=== PATIENT | male | born 1990 | race Caucasian/White ===

== ENCOUNTER 2020-03-14 07:26 | Outpatient (REF) | payer OTHER, SELFPAY ==
[2020-03-14 08:08] LABS: MANUAL DIFF FLAG NO
[2020-03-14 08:15] LABS: Basophils Absolute Auto 0.1 X10*3/uL (0.0-0.2); Basophils Percent Auto 0.7 % (0-2); Eosinophils Absolute Auto 0.1 X10*3/uL (0.0-0.4); Hematocrit 46.2 % (42-52); Hemoglobin 15.2 g/dl (14.0-18.0); Imm Gran Abs Auto 0.01 X10*3/uL (0.00-0.03); Imm Gran Pct Auto 0.1 % (0.0-0.4); Lymphocytes Absolute Auto 2.4 X10*3/uL (1.2-4.9); Lymphocytes Percent Auto 35.5 % (20-40); Mean Corpuscular HGB Conc 32.9 g/dl (31.0-36.0); Mean Corpuscular Hemoglobin 28.5 pg (27.0-33.0); Mean Corpuscular Volume 86.5 fL (80-98); Mean Platelet Volume 9.1 fL (9.4-12.4); Monocytes Absolute Auto 0.4 X10*3/uL (0.1-1.2); Monocytes Percent Auto 5.9 % (2-11); Neutrophils Absolute Auto 3.8 X10*3/uL (2.0-8.3); Neutrophils Percent Auto 56.8 % (45-73); Platelet Count 326 X10*3/uL (160-400); Red Blood Count 5.34 X10*6/uL (4.60-5.80); Red Cell Distribution Width 13.2 % (11.0-16.0); White Blood Count 6.8 X10*3/uL (4.8-10.8)
[2020-03-14 08:37] LABS: Alanine Aminotransferase 32 U/L (0-40); Albumin Level 3.8 g/dL (3.5-5.0); Alkaline Phosphatase 75 U/L (39-117); Anion Gap 10 (12-20); Aspartate Amino Transferase 21 U/L (5-37); Bilirubin Total 0.4 mg/dL (0.0-1.0); Blood Urea Nitrogen 16 mg/dL (9-16); Carbon Dioxide 26 mmol/L (22-29); Chloride 107 mmol/L (96-108); Cholesterol 133 mg/dL; Estimated Glomerular Filt Rate > 60; Glucose Random 105 mg/dL (60-115); HDL Cholesterol 39 mg/dL; LDL Cholesterol Calculated 84 mg/dl; Potassium 4.7 mmol/l (3.3-5.1); Sodium 138 mmol/L (135-145); Total Protein 6.7 g/dL (6.5-8.0); Triglycerides 51 mg/dL
[2020-03-14 08:43] LABS: Creatinine Urine 172.68 mg/dL; Microalbumin Urine < 5.0 mg/L
[2020-03-14 09:00] LABS: Free T4 (Free Thyroxine) 1.01 ng/dL (0.71-1.85)
[2020-03-14 09:57] LABS: Vitamin B12 566 pg/mL (200-900)
[2020-03-16 10:26] LABS: LDL Cholesterol Direct 84 mg/dL (<100)
== END 2020-03-14 07:27 | disposition home or self-care (01) ==
LOC: HO.LAB 07:26
PROVIDERS: PCP Internal Medicine; Visit Provider Internal Medicine Endocrinology, Diabetes & Metabolism
DX: E10.29 Type 1 diabetes mellitus with other diabetic kidney complication (principal)
CPT/HCPCS: 36415; 80053; 80061; 82043; 82607; 83721; 84439; 84443; 85025

== ENCOUNTER → 2020-04-25 13:13 | Outpatient (BNVA) | payer OTHER, SELFPAY | PROVIDERS: PCP Internal Medicine; Referring Provider Internal Medicine; Visit Provider Internal Medicine Endocrinology, Diabetes & Metabolism | DX: E10.649 Type 1 diabetes mellitus with hypoglycemia without coma (principal); Z79.84 Long term (current) use of oral hypoglycemic drugs; Z96.41 Presence of insulin pump (external) (internal); R80.9 Proteinuria, unspecified; K59.00 Constipation, unspecified; E78.5 Hyperlipidemia, unspecified; I10 Essential (primary) hypertension; E66.01 Morbid (severe) obesity due to excess calories; Z68.43 Body mass index [BMI] 50.0-59.9, adult | CPT/HCPCS: 82947; 99212 ==

== ENCOUNTER 2020-05-03 00:02 | Emergency (ER) | payer OTHER, SELFPAY ==
--- NOTE | 2020-05-03 00:19 | XR_ITS ---
EXAMINATION: XR RIBS, RIGHT CLINICAL INFORMATION: Right-sided pain COMPARISON: 08/28/2017 TECHNIQUE: 3 views of the right ribs were obtained. PA view of the chest. FINDINGS: Lungs are clear. No consolidation, pneumothorax, or pleural effusion. The cardiomediastinal silhouette and pulmonary vasculature are normal. Radiopaque device overlies the left lower hemithorax. Osseous structures are unremarkable. Ribs are intact. No fractures are identified. XR/XR ribs RT min 3V w CXR1V IMPRESSION: Clear lungs. No focal rib abnormality identified.
--- NOTE | 2020-05-03 00:20 | ED_ITS ---
HPI - Back Pain/Injury General Stated Complaint: Back pain Time Seen by Provider: 05/03/20 00:19 Source: patient Mode of arrival: ambulatory Limitations: no limitations History of Present Illness MD elicited complaint: back pain Onset (ago): day(s) (3) Timing: constant Severity: moderate Quality: aching Location: thoracic spine Radiation: none Exacerbating factors: movement and walking Relieving factors: none Context: unknown Associated symptoms: denies other symptoms Work related injury: No Related Data Home Medications Medication Instructions Recorded Confirmed blood sugar diagnostic #10 ea 04/25/20 04/25/20 insulin lispro 100 unit/mL 0 - 100 unit SUBCUT DAILY 04/25/20 04/25/20 subcutaneous solution levothyroxine 137 mcg tablet 137 mcg PO QAM 04/25/20 04/25/20 lisinopril 20 mg tablet 20 mg PO DAILY 04/25/20 04/25/20 metoprolol succinate 50 mg 50 mg PO DAILY 04/25/20 04/25/20 tablet,extended release 24 hr phentermine 15 mg capsule 15 mg PO DAILY 04/25/20 04/25/20 rosuvastatin 40 mg tablet 40 mg PO DAILY 04/25/20 04/25/20 semaglutide 1 mg/dose (2 mg/1.5 1 mg SUBCUT QWEEK 04/25/20 04/25/20 mL) subcutaneous pen injector topiramate 25 mg tablet 25 mg PO BID 04/25/20 04/25/20 Previous Rx's Medication Instructions Recorded sennosides 8.6 mg tablet 17.2 mg PO BEDTIME 30 Days #60 tab 05/01/20 diazepam [Valium] 5 mg PO TID PRN #10 tab 05/03/20 ibuprofen 400 mg PO TID PRN #30 tab 05/03/20 lidocaine 1 patch TOPICAL DAILY PRN #10 ea 05/03/20 Allergies Allergy/AdvReac Type Severity Reaction Status Date / Time No Known Allergies Allergy Unverified 02/23/20 17:08 [No Known Allergies*] pt states no food/medication Allergy Unknown Uncoded 01/18/20 00:00 a Review of Systems Review of Systems: Constitutional : No Weight loss, No Fever, No Chills, ENT/Mouth : No Hearing loss, No Ear Pain, No Nasal Congestion, No Sinus Pain, No Hoarseness, No sore throat, No Rhinorrhea, No Swallowing Difficulty Cardiovascular : No Chest Pain, No SOB Respiratory : No Cough, No Dyspnea Gastrointestinal : No Nausea, No Vomiting, No Diarrhea, No abdominal Pain, No Hematochezia, No Melena Genitourinary : No Dysuria, No Urinary Frequency, No Hematuria, No Urinary Incontinence, Musculoskeletal : positive back pain Skin : No Skin Lesions, No rash Neuro : No Weakness, No Numbness, No Paresthesias, no loss of bowel or bladder incontinence, no saddle anesthesia FOR[facility]LY [facility], [facility] Past Medical History Attestation statement: The following information was validated with the patient. Medical History Diabetes type 1, controlled Dyslipidemia Hypertension Microalbuminuria Morbid obesity Surgical History No pertinent past surgical history Family History Family History (Updated 04/25/20 @ 12:09 by MARY Bose) Father No problems noted. Mother Obesity Social History Social History Smoking Status: Never smoker Physical Exam Vital Signs: Appearance: Alert. Oriented X3. No acute distress. Eyes: Pupils equal, round and reactive to light. ENT: Pharynx normal. Neck: Normal inspection. Neck supple. CVS: Normal heart rate and rhythm. Pulses normal. Respiratory: No respiratory distress. Breath sounds normal. Abdomen: Soft and nontender. Back: ttp along R paraspinal muscles in thoracic area Skin: Skin warm and dry. Normal skin color. Normal skin turgor. Extremities: No lower extremity edema. No calf ttp Neuro: Oriented X 3. No motor deficit. No sensory deficit. SILT inner thigh MDM - Back Pain/Injury MDM Narrative Medical decision making narrative: 29 yo male with DM no AC therapy here with R sided paraspinal back pain no known trauma at this time will need xrays, MRs and pain control, patient has no cp/sob, no b/b incontinence, no saddle anesthesia no URI symptoms. Discharge Plan Discharge Clinical Impression: Back pain, thoracic Qualifiers: Chronicity: acute Back pain laterality: right Qualified Code(s): M54.6 - Pain in thoracic spine Patient Disposition: Home, Self-Care Instructions: Back Pain (ED) Additional Instructions: return to ED for any worsening symptoms or concerns Prescriptions: New lidocaine 4 % adhesive patch,medicated 1 patch topical DAILY PRN (Reason: pain) Qty: 10 RF: 0 diazepam [Valium] 5 mg tablet 5 mg PO TID PRN (Reason: muscle spasm) Qty: 10 RF: 0 ibuprofen 400 mg tablet 400 mg PO TID PRN (Reason: pain) Qty: 30 RF: 0 No Action sennosides [senna] 8.6 mg tablet 17.2 mg PO BEDTIME 30 Days Qty: 60 RF: 5 levothyroxine 137 mcg tablet 137 mcg PO QAM RF: 0 phentermine 15 mg capsule 15 mg PO DAILY RF: 0 topiramate 25 mg tablet 25 mg PO BID RF: 0 lisinopril 20 mg tablet 20 mg PO DAILY RF: 0 rosuvastatin 40 mg tablet 40 mg PO DAILY RF: 0 Ozempic 1 mg/dose (2 mg/1.5 mL) pen injector 1 mg subcut QWEEK RF: 0 insulin lispro 100 unit/mL solution 0 - 100 unit subcut DAILY RF: 0 (DME) FreeStyle Lite Strips Strip See Rx Instructions strip Not Applicable .MEDSUPPLY Qty: 10 RF: 0 metoprolol succinate 50 mg tablet extended release 24 hr 50 mg PO DAILY RF: 0 Referrals: Terra Sorenson MD [Primary Care Provider] - 5 days (if not better) Stand Alone Forms: Work/School Release
[2020-05-03 00:51] VITALS: BP 105/80; PULSE 103; RESP 16; TEMP 36.6; O2SAT 99; BMI 50.1
[2020-05-03] MEDS: Lidocaine 4 % Patch ADH..PATCH 1 PATCH TRANSDERMA (01:05)
[2020-05-03] MEDS: diazePAM 5 MG TABLET PO (01:07)
== END 2020-05-03 01:13 | disposition home or self-care (01) ==
LOC: HO.ED 00:45
PROVIDERS: Emergency Provider Emergency Medicine; PCP Internal Medicine
DX: M54.5 Low back pain (principal); M54.6 Pain in thoracic spine; I10 Essential (primary) hypertension; Z79.899 Other long term (current) drug therapy
CPT/HCPCS: 71101; 99283

== ENCOUNTER → 2020-08-02 14:23 | Outpatient (BNVA) | payer OTHER, SELFPAY | PROVIDERS: PCP Internal Medicine; Visit Provider Internal Medicine Endocrinology, Diabetes & Metabolism | DX: E10.649 Type 1 diabetes mellitus with hypoglycemia without coma (principal); R80.9 Proteinuria, unspecified; E78.5 Hyperlipidemia, unspecified; E66.01 Morbid (severe) obesity due to excess calories; I10 Essential (primary) hypertension | CPT/HCPCS: 82947; 99212 ==

== ENCOUNTER → 2020-11-08 13:45 | Outpatient (BNVA) | payer OTHER, SELFPAY | PROVIDERS: PCP Internal Medicine; Visit Provider Internal Medicine Endocrinology, Diabetes & Metabolism | DX: E10.649 Type 1 diabetes mellitus with hypoglycemia without coma (principal); E78.5 Hyperlipidemia, unspecified; E66.01 Morbid (severe) obesity due to excess calories; R80.9 Proteinuria, unspecified; I10 Essential (primary) hypertension | CPT/HCPCS: 82947; 99212 ==

== ENCOUNTER 2021-02-04 16:39 | Emergency (ER) | payer OTHER, SELFPAY ==
[2021-02-04 16:43] VITALS: BP 130/67; PULSE 98; RESP 18; TEMP 36.6; O2SAT 99; BMI 50.8
--- NOTE | 2021-02-04 18:21 | ED.BACK ---
HPI - Back Pain/Injury General Chief Complaint: Abdominal Pain Stated Complaint: Flank pain Time Seen by Provider: 02/04/21 18:17 Source: patient Mode of arrival: ambulatory Limitations: no limitations History of Present Illness HPI Narrative: 30-year-old male presents emergency room complaining of left upper back pain. Patient had been here previously for the same thing. Patient was concerned that his kidney stones he has no urinary symptoms urinary frequency or history of kidney stones. Patient states that got worse when he is lifting something. Patient is morbidly obese patient denies fevers denies cough denies nausea vomiting or diarrhea. Patient has not taken anything for the pain. He denies any allergies to medications. Related Data Home Medications Medication Instructions Recorded Confirmed blood sugar diagnostic #10 ea 04/25/20 01/22/21 Previous Rx's Medication Instructions Recorded sennosides 8.6 mg tablet (senna) 17.2 mg PO BEDTIME 30 Days #60 tab 05/01/20 ibuprofen 400 mg tablet 400 mg PO TID PRN #30 tab 05/03/20 docusate sodium 100 mg capsule 100 mg PO TID 90 Days #270 cap 05/28/20 (Colace) levothyroxine 137 mcg tablet 137 mcg PO QAM #90 tab 06/25/20 lisinopril 20 mg tablet 20 mg PO DAILY #90 tab 06/25/20 Humalog U-100 Insulin 100 unit/mL See Rx Instructions SUBCUT DAILY 11/08/20 subcutaneous solution (insulin 30 Days #40 ml NS lispro) rosuvastatin 40 mg tablet 40 mg PO DAILY #90 tab 11/08/20 topiramate 25 mg tablet 25 mg PO BID #180 tab 11/08/20 phentermine 30 mg capsule 30 mg PO DAILY 30 Days #30 cap 11/12/20 metoprolol succinate 50 mg 50 mg PO DAILY #90 tab 11/21/20 tablet,extended release 24 hr acetaminophen 650 mg 650 mg PO Q8H PRN 7 Days #21 tab 01/22/21 tablet,extended release cyclobenzaprine 5 mg tablet 5 mg PO TID PRN #30 tab 02/04/21 Allergies Allergy/AdvReac Type Severity Reaction Status Date / Time No Known Allergies Allergy Verified 01/22/21 08:09 [No Known Allergies*] Review of Systems Review of Systems: Review of systems: General: Patient denies any fever chills recent illness or falls Musculoskeletal: back pain he denies body aches or other injuries HEENT: denies headache, runny nose, ear pain Respiratory: denies shortness of breath, cough Cardiovascular: no chest pain or palpitations : denies dysuria, frequency Abdomen: no nausea vomiting denies abdominal pain Extremities: no swelling, no pain Skin: no diaphoresis Yes all other systems are reviewed and are negative PMFSH Past Medical History Medical History (Updated 02/04/21 @ 20:44 by Samuel Dash DO) Constipation by delayed colonic transit Diabetes type 1, controlled Dyslipidemia Hypertension Hypothyroidism Microalbuminuria Morbid obesity Surgical History No pertinent past surgical history Family History Family History Father No problems noted. Mother Obesity Social History Social History Housing: Apartment Alcohol intake: never Patient Tobacco Use Status: Never used Tobacco e-Cigarette/Vaping Use: Never Used Second Hand Smoke Exposure: No Advance Directives: No Advance Directives Information Provided: No service: No Current occupational status: unemployed Physical Exam Vital Signs: Vital Signs: Last Vital Signs Temp 98.2 F 02/04/21 19:06 Pulse 94 02/04/21 19:06 Resp 18 02/04/21 19:06 BP 134/69 02/04/21 19:06 Pulse Ox 99 02/04/21 19:06 Body Mass Index 50.8 General: Well-appearing well-nourished in no signs of distress HEENT: Normocephalic atraumatic Neck: No signs of JVD, no masses no tenderness or lymphadenopathy Cardiovascular: Regular rate and rhythm Respiratory: Clear to auscultation bilaterally Abdomen: Soft nontender no masses Extremities: Normal pedal pulses no signs of edema Skin: Dry warm no rashes Back: No tenderness full ROM negative straight leg test no rashes to explain his pain is 4 and motion normal strength his lower extremities upper extremities MDM - Back Pain/Injury MDM Narrative Medical decision making narrative: Patient presents with back strain worse after he lifted something I will give patient Toradol prednisone and Flexeril I will check labs including CBC BMP and urine. Labs other than urine were all normal. Patient looks well. Feeling better. UA sent and was negative for RBC's I will send home Lab Data Result diagrams: 02/04/21 19:11 02/04/21 19:11 Labs: Lab Results 02/04/21 02/04/21 02/04/21 Range/Units 19:11 19:11 20:26 WBC 7.7 (4.8-10.8) X10*3/uL RBC 4.71 (4.60-5.80) X10*6/uL Hgb 13.9 L (14.0-18.0) g/dl Hct 40.9 L (42-52) % MCV 86.8 (80-98) fL MCH 29.5 (27.0-33.0) pg MCHC 34.0 (31.0-36.0) g/dl RDW 12.7 (11.0-16.0) % Plt Count 267 (160-400) X10*3/uL MPV 8.9 L (9.4-12.4) fL Immature Gran % (Auto) 0.3 (0.0-0.4) % Neut % (Auto) 66.8 (45-73) % Lymph % (Auto) 24.3 (20-40) % [place] % (Auto) 6.6 (2-11) % Eos % (Auto) 1.4 (0-4) % Baso % (Auto) 0.6 (0-2) % Lymph # (Auto) 1.9 (1.2-4.9) X10*3/uL [place] # (Auto) 0.5 (0.1-1.2) X10*3/uL Eos # (Auto) 0.1 (0.0-0.4) X10*3/uL Baso # (Auto) 0.1 (0.0-0.2) X10*3/uL Abs Immat Gran (auto) 0.02 (0.00-0.03) X10*3/uL Absolute Neuts (auto) 5.2 (2.0-8.3) X10*3/uL Absolute Nucleated RBC 0.000 (0.0-0.012) X10*3/uL Nucleated RBC % (auto) 0.0 (0.0-0.2) /100WBC Sodium 141 (135-145) mmol/L Potassium 4.2 (3.3-5.1) mmol/L Chloride 110 H (96-108) mmol/L Carbon Dioxide 26 (22-29) mmol/L Anion Gap 9 L (12-20) BUN 17 H (9-16) mg/dL Creatinine 0.97 (0.5-1.4) mg/dL Estim Creat Clear Calc 170.1 Estimated GFR > 60 Random Glucose 106 (60-115) mg/dL Calcium 9.0 (8.4-10.2) mg/dL Urine Color YELLOW Urine Appearance CLEAR Urine pH 6.0 (5.0-8.0) Ur Specific [place] >= 1.030 H (1.005-1.025) Urine Protein NEG (NEG-TRACE) MG/DL Urine Glucose (UA) NEG (NEG) MG/DL Urine Ketones 5 (NEG) MG/DL Urine Blood NEG (NEG) Urine Nitrite NEG (NEG) Ur Leukocyte Esterase NEG (NEG) Discharge Plan Discharge Clinical Impression: Strain of thoracic back region Patient Disposition: Home, Self-Care Instructions: Muscle Strain (ED), Thoracic Back Strain (ED), Core Strengthening Exercises (ED) Additional Instructions: Your labs are all normal. Please take tylenol ibuprofen as needed for pain. You can also take flexeril at night. Please do not mix with alcohol or drive on flexril Prescriptions: New cyclobenzaprine 5 mg tablet 5 mg PO TID PRN (Reason: back pain) Qty: 30 RF: 0 No Action sennosides [senna] 8.6 mg tablet 17.2 mg PO BEDTIME 30 Days Qty: 60 RF: 5 docusate sodium [Colace] 100 mg capsule 100 mg PO TID 90 Days Qty: 270 RF: 0 levothyroxine 137 mcg tablet 137 mcg PO QAM Qty: 90 RF: 2 lisinopril 20 mg tablet 20 mg PO DAILY Qty: 90 RF: 2 phentermine 30 mg capsule 30 mg PO DAILY 30 Days Qty: 30 RF: 3 metoprolol succinate 50 mg tablet extended release 24 hr 50 mg PO DAILY Qty: 90 RF: 0 ibuprofen 400 mg tablet 400 mg PO TID PRN (Reason: pain) Qty: 30 RF: 0 acetaminophen 650 mg tablet extended release 650 mg PO Q8H PRN (Reason: pain) 7 Days Qty: 21 RF: 0 (DME) FreeStyle Lite Strips Strip See Rx Instructions strip Not Applicable .MEDSUPPLY Qty: 10 RF: 0 insulin lispro [Humalog U-100 Insulin] 100 unit/mL solution See Rx Instructions subcut DAILY 30 Days Qty: 40 RF: 6 rosuvastatin 40 mg tablet 40 mg PO DAILY Qty: 90 RF: 2 topiramate 25 mg tablet 25 mg PO BID Qty: 180 RF: 1
[2021-02-04 19:06] VITALS: BP 134/69; PULSE 94; RESP 18; TEMP 36.8; O2SAT 99
[2021-02-04] MEDS: Cyclobenzaprine HCl 10 MG TABLET PO (19:12)
[2021-02-04] MEDS: predniSONE 20 MG TABLET 60 MG PO (19:13)
[2021-02-04] MEDS: Ketorolac Tromethamine 15 MG/ML VIAL IM (19:13)
[2021-02-04 19:21] LABS: MANUAL DIFF FLAG NO
[2021-02-04 19:25] LABS: Basophils Absolute Auto 0.1 X10*3/uL (0.0-0.2); Basophils Percent Auto 0.6 % (0-2); Eosinophils Absolute Auto 0.1 X10*3/uL (0.0-0.4); Eosinophils Percent Auto 1.4 % (0-4); Hematocrit 40.9 % (42-52); Hemoglobin 13.9 g/dl (14.0-18.0); Imm Gran Abs Auto 0.02 X10*3/uL (0.00-0.03); Imm Gran Pct Auto 0.3 % (0.0-0.4); Lymphocytes Absolute Auto 1.9 X10*3/uL (1.2-4.9); Lymphocytes Percent Auto 24.3 % (20-40); Mean Corpuscular Hemoglobin 29.5 pg (27.0-33.0); Mean Corpuscular Volume 86.8 fL (80-98); Mean Platelet Volume 8.9 fL (9.4-12.4); Monocytes Absolute Auto 0.5 X10*3/uL (0.1-1.2); Monocytes Percent Auto 6.6 % (2-11); Neutrophils Absolute Auto 5.2 X10*3/uL (2.0-8.3); Neutrophils Percent Auto 66.8 % (45-73); Platelet Count 267 X10*3/uL (160-400); Red Blood Count 4.71 X10*6/uL (4.60-5.80); Red Cell Distribution Width 12.7 % (11.0-16.0); White Blood Count 7.7 X10*3/uL (4.8-10.8)
[2021-02-04 19:41] LABS: Anion Gap 9 (12-20); Blood Urea Nitrogen 17 mg/dL (9-16); Carbon Dioxide 26 mmol/L (22-29); Chloride 110 mmol/L (96-108); Creatinine Clr Calc Pharmacy 170.1; Estimated Glomerular Filt Rate > 60; Glucose Random 106 mg/dL (60-115); Potassium 4.2 mmol/L (3.3-5.1); Sodium 141 mmol/L (135-145)
[2021-02-04 20:37] LABS: Appearance Urine CLEAR; Color Urine YELLOW; Glucose Urine UA NEG (NEG); Leukocyte Esterase Urine NEG (NEG); Nitrite Urine NEG (NEG); Specific Gravity - Urine >= 1.030 (1.005-1.025); Urine Blood NEG (NEG); Urine Ketones 5 MG/DL (NEG); Urine Protein NEG (NEG-TRACE)
== END 2021-02-04 20:52 | disposition home or self-care (01) ==
PROVIDERS: Emergency Provider Student in an Organized Health Care Education/Training Program; PCP Internal Medicine
DX: S29.012A Strain of muscle and tendon of back wall of thorax, initial encounter (principal); M54.6 Pain in thoracic spine; X58.XXXA Exposure to other specified factors, initial encounter; Y93.9 Activity, unspecified; Y92.9 Unspecified place or not applicable; Y99.9 Unspecified external cause status; Z79.899 Other long term (current) drug therapy
CPT/HCPCS: 36415; 80048; 81003; 85025; 96372; 99284; J1885

== ENCOUNTER → 2021-02-13 10:13 | Outpatient (BNVA) | payer OTHER, SELFPAY | PROVIDERS: PCP Internal Medicine; Visit Provider Internal Medicine | DX: E10.649 Type 1 diabetes mellitus with hypoglycemia without coma (principal); E78.5 Hyperlipidemia, unspecified; I10 Essential (primary) hypertension; E03.9 Hypothyroidism, unspecified; E04.9 Nontoxic goiter, unspecified; E66.01 Morbid (severe) obesity due to excess calories | CPT/HCPCS: 82947; 83036; 99212 ==

== ENCOUNTER 2021-02-15 09:26 | Outpatient (REF) | payer OTHER, SELFPAY ==
[2021-02-15 10:55] LABS: Estimated Average Glucose 148 mg/dL; Hemoglobin A1c % 6.8 %
[2021-02-15 10:59] LABS: Creatinine Urine 206.91 mg/dL; Microalbum/Creatinine Ratio Ur 2.8 ug/mg cr
[2021-02-15 10:59] LABS: Alanine Aminotransferase 33 U/L (0-40); Albumin Level 3.8 g/dL (3.5-5.0); Alkaline Phosphatase 82 U/L (39-117); Anion Gap 11 (12-20); Aspartate Amino Transferase 22 U/L (5-37); Bilirubin Total 0.8 mg/dL (0.0-1.0); Blood Urea Nitrogen 16 mg/dL (9-16); Calcium 9.2 mg/dL (8.4-10.2); Carbon Dioxide 24 mmol/L (22-29); Chloride 108 mmol/L (96-108); Cholesterol 137 mg/dL; Estimated Glomerular Filt Rate > 60; Glucose Fasting 68 mg/dL (60-99); HDL Cholesterol 40 mg/dL; LDL Cholesterol Calculated 86 mg/dl; Sodium 139 mmol/L (135-145); Total Protein 6.8 g/dL (6.5-8.0); Triglycerides 59 mg/dL
[2021-02-19 04:37] LABS: LDL Cholesterol Direct 92 mg/dL (<100)
[2021-02-20 14:46] LABS: Vitamin D 25-OH, D2 <4 ng/mL; Vitamin D 25-OH, D3 14 ng/mL; Vitamin D 25-OH, Total 14 ng/mL (30-100)
[2021-02-21 21:31] LABS: Glutamic acid decarboxylase Ab <5 IU/mL (<5)
[2021-02-22 18:47] LABS: Insulinoma associated 2 aatb 97.5 U/mL (<5.4)
[2021-02-24 23:27] LABS: Islet Cell Antibody Screen NEGATIVE (NEGATIVE)
== END 2021-02-15 09:27 | disposition home or self-care (01) ==
LOC: HO.10HDL 09:26
PROVIDERS: Absent Provider Internal Medicine; Visit Provider Internal Medicine
DX: E78.5 Hyperlipidemia, unspecified (principal); E10.649 Type 1 diabetes mellitus with hypoglycemia without coma; E55.9 Vitamin D deficiency, unspecified; E04.9 Nontoxic goiter, unspecified; E03.9 Hypothyroidism, unspecified
CPT/HCPCS: 36415; 80053; 80061; 82043; 82306; 83036; 83525; 83721; 84443; 84681; 86255; 86341

== ENCOUNTER 2021-03-28 09:47 | Outpatient (REF) | payer OTHER, SELFPAY ==
--- NOTE | ~2021-03-28 | US_ITS ---
EXAMINATION: US THYROID CLINICAL INFORMATION: Nontoxic goiter COMPARISON: None TECHNIQUE: Linear transducer guillaume-scale and color Doppler examination with attention to the region of the thyroid. FINDINGS: SIZE: Measurements of the thyroid lobes and nodules are given in sagittal, anteroposterior and transverse dimensions respectively. Right Thyroid Lobe: 4.5 x 1.8 x 1.5 cm, volume 6.4 mL. Parenchyma: The gland echotexture is homogeneous. Thyroid vascularity is normal. Left Thyroid Lobe: 4.0 x 1.2 x 1.1 cm, volume 2.7 mL. Parenchyma: The gland echotexture is homogeneous. Thyroid vascularity is normal. Isthmus: 0.2 cm in maximum AP dimension. Estimated total number of nodules greater than or equal to 1 cm: 0. [employer] nodules are described as follows: 1. Location: Left mid lower. Size: 0.3 x 0.3 x 0.3 cm, volume 0.02 mL. Nodule characteristics: Composition: Solid (2). Echogenicity: Hypoechoic (2). Shape: Not taller than wide (0). Margins: Smooth (0). Echogenic Foci: None (0). ACR TI-RADS total points: 4 ACR TI-RADS category: 4 NODES: No lymphadenopathy is seen in the tissue surrounding the thyroid gland. US/US thyroid IMPRESSION: Solitary small left nodule. ACR TI-RADS RECOMMENDATION REFERENCE: Ultrasound-guided fine-needle aspiration, followup ultrasound, no further follow up. * TR1 (0 point) and TR 2 (2 points): No FNA or follow up * TR3 (3 points): FNA if more than or equal to 2.5 cm in maximum dimension, followup ultrasound in 1, 3 and 5 years if 1.5 to 2.4 cm in maximum dimension. * TR4 (4-6 points): FNA if more than or equal to 1.5 cm in maximum dimension, followup ultrasound in 1, 2, 3 and 5 years if 1 to 1.4 cm in maximum dimension. * TR5 (more than or equal to 7 points): FNA if more than or equal to 1 cm in maximum dimension, followup ultrasound every year for 5 years if 0.5 to 0.9 cm in maximum dimension. * TR3, TR4 or TR5 nodules that are below the size threshold for follow up receive no follow up.
== END 2021-03-28 09:48 | disposition home or self-care (01) ==
LOC: HO.US 09:47
PROVIDERS: Visit Provider Internal Medicine
DX: E04.9 Nontoxic goiter, unspecified (principal)
CPT/HCPCS: 76536

== ENCOUNTER → 2021-04-12 13:51 | Outpatient (BNVA) | payer OTHER, SELFPAY | PROVIDERS: PCP Internal Medicine; Visit Provider Registered Nurse Diabetes Educator | DX: E10.649 Type 1 diabetes mellitus with hypoglycemia without coma (principal) | CPT/HCPCS: 99211 ==

== ENCOUNTER → 2021-04-24 12:21 | Outpatient (BNVA) | payer OTHER, SELFPAY | PROVIDERS: PCP Internal Medicine; Visit Provider Dietitian, Registered | DX: E10.649 Type 1 diabetes mellitus with hypoglycemia without coma (principal) | CPT/HCPCS: 97802 ==

== ENCOUNTER → 2021-05-14 12:18 | Outpatient (BNVA) | payer OTHER, SELFPAY | PROVIDERS: PCP Internal Medicine; Visit Provider Registered Nurse Diabetes Educator | DX: E10.649 Type 1 diabetes mellitus with hypoglycemia without coma (principal); Z79.4 Long term (current) use of insulin | CPT/HCPCS: 99211 ==

== ENCOUNTER → 2021-06-21 10:33 | Outpatient (BNVA) | payer OTHER, SELFPAY | PROVIDERS: PCP Internal Medicine; Visit Provider Nurse Practitioner Gerontology | DX: E10.649 Type 1 diabetes mellitus with hypoglycemia without coma (principal); E78.5 Hyperlipidemia, unspecified; E03.9 Hypothyroidism, unspecified; E04.9 Nontoxic goiter, unspecified; E66.01 Morbid (severe) obesity due to excess calories; I10 Essential (primary) hypertension; Z68.43 Body mass index [BMI] 50.0-59.9, adult; Z79.4 Long term (current) use of insulin | CPT/HCPCS: 82947; 99212 ==

== ENCOUNTER → 2021-07-23 10:54 | Outpatient (BNVA) | payer OTHER, SELFPAY | PROVIDERS: PCP Internal Medicine; Visit Provider Dietitian, Registered | DX: E10.649 Type 1 diabetes mellitus with hypoglycemia without coma (principal) | CPT/HCPCS: 97803 ==

== ENCOUNTER 2021-08-06 09:19 | Outpatient (REF) | payer OTHER, SELFPAY ==
[2021-08-06 10:46] LABS: Alanine Aminotransferase 22 U/L (0-40); Albumin Level 3.4 g/dL (3.5-5.0); Alkaline Phosphatase 71 U/L (39-117); Anion Gap 9 (12-20); Aspartate Amino Transferase 17 U/L (5-37); Bilirubin Total 0.3 mg/dL (0.0-1.0); Blood Urea Nitrogen 16 mg/dL (9-16); Calcium 8.7 mg/dL (8.4-10.2); Carbon Dioxide 27 mmol/L (22-29); Chloride 106 mmol/L (96-108); Cholesterol 139 mg/dL; Estimated Glomerular Filt Rate > 60; Glucose Random 132 mg/dL (60-115); HDL Cholesterol 41 mg/dL; LDL Cholesterol Calculated 88 mg/dl; Potassium 3.9 mmol/L (3.3-5.1); Sodium 138 mmol/L (135-145); Total Protein 6.1 g/dL (6.5-8.0); Triglycerides 52 mg/dL
[2021-08-06 11:03] LABS: Free T4 (Free Thyroxine) 0.83 ng/dL (0.71-1.85)
== END 2021-08-06 09:20 | disposition home or self-care (01) ==
LOC: HO.10HDL 09:19
PROVIDERS: Absent Provider Internal Medicine; Visit Provider Internal Medicine
DX: E10.649 Type 1 diabetes mellitus with hypoglycemia without coma (principal); E03.9 Hypothyroidism, unspecified
CPT/HCPCS: 36415; 80053; 80061; 84439; 84443

== ENCOUNTER → 2021-09-19 10:22 | Outpatient (BNVA) | payer OTHER, SELFPAY | PROVIDERS: PCP Internal Medicine; Visit Provider Nurse Practitioner Gerontology | DX: E10.649 Type 1 diabetes mellitus with hypoglycemia without coma (principal); E78.5 Hyperlipidemia, unspecified; E03.9 Hypothyroidism, unspecified; E66.01 Morbid (severe) obesity due to excess calories; I10 Essential (primary) hypertension; E04.9 Nontoxic goiter, unspecified; Z68.43 Body mass index [BMI] 50.0-59.9, adult; Z96.41 Presence of insulin pump (external) (internal); Z79.4 Long term (current) use of insulin | CPT/HCPCS: 82947; 83036; 99212 ==

== ENCOUNTER 2021-11-15 12:16 | Emergency (ER) | payer OTHER, SELFPAY ==
--- NOTE | 2021-11-15 | ECG_ITS ---
Test Reason : cp Blood Pressure : / mmHG Vent. Rate : 086 BPM Atrial Rate : 086 BPM P-R Int : 144 ms QRS Dur : 076 ms QT Int : 334 ms P-R-T Axes : 045 072 036 degrees QTc Int : 399 ms Normal sinus rhythm Normal ECG When compared with ECG of 09-DEC-2018 20:53, Nonspecific T wave abnormality no longer evident in Lateral leads Referred By: Generic ED Physician Electronically Signed By:MYRON CHAND
--- NOTE | ~2021-11-15 | XR_ITS ---
EXAMINATION: XR CHEST CLINICAL INFORMATION: Chest pain COMPARISON: #2019 TECHNIQUE: AP portable view of the chest was obtained. FINDINGS: There are small lung volumes bilaterally. There is no evidence of acute parenchymal disease, pneumothorax, or pleural effusion. Heart normal size. No evidence of pulmonary edema. XR/XR chest 1V IMPRESSION: No acute disease.
[2021-11-15 12:21] VITALS: BP 123/66; PULSE 95; RESP 18; TEMP 36.8; O2SAT 95; BMI 55.6
--- NOTE | 2021-11-15 16:58 | ED_ITS ---
HPI - Chest Pain General Chief Complaint: Chest Pain Stated Complaint: chest pain Time Seen by Provider: 11/15/21 16:43 Source: patient and family (Mother) Mode of arrival: ambulatory Limitations: no limitations History of Present Illness HPI narrative: 31-year-old male came in for evaluation of chest pain. Mid chest pain started since yesterday, described as intermittent mid chest pain, dull aching, intermittent, moderate in severity 12/15, increased with movement or touching the mid of the chest, decreased sits still, not affected by exertion. No recent trauma to the chest, no recent travel, no recent prolonged immobilization, no shortness of breath, no fever, no chills, no coughing, no lower extremity swelling or tenderness. Related Data Home Medications Medication Instructions Recorded Confirmed blood sugar diagnostic #10 ea 04/25/20 11/08/21 insulin pump cart,cont inf,BT #5 ea 09/19/21 11/08/21 (Omnipod Dash Pods (Gen 4)) Previous Rx's Medication Instructions Recorded rosuvastatin 40 mg tablet 40 mg PO DAILY #90 tabs 11/08/20 acetaminophen 650 mg 650 mg PO Q8H PRN pain 7 days #21 03/11/21 tablet,extended release tabs cholecalciferol (vitamin D3) 50 50 mcg PO DAILY #30 caps 06/21/21 mcg (2,000 unit) capsule lisinopril 20 mg tablet 20 mg PO DAILY #90 tabs 09/09/21 levothyroxine 137 mcg tablet 137 mcg PO QAM #90 tabs 09/10/21 insulin lispro 100 unit/mL 100 unit subcut DAILY 30 days #40 09/17/21 subcutaneous solution mL insulin syringe-needle U-100 1/2 #100 ea 09/17/21 mL 31 gauge x 15/64 (BD Veo Insulin Syringe Ultra-Fine) pen needle, diabetic 32 gauge x #100 ea 09/19/21/32 (BD Ultra-Fine Citlaly Pen Needle) pramlintide 1,500 mcg/1.5 mL 30 mcg (0.03 mL) subcut BID #3 mL 09/20/21 subcutaneous pen injector (SymlinPen 60) melatonin 10 mg tablet 10 mg PO BEDTIME PRN sleep 30 days 10/04/21 #30 tabs metoprolol succinate 50 mg 50 mg PO DAILY #90 tabs 11/12/21 tablet,extended release 24 hr Allergies Allergy/AdvReac Type Severity Reaction Status Date / Time No Known Allergies Allergy Verified 11/15/21 12:21 [No Known Allergies*] Review of Systems Review of Systems: All other systems are reviewed and are negative Constitutional: Reports as per HPI and Reports no additional constitutional com plaints Eyes: Reports as per HPI and Reports no additional eye complaints Reports system reviewed and no additional complaints, except as documented Cardiovascular: Reports as per HPI and Reports no additional cardiovascular complaints Respiratory: Reports as per HPI and Reports no additional respiratory complaints Gastrointestinal: Reports as per HPI and Reports no additional gastrointestinal complaints Genitourinary: Reports no additional female genitourinary complaints Musculoskeletal: Reports no additional musculoskeletal complaints Skin/Breast: Reports system reviewed and no additional complaints, except as docu Psychiatric: Reports no additional psychiatric complaints Endocrine: Reports no additional endocrine complaints Hematologic/Lymphatic: Reports no additional hematologic/lymphatic complaints Allergic/Immunologic: Reports no additional allergic/immunologic complaints Reports system reviewed and no additional complaints, except as documented and Reports Abnormal speech present [facility] Past Medical History Medical History Constipation by delayed colonic transit Diabetes type 1, controlled Dyslipidemia NATALIO (generalized anxiety disorder) Goiter HLD (hyperlipidemia) Hypertension Hypothyroidism Microalbuminuria Morbid obesity Obesity due to excess calories Surgical History No pertinent past surgical history Family History Family History Father No problems noted. Mother Obesity Social History Social History Housing: Apartment Alcohol intake: never Patient Tobacco Use Status: Never used Tobacco e-Cigarette/Vaping Use: Never Used Second Hand Smoke Exposure: No Advance Directives: No Advance Directives Information Provided: No service: No Current occupational status: unemployed Cognitive needs: No Hearing needs: No Vision needs: No Physical Exam Vital Signs: Vital Signs: Last Vital Signs Temp 98.3 F 11/15/21 12:21 Pulse 95 11/15/21 12:21 Resp 18 11/15/21 12:21 BP 123/66 11/15/21 12:21 Pulse Ox 95 11/15/21 12:21 O2 Del Method 11/15/21 12:21 BMI result Body Mass Index 55.6 Vital signs have been reviewed as appeared to be correct. Blood pressure normal. Heart rate normal. Respiration rate normal. Temperature normal. Oxygen saturation normal. Appearance: Alert. Oriented X3. No acute distress. Head: Normal external exam. Normocephalic. Atraumatic. No Valera signs noted. No raccoon eyes noted Eyes: PERRLA. EOMI. Conjunctiva and sclera normal. Eyelids normal. ENT: TM's Normal. Pharynx normal. Uvula midline. Moist mucous membranes. No trismus noted. No drooling noted. No muffled voice noted. Neck: Normal inspection. Neck supple. FROM. No adenopathy. Thyroid Normal. No meningeal signs. No neck mass noted. CVS: Normal heart rate and rhythm. Heart sound normal. No murmurs noted. Pulses normal throughout. Respiratory: No respiratory distress. Painless inspiration. Breath sounds normal. No wheezes/rales/rhonchi noted. Reproducible tenderness over lower 3rd of sternum, no redness, no hotness, no step-off, deformity.. No accessory muscle usage noted or decreased air movement noted. Abdomen: Soft and nontender. Bowel sounds normal in all 4 quadrants. No distention noted. No organomegaly noted. No visible injury noted. Back: No CVA tenderness. Full range of motion noted. Skin: Skin warm and dry. Normal skin color. Normal skin turgor. No rashes/lesions/lacerations noted. Extremities: No lower extremity edema. Extremities exhibit normal range of motion. Extremities nontender. Neuro: Oriented X 3. Cranial nerve exam: II-XII are grossly intact No motor deficit. No sensory deficit. Reflexes normal. Course Course Course Narrative: Assessment and plan. 31-year-old male came in with mid chest pain with no radiation since yesterday greater than 24 hours ago, on the physical exam pain is reproducible over the lower sternum, patient with HEART score of 2, low risk for PE with negative D- dimer. Will reassure the patient and mother use NSAIDs p.r.n. pain. MDM - Chest Pain Lab Data Attestation: I reviewed the patient's lab results. Result diagrams: 11/15/21 17:08 11/15/21 17:08 Labs: Lab Results 11/15/21 11/15/21 11/15/21 Range/Units 17:08 17:08 17:08 WBC 5.8 (4.8-10.8) X10*3/uL RBC 5.20 (4.60-5.80) X10*6/uL Hgb 15.2 (14.0-18.0) g/dl Hct 45.7 (42.0-52.0) % MCV 87.9 (80.0-98.0) fL MCH 29.2 (27.0-33.0) pg MCHC 33.3 (31.0-36.0) g/dl RDW 12.4 (11.0-16.0) % Plt Count 246 (160-400) X10*3/uL MPV 9.4 (9.4-12.4) fL Immature Gran % (Auto) 0.5 H (0.0-0.4) % Neut % (Auto) 57.5 (45-73) % Lymph % (Auto) 33.4 (20-40) % [place] % (Auto) 5.8 (2-11) % Eos % (Auto) 2.1 (0-4) % Baso % (Auto) 0.7 (0-2) % Lymph # (Auto) 2.0 (1.2-4.9) X10*3/uL [place] # (Auto) 0.3 (0.1-1.2) X10*3/uL Eos # (Auto) 0.1 (0.0-0.4) X10*3/uL Baso # (Auto) 0.0 (0.0-0.2) X10*3/uL Abs Immat Gran (auto) 0.03 (0.00-0.03) X10*3/uL Absolute Neuts (auto) 3.4 (2.0-8.3) x10*3/uL Absolute Nucleated RBC 0.000 (0.0-0.012) X10*3/uL Nucleated RBC % (auto) 0.0 (0.0-0.2) /100WBC D-Dimer High Sensitivty < 150 NG/ML Sodium 139 (135-145) mmol/L Potassium 4.2 (3.3-5.1) mmol/L Chloride 105 (96-108) mmol/L Carbon Dioxide 27 (22-29) mmol/L Anion Gap 11 L (12-20) BUN 13 (9-16) mg/dL Creatinine 0.93 (0.5-1.4) mg/dL Estim Creat Clear Calc 191.3 Estimated GFR > 60 Random Glucose 168 H (60-115) mg/dL Calcium 8.7 (8.4-10.2) mg/dL Total Bilirubin 0.7 (0.0-1.0) mg/dL Direct Bilirubin 0.3 (0.0-0.5) mg/dL AST 23 (5-37) U/L ALT 37 (0-40) U/L Alkaline Phosphatase 75 (39-117) U/L Troponin I High Sens (<3.5-35.0) ng/L B-Natriuretic Peptide (<100) pg/mL Total Protein 7.0 (6.5-8.0) g/dL Albumin 4.0 (3.5-5.0) g/dL Lipase 10 (8-78) U/L 11/15/21 Range/Units 17:08 WBC (4.8-10.8) X10*3/uL RBC (4.60-5.80) X10*6/uL Hgb (14.0-18.0) g/dl Hct (42.0-52.0) % MCV (80.0-98.0) fL MCH (27.0-33.0) pg MCHC (31.0-36.0) g/dl RDW (11.0-16.0) % Plt Count (160-400) X10*3/uL MPV (9.4-12.4) fL Immature Gran % (Auto) (0.0-0.4) % Neut % (Auto) (45-73) % Lymph % (Auto) (20-40) % [place] % (Auto) (2-11) % Eos % (Auto) (0-4) % Baso % (Auto) (0-2) % Lymph # (Auto) (1.2-4.9) X10*3/uL [place] # (Auto) (0.1-1.2) X10*3/uL Eos # (Auto) (0.0-0.4) X10*3/uL Baso # (Auto) (0.0-0.2) X10*3/uL Abs Immat Gran (auto) (0.00-0.03) X10*3/uL Absolute Neuts (auto) (2.0-8.3) x10*3/uL Absolute Nucleated RBC (0.0-0.012) X10*3/uL Nucleated RBC % (auto) (0.0-0.2) /100WBC D-Dimer High Sensitivty NG/ML Sodium (135-145) mmol/L Potassium (3.3-5.1) mmol/L Chloride (96-108) mmol/L Carbon Dioxide (22-29) mmol/L Anion Gap (12-20) BUN (9-16) mg/dL Creatinine (0.5-1.4) mg/dL Estim Creat Clear Calc Estimated GFR Random Glucose (60-115) mg/dL Calcium (8.4-10.2) mg/dL Total Bilirubin (0.0-1.0) mg/dL Direct Bilirubin (0.0-0.5) mg/dL AST (5-37) U/L ALT (0-40) U/L Alkaline Phosphatase (39-117) U/L Troponin I High Sens 3.5 (<3.5-35.0) ng/L B-Natriuretic Peptide 22 (<100) pg/mL Total Protein (6.5-8.0) g/dL Albumin (3.5-5.0) g/dL Lipase (8-78) U/L Imaging Data Chest x-ray: Attestation: I personally reviewed and interpreted this imaging study as follows: Radiologist's impression: No acute pathology. ECG Data ECG #1: Attestation: I personally reviewed and interpreted this ECG as follows: Interpretation: Normal sinus rhythm at 86 beats per minute, normal axis deviation, normal intervals, no ST-T changes. Discharge Plan Discharge Clinical Impression: Costalchondritis Patient Disposition: Home, Self-Care Instructions: Costochondritis (ED) Prescriptions: No Action acetaminophen 650 mg tablet extended release 650 mg PO Q8H PRN (Reason: pain) 7 Days Qty: 21 0RF lisinopril 20 mg tablet 20 mg PO DAILY Qty: 90 1RF levothyroxine 137 mcg tablet 137 mcg PO QAM Qty: 90 0RF insulin lispro 100 unit/mL solution 100 unit subcut DAILY 30 Days Qty: 40 8RF Rx Instructions: via pump (DME) insulin syringe-needle U-100 [BD Veo Insulin Syringe UF] 1/2 mL 31 gauge x 15/64 syringe See Rx Instructions .Route Qty: 100 11RF Rx Instructions: As directed once daily SymlinPen 60 1,500 mcg/1.5 mL pen injector 30 mcg subcut BID Qty: 3 6RF melatonin 10 mg tablet 10 mg PO BEDTIME PRN (Reason: sleep) 30 Days Qty: 30 0RF metoprolol succinate 50 mg tablet extended release 24 hr 50 mg PO DAILY Qty: 90 1RF (DME) FreeStyle Lite Strips Strip See Rx Instructions Not Applicable .MEDSUPPLY Qty: 10 Rx Instructions: As directed cholecalciferol (vitamin D3) 50 mcg (2,000 unit) capsule 50 mcg PO DAILY Qty: 30 11RF Rx Instructions: Start after Vitamin D3 50,000 weekly for 6 weeks. rosuvastatin 40 mg tablet 40 mg PO DAILY Qty: 90 2RF (DME) Omnipod Dash Pods (Gen 4) Cartridge See Rx Instructions subcut .MEDSUPPLY Qty: 5 Rx Instructions: As directed (DME) pen needle, diabetic [BD Ultra-Fine Citlaly Pen Needle] 32 gauge x 5/32 needle See Rx Instructions .ROUTE .MEDSUPPLY Qty: 100 3RF Rx Instructions: As directed twice daily Referrals: Terra Sorenson MD [Primary Care Provider] -
[2021-11-15 17:14] LABS: MANUAL DIFF FLAG NO
[2021-11-15 17:36] LABS: Basophils Percent Auto 0.7 % (0-2); Eosinophils Absolute Auto 0.1 X10*3/uL (0.0-0.4); Eosinophils Percent Auto 2.1 % (0-4); Hematocrit 45.7 % (42.0-52.0); Hemoglobin 15.2 g/dl (14.0-18.0); Imm Gran Abs Auto 0.03 X10*3/uL (0.00-0.03); Imm Gran Pct Auto 0.5 % (0.0-0.4); Lymphocytes Percent Auto 33.4 % (20-40); Mean Corpuscular HGB Conc 33.3 g/dl (31.0-36.0); Mean Corpuscular Hemoglobin 29.2 pg (27.0-33.0); Mean Corpuscular Volume 87.9 fL (80.0-98.0); Mean Platelet Volume 9.4 fL (9.4-12.4); Monocytes Absolute Auto 0.3 X10*3/uL (0.1-1.2); Monocytes Percent Auto 5.8 % (2-11); Neutrophils Absolute Auto 3.4 x10*3/uL (2.0-8.3); Neutrophils Percent Auto 57.5 % (45-73); Platelet Count 246 X10*3/uL (160-400); Red Cell Distribution Width 12.4 % (11.0-16.0); White Blood Count 5.8 X10*3/uL (4.8-10.8)
[2021-11-15 17:40] LABS: D Dimer High Sensitivity < 150 NG/ML
[2021-11-15 17:46] LABS: Alanine Aminotransferase 37 U/L (0-40); Alkaline Phosphatase 75 U/L (39-117); Anion Gap 11 (12-20); Aspartate Amino Transferase 23 U/L (5-37); Bilirubin Direct 0.3 mg/dL (0.0-0.5); Bilirubin Total 0.7 mg/dL (0.0-1.0); Blood Urea Nitrogen 13 mg/dL (9-16); Calcium 8.7 mg/dL (8.4-10.2); Carbon Dioxide 27 mmol/L (22-29); Chloride 105 mmol/L (96-108); Creatinine Clr Calc Pharmacy 191.3; Estimated Glomerular Filt Rate > 60; Glucose Random 168 mg/dL (60-115); Lipase 10 U/L (8-78); Potassium 4.2 mmol/L (3.3-5.1); Sodium 139 mmol/L (135-145)
[2021-11-15 17:52] LABS: B Type Natriuretic Peptide 22 pg/mL (<100); Troponin-I High Sensitivity 3.5 ng/L (<3.5-35.0)
== END 2021-11-15 21:39 | disposition home or self-care (01) ==
PROVIDERS: Emergency Provider Emergency Medicine; PCP Internal Medicine
DX: M94.0 Chondrocostal junction syndrome [Tietze] (principal); E10.9 Type 1 diabetes mellitus without complications; I10 Essential (primary) hypertension
CPT/HCPCS: 36415; 71045; 80048; 80076; 83690; 83880; 84484; 85025; 85379; 93005; 99283

== ENCOUNTER 2021-11-25 09:56 | Outpatient (REF) | payer OTHER, SELFPAY ==
[2021-11-25 10:18] LABS: MANUAL DIFF FLAG NO
[2021-11-25 10:42] LABS: Basophils Absolute Auto 0.1 X10*3/uL (0.0-0.2); Basophils Percent Auto 0.9 % (0-2); Eosinophils Absolute Auto 0.1 X10*3/uL (0.0-0.4); Eosinophils Percent Auto 1.9 % (0-4); Hematocrit 45.5 % (42.0-52.0); Imm Gran Abs Auto 0.01 X10*3/uL (0.00-0.03); Imm Gran Pct Auto 0.2 % (0.0-0.4); Lymphocytes Percent Auto 35.2 % (20-40); Mean Corpuscular Hemoglobin 28.7 pg (27.0-33.0); Mean Corpuscular Volume 87.2 fL (80.0-98.0); Mean Platelet Volume 9.5 fL (9.4-12.4); Monocytes Absolute Auto 0.4 X10*3/uL (0.1-1.2); Monocytes Percent Auto 6.7 % (2-11); Neutrophils Absolute Auto 3.2 x10*3/uL (2.0-8.3); Neutrophils Percent Auto 55.1 % (45-73); Platelet Count 259 X10*3/uL (160-400); Red Blood Count 5.22 X10*6/uL (4.60-5.80); Red Cell Distribution Width 12.4 % (11.0-16.0); White Blood Count 5.8 X10*3/uL (4.8-10.8)
[2021-11-25 11:22] LABS: TSH reflex Free T4 1.74 uIU/mL (0.32-4.0)
[2021-11-25 11:23] LABS: Creatinine Urine 85.84 mg/dL; Microalbumin Urine < 5.0 mg/L
[2021-11-25 11:25] LABS: Alanine Aminotransferase 61 U/L (0-40); Albumin Level 3.8 g/dL (3.5-5.0); Alkaline Phosphatase 71 U/L (39-117); Anion Gap 10 (12-20); Aspartate Amino Transferase 27 U/L (5-37); Bilirubin Total 0.6 mg/dL (0.0-1.0); Blood Urea Nitrogen 12 mg/dL (9-16); Calcium 8.7 mg/dL (8.4-10.2); Carbon Dioxide 27 mmol/L (22-29); Chloride 107 mmol/L (96-108); Cholesterol 120 mg/dL; Estimated Glomerular Filt Rate > 60; Glucose Fasting 129 mg/dL (60-99); HDL Cholesterol 41 mg/dL; LDL Cholesterol Calculated 72 mg/dl; Potassium 4.4 mmol/L (3.3-5.1); Sodium 140 mmol/L (135-145); Total Protein 6.6 g/dL (6.5-8.0); Triglycerides 36 mg/dL
== END 2021-11-25 09:57 | disposition home or self-care (01) ==
LOC: HO.10HDL 09:56
PROVIDERS: Absent Provider Nurse Practitioner Gerontology; Visit Provider Nurse Practitioner Family
DX: E10.649 Type 1 diabetes mellitus with hypoglycemia without coma (principal); E78.00 Pure hypercholesterolemia, unspecified; I10 Essential (primary) hypertension
CPT/HCPCS: 36415; 80053; 80061; 82043; 84443; 85025

== ENCOUNTER → 2022-01-01 12:56 | Outpatient (BNVA) | payer OTHER, SELFPAY | PROVIDERS: PCP Internal Medicine; Visit Provider Physician Assistant | DX: E66.01 Morbid (severe) obesity due to excess calories (principal); Z11.0 Encounter for screening for intestinal infectious diseases; I10 Essential (primary) hypertension; E78.5 Hyperlipidemia, unspecified; E10.649 Type 1 diabetes mellitus with hypoglycemia without coma; G47.33 Obstructive sleep apnea (adult) (pediatric) | CPT/HCPCS: 99202; 99211; 99212 ==

== ENCOUNTER 2022-01-01 17:20 | Outpatient (REF) | payer OTHER, SELFPAY ==
[2022-01-02 14:10] LABS: H Pylori Breath Test Negative (Negative)
== END 2022-01-01 17:21 | disposition home or self-care (01) ==
LOC: HO.LNP 17:20
PROVIDERS: Visit Provider Physician Assistant
DX: Z01.818 Encounter for other preprocedural examination (principal); E78.5 Hyperlipidemia, unspecified; E11.649 Type 2 diabetes mellitus with hypoglycemia without coma; G47.33 Obstructive sleep apnea (adult) (pediatric)
CPT/HCPCS: 83013

== ENCOUNTER → 2022-01-15 12:26 | Outpatient (BNVA) | payer OTHER, SELFPAY | PROVIDERS: PCP Internal Medicine; Visit Provider Registered Nurse Diabetes Educator | DX: Z46.81 Encounter for fitting and adjustment of insulin pump (principal); E10.649 Type 1 diabetes mellitus with hypoglycemia without coma | CPT/HCPCS: 99211 ==

== ENCOUNTER → 2022-01-20 13:46 | Outpatient (REF) | payer OTHER, SELFPAY | LOC: HO.SL 13:46 | PROVIDERS: PCP Internal Medicine; Visit Provider Physician Assistant | DX: Z01.818 Encounter for other preprocedural examination (principal); R06.83 Snoring; I10 Essential (primary) hypertension; E66.01 Morbid (severe) obesity due to excess calories; E78.5 Hyperlipidemia, unspecified | CPT/HCPCS: 95806 ==

== ENCOUNTER 2022-01-22 08:54 | Outpatient (REF) | payer OTHER, SELFPAY ==
--- NOTE | 2022-01-22 09:01 | ECG_ITS ---
Test Reason : hyperlipidemia Blood Pressure : / mmHG Vent. Rate : 069 BPM Atrial Rate : 069 BPM P-R Int : 156 ms QRS Dur : 082 ms QT Int : 366 ms P-R-T Axes : 051 080 055 degrees QTc Int : 392 ms Normal sinus rhythm Normal ECG When compared with ECG of 15-NOV-2021 12:19, No significant change was found Referred By: Arlene Reynolds Electronically Signed By:JONAH NEWMAN
[2022-01-22 10:01] LABS: Estimated Average Glucose 134 mg/dL; Hemoglobin A1c % 6.3 %
[2022-01-22 10:04] LABS: Alanine Aminotransferase 30 U/L (0-40); Albumin Level 3.8 g/dL (3.5-5.0); Alkaline Phosphatase 62 U/L (39-117); Aspartate Amino Transferase 21 U/L (5-37); Bilirubin Direct 0.3 mg/dL (0.0-0.5); Bilirubin Total 0.4 mg/dL (0.0-1.0); C Reactive Protein 0.45 mg/dL (< or = 0.50); Total Protein 6.7 g/dL (6.5-8.0)
[2022-01-22 10:25] LABS: Insulin 13 uU/mL (2-29); Vitamin D 25-OH Total 32.6 ng/mL (>30)
[2022-01-22 10:57] LABS: Folate 9.1 ng/mL (> or = 4.0); Vitamin B12 625 pg/mL (200-900)
[2022-01-23 13:47] LABS: Calcium (PTHI) 8.7 mg/dL (8.6-10.3); PTHI 72 pg/mL (16-77)
[2022-01-25 15:21] LABS: Zinc 82 mcg/dL (60-130)
[2022-01-26 17:02] LABS: Vitamin A 22 mcg/dL (38-98)
[2022-01-29 13:56] LABS: Vitamin B1 8 nmol/L (8-30)
== END 2022-01-22 08:55 | disposition home or self-care (01) ==
LOC: HO.LAB 08:54
PROVIDERS: PCP Internal Medicine; Visit Provider Physician Assistant
DX: Z01.818 Encounter for other preprocedural examination (principal); E10.649 Type 1 diabetes mellitus with hypoglycemia without coma; E66.01 Morbid (severe) obesity due to excess calories; E78.5 Hyperlipidemia, unspecified; I10 Essential (primary) hypertension; R79.89 Other specified abnormal findings of blood chemistry
CPT/HCPCS: 36415; 80076; 82306; 82607; 82746; 83036; 83525; 83970; 84425; 84590; 84630; 86140; 93005

== ENCOUNTER 2022-01-24 09:34 | Outpatient (REF) | payer OTHER, SELFPAY ==
[2022-01-24 11:05] LABS: Creatinine Urine 192.87 mg/dL; Microalbum/Creatinine Ratio Ur 2.5 ug/mg cr
== END 2022-01-24 09:35 | disposition home or self-care (01) ==
LOC: HO.LNP 09:34
PROVIDERS: Visit Provider Internal Medicine
DX: E10.649 Type 1 diabetes mellitus with hypoglycemia without coma (principal)
CPT/HCPCS: 82043

== ENCOUNTER → 2022-01-27 13:53 | Outpatient (BNVA) | payer OTHER, SELFPAY | PROVIDERS: PCP Internal Medicine; Referring Provider Internal Medicine; Visit Provider Physician Assistant | DX: E66.01 Morbid (severe) obesity due to excess calories (principal); E10.649 Type 1 diabetes mellitus with hypoglycemia without coma; I10 Essential (primary) hypertension; G47.33 Obstructive sleep apnea (adult) (pediatric); Z71.3 Dietary counseling and surveillance; Z68.43 Body mass index [BMI] 50.0-59.9, adult; Z79.899 Other long term (current) drug therapy | CPT/HCPCS: 99212 ==

== ENCOUNTER → 2022-01-28 13:00 | Outpatient (BNVA) | payer OTHER, SELFPAY | PROVIDERS: PCP Internal Medicine; Visit Provider Counselor Mental Health | DX: F32.A Depression, unspecified (principal); E66.9 Obesity, unspecified; E11.9 Type 2 diabetes mellitus without complications; Z79.4 Long term (current) use of insulin | CPT/HCPCS: 90791 ==

== ENCOUNTER → 2022-01-29 11:03 | Outpatient (BNVA) | payer OTHER, SELFPAY | PROVIDERS: PCP Internal Medicine; Visit Provider Dietitian, Registered | DX: E66.01 Morbid (severe) obesity due to excess calories (principal); Z68.43 Body mass index [BMI] 50.0-59.9, adult | CPT/HCPCS: 97802 ==

== ENCOUNTER → 2022-02-17 12:19 | Outpatient (BNVA) | payer OTHER, SELFPAY | PROVIDERS: PCP Internal Medicine; Visit Provider Registered Nurse Diabetes Educator | DX: E10.649 Type 1 diabetes mellitus with hypoglycemia without coma (principal) | CPT/HCPCS: 99211 ==

== ENCOUNTER 2022-02-19 09:17 | Outpatient (REF) | payer OTHER, SELFPAY ==
--- NOTE | ~2022-02-19 | US_ITS ---
EXAMINATION: US COMPLETE ABDOMEN WITH LIVER ELASTOGRAPHY CLINICAL INFORMATION: Hyperlipidemia. COMPARISON: None. TECHNIQUE: Real-time imaging of the abdominal viscera. Noninvasive ultrasound liver fibrosis assessment is performed using Vikas ElastPQ point quantification shear wave elastography (2D-SWE) with a C5-2 MHz transducer. Multiple elastography samples are obtained. FINDINGS: PANCREAS: The pancreas is completely obscured by overlying gas. ABDOMINAL AORTA: The proximal and distal abdominal aorta is normal caliber. The midabdominal aorta is obscured by overlying gas.. INFERIOR VENA CAVA: Visualized portions are normal. LIVER: Normal. The liver demonstrates normal size, contour and echogenicity. No focal lesion or intrahepatic biliary duct dilatation. The right lobe measures 12.3 cm in length. The left lobe measures 9.0 cm in length. Portal flow is hepatopedal. Shear wave liver elastography median stiffness is 2.42 m/s (reference: normal median stiffness is 1.3 m/s or less). IQR/median stiffness to assess sampling precision is 0.21 (reference: good quality data set is IQR/median stiffness of 0.15 or less). GALLBLADDER: Normal. The gallbladder is physiologically distended without evidence of stones, sludge, polyps, wall thickening or pericholecystic fluid. COMMON BILE DUCT: Normal in caliber measuring 0.26 cm in diameter. RIGHT KIDNEY: Normal. No hydronephrosis. No renal calculi or focal parenchymal lesions. The kidney measures 12.6 cm in maximum dimension. LEFT KIDNEY: Normal. No hydronephrosis. No renal calculi or focal parenchymal lesions. The kidney measures 12.1 cm in maximum dimension. SPLEEN: Normal. The spleen measures 11.2 cm in maximum dimension. FREE FLUID: None. US/US abdomen comp w elastography IMPRESSION: 1. Limited exam due to body habitus. The liver is unremarkable. There is gallbladder wall thickening but no echogenic stones. The rest of the abdominal ultrasound is unremarkable. 2. 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 REFERENCE: Society of Radiologists in Ultrasound Liver Stiffness Thresholds (2020): LIVER STIFFNESS THRESHOLDS: *Liver Stiffness equal or less than 1.3 m/s: High probability of being normal. *Liver Stiffness less than 1.7 m/s: In the absence of other known clinical signs, rules out compensated advanced chronic liver disease. *Liver Stiffness 1.7-2.1 m/s: Suggestive of compensated advanced chronic liver disease but need further test for confirmation. *Liver Stiffness over 2.1 m/s: Rules in compensated advanced chronic liver disease. *Liver Stiffness over 2.4 m/s: Suggestive of clinically significant portal hypertension. QUALITY OF DATA SET: *IQR/Median value equal or less than 0.15 implies a quality data set. *IQR/Median value over 0.15 implies a poor quality data set. SIGNIFICANT CHANGE FROM PRIOR EXAM: Significant change if liver stiffness measurement is 10% or greater from prior exam. OTHER CONSIDERATIONS: The stage of liver fibrosis may be overestimated in the setting of acute hepatitis, liver inflammation, elevated liver function tests, hepatic vascular congestion, obstructive cholestasis, non-fasting state, and infiltrative diseases such as amyloidosis and lymphoma. In some patients with NAFLD, the liver stiffness thresholds for compensated advanced chronic liver disease may be lower. In causes other than viral hepatitis and NAFLD, liver stiffness thresholds are not well established.
--- NOTE | ~2022-02-19 | XR_ITS ---
EXAMINATION: XR CHEST CLINICAL INFORMATION: Hyperlipidemia COMPARISON: Previous chest x-ray November 2021 TECHNIQUE: 2 views of the chest were obtained. FINDINGS: No significant abnormality is noted involving the heart, lungs, mediastinum, bony thorax or soft tissues. XR/XR chest 2V IMPRESSION: Unremarkable examination.
--- NOTE | ~2022-02-19 | FL_ITS ---
EXAMINATION: XR FLUOROSCOPY UPPER GI WITH AIR CLINICAL INFORMATION: Hyperlipidemia. COMPARISON: None. TECHNIQUE: Routine upper GI air-contrast study was performed in upright and lying positions. FINDINGS: Following oral administration of thick barium and effervescent granules in upright view, there is normal propagation of bolus from the oral cavity through the pharynx and esophagus and into the stomach without any evidence of obstruction or narrowing. On placing patient supine and prone, the course, caliber and peristalsis of the stomach and the duodenum are normal. There is no gastroesophageal reflux or hiatal hernia. The mucosal pattern of the stomach and the duodenum is normal. FLUOROSCOPY TIME: 1.3 minutes. DOSE AREA PRODUCT: 58.042 uGy-m2 (microgray-meter squared) . FL/FL upper GI w air IMPRESSION: Unremarkable upper GI examination.
== END 2022-02-19 09:18 | disposition home or self-care (01) ==
LOC: HO.US 09:17
PROVIDERS: Visit Provider Physician Assistant
DX: Z01.818 Encounter for other preprocedural examination (principal); E66.01 Morbid (severe) obesity due to excess calories; E10.649 Type 1 diabetes mellitus with hypoglycemia without coma; E78.5 Hyperlipidemia, unspecified; I10 Essential (primary) hypertension
CPT/HCPCS: 71046; 74246; 76705; 76981

== ENCOUNTER → 2022-02-26 09:51 | Outpatient (BNVA) | payer OTHER, SELFPAY | PROVIDERS: PCP Internal Medicine; Visit Provider Physician Assistant | DX: E66.01 Morbid (severe) obesity due to excess calories (principal); K59.00 Constipation, unspecified; E10.649 Type 1 diabetes mellitus with hypoglycemia without coma; Z68.43 Body mass index [BMI] 50.0-59.9, adult | CPT/HCPCS: 99212 ==

== ENCOUNTER 2022-03-06 22:21 | Emergency (ER) | payer OTHER, SELFPAY ==
[2022-03-06 22:25] VITALS: PULSE 79; RESP 18; TEMP 37.1; O2SAT 98; BMI 56.8
--- NOTE | 2022-03-06 22:43 | ECG_ITS ---
Test Reason : abd pain Blood Pressure : / mmHG Vent. Rate : 071 BPM Atrial Rate : 071 BPM P-R Int : 162 ms QRS Dur : 086 ms QT Int : 358 ms P-R-T Axes : 041 066 006 degrees QTc Int : 389 ms Normal sinus rhythm Nonspecific T wave abnormality Abnormal ECG When compared with ECG of 22-JAN-2022 09:11, Nonspecific T wave abnormality now evident in Inferior leads and Lateral leads Referred By: Generic ED Physician Electronically Signed By:JONAH NEWMAN
[2022-03-06 23:08] LABS: MANUAL DIFF FLAG NO
[2022-03-06 23:09] LABS: Basophils Absolute Auto 0.1 X10*3/uL (0.0-0.2); Basophils Percent Auto 0.8 % (0-2); Eosinophils Absolute Auto 0.6 X10*3/uL (0.0-0.4); Eosinophils Percent Auto 7.2 % (0-4); Hematocrit 46.7 % (42.0-52.0); Hemoglobin 15.7 g/dl (14.0-18.0); Imm Gran Abs Auto 0.02 X10*3/uL (0.00-0.03); Imm Gran Pct Auto 0.2 % (0.0-0.4); Lymphocytes Absolute Auto 3.2 X10*3/uL (1.2-4.9); Lymphocytes Percent Auto 36.8 % (20-40); Mean Corpuscular HGB Conc 33.6 g/dl (31.0-36.0); Mean Corpuscular Hemoglobin 28.8 pg (27.0-33.0); Mean Corpuscular Volume 85.5 fL (80.0-98.0); Monocytes Absolute Auto 0.6 X10*3/uL (0.1-1.2); Monocytes Percent Auto 7.1 % (2-11); Neutrophils Absolute Auto 4.1 x10*3/uL (2.0-8.3); Neutrophils Percent Auto 47.9 % (45-73); Platelet Count 261 X10*3/uL (160-400); Red Blood Count 5.46 X10*6/uL (4.60-5.80); Red Cell Distribution Width 12.7 % (11.0-16.0); White Blood Count 8.6 X10*3/uL (4.8-10.8)
[2022-03-06 23:25] LABS: Alanine Aminotransferase 40 U/L (0-40); Albumin Level 4.3 g/dL (3.5-5.0); Alkaline Phosphatase 71 U/L (39-117); Anion Gap 17 (12-20); Aspartate Amino Transferase 29 U/L (5-37); Bilirubin Direct < 0.2 mg/dL (0.0-0.5); Bilirubin Total 0.4 mg/dL (0.0-1.0); Blood Urea Nitrogen 22 mg/dL (9-16); Calcium 9.3 mg/dL (8.4-10.2); Carbon Dioxide 22 mmol/L (22-29); Chloride 104 mmol/L (96-108); Creatinine Clr Calc Pharmacy 147.7; Estimated Glomerular Filt Rate > 60; Glucose Random 73 mg/dL (60-115); Lipase 18 U/L (8-78); Potassium 3.8 mmol/L (3.3-5.1); Sodium 139 mmol/L (135-145); Total Protein 7.5 g/dL (6.5-8.0)
[2022-03-06 23:30] LABS: Troponin-I High Sensitivity 3.5 ng/L (<3.5-35.0)
--- NOTE | 2022-03-07 00:34 | ED.ABDPAIN ---
HPI - Abdominal Pain General Chief Complaint: Abdominal Pain Stated Complaint: abd pain Time Seen by Provider: 03/06/22 23:27 Source: patient Mode of arrival: ambulatory Limitations: no limitations History of Present Illness HPI narrative: Patient is 31 years old morbidly obese on a special diet for bariatric surgery had ultrasound done 2 weeks ago showed hepatic steatosis comes in for diffuse abdominal pain for last 1 week no nausea no vomiting feel constipated no fever no chills Related Data Home Medications Medication Instructions Recorded Confirmed blood sugar diagnostic #10 ea 04/25/20 02/26/22 insulin pump cart,cont inf,BT #5 ea 09/19/21 02/26/22 (Omnipod Dash Pods (Gen 4) subcutaneous cartridge) Previous Rx's Medication Instructions Recorded cholecalciferol (vitamin D3) 50 50 mcg PO DAILY #30 caps 06/21/21 mcg (2,000 unit) capsule insulin lispro 100 unit/mL 100 unit subcut DAILY 30 days #40 09/17/21 subcutaneous solution mL insulin syringe-needle U-100 1/2 #100 ea 09/17/21 mL 31 gauge x 15/64 (BD Veo Insulin Syringe Ultra-Fine) pen needle, diabetic 32 gauge x #100 ea 09/19/21 5/32 (BD Ultra-Fine Citlaly Pen Needle) metoprolol succinate 50 mg 50 mg PO DAILY #90 tabs 11/12/21 tablet,extended release 24 hr levothyroxine 137 mcg tablet 137 mcg PO QAM #90 tabs 12/10/21 blood sugar diagnostic (FreeStyle #100 ea 12/19/21 Lite Strips) blood-glucose meter (FreeStyle #1 ea 12/19/21 Lite Meter kit) lancets 28 gauge (FreeStyle #100 ea 12/19/21 Lancets) melatonin 10 mg tablet 10 mg PO BEDTIME PRN sleep 30 days 12/24/21 #30 tabs docusate sodium 100 mg capsule 100 mg PO BID #60 caps 01/27/22 (Colace) inulin 2 gram chewable tablet 2 g PO BID #60 tabs 01/27/22 (Fiber Gummies) vitamin A palmitate 10,000 unit 20,000 unit PO DAILY 4 weeks #56 01/27/22 tablet tabs rosuvastatin 40 mg tablet 40 mg PO DAILY #90 tabs 01/30/22 methocarbamol 500 mg tablet 500 mg PO TID 7 days #21 tabs 02/17/22 clotrimazole 1 % topical cream 1 appl topical BID #30 grams 02/26/22 polyethylene glycol 3350 17 gram 17 g PO DAILY #30 ea 02/26/22 oral powder packet (Miralax) lorazepam 1 mg tablet (Ativan) 1 mg PO BEDTIME PRN anxiety #10 03/07/22 tabs tramadol 50 mg tablet 50 mg PO BID PRN Pain (Scale Score 03/07/22 4-6) #14 tabs Allergies Allergy/AdvReac Type Severity Reaction Status Date / Time No Known Allergies Allergy Verified 02/26/22 10:03 [No Known Allergies*] Review of Systems Review of Systems Yes all other systems are reviewed and are negative [facility] Past Medical History Medical History Constipation by delayed colonic transit Diabetes type 1, controlled Dyslipidemia NATALIO (generalized anxiety disorder) Goiter HLD (hyperlipidemia) Hypertension Hypothyroidism Microalbuminuria Morbid obesity Obesity due to excess calories Surgical History No pertinent past surgical history Family History Family History Father No problems noted. Mother Obesity Social History Social History Housing: Apartment Alcohol intake: never Patient Tobacco Use Status: Never used Tobacco e-Cigarette/Vaping Use: Never Used Second Hand Smoke Exposure: No Advance Directives: No Advance Directives Information Provided: No service: No Current occupational status: unemployed Cognitive needs: No Hearing needs: No Vision needs: No Physical Exam ED Vital Signs: Vital Signs - 24 hr 03/06/22 22:25 Temperature 98.8 F Pulse Rate 79 Respiratory Rate 18 Pulse Oximetry 98 Oxygen Delivery Method Room Air BMI result Body Mass Index 56.8 Appearance: Alert. Oriented X3. No acute distress. Obese Eyes: PERRLA, No Nystagmus ENT: Pharynx normal. Oral Mucosa moist Neck: Normal inspection. Neck supple. CVS: Normal heart rate and rhythm. Pulses normal. Respiratory: No respiratory distress. Equal air entry bilateral, no wheezing/rales/rhonchi Abdomen: Soft , mild diffuse tenderness no rebound tenderness or guarding Bowel sounds are present, no mass palpable, no CVA tenderness Skin: Skin warm and dry. Normal skin color. Normal skin turgor. Extremities: No lower extremity edema. No calf tenderness Neuro: Oriented X 3. No motor deficit. No sensory deficit. MDM - Abdominal Pain MDM Narrative Medical decision making narrative: Patient has stable labs recent ultrasound negative on a special diet for bariatric surgery with increased anxiety likely the cause for abdominal pain possible IBS. Will discharge patient home on tramadol and Ativan. Lab Data Attestation: I reviewed the patient's lab results. Result diagrams: 03/06/22 23:03 03/06/22 23:03 Labs: Lab Results 03/06/22 03/06/22 03/06/22 Range/Units 23:03 23:03 23:03 WBC 8.6 (4.8-10.8) X10*3/uL RBC 5.46 (4.60-5.80) X10*6/uL Hgb 15.7 (14.0-18.0) g/dl Hct 46.7 (42.0-52.0) % MCV 85.5 (80.0-98.0) fL MCH 28.8 (27.0-33.0) pg MCHC 33.6 (31.0-36.0) g/dl RDW 12.7 (11.0-16.0) % Plt Count 261 (160-400) X10*3/uL MPV 9.0 L (9.4-12.4) fL Immature Gran % (Auto) 0.2 (0.0-0.4) % Neut % (Auto) 47.9 (45-73) % Lymph % (Auto) 36.8 (20-40) % Harrison % (Auto) 7.1 (2-11) % Eos % (Auto) 7.2 H (0-4) % Baso % (Auto) 0.8 (0-2) % Lymph # (Auto) 3.2 (1.2-4.9) X10*3/uL Harrison # (Auto) 0.6 (0.1-1.2) X10*3/uL Eos # (Auto) 0.6 H (0.0-0.4) X10*3/uL Baso # (Auto) 0.1 (0.0-0.2) X10*3/uL Abs Immat Gran (auto) 0.02 (0.00-0.03) X10*3/uL Absolute Neuts (auto) 4.1 (2.0-8.3) x10*3/uL Absolute Nucleated RBC 0.000 (0.0-0.012) X10*3/uL Nucleated RBC % (auto) 0.0 (0.0-0.2) /100WBC Sodium 139 (135-145) mmol/L Potassium 3.8 (3.3-5.1) mmol/L Chloride 104 (96-108) mmol/L Carbon Dioxide 22 (22-29) mmol/L Anion Gap 17 (12-20) BUN 22 H D (9-16) mg/dL Creatinine 1.15 (0.5-1.4) mg/dL Estim Creat Clear Calc 147.7 Estimated GFR > 60 Random Glucose 73 D (60-115) mg/dL Calcium 9.3 D (8.4-10.2) mg/dL Total Bilirubin 0.4 (0.0-1.0) mg/dL Direct Bilirubin < 0.2 (0.0-0.5) mg/dL AST 29 (5-37) U/L ALT 40 (0-40) U/L Alkaline Phosphatase 71 (39-117) U/L Troponin I High Sens 3.5 (<3.5-35.0) ng/L Total Protein 7.5 (6.5-8.0) g/dL Albumin 4.3 (3.5-5.0) g/dL Lipase 18 (8-78) U/L Discharge Plan Discharge Clinical Impression: Abdominal pain Patient Disposition: Home, Self-Care Instructions: Abdominal Pain (ED) Additional Instructions: Your abdominal pain is likely from change in eating habits and anxiety Take medication for pain and anxiety as prescribed Follow-up with your Bariatric specialist Prescriptions: New tramadol 50 mg tablet 50 mg PO BID PRN (Reason: Pain (Scale Score 4-6)) Qty: 14 0RF lorazepam [Ativan] 1 mg tablet 1 mg PO BEDTIME PRN (Reason: anxiety) Qty: 10 0RF No Action insulin lispro 100 unit/mL solution 100 unit subcut DAILY 30 Days Qty: 40 8RF Rx Instructions: via pump (DME) insulin syringe-needle U-100 [BD Veo Insulin Syringe UF] 1/2 mL 31 gauge x 15/64 syringe See Rx Instructions .Route Qty: 100 11RF Rx Instructions: As directed once daily metoprolol succinate 50 mg tablet extended release 24 hr 50 mg PO DAILY Qty: 90 1RF levothyroxine 137 mcg tablet 137 mcg PO QAM Qty: 90 4RF (DME) FreeStyle Lite Strips Strip See Rx Instructions .ROUTE .MEDSUPPLY Qty: 100 11RF Rx Instructions: 4x daily (DME) lancets [FreeStyle Lancets] 28 gauge misc See Rx Instructions .ROUTE .MEDSUPPLY Qty: 100 11RF Rx Instructions: 4x daily (DME) blood-glucose meter [FreeStyle Lite Meter] Kit See Rx Instructions .Route Qty: 1 0RF Rx Instructions: As directed melatonin 10 mg tablet 10 mg PO BEDTIME PRN (Reason: sleep) 30 Days Qty: 30 0RF vitamin A palmitate 10,000 unit tablet 20,000 unit PO DAILY 28 Days Qty: 56 0RF rosuvastatin 40 mg tablet 40 mg PO DAILY Qty: 90 2RF methocarbamol 500 mg tablet 500 mg PO TID 7 Days Qty: 21 0RF (DME) FreeStyle Lite Strips Strip See Rx Instructions Not Applicable .MEDSUPPLY Qty: 10 Rx Instructions: As directed cholecalciferol (vitamin D3) 50 mcg (2,000 unit) capsule 50 mcg PO DAILY Qty: 30 11RF Rx Instructions: Start after Vitamin D3 50,000 weekly for 6 weeks. (DME) Omnipod Dash Pods (Gen 4) Cartridge See Rx Instructions subcut .MEDSUPPLY Qty: 5 Rx Instructions: As directed (DME) pen needle, diabetic [BD Ultra-Fine Citlaly Pen Needle] 32 gauge x 5/32 needle See Rx Instructions .ROUTE .MEDSUPPLY Qty: 100 3RF Rx Instructions: As directed twice daily Fiber Gummies 2 gram tablet,chewable 2 g PO BID Qty: 60 5RF docusate sodium [Colace] 100 mg capsule 100 mg PO BID Qty: 60 5RF polyethylene glycol 3350 [Miralax] 17 gram powder in packet 17 g PO DAILY Qty: 30 0RF clotrimazole 1 % cream 1 appl topical BID Qty: 30 0RF
[2022-03-07] MEDS: traMADoL HCL 50 MG TABLET PO (01:26)
[2022-03-07] MEDS: LORazepam 1 MG TABLET PO (01:26)
== END 2022-03-07 01:29 | disposition home or self-care (01) ==
PROVIDERS: Emergency Provider Internal Medicine; PCP Internal Medicine
DX: R10.9 Unspecified abdominal pain (principal); Z98.84 Bariatric surgery status; Z79.899 Other long term (current) drug therapy
CPT/HCPCS: 36415; 80053; 82248; 83690; 84484; 85025; 93005; 99283

== ENCOUNTER → 2022-03-25 09:25 | Outpatient (BNVA) | payer OTHER, SELFPAY | PROVIDERS: PCP Internal Medicine; Referring Provider Internal Medicine; Visit Provider Physician Assistant | DX: E66.01 Morbid (severe) obesity due to excess calories (principal); F33.1 Major depressive disorder, recurrent, moderate; I10 Essential (primary) hypertension; E78.5 Hyperlipidemia, unspecified; E10.649 Type 1 diabetes mellitus with hypoglycemia without coma; E03.9 Hypothyroidism, unspecified; Z68.43 Body mass index [BMI] 50.0-59.9, adult | CPT/HCPCS: 99212 ==

== ENCOUNTER → 2022-04-01 11:43 | Outpatient (BNVA) | payer OTHER, SELFPAY | PROVIDERS: PCP Internal Medicine; Visit Provider Dietitian, Registered | DX: E66.01 Morbid (severe) obesity due to excess calories (principal) | CPT/HCPCS: 97803 ==

== ENCOUNTER 2022-04-08 09:11 | Outpatient (REF) | payer OTHER, SELFPAY ==
[2022-04-08 10:48] LABS: Alanine Aminotransferase 27 U/L (0-40); Albumin Level 3.8 g/dL (3.5-5.0); Alkaline Phosphatase 71 U/L (39-117); Anion Gap 15 (12-20); Aspartate Amino Transferase 19 U/L (5-37); Bilirubin Total 0.3 mg/dL (0.0-1.0); Blood Urea Nitrogen 15 mg/dL (9-16); Calcium 8.6 mg/dL (8.4-10.2); Carbon Dioxide 24 mmol/L (22-29); Chloride 106 mmol/L (96-108); Cholesterol 135 mg/dL; Estimated Glomerular Filt Rate > 60; Glucose Fasting 109 mg/dL (60-99); HDL Cholesterol 36 mg/dL; LDL Cholesterol Calculated 90 mg/dl; Potassium 4.3 mmol/L (3.3-5.1); Sodium 141 mmol/L (135-145); Total Protein 6.7 g/dL (6.5-8.0); Triglycerides 46 mg/dL
[2022-04-08 11:09] LABS: Thyroid Stimulating Hormone 1.68 uIU/mL (0.32-4.0); Vitamin D 25-OH Total 35.9 ng/mL (>30)
== END 2022-04-08 09:12 | disposition home or self-care (01) ==
LOC: HO.LAB 09:11
PROVIDERS: PCP Internal Medicine; Visit Provider Internal Medicine
DX: E78.5 Hyperlipidemia, unspecified (principal); E55.9 Vitamin D deficiency, unspecified; E04.9 Nontoxic goiter, unspecified; E11.9 Type 2 diabetes mellitus without complications
CPT/HCPCS: 36415; 80053; 80061; 82306; 84443

== ENCOUNTER → 2022-04-09 10:20 | Outpatient (BNVA) | payer OTHER, SELFPAY | PROVIDERS: PCP Internal Medicine; Visit Provider Physician Assistant | DX: E66.01 Morbid (severe) obesity due to excess calories (principal); I10 Essential (primary) hypertension; E10.649 Type 1 diabetes mellitus with hypoglycemia without coma; E03.9 Hypothyroidism, unspecified; E78.5 Hyperlipidemia, unspecified; G47.33 Obstructive sleep apnea (adult) (pediatric); Z68.43 Body mass index [BMI] 50.0-59.9, adult | CPT/HCPCS: 99212 ==

== ENCOUNTER → 2022-04-15 14:53 | Outpatient (BNVA) | payer OTHER, SELFPAY | PROVIDERS: PCP Internal Medicine; Visit Provider Internal Medicine Endocrinology, Diabetes & Metabolism | DX: E10.649 Type 1 diabetes mellitus with hypoglycemia without coma (principal); Z96.41 Presence of insulin pump (external) (internal); Z79.4 Long term (current) use of insulin | CPT/HCPCS: 82947; 83036; 99212 ==

== ENCOUNTER → 2022-05-13 09:51 | Outpatient (BNVA) | payer OTHER, SELFPAY | PROVIDERS: PCP Internal Medicine; Visit Provider Registered Nurse Diabetes Educator | DX: Z46.81 Encounter for fitting and adjustment of insulin pump (principal); E10.649 Type 1 diabetes mellitus with hypoglycemia without coma | CPT/HCPCS: 99211 ==

== ENCOUNTER 2022-05-20 14:15 | Emergency (ER) | payer OTHER, SELFPAY ==
--- NOTE | ~2022-05-20 | CT_ITS ---
EXAMINATION: CT HEAD WITHOUT CONTRAST CLINICAL INFORMATION: Elevated ocular pressure. COMPARISON: No relevant prior imaging. TECHNIQUE: Contiguous axial imaging was performed from the skull base to vertex without intravenous administration of contrast. This CT examination was performed using dose optimization techniques as appropriate, variously including the following: *Automated exposure control *Adjustment of mA and/or kV according to patient size (this includes techniques or standardized protocols for targeted exams where dose is matched to indication/reason for exam; i.e. extremities or head) *Use of iterative reconstruction technique DLP: 811 mGy-cm FINDINGS: There is no acute intracranial hemorrhage or abnormal extra-axial collection. No intracranial mass effect or midline shift. Lateral and third ventricles are normal. No hydrocephalus. Young-white matter differentiation is preserved and there is no evidence of acute territorial infarct. The calvarium and skull base are intact. Mastoid air cells and middle ear cavities are well aerated. No active paranasal sinus disease. Globes and orbits are grossly symmetric. CT/CT head/brain wo IV con IMPRESSION: Normal CT scan of the head.
[2022-05-20 14:32] VITALS: BP 153/90; PULSE 85; RESP 18; TEMP 36.4; O2SAT 99; BMI 56.2
--- NOTE | 2022-05-20 14:33 | ED.EYEPROB ---
HPI - Eye Problem General Chief complaint: Eye Problems <ALMAS Valdivia - Last Filed: 05/20/22 14:47> Stated complaint: Ocular HTN Papilledema <ALMAS Valdivia - Last Filed: 05/20/22 14:47> Time Seen by Provider: 05/20/22 22:25 <ALMAS Valdivia - Last Filed: 05/20/22 14:47> Source: patient <James Hernandes MD - Last Filed: 05/21/22 02:19> Mode of arrival: ambulatory <James Hernandes MD - Last Filed: 05/21/22 02:19> Limitations: no limitations <James Hernandes MD - Last Filed: 05/21/22 02:19> History of Present Illness HPI Narrative: Patient is here diabetes sent from ice and for papilledema bilateral with slight elevated IOP 36 in right eye and 17 in left eye patient does have some mild headache in the frontal area does not increase on stooping no blurred vision asymptomatic from papilledema 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 advised to follow up and return for recheck <James Hernandes MD - Last Filed: 05/21/22 02:19> Related Data Home medications: Home Medications Medication Instructions Recorded Confirmed insulin pump cart,cont inf,BT #5 ea 09/19/21 03/25/22 (Omnipod Dash Pods (Gen 4) subcutaneous cartridge) melatonin 10 mg capsule 10 mg PO BEDTIME PRN insomnia 04/09/22 omeprazole 20 mg tablet,delayed 20 mg PO DAILY 04/09/22 release Previous Rx's Medication Instructions Recorded insulin lispro 100 unit/mL 100 unit subcut DAILY 30 days #40 09/17/21 subcutaneous solution mL insulin syringe-needle U-100 1/2 #100 ea 09/17/21 mL 31 gauge x 15/64 (BD Veo Insulin Syringe Ultra-Fine) levothyroxine 137 mcg tablet 137 mcg PO QAM #90 tabs 12/10/21 blood sugar diagnostic (FreeStyle #100 ea 12/19/21 Lite Strips) blood-glucose meter (FreeStyle #1 ea 12/19/21 Lite Meter kit) lancets 28 gauge (FreeStyle #100 ea 12/19/21 Lancets) docusate sodium 100 mg capsule 100 mg PO BID #60 caps 01/27/22 (Colace) rosuvastatin 40 mg tablet 40 mg PO DAILY #90 tabs 01/30/22 tramadol 50 mg tablet 50 mg PO BID PRN Pain (Scale Score 03/07/22 4-6) #14 tabs insulin pump cart,automated,BT #5 ea 03/24/22 (Omnipod 5 G6 Pods (Gen 5) subcutaneous cartridge) lorazepam 1 mg tablet (Ativan) 1 mg PO BEDTIME PRN anxiety 30 03/25/22 days #10 tabs fjfsd-uavas-uwocwfw-pramoxine 3.5 1 appl topical BID 30 days #14.2 03/25/22 mg-500 unit-10,000 unit/g top oint grams (Neosporin PlusPain Relief(bacit)) selenium sulfide 2.25 % shampoo 1 appl topical BEDTIME 30 days 03/25/22 #180 mL pen needle, diabetic 32 gauge x #100 ea 04/03/22 (BD Ultra-Fine Citlaly Pen Needle) melatonin 10 mg tablet 10 mg PO BEDTIME PRN sleep 30 days 04/18/22 #30 tabs cholecalciferol (vitamin D3) 50 50 mcg PO DAILY #30 caps 04/23/22 mcg (2,000 unit) capsule clotrimazole 1 % topical cream 1 appl topical BID #45 grams 04/25/22 polyethylene glycol 3350 17 gram 17 g PO DAILY #30 packets 04/25/22 oral powder packet (Purelax) metoprolol succinate 50 mg 50 mg PO DAILY #90 tabs 04/29/22 tablet,extended release 24 hr insulin pump cartridge,automated ##1 05/19/22 dose,BT with controller subcutaneous (Omnipod 5 G6 Intro Kit (Gen 5) subcutaneous cartridge with controller) acetazolamide 250 mg tablet 250 mg PO BID #30 tabs 05/21/22 timolol maleate 0.5 % eye drops 1 drp ophthalmic (eye) DAILY #5 mL 05/21/22 <ALMAS Valdivia - Last Filed: 05/20/22 14:47> Allergies/adverse reactions: Allergies Allergy/AdvReac Type Severity Reaction Status Date / Time No Known Allergies Allergy Verified 04/15/22 15:02 [No Known Allergies*] <ALMAS Valdivia - Last Filed: 05/20/22 14:47> Review of Systems Review of Systems: Yes all other systems are reviewed and are negative <James Hernandes MD - Last Filed: 05/21/22 02:19> PMFSH Past Medical History Medical History: Medical History Constipation by delayed colonic transit Diabetes type 1, controlled Dyslipidemia NATALIO (generalized anxiety disorder) Goiter HLD (hyperlipidemia) Hypertension Hypothyroidism Microalbuminuria Morbid obesity Obesity due to excess calories <ALMAS Valdivia - Last Filed: 05/20/22 14:47> Surgical History: Surgical History No pertinent past surgical history <ALMAS Valdivia - Last Filed: 05/20/22 14:47> Family History Family History: Family History Father No problems noted. Mother Obesity <ALMAS Valdivia - Last Filed: 05/20/22 14:47> Social History Social History: Social History Housing: Apartment Alcohol intake: never Patient Tobacco Use Status: Never used Tobacco e-Cigarette/Vaping Use: Never Used Second Hand Smoke Exposure: No Advance Directives: No service: No Current occupational status: unemployed Cognitive needs: No Hearing needs: No Vision needs: No <ALMAS Valdivia - Last Filed: 05/20/22 14:47> Physical Exam Vital Signs: Vital Signs: Last Vital Signs Temp 97.6 F 05/21/22 00:27 Pulse 81 05/21/22 00:27 Resp 19 05/21/22 00:27 BP 145/86 H 05/21/22 00:27 Pulse Ox 98 05/21/22 00:27 O2 Del Method 05/21/22 00:27 BMI result Body Mass Index 56.2 <ALMAS Valdivia - Last Filed: 05/20/22 14:47> Vital Signs: Last Vital Signs Temp 97.6 F 05/21/22 00:27 Pulse 81 05/21/22 00:27 Resp 19 05/21/22 00:27 BP 145/86 H 05/21/22 00:27 Pulse Ox 98 05/21/22 00:27 O2 Del Method 05/21/22 00:27 BMI result Body Mass Index 56.2 <James Hernandes MD - Last Filed: 05/21/22 02:19> Appearance: Alert. Oriented X3. No acute distress. Eyes: PERRLA, No Nystagmus IOP 24 mmhg both eyes ENT: Pharynx normal. Oral Mucosa moist Neck: Normal inspection. Neck supple. CVS: Normal heart rate and rhythm. Pulses normal. Respiratory: No respiratory distress. Equal air entry bilateral, no wheezing/rales/rhonchi Abdomen: Soft and nontender. Bowel sounds are present, no mass palpable, no CVA tenderness Skin: Skin warm and dry. Normal skin color. Normal skin turgor. Extremities: No lower extremity edema. No calf tenderness Neuro: Oriented X 3. No motor deficit. No sensory deficit.No cerebellar signs , cranial nerves II-XII intact <James Hernandes MD - Last Filed: 05/21/22 02:19> Course Course Course Narrative: 14:40pm - 31yoM c PMHx of DM Type II, HTN, HLD, astigmatism who is presenting to the ER after he was sent by [facility] due to increased intra-ocular pressures of IOP 31mmHg OD and 17mmHg OS to evaluate for papilledema. They noted on paperwork they faxed here that Previous OCT RNFL attempted but provided no useful information due to poor scan. OCT RNFL today shows mild elevation of optic nerve OD, WNL OS. Pachymetry attempted but unable due to patient cooperation. Per patient, blood sugar and pressure are both full control. They requested CT scan possible MRI and lumbar puncture. Patient denies any symptoms. On exam he is alert oriented x3. Not in any acute distress. Normal steady gait. Plan: Labs, CT scan of brain, visual acuity. Vital signs are stable Patient is stable he will be sent back to the waiting room for further evaluation treatment to the main ER. <ALMAS Valdivia - Last Filed: 05/20/22 14:47> Medications Administered Discontinued Medications Generic Name Dose Route Start Last Admin Trade Name Freq PRN Reason Stop Dose Admin Acetazolamide 250 mg 05/20/22 23:18 05/21/22 00:08 Acetazolamide 250 Mg Tablet PO 05/20/22 23:19 250 mg ONCE ONE Administration Timolol Maleate 1 drop 05/20/22 23:18 05/21/22 00:28 Timolol Maleate 0.5 % Oph Kary 5 Ml Drbtl EYE-BOTH 05/20/22 23:19 Not Given ONCE ONE <ALMAS Valdivia - Last Filed: 05/20/22 14:47> Medications Administered Discontinued Medications Generic Name Dose Route Start Last Admin Trade Name Dilma PRN Reason Stop Dose Admin Acetazolamide 250 mg 05/20/22 23:18 05/21/22 00:08 Acetazolamide 250 Mg Tablet PO 05/20/22 23:19 250 mg ONCE ONE Administration Timolol Maleate 1 drop 05/20/22 23:18 05/21/22 00:28 Timolol Maleate 0.5 % Oph Kary 5 Ml Drbtl EYE-BOTH 05/20/22 23:19 Not Given ONCE ONE <James Hernandes MD - Last Filed: 05/21/22 02:19> Medical Decision Making Medical Decision Making [facility] Narrative: Patient with mild headache no significant visual loss or blurred vision no increase in headache on stopping although 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 Head CT is negative. Patient does not want a spinal tap at this time and also not indicated as patient does not have any significant vision problems. At this time will discharge patient home on Diamox and timolol eyedrops for the glaucoma advised to follow-up with commercial glazier <James Hernandes MD - Last Filed: 05/21/22 02:19> Lab Data [facility] Lab Attestation statement: I reviewed the patient's lab results. <James Hernandes MD - Last Filed: 05/21/22 02:19> Result Diagrams: : 05/20/22 16:09 05/20/22 16:09 <ALMAS Valdivia - Last Filed: 05/20/22 14:47> Labs: Lab Results 05/20/22 05/20/22 05/20/22 Range/Units 16:09 16:09 16:09 WBC 7.4 (4.8-10.8) X10*3/uL RBC 5.36 (4.60-5.80) X10*6/uL Hgb 15.3 (14.0-18.0) g/dl Hct 47.1 (42.0-52.0) % MCV 87.9 (80.0-98.0) fL MCH 28.5 (27.0-33.0) pg MCHC 32.5 (31.0-36.0) g/dl RDW 12.5 (11.0-16.0) % Plt Count 276 (160-400) X10*3/uL MPV 9.3 L (9.4-12.4) fL Immature Gran % (Auto) 0.3 (0.0-0.4) % Neut % (Auto) 61.0 (45-73) % Lymph % (Auto) 29.1 (20-40) % [place] % (Auto) 6.0 (2-11) % Eos % (Auto) 2.9 (0-4) % Baso % (Auto) 0.7 (0-2) % Lymph # (Auto) 2.1 (1.2-4.9) X10*3/uL [place] # (Auto) 0.4 (0.1-1.2) X10*3/uL Eos # (Auto) 0.2 (0.0-0.4) X10*3/uL Baso # (Auto) 0.1 (0.0-0.2) X10*3/uL Abs Immat Gran (auto) 0.02 (0.00-0.03) X10*3/uL Absolute Neuts (auto) 4.5 (2.0-8.3) x10*3/uL Absolute Nucleated RBC 0.000 (0.0-0.012) X10*3/uL Nucleated RBC % (auto) 0.0 (0.0-0.2) /100WBC ESR (0-15) MM/HR PT 12.6 (10.0-13.1) SEC INR 1.1 (0.9-1.1) APTT (26.0-36.4) SEC Sodium 138 (135-145) mmol/L Potassium 4.5 (3.3-5.1) mmol/L Chloride 106 (96-108) mmol/L Carbon Dioxide 24 (22-29) mmol/L Anion Gap 13 (12-20) BUN 15 (9-16) mg/dL Creatinine 1.00 (0.5-1.4) mg/dL Estim Creat Clear Calc 168.8 Estimated GFR > 60 Random Glucose 150 H (60-115) mg/dL Calcium 9.1 (8.4-10.2) mg/dL Magnesium 1.8 (1.6-2.6) mg/dL Total Bilirubin 0.5 (0.0-1.0) mg/dL AST 32 (5-37) U/L ALT 48 H (0-40) U/L Alkaline Phosphatase 73 (39-117) U/L C-Reactive Protein (< or = 0.50) mg/dL Total Protein 6.9 (6.5-8.0) g/dL Albumin 3.9 (3.5-5.0) g/dL 05/20/22 05/20/22 05/20/22 Range/Units 16:09 16:09 16:09 WBC (4.8-10.8) X10*3/uL RBC (4.60-5.80) X10*6/uL Hgb (14.0-18.0) g/dl Hct (42.0-52.0) % MCV (80.0-98.0) fL MCH (27.0-33.0) pg MCHC (31.0-36.0) g/dl RDW (11.0-16.0) % Plt Count (160-400) X10*3/uL MPV (9.4-12.4) fL Immature Gran % (Auto) (0.0-0.4) % Neut % (Auto) (45-73) % Lymph % (Auto) (20-40) % [place] % (Auto) (2-11) % Eos % (Auto) (0-4) % Baso % (Auto) (0-2) % Lymph # (Auto) (1.2-4.9) X10*3/uL [place] # (Auto) (0.1-1.2) X10*3/uL Eos # (Auto) (0.0-0.4) X10*3/uL Baso # (Auto) (0.0-0.2) X10*3/uL Abs Immat Gran (auto) (0.00-0.03) X10*3/uL Absolute Neuts (auto) (2.0-8.3) x10*3/uL Absolute Nucleated RBC (0.0-0.012) X10*3/uL Nucleated RBC % (auto) (0.0-0.2) /100WBC ESR 7 (0-15) MM/HR PT (10.0-13.1) SEC INR (0.9-1.1) APTT 33.7 (26.0-36.4) SEC Sodium (135-145) mmol/L Potassium (3.3-5.1) mmol/L Chloride (96-108) mmol/L Carbon Dioxide (22-29) mmol/L Anion Gap (12-20) BUN (9-16) mg/dL Creatinine (0.5-1.4) mg/dL Estim Creat Clear Calc Estimated GFR Random Glucose (60-115) mg/dL Calcium (8.4-10.2) mg/dL Magnesium (1.6-2.6) mg/dL Total Bilirubin (0.0-1.0) mg/dL AST (5-37) U/L ALT (0-40) U/L Alkaline Phosphatase (39-117) U/L C-Reactive Protein 0.60 H (< or = 0.50) mg/dL Total Protein (6.5-8.0) g/dL Albumin (3.5-5.0) g/dL <ALMAS Valdivia - Last Filed: 05/20/22 14:47> Lab Results 05/20/22 05/20/22 05/20/22 Range/Units 16:09 16:09 16:09 WBC 7.4 (4.8-10.8) X10*3/uL RBC 5.36 (4.60-5.80) X10*6/uL Hgb 15.3 (14.0-18.0) g/dl Hct 47.1 (42.0-52.0) % MCV 87.9 (80.0-98.0) fL MCH 28.5 (27.0-33.0) pg MCHC 32.5 (31.0-36.0) g/dl RDW 12.5 (11.0-16.0) % Plt Count 276 (160-400) X10*3/uL MPV 9.3 L (9.4-12.4) fL Immature Gran % (Auto) 0.3 (0.0-0.4) % Neut % (Auto) 61.0 (45-73) % Lymph % (Auto) 29.1 (20-40) % [place] % (Auto) 6.0 (2-11) % Eos % (Auto) 2.9 (0-4) % Baso % (Auto) 0.7 (0-2) % Lymph # (Auto) 2.1 (1.2-4.9) X10*3/uL [place] # (Auto) 0.4 (0.1-1.2) X10*3/uL Eos # (Auto) 0.2 (0.0-0.4) X10*3/uL Baso # (Auto) 0.1 (0.0-0.2) X10*3/uL Abs Immat Gran (auto) 0.02 (0.00-0.03) X10*3/uL Absolute Neuts (auto) 4.5 (2.0-8.3) x10*3/uL Absolute Nucleated RBC 0.000 (0.0-0.012) X10*3/uL Nucleated RBC % (auto) 0.0 (0.0-0.2) /100WBC ESR (0-15) MM/HR PT 12.6 (10.0-13.1) SEC INR 1.1 (0.9-1.1) APTT (26.0-36.4) SEC Sodium 138 (135-145) mmol/L Potassium 4.5 (3.3-5.1) mmol/L Chloride 106 (96-108) mmol/L Carbon Dioxide 24 (22-29) mmol/L Anion Gap 13 (12-20) BUN 15 (9-16) mg/dL Creatinine 1.00 (0.5-1.4) mg/dL Estim Creat Clear Calc 168.8 Estimated GFR > 60 Random Glucose 150 H (60-115) mg/dL Calcium 9.1 (8.4-10.2) mg/dL Magnesium 1.8 (1.6-2.6) mg/dL Total Bilirubin 0.5 (0.0-1.0) mg/dL AST 32 (5-37) U/L ALT 48 H (0-40) U/L Alkaline Phosphatase 73 (39-117) U/L C-Reactive Protein (< or = 0.50) mg/dL Total Protein 6.9 (6.5-8.0) g/dL Albumin 3.9 (3.5-5.0) g/dL 05/20/22 05/20/22 05/20/22 Range/Units 16:09 16:09 16:09 WBC (4.8-10.8) X10*3/uL RBC (4.60-5.80) X10*6/uL Hgb (14.0-18.0) g/dl Hct (42.0-52.0) % MCV (80.0-98.0) fL MCH (27.0-33.0) pg MCHC (31.0-36.0) g/dl RDW (11.0-16.0) % Plt Count (160-400) X10*3/uL MPV (9.4-12.4) fL Immature Gran % (Auto) (0.0-0.4) % Neut % (Auto) (45-73) % Lymph % (Auto) (20-40) % [place] % (Auto) (2-11) % Eos % (Auto) (0-4) % Baso % (Auto) (0-2) % Lymph # (Auto) (1.2-4.9) X10*3/uL [place] # (Auto) (0.1-1.2) X10*3/uL Eos # (Auto) (0.0-0.4) X10*3/uL Baso # (Auto) (0.0-0.2) X10*3/uL Abs Immat Gran (auto) (0.00-0.03) X10*3/uL Absolute Neuts (auto) (2.0-8.3) x10*3/uL Absolute Nucleated RBC (0.0-0.012) X10*3/uL Nucleated RBC % (auto) (0.0-0.2) /100WBC ESR 7 (0-15) MM/HR PT (10.0-13.1) SEC INR (0.9-1.1) APTT 33.7 (26.0-36.4) SEC Sodium (135-145) mmol/L Potassium (3.3-5.1) mmol/L Chloride (96-108) mmol/L Carbon Dioxide (22-29) mmol/L Anion Gap (12-20) BUN (9-16) mg/dL Creatinine (0.5-1.4) mg/dL Estim Creat Clear Calc Estimated GFR Random Glucose (60-115) mg/dL Calcium (8.4-10.2) mg/dL Magnesium (1.6-2.6) mg/dL Total Bilirubin (0.0-1.0) mg/dL AST (5-37) U/L ALT (0-40) U/L Alkaline Phosphatase (39-117) U/L C-Reactive Protein 0.60 H (< or = 0.50) mg/dL Total Protein (6.5-8.0) g/dL Albumin (3.5-5.0) g/dL <James Hernandes MD - Last Filed: 05/21/22 02:19> Discharge Plan Discharge Clinical Impression: Glaucoma <ALMAS Valdivia - Last Filed: 05/20/22 14:47> Patient Disposition: Home, Self-Care <ALMAS Valdivia - Last Filed: 05/20/22 14:47> Instructions: Glaucoma (ED) <ALMAS Valdivia - Last Filed: 05/20/22 14:47> Additional Instructions: put eyedrops once daily 1 drop in each eye Follow-up with your eye doctor as scheduled Diamox 1 tablet twice daily for increased eye pressure follow-up with neurologist/PCP <ALMAS Valdivia - Last Filed: 05/20/22 14:47> Prescriptions: New timolol maleate 0.5 % drops 1 drp ophthalmic (eye) DAILY Qty: 5 0RF acetazolamide 250 mg tablet 250 mg PO BID Qty: 30 0RF No Action insulin lispro 100 unit/mL solution 100 unit subcut DAILY 30 Days Qty: 40 8RF Rx Instructions: via pump (DME) insulin syringe-needle U-100 [BD Veo Insulin Syringe UF] 1/2 mL 31 gauge x 15/64 syringe See Rx Instructions .Route Qty: 100 11RF Rx Instructions: As directed once daily levothyroxine 137 mcg tablet 137 mcg PO QAM Qty: 90 4RF (DME) FreeStyle Lite Strips Strip See Rx Instructions .ROUTE .MEDSUPPLY Qty: 100 11RF Rx Instructions: 4x daily (DME) lancets [FreeStyle Lancets] 28 gauge misc See Rx Instructions .ROUTE .MEDSUPPLY Qty: 100 11RF Rx Instructions: 4x daily (DME) blood-glucose meter [FreeStyle Lite Meter] Kit See Rx Instructions .Route Qty: 1 0RF Rx Instructions: As directed rosuvastatin 40 mg tablet 40 mg PO DAILY Qty: 90 2RF (DME) Omnipod 5 G6 Pods (Gen 5) Cartridge See Rx Instructions .Route Qty: 5 5RF Rx Instructions: As directed (DME) pen needle, diabetic [BD Ultra-Fine Citlaly Pen Needle] 32 gauge x 5/32 needle See Rx Instructions .ROUTE .MEDSUPPLY Qty: 100 3RF Rx Instructions: As directed twice daily melatonin 10 mg tablet 10 mg PO BEDTIME PRN (Reason: sleep) 30 Days Qty: 30 0RF cholecalciferol (vitamin D3) 50 mcg (2,000 unit) capsule 50 mcg PO DAILY Qty: 30 11RF Rx Instructions: Start after Vitamin D3 50,000 weekly for 6 weeks. polyethylene glycol 3350 [Purelax] 17 gram powder in packet 17 g PO DAILY Qty: 30 3RF clotrimazole 1 % cream 1 appl topical BID Qty: 45 3RF metoprolol succinate 50 mg tablet extended release 24 hr 50 mg PO DAILY Qty: 90 3RF (DME) Omnipod 5 G6 Intro Kit (Gen 5) Cartridge See Rx Instructions .ROUTE .COMPLEX Qty: 1 0RF Dose Instruction: DIRECTED Rx Instructions: DIRECTED tramadol 50 mg tablet 50 mg PO BID PRN (Reason: Pain (Scale Score 4-6)) Qty: 14 0RF Neosporin Plus PainRelief(sg) 3.5-500-10,000 rd-egst-hqbf/g ointment 1 appl topical BID 30 Days Qty: 14.2 3RF selenium sulfide 2.25 % shampoo 1 appl topical BEDTIME 30 Days Qty: 180 2RF Rx Instructions: massage into affected area; leave on for 10 mins ; rinse off thoroughly lorazepam [Ativan] 1 mg tablet 1 mg PO BEDTIME PRN (Reason: anxiety) 30 Days Qty: 10 0RF melatonin 10 mg capsule 10 mg PO BEDTIME PRN (Reason: insomnia) omeprazole 20 mg tablet,delayed release (DR/EC) 20 mg PO DAILY (DME) Omnipod Dash Pods (Gen 4) Cartridge See Rx Instructions subcut .MEDSUPPLY Qty: 5 Rx Instructions: As directed docusate sodium [Colace] 100 mg capsule 100 mg PO BID Qty: 60 5RF <ALMAS Valdivia - Last Filed: 05/20/22 14:47> Interventions: ED Discharge Assessment Last Done: 05/21/22 00:34 <ALMAS Valdivia - Last Filed: 05/20/22 14:47> Discharge Date/Time: 05/21/22 00:36 <ALMAS Valdivia - Last Filed: 05/20/22 14:47>
[2022-05-20 16:17] LABS: MANUAL DIFF FLAG NO
[2022-05-20 16:18] LABS: Basophils Absolute Auto 0.1 X10*3/uL (0.0-0.2); Basophils Percent Auto 0.7 % (0-2); Eosinophils Absolute Auto 0.2 X10*3/uL (0.0-0.4); Eosinophils Percent Auto 2.9 % (0-4); Hematocrit 47.1 % (42.0-52.0); Hemoglobin 15.3 g/dl (14.0-18.0); Imm Gran Abs Auto 0.02 X10*3/uL (0.00-0.03); Imm Gran Pct Auto 0.3 % (0.0-0.4); Lymphocytes Absolute Auto 2.1 X10*3/uL (1.2-4.9); Lymphocytes Percent Auto 29.1 % (20-40); Mean Corpuscular HGB Conc 32.5 g/dl (31.0-36.0); Mean Corpuscular Hemoglobin 28.5 pg (27.0-33.0); Mean Corpuscular Volume 87.9 fL (80.0-98.0); Mean Platelet Volume 9.3 fL (9.4-12.4); Monocytes Absolute Auto 0.4 X10*3/uL (0.1-1.2); Neutrophils Absolute Auto 4.5 x10*3/uL (2.0-8.3); Platelet Count 276 X10*3/uL (160-400); Red Blood Count 5.36 X10*6/uL (4.60-5.80); Red Cell Distribution Width 12.5 % (11.0-16.0); White Blood Count 7.4 X10*3/uL (4.8-10.8)
[2022-05-20 16:24] LABS: INTERNATIONAL NORM RATIO 1.1 (0.9-1.1); Prothrombin Time 12.6 SEC (10.0-13.1)
[2022-05-20 16:26] LABS: Partial Thromboplastin Time 33.7 SEC (26.0-36.4)
[2022-05-20 16:39] LABS: Potassium 4.5 mmol/L (3.3-5.1)
[2022-05-20 16:45] LABS: Alanine Aminotransferase 48 U/L (0-40); Albumin Level 3.9 g/dL (3.5-5.0); Alkaline Phosphatase 73 U/L (39-117); Anion Gap 13 (12-20); Aspartate Amino Transferase 32 U/L (5-37); Bilirubin Total 0.5 mg/dL (0.0-1.0); Blood Urea Nitrogen 15 mg/dL (9-16); Calcium 9.1 mg/dL (8.4-10.2); Carbon Dioxide 24 mmol/L (22-29); Chloride 106 mmol/L (96-108); Creatinine Clr Calc Pharmacy 168.8; Estimated Glomerular Filt Rate > 60; Glucose Random 150 mg/dL (60-115); Magnesium 1.8 mg/dL (1.6-2.6); Sodium 138 mmol/L (135-145); Total Protein 6.9 g/dL (6.5-8.0)
[2022-05-20 16:52] LABS: Erythrocyte Sedimentation Rate 7 MM/HR (0-15)
[2022-05-21] MEDS: acetaZOLAMIDE 250 MG TABLET PO (00:08)
[2022-05-21 00:27] VITALS: BP 145/86; PULSE 81; RESP 19; TEMP 36.4; O2SAT 98
== END 2022-05-21 00:36 | disposition home or self-care (01) ==
PROVIDERS: Physician Assistant Medical; Emergency Provider Internal Medicine; PCP Internal Medicine
DX: H40.9 Unspecified glaucoma (principal); H47.10 Unspecified papilledema; R51.9 Headache, unspecified; I10 Essential (primary) hypertension; Z79.899 Other long term (current) drug therapy
CPT/HCPCS: 36415; 70450; 80053; 83735; 85025; 85610; 85652; 85730; 86140; 99283; 99284

== ENCOUNTER 2022-07-24 09:36 | Outpatient (REF) | payer OTHER, SELFPAY ==
[2022-07-24 11:33] LABS: Glucose Random 129 mg/dL (60-115)
[2022-07-25 22:28] LABS: C Peptide 0.21 ng/mL (0.80-3.85)
== END 2022-07-24 09:37 | disposition home or self-care (01) ==
LOC: HO.10HDL 09:36
PROVIDERS: Internal Medicine Endocrinology, Diabetes & Metabolism; PCP Internal Medicine; Visit Provider Physician Assistant
DX: E10.649 Type 1 diabetes mellitus with hypoglycemia without coma (principal)
CPT/HCPCS: 36415; 82947; 84681

== ENCOUNTER → 2022-07-29 13:34 | Outpatient (BNVA) | payer OTHER, SELFPAY | PROVIDERS: PCP Internal Medicine; Visit Provider Internal Medicine Endocrinology, Diabetes & Metabolism | DX: E10.649 Type 1 diabetes mellitus with hypoglycemia without coma (principal) | CPT/HCPCS: 82947; 83036; 99212 ==

== ENCOUNTER → 2022-08-18 10:18 | Outpatient (BNVA) | payer OTHER, SELFPAY | PROVIDERS: PCP Internal Medicine; Referring Provider Internal Medicine; Visit Provider Physician Assistant | DX: E66.01 Morbid (severe) obesity due to excess calories (principal); Z68.43 Body mass index [BMI] 50.0-59.9, adult | CPT/HCPCS: 99212 ==

== ENCOUNTER → 2022-09-03 09:52 | Outpatient (BNVA) | payer OTHER, SELFPAY | PROVIDERS: PCP Internal Medicine; Visit Provider Physician Assistant | DX: E66.01 Morbid (severe) obesity due to excess calories (principal); E10.649 Type 1 diabetes mellitus with hypoglycemia without coma; I10 Essential (primary) hypertension; E03.9 Hypothyroidism, unspecified; E78.5 Hyperlipidemia, unspecified; Z68.43 Body mass index [BMI] 50.0-59.9, adult | CPT/HCPCS: 99212 ==

== ENCOUNTER → 2022-09-12 11:07 | Outpatient (BNVA) | payer OTHER, SELFPAY | PROVIDERS: PCP Internal Medicine; Visit Provider Physician Assistant ==

== ENCOUNTER → 2022-09-15 08:12 | Outpatient (BNVA) | payer OTHER, SELFPAY | PROVIDERS: PCP Internal Medicine; Visit Provider Surgery ==

== ENCOUNTER → 2022-09-29 08:08 | Outpatient (BNVA) | payer OTHER, SELFPAY | PROVIDERS: PCP Internal Medicine; Visit Provider Surgery | DX: E66.01 Morbid (severe) obesity due to excess calories (principal); I10 Essential (primary) hypertension; E78.5 Hyperlipidemia, unspecified; K21.9 Gastro-esophageal reflux disease without esophagitis; R11.0 Nausea; Z01.818 Encounter for other preprocedural examination ==

== ENCOUNTER → 2022-10-03 12:48 | Outpatient (BNVA) | payer OTHER, SELFPAY | PROVIDERS: PCP Internal Medicine; Referring Provider Internal Medicine; Visit Provider Surgery ==

== ENCOUNTER → 2022-10-06 08:58 | Outpatient (BNVA) | payer OTHER, SELFPAY | PROVIDERS: PCP Internal Medicine; Visit Provider Registered Nurse Diabetes Educator | DX: E11.9 Type 2 diabetes mellitus without complications (principal); Z46.81 Encounter for fitting and adjustment of insulin pump | CPT/HCPCS: 99211 ==

== ENCOUNTER 2022-10-06 10:21 | Outpatient (REF) | payer OTHER, SELFPAY ==
[2022-10-06 10:49] LABS: MANUAL DIFF FLAG NO
[2022-10-06 12:28] LABS: Basophils Absolute Auto 0.1 X10*3/uL (0.0-0.2); Basophils Percent Auto 0.7 % (0-2); Eosinophils Absolute Auto 0.1 X10*3/uL (0.0-0.4); Eosinophils Percent Auto 1.3 % (0-4); Hematocrit 47.1 % (42.0-52.0); Hemoglobin 15.9 g/dl (14.0-18.0); Imm Gran Abs Auto 0.02 X10*3/uL (0.00-0.03); Imm Gran Pct Auto 0.2 % (0.0-0.4); Lymphocytes Absolute Auto 1.8 X10*3/uL (1.2-4.9); Lymphocytes Percent Auto 21.2 % (20-40); Mean Corpuscular HGB Conc 33.8 g/dl (31.0-36.0); Mean Corpuscular Hemoglobin 29.1 pg (27.0-33.0); Mean Corpuscular Volume 86.3 fL (80.0-98.0); Mean Platelet Volume 10.5 fL (9.4-12.4); Monocytes Absolute Auto 0.5 X10*3/uL (0.1-1.2); Monocytes Percent Auto 5.8 % (2-11); Neutrophils Absolute Auto 5.8 x10*3/uL (2.0-8.3); Neutrophils Percent Auto 70.8 % (45-73); Platelet Count 319 X10*3/uL (160-400); Red Blood Count 5.46 X10*6/uL (4.60-5.80); Red Cell Distribution Width 12.6 % (11.0-16.0); White Blood Count 8.3 X10*3/uL (4.8-10.8)
[2022-10-06 12:36] LABS: INTERNATIONAL NORM RATIO 1.1 (0.9-1.1); Prothrombin Time 12.6 SEC (10.0-13.1)
[2022-10-06 12:39] LABS: Partial Thromboplastin Time 30.8 SEC (26.0-36.4)
[2022-10-06 12:51] LABS: Estimated Average Glucose 126 mg/dL
[2022-10-06 13:31] LABS: Alanine Aminotransferase 20 U/L (0-40); Albumin Level 4.2 g/dL (3.5-5.0); Alkaline Phosphatase 80 U/L (39-117); Anion Gap 17 (12-20); Aspartate Amino Transferase 23 U/L (5-37); Bilirubin Total 0.7 mg/dL (0.0-1.0); Blood Urea Nitrogen 13 mg/dL (9-16); C Reactive Protein 1.69 mg/dL (< or = 0.50); Calcium 9.3 mg/dL (8.4-10.2); Carbon Dioxide 23 mmol/L (22-29); Chloride 104 mmol/L (96-108); Cholesterol 126 mg/dL; Estimated Glomerular Filt Rate > 60; Glucose Random 67 mg/dL (60-115); HDL Cholesterol 29 mg/dL; LDL Cholesterol Calculated 80 mg/dl; Potassium 4.2 mmol/L (3.3-5.1); Sodium 140 mmol/L (135-145); Total Protein 7.4 g/dL (6.5-8.0); Triglycerides 85 mg/dL
[2022-10-06 13:37] LABS: TSH reflex Free T4 0.76 uIU/mL (0.32-4.0)
== END 2022-10-06 10:22 | disposition home or self-care (01) ==
LOC: HO.10HDL 10:21
PROVIDERS: Visit Provider Surgery
DX: E66.01 Morbid (severe) obesity due to excess calories (principal); E78.5 Hyperlipidemia, unspecified; I10 Essential (primary) hypertension; E11.9 Type 2 diabetes mellitus without complications
CPT/HCPCS: 36415; 80053; 80061; 83036; 84443; 85025; 85610; 85730; 86140

== ENCOUNTER 2022-10-14 06:01 | Inpatient (IN) | payer OTHER, SELFPAY ==
[2022-10-08 10:22] VITALS: BMI 51.5
--- NOTE | 2022-10-10 22:08 | MHC.SHP ---
Pre-Procedural Eval Section A Date of Service: 10/10/22 The patient is an INPATIENT: Yes The History & Physical has been completed within 30 days and I have reviewed it.: Yes Section B Chief Complaint: Morbid (severe) obesity due to excess calories Relevant Family History (Specify if Yes): No Relevant Social History: None Present Medications: None Medical History: No relevant PMH History of Previous Operations: No relevant previous surgery Allergies: Allergies Allergy/AdvReac Type Severity Reaction Status Date / Time No Known Allergies Allergy Verified 10/08/22 10:21 [No Known Allergies*] Review of Systems Sugical H&P ROS: Negative: Constitution, Cardiovascular, Respiratory, Neurological, Psychiatric, Hem-Onc, Allergic/Immunologic, Gastrointestinal, Genitourinary, Musculoskeletal, Integumentary, Endocrine and Eyes/Ears/Nose/Throat Exam Surgical H&P Exam: Normal: HEENT, Normal: Heart, Normal: Lungs, Normal: Extremities, Normal: Abdomen, Normal: Skin and Normal: Neurological Plan Diagnosis/Plan: Unchanged I have reviewed the history and physical and performed a pertinent physical examination on my patient. No changes have occurred unless specified. Time Spent With Patient Time: Total time managing care of this patient today ____ minutes.
--- NOTE | 2022-10-13 10:07 | HO.ANESPROP2 ---
Documented by User: Mariela Price NP 10/13/22 10:09 HPI - Anesthesia Eval Consult details Narrative: 32yo M for Gastrectomy Sleeve EGD poss diaphragmatic hernia,poss ventral hernia, poss open PCP cleared PMFSH Active Problems Active Problems: All Active Problems (Updated 10/08/22 @ 10:21 by Rosalinda Waters RN) Elevated LFTs (Acute) Pre-op evaluation (Acute) Obstructive sleep apnea (Acute) Major depressive disorder, recurrent, moderate (Acute) Umbilical pain (Acute) Constipation (Acute) Seborrheic dermatitis of scalp (Acute) Adult general medical exam (Acute) DJD (degenerative joint disease) (Acute) Insomnia (Acute) Obesity due to excess calories (Acute) NATALIO (generalized anxiety disorder) (Acute) Goiter (Acute) HLD (hyperlipidemia) (Acute) Constipation by delayed colonic transit (Acute) Hypothyroidism (Acute) Morbid obesity (Acute) Hypertension (Acute) Dyslipidemia (Acute) Microalbuminuria (Acute) Diabetes type 1, controlled (Acute) Past Medical History Medical History Constipation by delayed colonic transit Diabetes type 1, controlled DJD (degenerative joint disease) Dyslipidemia NATALIO (generalized anxiety disorder) Goiter HLD (hyperlipidemia) Hypertension Hypothyroidism Insomnia Insulin pump in place Microalbuminuria Morbid obesity Obesity due to excess calories Family History Family History Father No problems noted. Mother Obesity Surgical History Surgical History No pertinent past surgical history Social History Social History Housing: Apartment Are you a primary caregivers homecare to a significant other at home: No Do you presently have visiting nurse or other home services: No Alcohol intake: never Patient Tobacco Use Status: Never used Tobacco e-Cigarette/Vaping Use: Never Used Second Hand Smoke Exposure: No service: No Current occupational status: unemployed Cognitive needs: No Hearing needs: No Vision needs: Yes Meds Allergies Allergy/AdvReac Type Severity Reaction Status Date / Time No Known Allergies Allergy Verified 10/13/22 09:11 [No Known Allergies*] Home Medications Medication Instructions Recorded Confirmed Last Taken Type vitamin A 3,000 mcg (10,000 unit) 3,000 mcg PO DAILY 10/08/22 10/14/22 Unknown History capsule insulin lispro 100 unit/mL 100 unit subcut DAILY 10/14/22 10/14/22 Unknown History subcutaneous solution minoxidil 2.5 mg tablet 2.5 mg PO DAILY alopecia 10/14/22 10/14/22 Unknown History Exam Exam Date and Time: October 13, 2022 1007 Height,Weight and Vital Signs: Height 5 ft 9.5 in Weight 160.572 kg Pertinent Lab Results Pertinent Lab Results: Laboratory Tests 10/06/22 10:45 Blood Type A Positive Antibody Screen NEGATIVE Laboratory Tests 10/06/22 10/06/22 10:48 10:48 WBC 8.3 Hgb 15.9 Hct 47.1 Plt Count 319 Sodium 140 Potassium 4.2 Chloride 104 Carbon Dioxide 23 BUN 13 Creatinine 0.95 Narrative Narrative: EKG 10/2022 Normal sinus rhythm rate of 86 Assessment and Plan Assessment Anesthesia Assessment: Chart Reviewed Documented by User: Fidelia Smith MD 10/14/22 08:22 PMFSH Past Medical History Medical History Constipation by delayed colonic transit Diabetes type 1, controlled DJD (degenerative joint disease) Dyslipidemia NATALIO (generalized anxiety disorder) Goiter HLD (hyperlipidemia) Hypertension Hypothyroidism Insomnia Insulin pump in place Microalbuminuria Morbid obesity Obesity due to excess calories Family History Family History Father No problems noted. Mother Obesity Surgical History Surgical History No pertinent past surgical history History of Problems with Anesthesia: No Social History Social History Housing: Apartment Are you a primary caregivers homecare to a significant other at home: No Do you presently have visiting nurse or other home services: No Alcohol intake: never Patient Tobacco Use Status: Never used Tobacco e-Cigarette/Vaping Use: Never Used Second Hand Smoke Exposure: No service: No Current occupational status: unemployed Cognitive needs: No Hearing needs: No Vision needs: Yes Meds Allergies Allergy/AdvReac Type Severity Reaction Status Date / Time No Known Allergies Allergy Verified 10/13/22 09:11 [No Known Allergies*] Home Medications Medication Instructions Recorded Confirmed Last Taken Type vitamin A 3,000 mcg (10,000 unit) 3,000 mcg PO DAILY 10/08/22 10/14/22 Unknown History capsule insulin lispro 100 unit/mL 100 unit subcut DAILY 10/14/22 10/14/22 Unknown History subcutaneous solution minoxidil 2.5 mg tablet 2.5 mg PO DAILY alopecia 10/14/22 10/14/22 Unknown History Exam Airway Mallampati Class: III (full rascon) TM Dist: >3cm Neck ROM: Full Loose/Missing/Broken Teeth: No Heart: RRR Lungs: CTA Assessment and Plan Assessment Anesthesia Assessment: Anesthesia Plan Discussed Final Anesthetic Review History of Problems with Anesthesia: No NPO: Yes ASA Class: III Final Preanesthetic Review: Meds/Allgs Chart Reviewed, Consent Obtained/Reviewed and Anes Risks/Benef Reviewed Patient Risk: Intermediate Procedure Risk: Intermediate Anesthetic Plan Anesthetic Plan: GA Disposition: Standard PACU
[2022-10-13 12:57] LABS: COVID-19 Test Negative (Negative); IDNOW Serial# 9DB6401D
[2022-10-14] VITALS (20 sets, daily range): BP systolic 116–142; BP diastolic 57–81; PULSE 71–99; RESP 14–20; TEMP 36–37; O2SAT 96–100
[2022-10-14 06:32] LABS: Glucose, Whole Blood 159 mg/dL (60-115)
[2022-10-14] MEDS: Lactated Ringers 1,000 ML 999 ML IV (06:45)
[2022-10-14] MEDS: Lactated Ringers 1,000 ML 100 ML IVCONT ×3 (06:45→22:14)
[2022-10-14] MEDS: Aprepitant 32 MG/4.4 ML VIAL IVPUSH (06:50)
--- NOTE | 2022-10-14 07:09 | PHA.MEDREC ---
Pharmacy Consult ? Medication Reconciliation Pharmacy has completed the medication reconciliation. Completed by RN, verified by pharmacy Tom
--- NOTE | 2022-10-14 07:34 | PC.NURSE ---
BLOOD SUGAR SENSOR LOCATED ON LEFT UPPER ARM. OMNIPOD LOCATED ON LEFT CHEST. DR. MIRANDA AND CHERI ESCOBAR RN MADE AWARE.
--- NOTE | 2022-10-14 07:34 | PM.OP ---
Brief Operative Note Date of Service: 10/14/22 Pre-op diagnosis: Morbid obesity with comorbidities (see below) Post-op diagnosis: same Procedure: INITIAL PATIENT BMI ON PRESENTATION AT OUR OFFICE: 56.4 kg/m2 LAST BMI BEFORE SURGERY: 49.1 kg/m2 COMORBIDITIES: insulin dependent diabetes on insulin pump, hyperlipidemia, hypothyroidism, hypertension, insomnia, anxiety, DJD, liver fibrosis ?The patient presented to the Weight Management Program with significant obesity that was negatively impacting the patient's comorbidities as listed above.? The program is a phased program with a special focus on preoperative medical weight management to promote substantial weight loss and prepare the patients for the second phase of the program: bariatric surgery. The patient participated in an intensive weekly lifestyle ?intervention and exercise program during which the patient ?has lost between the initial office visit and the last preoperative visit 54 lbs, or 13.35% of initial actual body weight. It was deemed appropriate for the patient to now have bariatric surgery. In light of the current Covid-19 pandemic and the well documented strong association of obesity and increased risk of worse outcomes if infected with Covid-19 (REFERENCES:https://pubmed.ncbi.nlm.nih.gov/69430722/,?https://pubmed.ncbi.nlm.nih.gov/17589983/), any delay in undergoing bariatric surgery may lead to the patient's worsening health condition and increased?risk of more severe Covid-19 disease if infected. In addition a recent?study from [facility] published in [facility] on 06/03/2021 ([email or web address]) found that, among patients with obesity, substantial weight loss achieved with surgery was associated with improved outcomes of COVID-19 infection. The findings suggest that obesity can be a modifiable risk factor for the severity of COVID-19 infection. In addition, the patient met the BMI-criteria for bariatric surgery based on the BMI on initial presentation. The patient should not be penalized for achieving such weight loss because ?it is not sustainable long-term without surgical intervention and it was achieved in preparation for bariatric surgery ?under my direction and based on my published research ([email or web address] and?https://www.soard.org/article/[email or web address](28)34976-X/pdf) ?that a 10% preoperative weight loss improves long-term weight loss after surgery and reduces perioperative complications.? Insurance carriers such as [facility] have endorsed my recommendations ?and have included in their policies criteria to include a 10% preoperative weight loss requirement. PROCEDURE: Esophago-gastroscopy, laparoscopic sleeve gastrectomy and laparoscopic gastropexy INDICATIONS: This is a 32 year-old male who was electively scheduled for laparoscopic, possibly open sleeve gastrectomy. The risks and complications of the procedure were discussed with the patient in advance, particularly the possibility of ; pulmonary embolism; staple line leak; bleeding; GERD; cardiac, pulmonary, or renal complications; as well as long-term problems such as insufficient weight loss, vitamin deficiency, strictures, or ulcers. The patient understood all the risks, and was in agreement to proceed with surgery. DESCRIPTION OF PROCEDURE: After informed consent was obtained from the patient, the patient was given preoperative antibiotics, and was transferred to the operating room. After successful induction of general anesthesia, pneumatic compression devices were placed on both lower extremities. An upper endoscopy was performed next. The oropharynx and esophagus appeared to be within normal limits. There was no diaphragmatic hernia present consistent with the findings of the preoperative upper GI. The stomach was entered. Then after all fluid and air were suctioned and the stomach was fully decompressed, the scope was withdrawn and secured in the mid esophagus. The patient was then prepped and draped in the usual sterile manner, and abdominal access was established at the right upper quadrant with the Franco technique. A 12 mm blunt port was inserted, and the abdomen was insufflated with CO2 to a pressure of 15 mmHg. Under direct visualization, additional ports were placed, specifically two 5 mm Versi-step ports to the left upper quadrant, and a 5 mm Versi-Step port to the right upper quadrant. 1% lidocaine plain was used to infiltrate all port sites as well as all fascia defects. Using the EndoClose suture passer device, I placed a #1 Polysorb tie across the falciform ligament in order to retract it up against the abdominal wall and prevent injury of the ligament with our instruments during the procedure. Following that, the patient was placed in a steep reverse Trendelenburg position. An additional 5 mm port was placed to the right flank for the Mediflex retractor that was used to retract the left lobe of the liver. The gastro-esophageal fat pad was opened with the ultrasonic device (Thunderbeat, Olympus) and the anterior esophagus and hiatus were exposed. The angle of His was opened with the ultrasonic device the fundus of the stomach from any diaphragmatic and splenic attachments. I then opened the gastrocolic ligament between the transverse colon and the greater curvature of the stomach with the ultrasonic device to enter the lesser sac and facilitate the ligation of the short gastric vessels. I started at a mid-point along the greater curvature and using the Thunderbeat, all short gastric vessels were divided all the way to the angle of His until the left carla was completely dissected at its entirety. I then divided the gastro-colic ligament distally to a distance of about 3-4 cm proximal to the pylorus. The stomach was then divided transversely with one Endo BALTAZAR-45 purple, 2 BALTAZAR-60 purple loads and 2 BALTAZAR-60 articulating orange loads using the AEON stapler and loads. Every effort was made that the gastric sleeve had a tubular shape and an even caliber throughout. Once the sleeve resection was completed, the staple line of the gastric sleeve was reinforced with Hemoclips. The resected stomach was retrieved without difficulty from the Franco port. A gastropexy was then performed in order to prevent postoperative GERD and partial gastric volvulus. Several interrupted 2.0 Surgidac sutures were placed between the sleeve's staple line and the previously divided greater omentum and gastro-colic ligament using the Endo-Stitch device. ?An upper endoscopy was performed. There was no narrowing at the GE junction. The scope was easily advanced all the way to the pylorus which was clearly visualized. There was no narrowing anywhere and the sleeve's caliber was even throughout. The sleeve's staple line was inspected and there was no evidence of ischemia, bleeding or dehiscence. At that point the gastroscope was withdrawn from the patient?s mouth while we were decompressing the bowel and the stomach from any remaining air. I looked into the lesser sac to see how the sleeve was situating and it was situating well. There was no bleeding from the staple line, spleen, or short gastric vessels. The Mediflex retractor was removed, and the undersurface of the liver was inspected and there was no bleeding. The patient was placed in supine position. I closed the fascial defect of the 12 mm port site with a figure of eight #1 Polysorb suture. Then 30cc Ropivacaine plain with 10 mg of Dexamethasone were used to infiltrate the fascial closure as well as all skin incisions. At this point, the abdomen was deflated, all ports were removed under direct vision, and no bleeding was noted from any of the port sites. The skin incisions were irrigated with saline and were closed with 4-0 absorbable monofilament sutures. Steri-Strips and OpSites were used to cover all incisions. The patient was extubated and was transferred in stable condition to the recovery room for further care. I was present and performed all crawford parts of the procedure. Debbi Reynolds was the team assistant. There were no residents to assist with this case. Jose Solo MD, PhD, FACS Surgeon: Ender Solo MD Anesthesia: GETA, local and other (TAP block) Was an Panelbeater used for this Procedure?: No Panelbeater: Arlene Reynolds Estimated blood loss (mL): 10 IV fluids (mL): 2,500 Urine output (mL): 0 (No Whitaker to record output) Pathology: other (Stomach) Condition: stable Disposition: PACU
--- NOTE | 2022-10-14 07:42 | P.PNGS_ITS ---
Subjective Subjective Date of Service: 10/15/22 Interval history: Feels well. Mild incisional pain. He is tolerating phase 1 bariatric diet Physical Exam Vital Signs: Vital Signs: Last Vital Signs Temp 97.0 F 10/14/22 06:29 Pulse 99 10/14/22 06:29 Resp 16 10/14/22 06:29 BP 123/67 10/14/22 06:29 Pulse Ox 99 10/14/22 06:29 O2 Del Method Room Air 10/14/22 06:29 BMI result Body Mass Index 51.5 GI: Inspection: Yes normal to inspection, Yes incision (clean, dry and intact) and Yes obesity Palpation (GI): Soft to palpation Objective Data Active Medications Lactated Ringer's (Lr) 1,000 mls @ 100 mls/hr IVCONT .Q10H [facility] Last Admin: 10/14/22 06:45 Dose: 100 mls/hr Documented By: FAVIAN Lactated Ringer's (Lr) 1,000 mls @ 999 mls/hr IV .Q1H1M [facility]Z Stop: 10/14/22 08:15 Last Admin: 10/14/22 06:45 Dose: 999 mls/hr Documented By: FAVIAN Labs 10/15/22 05:25 10/15/22 05:25 Labs: Laboratory Results - last 24 hr 10/13/22 10/14/22 12:23 06:27 POC Glucose 159 H COVID-19 (SHI) Negative COVID-19 Clin Com See Note Procedures Date of Service Date of Service: 10/15/22 Progress Note: A&P Assessment and plan (1) Morbid obesity: Status: Acute Assessment and Plan: s/p laparoscopic sleeve gastrectomy and gastropexy Doing well Will check am labs and if OK the patient will be discharged home (2) Diabetes type 1, controlled: Status: Acute (3) Dyslipidemia: Status: Acute (4) Hypertension: Status: Acute (5) Hypothyroidism: Status: Acute (6) NATALIO (generalized anxiety disorder): Status: Acute (7) DJD (degenerative joint disease): Status: Acute (8) Obstructive sleep apnea: Status: Acute (9) S/P laparoscopic sleeve gastrectomy: Status: Acute Time Spent With Patient Time: Total time managing care of this patient today ____ minutes. Quality Stroke Does the patient have a stroke diagnosis?: No VTE Prior VTE?: No VTE Risk Level:: Surgical - moderate VTE Device Contraindication: N/A - Device Ordered VTE Drug Contraindication: Treatment Not Indicated
--- NOTE | 2022-10-14 10:03 | PM.DS ---
DS: Providers Provider Date of Service: 10/15/22 Date of admission: 10/14/22 06:01 Primary care physician: Terra Núñez MD DS: Diagnosis Discharge Diagnosis (1) Morbid obesity: Status: Acute (2) Diabetes type 1, controlled: Status: Acute (3) Dyslipidemia: Status: Acute (4) Hypertension: Status: Acute (5) Hypothyroidism: Status: Acute (6) NATALIO (generalized anxiety disorder): Status: Acute (7) DJD (degenerative joint disease): Status: Acute (8) Obstructive sleep apnea: Status: Acute (9) S/P laparoscopic sleeve gastrectomy: Status: Acute DS: Summary Hospital Course Hospital Course: ADMITTING DIAGNOSIS: morbid obesity, DM Type 1, HTRN, hypothyroidism, hyperlipidemia DISCHARGE DIAGNOSIS: same, s/p laparoscopic sleeve gastrectomy PAST SURGICAL HISTORY: none PROCEDURE: upper endoscopy, laparoscopic sleeve gastrectomy DISCHARGE SUMMARY: History of Present Illness: The patient is a 32 year-old man with a BMI of 56.5 kg/m2 and associated co-morbidities as described above. The patient had extensive work-up, lost 35.6 lbs preoperatively and was electively scheduled for laparoscopic, possible open sleeve gastrectomy and gastropexy. Risks and complications of the surgery were discussed with the patient in advance, particularly the possibility of , pulmonary embolism, anastomotic leak, bleeding, bowel injury, GERD, cardiac, renal or pulmonary complications. The patient understood all the risks and was in agreement with the surgical plan. Hospital Course: The patient underwent an uneventful laparoscopic sleeve gastrectomy with gastropexy on the day of admission. Postoperatively, the patient was transferred to the surgical floor. The patient received IV Acetaminophen and IV dilaudid for pain control. Patient was started on bariatric phase 1 diet POD #0. On postoperative day one, the patient was feeling well without nausea, vomiting, fevers, or tachycardia. The patient had some mild incisional pain and the abdomen was soft. On the morning of postoperative day one, the patient was continued on 1 ounce of water or ice every half hour. During the day, the patient did fairly well, having some incisional pain, but able to ambulate adequately and to tolerate liquids well. Since the patient is doing well, we decided that the patient was ready to be discharged. The patient was given instructions to follow-up with me next week and to call my office for any fever over 101, persistent abdominal pain, nausea, vomiting, GERD, symptoms of DVT such as calf tenderness, or leg swelling, or pulmonary embolism such as chest pain or shortness of breath. The patient was also instructed to drink 40-60 ounces of liquids per day using the 1-ounce cups. The patient had been given prescriptions for Tylenol for pain, Zofran prn for nausea, and pantoprazole and carafate previously. The patient was encouraged to ambulate and use the incentive spirometer. The patient was allowed to shower, but no baths, and encouraged to stay active at home. All of these instructions were given to the patient personally. All questions were answered and the patient understood all instructions, the instructions were also given to the patient in print. Time Spent with Patient Time attestation: Total time managing care of this patient today ____ minutes. Discharge coordination time: Less than 30 minutes Quality: Safe Use of Opioids Does Pt have an Active Cancer Diagnosis on the Problem List?: No Quality: Stroke Does the patient have a stroke diagnosis?: No Physical Exam Vital Signs: Vital Signs: Last Vital Signs Temp 97.0 F 10/14/22 06:29 Pulse 99 10/14/22 06:29 Resp 16 10/14/22 06:29 BP 123/67 10/14/22 06:29 Pulse Ox 99 10/14/22 06:29 O2 Del Method Room Air 10/14/22 06:29 BMI result Body Mass Index 51.5 DS: Data Data Completed and Pending Pending studies at discharge: Pending at discharge 10/14/22 09:16 Surgical [PTH] Routine Labs on day of discharge: Laboratory Results - last 24 hr 10/13/22 10/14/22 12:23 06:27 POC Glucose 159 H COVID-19 (SHI) Negative COVID-19 Clin Com See Note Discharge Plan Discharge Anticipated Discharge Date/Time: 10/15/22 10:59 Patient Disposition: Home, Self-Care Discharge Diagnosis: s/p sleeve gastrectomy Referrals: Terra Sorenson MD [Primary Care Provider] - 1 Week Discharge Medications: Continued (DME) insulin syringe-needle U-100 [BD Veo Insulin Syringe UF] 1/2 mL 31 gauge x 15/64 syringe See Rx Instructions .Route Qty: 100 11RF Rx Instructions: As directed once daily levothyroxine 137 mcg tablet 137 mcg PO QAM Qty: 90 4RF (DME) FreeStyle Lite Strips Strip See Rx Instructions .ROUTE .MEDSUPPLY Qty: 100 11RF Rx Instructions: 4x daily (DME) lancets [FreeStyle Lancets] 28 gauge misc See Rx Instructions .ROUTE .MEDSUPPLY Qty: 100 11RF Rx Instructions: 4x daily (DME) blood-glucose meter [FreeStyle Lite Meter] Kit See Rx Instructions .Route Qty: 1 0RF Rx Instructions: As directed (DME) pen needle, diabetic [BD Ultra-Fine Citlaly Pen Needle] 32 gauge x 5/32 needle See Rx Instructions .ROUTE .MEDSUPPLY Qty: 100 3RF Rx Instructions: As directed twice daily clotrimazole 1 % cream 1 appl topical BID Qty: 45 3RF (DME) Omnipod 5 G6 Intro Kit (Gen 5) Cartridge See Rx Instructions .ROUTE .COMPLEX Qty: 1 0RF Dose Instruction: DIRECTED Rx Instructions: DIRECTED (DME) Omnipod 5 G6 Pods (Gen 5) Cartridge See Rx Instructions .Route Qty: 10 5RF Rx Instructions: As directed melatonin 10 mg capsule 10 mg PO BEDTIME PRN (Reason: insomnia) 90 Days Qty: 90 1RF rosuvastatin 40 mg tablet 40 mg PO DAILY Qty: 90 2RF pantoprazole 40 mg tablet,delayed release (DR/EC) 40 mg PO DAILY Qty: 30 2RF sucralfate 100 mg/mL suspension 10 ml PO BID Qty: 400 2RF ondansetron 4 mg tablet,disintegrating 4 mg PO Q12H Qty: 20 0RF Rx Instructions: Only take one every 12 hours as needed if you have nausea Held metoprolol succinate 50 mg tablet extended release 24 hr 50 mg PO DAILY Qty: 90 3RF Hold Instructions: Resume on 10/16/22. Check your blood pressure every evening and send it to Dr. Solo. Do not take the medication before you hear from Dr. Solo. Do not take the medication if your blood pressure is below 120/70 mmHg. minoxidil 2.5 mg tablet 2.5 mg PO DAILY Hold Instructions: Resume on 10/16/22. Check your blood pressure every evening and send it to Dr. Solo. Do not take the medication before you hear from Dr. Solo. Do not take the medication if your blood pressure is below 120/70 mmHg. insulin lispro 100 unit/mL solution 100 unit subcut DAILY Hold Instructions: Resume on 10/15/22. Check your blood sugar daily and report to Dr. Solo any lows below 100 Rx Instructions: via pump lorazepam [Ativan] 1 mg tablet 1 mg PO BEDTIME PRN (Reason: anxiety) 30 Days Qty: 10 0RF Hold Instructions: Resume on 10/22/22. Discontinued cholecalciferol (vitamin D3) 50 mcg (2,000 unit) capsule 50 mcg PO DAILY Qty: 30 11RF Rx Instructions: Start after Vitamin D3 50,000 weekly for 6 weeks. vitamin A 3,000 mcg (10,000 unit) Capsule 3,000 mcg PO DAILY docusate sodium [Colace] 100 mg capsule 100 mg PO BID Qty: 60 0RF No Action (DME) blood pressure monitor [Blood Pressure Kit] Kit See Rx Instructions .Route Qty: 1 0RF Rx Instructions: As directed Discharge Orders: Discharge Order (Routine); Ordered 10/15/22 Ordered By: Ender Solo Activity on Discharge: No heavy lifting Stand Alone Forms: Patient Portal Discharge page Care Plan Goals: weight loss Health Concerns: morbid obesity Plan of Treatment: No tub baths, sex or returning to work until discussed at first post op appointment. No exercise, alcohol, tobacco or illegal drug use. Continue to use incentive spirometer hourly while awake. Walk in home for 5- 10 minutes every 2 hours during the first week. Continue phase 1 diet today and start phase 2 diet tomorrow morning. Follow all instructions in the bariatric handbook and call with any questions. 1. Please call your doctor or come back to the emergency room should any new symptoms arise. 2. You will receive a courtesy call from [facility] 24-48 hours after discharge. 3. Activity: abstain from alcohol, practice limited stair climbing, no bending, no driving, no exercise, no illicit substances, no lifting, no sex, no tub bath, no work. 4. Diet: continue as discussed with bariatric team.. 5. Dressing Change/Wound Care: Do not change or remove surgical dressings unless they are wet or soiled. 6. Call your doctor if: - Your temperature exceeds 101.5 F - You experience excessive pain or swelling - You have an unexpected reaction to medication - You have excessive bleeding - You experience continued vomiting/nausea - Your incision begins to separate - Your incision shows signs of infection such as increased redness, swelling, excessive pain, heat, or drainage (light blood or clear fluid is normal) 7. General instructions: No lifting greater than 5 lbs for the next 4 weeks[address] within 24 hours of taking narcotic pain medications. If you do not move your bowels in the next 2 days, please take milk of magnesia over the counter. Please follow the post op diet and do not advance your diet until you are seen in the office in about 2 weeks. Please walk around your home every hour or two to prevent blood clots from forming in your legs. You do not need to wake from sleeping to walk. Please sleep in a bed or couch to prevent kinking at the hips and knees. Please take your incentive spirometer (your lung department coordinator) home with you and use it for the next few days to prevent pneumonias. You may shower, no hot tubs, baths or swimming pools. Please call the office with any questions or concerns such as increasing abdominal pain, fever, chills, shortness of breath, chest pain, leg pain or swelling, or redness or drainage from your incisions. Do not hesitate to contact the office with any questions at . The patient's medical history has been reviewed and they are considered low risk for post op DVT and therefore DVT prophylaxis is not considered necessary. Travel after surgery was reviewed. The patient has not disclosed any travel plans during the first 30 days after surgery and they have been advised that within the first 30 days after surgery any bus, plane, train or car travel over 2 hours in duration is contraindicated due to the possibility of developing blood clots from immobility. Any travel, needs to include periods of ambulation of 10 minutes in duration every 2 hours. The patient was instructed to discuss any plans for travel during this period with their bariatric surgeon. Assessment: natalia post op sleeve gastrectomy Discharge Date/Time: 10/15/22 09:54
[2022-10-14] MEDS: HYDROmorphone HCl 0.5 MG/0.5 ML SYRINGE 0.25 MG IVPUSH ×2 (10:12→10:36)
[2022-10-14 12:13] LABS: Hematocrit 41.5 % (42.0-52.0); Hemoglobin 14.5 g/dl (14.0-18.0)
[2022-10-14 12:55] LABS: Anion Gap 21 (12-20); Blood Urea Nitrogen 7 mg/dL (9-16); Calcium 8.7 mg/dL (8.4-10.2); Carbon Dioxide 18 mmol/L (22-29); Chloride 102 mmol/L (96-108); Creatinine Clr Calc Pharmacy 183.8; Estimated Glomerular Filt Rate > 60; Glucose Random 186 mg/dL (60-115); Sodium 137 mmol/L (135-145)
[2022-10-14] MEDS: ceFAZolin Sodium/Dextrose,Iso 2 GM/50 ML PIGGYBACK IV (13:39)
[2022-10-14] MEDS: Famotidine/PF 20 MG/2 ML VIAL IVPUSH ×2 (13:40→20:25)
--- NOTE | 2022-10-14 16:00 | MHC.CM.PN ---
pt lives with his mom he is covid vax has own ride home dc plan home no servceis
[2022-10-14 16:35] LABS: Glucose, Whole Blood 211 mg/dL (60-115)
[2022-10-14] MEDS: Acetaminophen 1,000 MG/100 ML PIGGYBACK 400 MG IV (16:41)
[2022-10-14] MEDS: ondansetron HCL 4 MG/2 ML VIAL IVPUSH (17:18)
--- NOTE | 2022-10-14 17:58 | PC.NURSE ---
Pt ambulated in hallway approximately 300 ft. Sat up in recliner. Tolerating phase 1 diet
[2022-10-14] MEDS: 0.9 % Sodium Chloride Flush 3 ML SYRINGE IVFLUSH (20:25)
[2022-10-14 20:26] LABS: Glucose, Whole Blood 253 mg/dL (60-115)
[2022-10-15] MEDS: Acetaminophen 1,000 MG/100 ML PIGGYBACK 400 MG IV (01:50)
[2022-10-15 03:31] VITALS: BP 121/64; PULSE 98; RESP 16; TEMP 36.9; O2SAT 96
[2022-10-15] MEDS: Levothyroxine Sodium 112 MCG, Levothyroxine Sodium 25 MCG 137 MCG PO (05:43)
[2022-10-15 07:01] LABS: MANUAL DIFF FLAG NO
--- NOTE | 2022-10-15 07:02 | HO.POSTANES ---
Post Anesthesia Evaluation Post Anesthesia Evaluation Vital Signs: Vital Signs Temp Pulse Resp BP Pulse Ox O2 Del Method 10/15/22 03:31 98.4 F 98 16 121/64 96 Room Air 10/14/22 23:48 98.6 F 97 16 116/58 L 96 Room Air 10/14/22 19:11 96.8 F 80 20 134/65 99 Room Air Anesthesia: General Endotracheal-GETA Mental Status: Awake Pain Control: Satisfactory Nausea/Vomiting: None Hydration: Adequate Anesthesia-Related Issues: No Anes. Related Issues
[2022-10-15 07:04] VITALS: BP 129/61; PULSE 108; RESP 17; TEMP 37.2; O2SAT 96
[2022-10-15 07:08] LABS: Basophils Percent Auto 0.1 % (0-2); Hematocrit 41.1 % (42.0-52.0); Hemoglobin 13.7 g/dl (14.0-18.0); Imm Gran Abs Auto 0.06 X10*3/uL (0.00-0.03); Imm Gran Pct Auto 0.5 % (0.0-0.4); Lymphocytes Percent Auto 8.7 % (20-40); Mean Corpuscular HGB Conc 33.3 g/dl (31.0-36.0); Mean Corpuscular Hemoglobin 29.1 pg (27.0-33.0); Mean Corpuscular Volume 87.4 fL (80.0-98.0); Mean Platelet Volume 11.3 fL (9.4-12.4); Monocytes Absolute Auto 0.6 X10*3/uL (0.1-1.2); Monocytes Percent Auto 5.2 % (2-11); Neutrophils Absolute Auto 10.1 x10*3/uL (2.0-8.3); Neutrophils Percent Auto 85.5 % (45-73); Platelet Count 279 X10*3/uL (160-400); Red Cell Distribution Width 13.1 % (11.0-16.0); White Blood Count 11.9 X10*3/uL (4.8-10.8)
[2022-10-15] MEDS: Famotidine/PF 20 MG/2 ML VIAL IVPUSH (07:16)
[2022-10-15] MEDS: Metoprolol Succinate ER 50 MG TAB.ER.24H PO (07:16)
[2022-10-15 07:45] LABS: Anion Gap 19 (12-20); Blood Urea Nitrogen 8 mg/dL (9-16); Calcium 8.4 mg/dL (8.4-10.2); Carbon Dioxide 14 mmol/L (22-29); Chloride 107 mmol/L (96-108); Creatinine Clr Calc Pharmacy 142.8; Estimated Glomerular Filt Rate > 60; Glucose Random 254 mg/dL (60-115); Potassium 4.7 mmol/L (3.3-5.1); Sodium 135 mmol/L (135-145)
== END 2022-10-15 09:54 | disposition home or self-care (01) | DRG 403 ==
LOC: HO.EDOVER 06:18 → HO.S3 06:39
PROVIDERS: Physician Assistant; Physician Assistant Surgical; Admitting Provider Surgery; PCP Internal Medicine; Visit Provider Surgery
PROC: 0DB64Z3 Excision of Stomach, Percutaneous Endoscopic Approach, Vertical (ICD-10-PCS; CPT 43845; principal; 2022-10-14 07:30)
DX: E66.01 Morbid (severe) obesity due to excess calories (principal); K74.00 Hepatic fibrosis, unspecified; E10.9 Type 1 diabetes mellitus without complications; E78.5 Hyperlipidemia, unspecified; F41.1 Generalized anxiety disorder; Z96.41 Presence of insulin pump (external) (internal); K59.01 Slow transit constipation; G47.33 Obstructive sleep apnea (adult) (pediatric); M19.90 Unspecified osteoarthritis, unspecified site; Z68.42 Body mass index [BMI] 45.0-49.9, adult; I10 Essential (primary) hypertension; G47.00 Insomnia, unspecified; Z20.822 Contact with and (suspected) exposure to COVID-19; Z79.890 Hormone replacement therapy; Z79.899 Other long term (current) drug therapy
CPT/HCPCS: 36415; 80048; 82947; 85014; 85018; 85025; 86850; 86900; 86901; 87635; 88304; 88305; 88307; 88342; A4649; C9088; C9145; J0131; J0690; J1100; J1170; J2250; J2370; J2405; J2795; J3010

== ENCOUNTER → 2022-10-21 10:24 | Outpatient (BNVA) | payer OTHER, SELFPAY | PROVIDERS: PCP Internal Medicine; Visit Provider Physician Assistant Surgical | DX: Z48.815 Encounter for surgical aftercare following surgery on the digestive system (principal); Z98.84 Bariatric surgery status | CPT/HCPCS: 99212 ==

== ENCOUNTER → 2022-11-13 10:24 | Outpatient (BNVA) | payer OTHER, SELFPAY | PROVIDERS: PCP Internal Medicine; Visit Provider Physician Assistant Surgical | DX: K59.00 Constipation, unspecified (principal); R42 Dizziness and giddiness; I10 Essential (primary) hypertension; E10.9 Type 1 diabetes mellitus without complications; Z68.42 Body mass index [BMI] 45.0-49.9, adult; Z90.3 Acquired absence of stomach [part of]; Z79.4 Long term (current) use of insulin; Z96.41 Presence of insulin pump (external) (internal) | CPT/HCPCS: 99212 ==

== ENCOUNTER → 2022-12-10 08:41 | Outpatient (BNVA) | payer OTHER, SELFPAY | PROVIDERS: PCP Internal Medicine; Visit Provider Registered Nurse Diabetes Educator | DX: E66.01 Morbid (severe) obesity due to excess calories (principal); E10.649 Type 1 diabetes mellitus with hypoglycemia without coma; Z68.42 Body mass index [BMI] 45.0-49.9, adult; Z46.81 Encounter for fitting and adjustment of insulin pump | CPT/HCPCS: 99211; 99212 ==

== ENCOUNTER 2022-12-23 13:32 | Outpatient (AMB) | payer OTHER, SELFPAY ==
--- NOTE | 2022-12-23 13:33 | A.OFFPC_ITS ---
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 Required: No Accompanied by: Mother Allergies No Known Allergies [No Known Allergies*] Allergy (Verified 12/23/22 13:50) Medication List - Last Reconciled 12/23/22 by Terra Núñez MD blood pressure monitor (Blood Pressure Kit) As directed blood sugar diagnostic (FreeStyle Lite Strips) 4x daily blood-glucose meter (FreeStyle Lite Meter kit) As directed insulin lispro 100 units subcut DAILY insulin pump cart,auto,BT-cntr (Omnipod 5 G6 Intro Kit (Gen 5) subcutaneous cartridge with controller) DIRECTED insulin pump cart,automated,BT (Omnipod 5 G6 Pods (Gen 5) subcutaneous cartridge) As directed insulin syringe-needle U-100 (BD Veo Insulin Syringe Ultra-Fine) As directed once daily lancets (FreeStyle Lancets) 4x daily lorazepam (Ativan) 1 mg PO BEDTIME PRN 30 days metoprolol succinate ER 25 mg PO DAILY minoxidil 2.5 mg PO DAILY multivitamin (Multiple Vitamins tablet) 2 tabs PO DAILY pantoprazole 40 mg PO DAILY pen needle, diabetic (BD Ultra-Fine Citlaly Pen Needle) As directed twice daily rosuvastatin 40 mg PO DAILY sennosides (senna) 17.2 mg (2 x 8.6 mg) PO BEDTIME PRN Tobacco use date assessed: 09/19/22 Dental Screening Dental Screen Date: 12/23/22 Did you have a dental visit in the last 12 months?: Yes Did you have a dental problem in the last 6 months where you did not have access to dental care?: No Was dental information given to patient?: Patient has dentist HPI HPI Comments History of Present Illness Details This is a 32-year-old male with diabetes mellitus type 1 on long-term current use of insulin, moderate recurrent major depression, obesity and hyperlipidemia that comes today accompanied by mother for follow-up on his conditions. Last A1c was elevated and this is follow by Endocrinology. Depression has been stable with counseling. His morbidly obese with a BMI of 45.9 and had gastric sleeve surgery in October 2022. He follows with weight management. On statins for hyperlipidemia and lipid panel will be order to check if LDL is less than 70 which is the goal. No chest pain or shortness of breath. [facility] Medical History (Updated 12/23/22 @ 14:01 by Terra Núñez MD) Constipation by delayed colonic transit Diabetes type 1, controlled DJD (degenerative joint disease) Dyslipidemia NATALIO (generalized anxiety disorder) Goiter HLD (hyperlipidemia) Hypertension Hypothyroidism Insomnia Insulin pump in place Microalbuminuria Morbid obesity Obesity due to excess calories Surgical History S/P laparoscopic sleeve gastrectomy Family History Father No problems noted. Mother Obesity Social History Housing: Apartment Are you a primary child care to a significant other at home: No Do you presently have visiting nurse or other home services: No Alcohol intake: never Patient Tobacco Use Status: Never used Tobacco e-Cigarette/Vaping Use: Never Used Second Hand Smoke Exposure: No service: No Current occupational status: unemployed Cognitive needs: No Hearing needs: No Vision needs: Yes Questionnaire Thrive Questionnaire Date Thrive assessed: 09/19/22 NATALIO-7 AMB Questionnaire NATALIO-7 Date NATALIO - 7 assessed: 09/19/22 Source: Developed by Drs. Janak Guillen, Ce Sanders, Manny Nava and colleagues, with an educational carol from [employer] Review of Systems Const All systems reviewed & are unremarkable except as noted in HPI and below Eyes Reports no additional complaints, Denies change in vision and Denies other visual disturbances Card Denies chest pain at rest, Denies chest pain with activity, Denies edema, Denies irregular heart rhythm, Denies claudication, Denies dyspnea, Denies dyspnea on exertion, Denies orthopnea, Denies paroxysmal nocturnal dyspnea and Denies slow heart rate Resp Denies cough, Denies dyspnea and Denies dyspnea on exertion GI Denies abdominal pain, Denies change in bowel habits, Denies excessive flatus, Denies nausea and Denies vomiting Denies urinary hesitancy, Denies urinary incontinence and Denies urinary urgency Musc Denies abnormal gait, Denies atrophy, Denies deformity and Denies limited range of motion Skin/Breast Denies bleeding lesions, Denies changing lesions and Denies rash Neuro Denies abnormal gait and Denies lack of coordination Physical exam (Primary Care) Vital Signs: Last Vital Signs BP 114/80 12/23/22 13:34 BMI result Body Mass Index 45.9 Tobacco/Smoking Status: Tobacco use Status Tobacco use date assessed 09/19/22 12/23/22 13:39 Patient Tobacco Use Status Never used Tobacco 12/23/22 13:39 e-Cigarette/Vaping Use Never Used 12/23/22 13:39 Thrive Assessment: Date of Thrive Assessment Date Thrive assessed 09/19/22 12/23/22 13:39 Eyes General: appearance normal, both eyes and all related structures Eyelids: Yes eyelids normal Conjunctivae: conjunctivae normal Neck Neck: Yes normal visual inspection and Yes supple Resp Effort & Inspection: normal respiratory effort Auscultation: clear to auscultation bilaterally Cardio Jugular venous distension: no JVD Rate: regular rate Rhythm: regular rhythm Heart sounds: S1 normal heart sound present and S2 normal heart sound present Extrem General: Yes full ROM Assessment and Plan Assessment & Plan (1) Major depressive disorder, recurrent, moderate: Code(s): F33.1 - Major depressive disorder, recurrent, moderate Plan: Continue counseling (2) Morbid obesity: Code(s): E66.01 - Morbid (severe) obesity due to excess calories Plan: Follow-up with weight management. BMI goal is less than 30. (3) Diabetes mellitus type 1: Code(s): E10.9 - Type 1 diabetes mellitus without complications Plan: Continue insulin. A1c goal is equal or less than 7%. (4) HLD (hyperlipidemia): Code(s): E78.5 - Hyperlipidemia, unspecified Plan: Continue statins. Repeat lipid panel. LDL goal is less than 70. Orders: Orders Comprehensive [place]. Panel Fast Today E66.01 - Morbid (severe) obesity due to excess calories IRON PROFILE Today D64.9 - Anemia, unspecified Lipid Panel Today E78.5 - Hyperlipidemia, unspecified Free T4 (Free Thyroxine) Today E03.9 - Hypothyroidism, unspecified Thyroid Stimulating Hormone Today E03.9 - Hypothyroidism, unspecified Vitamin D 25-OH Total Today E55.9 - Vitamin D deficiency, unspecified Microalbumin, Random (w Creat) Today E11.9 - Type 2 diabetes mellitus without complications Complete Blood Count Auto Diff Today D64.9 - Anemia, unspecified Coding Level of Care Code Est Pt Level 4 (63251) Diagnoses Major depressive disorder, recurrent, moderate F33.1 Morbid obesity E66.01 Diabetes mellitus type 1 E10.9 HLD (hyperlipidemia) E78.5 Time Spent (min) 21
[2022-12-23 13:34] VITALS: BP 114/80; BMI 45.9
== END 2022-12-23 13:58 | disposition home or self-care (01) ==
PROVIDERS: PCP Internal Medicine; Visit Provider Internal Medicine
DX: F33.1 Major depressive disorder, recurrent, moderate (principal); E66.01 Morbid (severe) obesity due to excess calories; E10.9 Type 1 diabetes mellitus without complications; Z68.42 Body mass index [BMI] 45.0-49.9, adult; E78.5 Hyperlipidemia, unspecified
CPT/HCPCS: 99214

== ENCOUNTER 2023-01-07 09:50 | Outpatient (AMB) | payer OTHER, SELFPAY ==
--- NOTE | 2023-01-07 09:56 | MHC.OFFVISWM ---
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 Required: No Accompanied by: Self / Same As Patient Allergies No Known Allergies [No Known Allergies*] Allergy (Verified 01/07/23 09:57) Medication List - Last Reconciled 01/07/23 by Arlene Reynolds PA-C blood pressure monitor (Blood Pressure Kit) As directed blood sugar diagnostic (FreeStyle Lite Strips) TEST 4X A DAY blood-glucose meter (FreeStyle Lite Meter kit) As directed insulin lispro 100 units subcut DAILY insulin pump cart,auto,BT-cntr (Omnipod 5 G6 Intro Kit (Gen 5) subcutaneous cartridge with controller) DIRECTED insulin pump cart,automated,BT (Omnipod 5 G6 Pods (Gen 5) subcutaneous cartridge) As directed insulin syringe-needle U-100 (BD Veo Insulin Syringe Ultra-Fine) As directed once daily lancets (FreeStyle Lancets) 4x daily lorazepam (Ativan) 1 mg PO BEDTIME PRN 30 days metoprolol succinate ER 25 mg PO DAILY minoxidil 2.5 mg PO DAILY multivitamin (Multiple Vitamins tablet) 2 tabs PO DAILY pen needle, diabetic (BD Ultra-Fine Citlaly Pen Needle) As directed twice daily rosuvastatin 40 mg PO DAILY sennosides (senna) 17.2 mg (2 x 8.6 mg) PO BEDTIME PRN TENS units (TENS 502 device) As directed HPI HPI Comments History of Present Illness Details Pt is now 3 months s/p LSG, Type 1 DM. [place] weight of 405 lbs. Pt has only lost 2 lbs over e last month. Patient states he has been very depressed lately and often doesn't get out of bed - no exercise over last month. Sees therapist biweekly - has declined psychiatry appt in past. Meal plan: wakes at 9am 10am - Premier powder 2 scoops with water - over 2 hours 1:3 0 3 oz yogurt 4:30 - 1 scrambled egg 7pm - same shake Also has 20 gram protien water per day. [facility] Medical History Constipation by delayed colonic transit Diabetes type 1, controlled DJD (degenerative joint disease) Dyslipidemia NATALIO (generalized anxiety disorder) Goiter HLD (hyperlipidemia) Hypertension Hypothyroidism Insomnia Insulin pump in place Microalbuminuria Morbid obesity Obesity due to excess calories Surgical History S/P laparoscopic sleeve gastrectomy Family History Father No problems noted. Mother Obesity Social History Housing: Apartment Are you a primary multi care technician to a significant other at home: No Do you presently have visiting nurse or other home services: No Alcohol intake: never Patient Tobacco Use Status: Never used Tobacco e-Cigarette/Vaping Use: Never Used Second Hand Smoke Exposure: No service: No Current occupational status: unemployed Cognitive needs: No Hearing needs: No Vision needs: Yes Assessment & Plan Assessment & Plan (1) S/P laparoscopic sleeve gastrectomy: Code(s): Z98.84 - Bariatric surgery status Plan: Now 3 months post op with out any complications from surgery, but clinically depressed again. I strongly encouraged him to get a psychiatric referral from his therapist to discuss treatment options for his depression. We discussed how this is effecting his weight loss and that his goal should be to lose another 100 lbs by 12 months post op. TBWL so far is 95 lbs. Meal plan - 120 grams per day 10am - same sahke 1pm - 3 oz yogurt 5pm - meal of 2 oz lean protein and 1 oz cooked vegetable 8pm- same shake 40 grams of protein water per day. Exercise - we discussed the mental health benefit for daily walking Alternate 2 mile and 3 mile walks daily - 20 minute mile using health tracker. He will send me miles, caloires and time after his walk today and I will potentially adjust this to make sure he turner 350 calories per day. I encouraged him to send me weekly weights. Next appt with me in 6 weeks Patient is morbidly obese and is not considered stable at this time. I spent 30 minutes in total with patient reviewing/updating records, examining the patient and counseling the patient on weight management as detailed above. (2) Depression: Code(s): F32.A - Depression, unspecified (3) Diabetes mellitus type 1: Code(s): E10.9 - Type 1 diabetes mellitus without complications Coding Level of Care Code Global (50869) Diagnoses S/P laparoscopic sleeve gastrectomy Z98.84 Depression F32.A Diabetes mellitus type 1 E10.9
[2023-01-07 10:01] VITALS: BP 130/60; PULSE 89; TEMP 37.3; O2SAT 97; BMI 45.8
== END 2023-01-07 10:33 | disposition home or self-care (01) ==
PROVIDERS: PCP Internal Medicine; Visit Provider Physician Assistant
DX: Z98.84 Bariatric surgery status (principal); F32.A Depression, unspecified; E10.9 Type 1 diabetes mellitus without complications
CPT/HCPCS: 99024

== ENCOUNTER → 2023-01-07 09:50 | Outpatient (BNVA) | payer OTHER, SELFPAY | PROVIDERS: PCP Internal Medicine; Visit Provider Physician Assistant | DX: E10.649 Type 1 diabetes mellitus with hypoglycemia without coma (principal); F32.A Depression, unspecified; Z98.84 Bariatric surgery status | CPT/HCPCS: 82947; 83036; 99212 ==

== ENCOUNTER 2023-01-07 12:50 | Outpatient (AMB) | payer OTHER, SELFPAY ==
--- NOTE | 2023-01-07 12:58 | A.OFFVIS_ITS ---
Intake Vital Signs 01/07/23 13:00 Height 5 ft 9 in Weight 313 lb 7.957 oz BMI 46.3 BP 106/62 Blood Pressure Location Lt brachial Position Sitting Pulse 80 Intake Visit Reasons: f/u Type 1 DM Intake Note: Patient present today to follow up on Type 1 Diabetes Mellitus. For Omnipod pump supplies, patient receives from [facility] pharmacy. For Dexcom supplies, patient receives from [facility]. Last Diabetic Eye exam: [facility], September 12, 2022 Last Podiatry Visit: Does not see a Senior Stereo Compiler Team Lead Random Glucose: 75mg/dl HgA1C: 5.7 Cotton Ginner Helper Required: No Accompanied by: Self / Same As Patient Allergies No Known Allergies [No Known Allergies*] Allergy (Verified 01/07/23 12:58) HPI HPI Comments History of Present Illness Details Patient is 32-year-old male with DM type 1 diagnosed in 2013 who presents for management of diabetes. He has been Omnipod Past medical history: DM1, HLD Micro and macrovascular complications: no retinopathy, nephropathy, neuropathy, CVA, CAD, PVD C-peptide is suppressed Diabetes medications: Humalog via [employer] Dash Unfortunately, could not download his pump at this visit Basal: 12:00am - 1.35 units/hr 8 AM =1.45 10 PM -1.1 u/hr Total daily basal dose: 39.46units/day ICR: 12am 5 g/u 4:00pm 4.5 g/u ISF: 15 Goal: 100 bg correction threshold 200 Active insulin time: 2 hours CGM: In the past 14 day the average blood glucose is 170. Patient has is a very low blood of less than 54 mg/dL, 0%. Low glucose of less than 70, 0%. Glucose in target range of 70-180, 84%. Glucose high over 180, 16%. Glucose very high over 250,11%. C GM is active 100% Symptoms reported: denies numbness, tingling, cramping in lower extremities Hypoglycemia: infrequently Exercise: squats, crunches, planks, legs lifts etc. on Thursday, , , Thursday. Walks 25 minutes to an hour 3-5 times a week Scientific Programmer Analyst - CDE education: sees hi lo driver Senior Stereo Compiler Team Lead: darrius Dental exam: goes every 6 months Ophthalmology evaluation:appt : May 2022 appt 09/2022 Other specialists: denies Laboratory Tests 06/20/21 08/06/21 08/06/21 17:52 09:22 09:22 Creatinine 0.98 Estimated GFR > 60 Hgb A1c (Clinic) 6.5 H Triglycerides 52 Cholesterol 139 LDL Cholesterol, C alc 88 HDL Cholesterol 41 TSH 2.60 Free T4 0.83 03/28/21 US Thyroid FINDINGS: ? SIZE: Measurements of the thyroid lobes and nodules are given in sagittal, anteroposterior and transverse dimensions respectively. Right Thyroid Lobe: 4.5 x 1.8 x 1.5 cm, volume 6.4 mL. Parenchyma: The gland echotexture is homogeneous. Thyroid vascularity is normal. Left Thyroid Lobe: 4.0 x 1.2 x 1.1 cm, volume 2.7 mL. Parenchyma: The gland echotexture is homogeneous. Thyroid vascularity is normal. Isthmus: 0.2 cm in maximum AP dimension. Estimated total number of nodules greater than or equal to 1 cm: 0. Family Service Caseworker nodules are described as follows: 1. Location: Left mid lower. ?? ? Size: 0.3 x 0.3 x 0.3 cm, volume 0.02 mL. ?? ? Nodule characteristics: ?? ? Composition: Solid (2). ?? ? Echogenicity: Hypoechoic (2). ?? ? Shape: Not taller than wide (0). ?? ? Margins: Smooth (0). ?? ? Echogenic Foci: None (0). ?? ? ACR TI-RADS total points: 4 ?? ? ACR TI-RADS category: 4 NODES: No lymphadenopathy is seen in the tissue surrounding the thyroid gland. [facility] Medical History Constipation by delayed colonic transit Diabetes type 1, controlled DJD (degenerative joint disease) Dyslipidemia NATALIO (generalized anxiety disorder) Goiter HLD (hyperlipidemia) Hypertension Hypothyroidism Insomnia Insulin pump in place Microalbuminuria Morbid obesity Obesity due to excess calories Surgical History S/P laparoscopic sleeve gastrectomy Family History Father No problems noted. Mother Obesity Social History Housing: Apartment Are you a primary critical care educator to a significant other at home: No Do you presently have visiting nurse or other home services: No Alcohol intake: never Patient Tobacco Use Status: Never used Tobacco e-Cigarette/Vaping Use: Never Used Second Hand Smoke Exposure: No service: No Current occupational status: unemployed Cognitive needs: No Hearing needs: No Vision needs: Yes Physical Exam Vital Signs: Last Vital Signs Pulse 80 01/07/23 13:00 BP 106/62 01/07/23 13:00 BMI result Body Mass Index 46.3 Results AMB Hemoglobin A1c AMB Hemoglobin A1c 5.7 % Last Edit by Nany Gurrola MA on 01/07/23 13:05 Results Reviewed Results Reviewed: 01/07/23 12:56 Glucose, Whole Blood Routine Laboratory Last Values Glucose (Clinic) 75 mg/dL (60-115) 01/07/23 12:56 Hgb A1c (Clinic) 5.7 % (4.0-6.0) 01/07/23 12:59 Assessment & Plan Assessment & Plan (1) Diabetes type 1, controlled: Code(s): E10.9 - Type 1 diabetes mellitus without complications Qualifiers: Diabetes mellitus complication status: with hypoglycemia Qualified Code(s): E10.649 - Type 1 diabetes mellitus with hypoglycemia without coma Plan: This is a 31-year-old male with a history of type 1 diabetes being managed with Omnipod 5pump with excellent improved glycemic control and no known microvascular or macrovascular complications. Plan is to continue the current pump settings. I will have patient follow up with hybrid car mechanic. Orders: Orders AMB Hemoglobin A1c Today Z13.9 - Encounter for screening, unspecified Coding Level of Care Code Est Pt Level 4 (11420) Diagnoses Diabetes type 1, controlled E10.649 Diabetes mellitus complication status: with hypoglycemia
[2023-01-07 13:00] VITALS: BP 106/62; PULSE 80; BMI 46.3
[2023-01-07 13:00] LABS: Glucose, Whole Blood 75 mg/dL (60-115)
== END 2023-01-07 13:35 | disposition home or self-care (01) ==
PROVIDERS: PCP Internal Medicine; Visit Provider Internal Medicine Endocrinology, Diabetes & Metabolism
DX: E10.649 Type 1 diabetes mellitus with hypoglycemia without coma (principal); Z13.9 Encounter for screening, unspecified
CPT/HCPCS: 99214

== ENCOUNTER 2023-02-18 09:52 | Outpatient (AMB) | payer OTHER, SELFPAY ==
--- NOTE | 2023-02-18 10:18 | MHC.OFFVISWM ---
Intake VS Expanded 02/18/23 10:28 Height 5 ft 9 in Weight 306 lb 12.8 oz BMI 45.3 BP 127/67 Blood Pressure Location Lt brachial Blood Pressure Position Sitting Pulse 80 Pulse Source Pulse Oximeter Temp 97.8 F Temperature Source Tympanic Pulse Oximetry 98 Oxygen Delivery Method Room Air Body Fat 127.6 Body Fat Percentage 41.6 Free Fat Mass 179.0 Muscle Mass 170.2 Visceral Mass 24.0 Water Mass 131.4 BMR 2,553 Intake Visit Reasons: (OV) PO LSG 10/14/22 Allergies No Known Allergies [No Known Allergies*] Allergy (Verified 02/18/23 10:22) Medication List - Last Reconciled 02/18/23 by Arlene Reynolds PA-C acetaminophen 1,000 mg (30 mL) PO QID PRN blood pressure monitor (Blood Pressure Kit) As directed blood sugar diagnostic (FreeStyle Lite Strips) TEST 4X A DAY blood-glucose meter (FreeStyle Lite Meter kit) As directed insulin lispro 100 units subcut DAILY insulin pump cart,auto,BT-cntr (Omnipod 5 G6 Intro Kit (Gen 5) subcutaneous cartridge with controller) DIRECTED insulin pump cart,automated,BT (Omnipod 5 G6 Pods (Gen 5) subcutaneous cartridge) As directed insulin syringe-needle U-100 (BD Veo Insulin Syringe Ultra-Fine) As directed once daily lancets (FreeStyle Lancets) 4x daily levothyroxine 137 mcg PO DAILY 90 days lorazepam (Ativan) 1 mg PO BEDTIME PRN 30 days metoprolol succinate ER 25 mg PO DAILY minoxidil 2.5 mg PO DAILY multivitamin (Multiple Vitamins tablet) 2 tabs PO DAILY pen needle, diabetic (BD Ultra-Fine Citlaly Pen Needle) As directed twice daily rosuvastatin 40 mg PO DAILY sennosides (senna) 17.2 mg (2 x 8.6 mg) PO BEDTIME PRN TENS units (TENS 502 device) As directed HPI HPI Comments History of Present Illness Details Pt is now 4 months s/p LSG. VEGETABLE THINNER weight of 405 lbs, TBWL is 98.2 lbs but no weight loss since last appt. Pt is Type 1 DM, recently seen by airline dispatcher with good control of DM. 20 minutes after protein shake his BS spikes to over 200 and he needs to give himself more insulin. Which gets him racquel. 10am - Premier shake 2 scoops with 8 oz water - over 2 hours 2pm - 3 oz protein and 1-2 oz vegetables (brocolli/peas), after meal BS - 140's. 4pm - same shake 8pm -protein water or 3 oz yogurt - Bs 120 - 130. Excercise - M,W,F - walks x 25 minutes - 1mile - 240 calories. Then does ropes for 5 minutes. T and Th - TBP 30 minutes - 220 - 280 calories PFSH Medical History Constipation by delayed colonic transit Diabetes type 1, controlled DJD (degenerative joint disease) Dyslipidemia NATALIO (generalized anxiety disorder) Goiter HLD (hyperlipidemia) Hypertension Hypothyroidism Insomnia Insulin pump in place Microalbuminuria Morbid obesity Obesity due to excess calories Surgical History S/P laparoscopic sleeve gastrectomy Family History Father No problems noted. Mother Obesity Social History Housing: Apartment Are you a primary healthcare or medical to a significant other at home: No Do you presently have visiting nurse or other home services: No Alcohol intake: never Patient Tobacco Use Status: Never used Tobacco e-Cigarette/Vaping Use: Never Used Second Hand Smoke Exposure: No service: No Current occupational status: unemployed Cognitive needs: No Hearing needs: No Vision needs: Yes Assessment & Plan Assessment & Plan (1) Morbid obesity: Code(s): E66.01 - Morbid (severe) obesity due to excess calories Plan: 4 months post op LSG with 97 lbs TBWL, no recent weight loss and BS spikes. Needs 95 grams protien, stop shakes due to high BS's. Meal plan 10am - 5 oz yogurt 2pm - 3 oz protien and 2 oz vegetable 6pm - 2 scrambled eggs, 1/4 c of vegetables 10 pm - yogurt or bar 40 grams of protein of water per day. Exercise - TBP - 45 minutes 3d/week and 3d/week - 2 miles in 40 minutes- with a goal to walk 15 minute miles. MUST increase the intensity of his exercise. I have encouraged him to send me weekly weight checks and to let me know how his Bs are with this new plan. Appt with me in 2 months, labs ordered. Appt with Mona wilburn in 3-4 weeks to check effectiveness of this plan. Patient is morbidly obese and is not considered stable at this time. I spent 30 minutes in total with patient reviewing/updating records, examining the patient and counseling the patient on weight management as detailed above. Orders: Orders C Reactive Protein Today E03.9 - Hypothyroidism, unspecified, E10.9 - Type 1 diabetes mellitus without complications, E66.01 - Morbid (severe) obesity due to excess calories, E78.5 - Hyperlipidemia, unspecified, Z98.84 - Bariatric surgery status Hemoglobin A1c Today E03.9 - Hypothyroidism, unspecified, E10.9 - Type 1 diabetes mellitus without complications, E66.01 - Morbid (severe) obesity due to excess calories, E78.5 - Hyperlipidemia, unspecified, Z98.84 - Bariatric surgery status Vitamin B1 Today E03.9 - Hypothyroidism, unspecified, E10.9 - Type 1 diabetes mellitus without complications, E66.01 - Morbid (severe) obesity due to excess calories, E78.5 - Hyperlipidemia, unspecified, Z98.84 - Bariatric surgery status Zinc Today E03.9 - Hypothyroidism, unspecified, E10.9 - Type 1 diabetes mellitus without complications, E66.01 - Morbid (severe) obesity due to excess calories, E78.5 - Hyperlipidemia, unspecified, Z98.84 - Bariatric surgery status Vitamin A Today E03.9 - Hypothyroidism, unspecified, E10.9 - Type 1 diabetes mellitus without complications, E66.01 - Morbid (severe) obesity due to excess calories, E78.5 - Hyperlipidemia, unspecified, Z98.84 - Bariatric surgery status PTHI Today E03.9 - Hypothyroidism, unspecified, E10.9 - Type 1 diabetes mellitus without complications, E66.01 - Morbid (severe) obesity due to excess calories, E78.5 - Hyperlipidemia, unspecified, Z98.84 - Bariatric surgery status Vitamin B12 and Folate Today E03.9 - Hypothyroidism, unspecified, E10.9 - Type 1 diabetes mellitus without complications, E66.01 - Morbid (severe) obesity due to excess calories, E78.5 - Hyperlipidemia, unspecified, Z98.84 - Bariatric surgery status Coding Level of Care Code Est Pt Level 4 (58775) Diagnoses Morbid obesity E66.01
[2023-02-18 10:28] VITALS: BP 127/67; PULSE 80; TEMP 36.6; O2SAT 98; BMI 45.3
== END 2023-02-18 10:50 | disposition home or self-care (01) ==
PROVIDERS: PCP Internal Medicine; Visit Provider Physician Assistant
DX: E66.01 Morbid (severe) obesity due to excess calories (principal); Z68.42 Body mass index [BMI] 45.0-49.9, adult
CPT/HCPCS: 99214

== ENCOUNTER → 2023-02-18 09:52 | Outpatient (BNVA) | payer OTHER, SELFPAY | PROVIDERS: PCP Internal Medicine; Visit Provider Physician Assistant | DX: E66.01 Morbid (severe) obesity due to excess calories (principal); Z68.42 Body mass index [BMI] 45.0-49.9, adult; E10.9 Type 1 diabetes mellitus without complications; Z79.4 Long term (current) use of insulin; Z96.41 Presence of insulin pump (external) (internal) | CPT/HCPCS: 99212 ==

== ENCOUNTER → 2023-03-11 11:45 | Outpatient (BNVA) | payer OTHER, SELFPAY | PROVIDERS: PCP Internal Medicine; Visit Provider Dietitian, Registered | DX: Z71.3 Dietary counseling and surveillance (principal); E66.01 Morbid (severe) obesity due to excess calories; E10.9 Type 1 diabetes mellitus without complications; R80.9 Proteinuria, unspecified; Z68.42 Body mass index [BMI] 45.0-49.9, adult; Z96.41 Presence of insulin pump (external) (internal); Z90.3 Acquired absence of stomach [part of] | CPT/HCPCS: 97803 ==

== ENCOUNTER → 2023-03-17 08:42 | Outpatient (BNVA) | payer OTHER, SELFPAY | PROVIDERS: PCP Internal Medicine; Visit Provider Registered Nurse Diabetes Educator ==

== ENCOUNTER 2023-04-08 13:20 | Outpatient (AMB) | payer OTHER, SELFPAY ==
--- NOTE | 2023-04-08 13:57 | MHC.AMDMED ---
Intake Intake Visit Reasons: DM Fruit Packer Required: No Accompanied by: Self / Same As Patient Allergies No Known Allergies [No Known Allergies*] Allergy (Verified 02/18/23 10:22) HPI Comprehensive Diabetes Asmnt Most Recent Diabetes Results: Microalb/Creat Ratio 2.5 ug/mg cr 01/24/22 Cholesterol 126 mg/dL 10/06/22 HDL Cholesterol 29 mg/dL 10/06/22 Triglycerides 85 mg/dL 10/06/22 Creatinine 1.12 mg/dL (0.5-1.4) 10/15/22 Blood Urea Nitrogen 8 mg/dL (9-16) L 10/15/22 Sodium 135 mmol/L (135-145) 10/15/22 Potassium 4.7 mmol/L (3.3-5.1) 10/15/22 Chloride 107 mmol/L (96-108) 10/15/22 Carbon Dioxide 14 mmol/L (22-29) L 10/15/22 Calcium 8.4 mg/dL (8.4-10.2) 10/15/22 AST 23 U/L (5-37) 10/06/22 ALT 20 U/L (0-40) 10/06/22 Total Protein 7.4 g/dL (6.5-8.0) 10/06/22 Albumin 4.2 g/dL (3.5-5.0) 10/06/22 [facility] Medical History Constipation by delayed colonic transit Diabetes type 1, controlled DJD (degenerative joint disease) Dyslipidemia NATALIO (generalized anxiety disorder) Goiter HLD (hyperlipidemia) Hypertension Hypothyroidism Insomnia Insulin pump in place Microalbuminuria Morbid obesity Obesity due to excess calories Surgical History S/P laparoscopic sleeve gastrectomy Family History Father No problems noted. Mother Obesity Social History Housing: Apartment Are you a primary critical care cns to a significant other at home: No Do you presently have visiting nurse or other home services: No Alcohol intake: never Patient Tobacco Use Status: Never used Tobacco e-Cigarette/Vaping Use: Never Used Second Hand Smoke Exposure: No service: No Current occupational status: unemployed Cognitive needs: No Hearing needs: No Vision needs: Yes Assessment & Plan Assessment & Plan (1) Diabetes mellitus type 1: Code(s): E10.9 - Type 1 diabetes mellitus without complications Plan: Patient presents for pump training to transition from Omnipod dash to Omnipod 5 with Dexcom G6 The following topics were reviewed today: - When to change set or Pod - automatic mode verses manual mode - Linking CGM to pump - Inserting infusion set or Pod site rotation Patient's average glucose for the past 2 weeks 140 mg/dL 16% of the time above target 82% of the time at target 2 % Below target Patient has been in auto mode 63%, limited auto mode 5%, manual mode 37%. While in manual mode patient is having some overnight hypoglycemia, this hypoglycemic events are not happening when patient is in auto mode Encourage patient to use auto mode as frequently as possible See changes to manual mode basal rate below Discussed with patient we may have to change correction factor an insulin to carb ratio as he continues to lose weight. Patient expressed some frustration about being plateaued at currently weight. Recommended to patient to discuss this with bariatric team at next visit. In addition change physical activity plan along with meal plan can also be helpful with weight loss Patient understands the basic concepts of pump therapy, how to give insulin for meals and snacks, how to troubleshoot for hyper and hypoglycemia. Patient is recovering from bariatric surgery approximately 2 months ago Patient is still on protein shakes, yogurt and protein bars Instructed patient if he has increased episodes of hypoglycemia to contact Diabetes Education nurse Setting verified by [facility] Basal rate(s) (units/hour) for Manual Mode : 12 AM? to 8 AM 1.4 units / hr?New 12 AM? to 8 AM 1.2 units / hr 8 AM? to 12AM? 1.8 units / hr? 11 PM to 12 AM 1.1 units / hr? Bolus setting Insulin Carbohydrate Ratio (s) 12 AM to 4 AM? 1:5 4 AM to 12 AM? 1:4.5 Correction Factor / Sensitivity Factor 12 AM to 12 AM 1:15 Active Insulin Time:? 2 hours Target(s): 12 AM to 12 AM 110 mg/dL 12 AM to 12 AM 120 mg/dL Patient Instructions: Return Omnipod 5 to auto mode, if you have an increase in hypoglycemia contact postal service mail processor Follow-up with postal service mail processor in 3 months Coding Level of Care Code Est Pt Level 1 (04775) Diagnoses Diabetes mellitus type 1 E10.9
== END 2023-04-08 13:58 | disposition home or self-care (01) ==
PROVIDERS: PCP Internal Medicine; Visit Provider Registered Nurse Diabetes Educator
DX: E10.9 Type 1 diabetes mellitus without complications (principal)

== ENCOUNTER → 2023-04-08 13:20 | Outpatient (BNVA) | payer OTHER, SELFPAY | PROVIDERS: PCP Internal Medicine; Visit Provider Registered Nurse Diabetes Educator | DX: E10.9 Type 1 diabetes mellitus without complications (principal); Z96.41 Presence of insulin pump (external) (internal) | CPT/HCPCS: 99211 ==

== ENCOUNTER 2023-04-13 13:16 | Outpatient (AMB) | payer OTHER, SELFPAY ==
[2023-04-13 13:18] VITALS: BP 110/64; PULSE 72; BMI 46.5
--- NOTE | 2023-04-13 13:18 | A.OFFVIS_ITS ---
Intake Vital Signs 04/13/23 13:18 Height 5 ft 9 in Weight 315 lb 0.649 oz BMI 46.5 BP 110/64 Blood Pressure Location Lt brachial Position Sitting Pulse 72 Pulse Source Pulse Oximeter Intake Visit Reasons: f/u Type 1 DM Intake Note: Patient present today to follow up on Type 1 Diabetes Mellitus. For Omnipod pump supplies, patient receives from [facility] pharmacy. For Dexcom supplies, patient receives from [facility] Last Diabetic Eye exam: Eye and Lasik 09/12/2022 Last Podiatry Visit: None Random Glucose: 153 mg/dl HgA1C: 6.2% Ui Developer Designer Required: No Accompanied by: Self / Same As Patient Allergies No Known Allergies [No Known Allergies*] Allergy (Verified 04/13/23 13:29) Medication List - Last Reconciled 04/13/23 by Janak Guido MD acetaminophen 1,000 mg (30 mL) PO QID PRN blood pressure monitor (Blood Pressure Kit) As directed blood sugar diagnostic (FreeStyle Lite Strips) TEST 4X A DAY blood-glucose meter (FreeStyle Lite Meter kit) As directed insulin lispro 100 units subcut DAILY insulin lispro subcutaneously up to 100 units per day via insulin pump insulin pump cart,auto,BT-cntr (Omnipod 5 G6 Intro Kit (Gen 5) subcutaneous cartridge with controller) DIRECTED insulin pump cart,automated,BT (Omnipod 5 G6 Pods (Gen 5) subcutaneous cartridge) As directed insulin syringe-needle U-100 (BD Veo Insulin Syringe Ultra-Fine) As directed once daily lancets (FreeStyle Lancets) 4x daily levothyroxine 137 mcg PO DAILY 90 days lorazepam (Ativan) 1 mg PO BEDTIME PRN 30 days metoprolol succinate ER 25 mg PO DAILY minoxidil 2.5 mg PO DAILY multivitamin (Multiple Vitamins tablet) 2 tabs PO DAILY pen needle, diabetic (BD Ultra-Fine Citlaly Pen Needle) As directed twice daily rosuvastatin 40 mg PO DAILY sennosides (senna) 17.2 mg (2 x 8.6 mg) PO BEDTIME PRN TENS units (TENS 502 device) As directed HPI HPI Comments History of Present Illness Details Patient is 32-year-old male with DM type 1 diagnosed in 2013 who presents for management of diabetes. He has been Omnipod Past medical history: DM1, HLD Micro and macrovascular complications: no retinopathy, nephropathy, neuropathy, CVA, CAD, PVD C-peptide is suppressed Diabetes medications: Humalog via [employer] Basal: 12:00am - 1.2 units/hr 8 AM =1.8 10 PM -1.1 u/hr Total daily basal dose: 46 units/day 53% basal and 47% bolus. Automated mode is use 97% of the time ICR: 12am 5 g/u 4:00pm 4.5 g/u ISF: 15 Goal: 100 bg correction threshold 200 Active insulin time: 2 hours CGM: In the past 14 day the average blood glucose is 143. Patient has is a very low blood of less than 54 mg/dL, 1%. Low glucose of less than 70, 0%. Glucose in target range of 70-180, 44%. Glucose high over 180, 23%. Glucose very high over 250,2%. C GM is active 100% G mi is 6.7% Symptoms reported: denies numbness, tingling, cramping in lower extremities Hypoglycemia: infrequently Exercise: squats, crunches, planks, legs lifts etc. on Thursday, , , Thursday. Walks 25 minutes to an hour 3-5 times a week User Experience Team Lead - CDE education: sees player development manager Web Operations Lead: denies Dental exam: goes every 6 months Ophthalmology evaluation:appt : has May 2023 Other specialists: denies Laboratory Tests 06/20/21 08/06/21 08/06/21 17:52 09:22 09:22 Creatinine 0.98 Estimated GFR > 60 Hgb A1c (Clinic) 6.5 H Triglycerides 52 Cholesterol 139 LDL Cholesterol, C alc 88 HDL Cholesterol 41 TSH 2.60 Free T4 0.83 03/28/21 US Thyroid FINDINGS: ? SIZE: Measurements of the thyroid lobes and nodules are given in sagittal, anteroposterior and transverse dimensions respectively. Right Thyroid Lobe: 4.5 x 1.8 x 1.5 cm, volume 6.4 mL. Parenchyma: The gland echotexture is homogeneous. Thyroid vascularity is normal. Left Thyroid Lobe: 4.0 x 1.2 x 1.1 cm, volume 2.7 mL. Parenchyma: The gland echotexture is homogeneous. Thyroid vascularity is normal. Isthmus: 0.2 cm in maximum AP dimension. Estimated total number of nodules greater than or equal to 1 cm: 0. Transportation Maintenance Specialist nodules are described as follows: 1. Location: Left mid lower. ?? ? Size: 0.3 x 0.3 x 0.3 cm, volume 0.02 mL. ?? ? Nodule characteristics: ?? ? Composition: Solid (2). ?? ? Echogenicity: Hypoechoic (2). ?? ? Shape: Not taller than wide (0). ?? ? Margins: Smooth (0). ?? ? Echogenic Foci: None (0). ?? ? ACR TI-RADS total points: 4 ?? ? ACR TI-RADS category: 4 NODES: No lymphadenopathy is seen in the tissue surrounding the thyroid gland. [facility] Medical History Constipation by delayed colonic transit Diabetes type 1, controlled DJD (degenerative joint disease) Dyslipidemia NATALIO (generalized anxiety disorder) Goiter HLD (hyperlipidemia) Hypertension Hypothyroidism Insomnia Insulin pump in place Microalbuminuria Morbid obesity Obesity due to excess calories Surgical History S/P laparoscopic sleeve gastrectomy Family History Father No problems noted. Mother Obesity Social History Housing: Apartment Are you a primary animal care supervisor to a significant other at home: No Do you presently have visiting nurse or other home services: No Alcohol intake: never Patient Tobacco Use Status: Never used Tobacco e-Cigarette/Vaping Use: Never Used Second Hand Smoke Exposure: No service: No Current occupational status: unemployed Cognitive needs: No Hearing needs: No Vision needs: Yes Physical Exam Vital Signs: Last Vital Signs Pulse 72 04/13/23 13:18 BP 110/64 04/13/23 13:18 BMI result Body Mass Index 46.5 Results Reviewed Results Reviewed: 04/13/23 13:26 Glucose, Whole Blood Routine Laboratory Last Values Glucose (Clinic) 153 mg/dL (60-115) H 04/13/23 13:26 Assessment & Plan Assessment & Plan (1) Diabetes type 1, controlled: Code(s): E10.9 - Type 1 diabetes mellitus without complications Qualifiers: Diabetes mellitus complication status: with hypoglycemia Qualified Code(s): E10.649 - Type 1 diabetes mellitus with hypoglycemia without coma Plan: This is a 31-year-old male with a history of type 1 diabetes being managed with Omnipod 5pump with excellent improved glycemic control and no known microvascular or macrovascular complications. Plan is to continue the current pump settings. Patient check microalbumin to creatinine ratio as ordered by primary care provider Coding Level of Care Code Est Pt Level 4 (59462) Diagnoses Controlled type 1 diabetes mellitus with hypoglycemia E10.649 Diabetes mellitus complication status: with hypoglycemia
[2023-04-13 13:31] LABS: Glucose, Whole Blood 153 mg/dL (60-115)
== END 2023-04-13 13:59 | disposition home or self-care (01) ==
PROVIDERS: PCP Internal Medicine; Visit Provider Internal Medicine Endocrinology, Diabetes & Metabolism
DX: E10.649 Type 1 diabetes mellitus with hypoglycemia without coma (principal)
CPT/HCPCS: 99214

== ENCOUNTER → 2023-04-13 13:16 | Outpatient (BNVA) | payer OTHER, SELFPAY | PROVIDERS: PCP Internal Medicine; Visit Provider Internal Medicine Endocrinology, Diabetes & Metabolism | DX: E10.649 Type 1 diabetes mellitus with hypoglycemia without coma (principal); Z96.41 Presence of insulin pump (external) (internal) | CPT/HCPCS: 82947; 99212 ==

== ENCOUNTER → 2023-04-14 08:28 | Outpatient (BNV) | payer OTHER, SELFPAY | PROVIDERS: PCP Internal Medicine; Visit Provider Internal Medicine Endocrinology, Diabetes & Metabolism | DX: E10.9 Type 1 diabetes mellitus without complications (principal) | CPT/HCPCS: 83036 ==

== ENCOUNTER 2023-04-16 09:39 | Outpatient (REF) | payer OTHER, SELFPAY ==
[2023-04-16 10:56] LABS: Estimated Average Glucose 123 mg/dL; Hemoglobin A1c % 5.9 % (<6.0)
[2023-04-16 11:19] LABS: C Reactive Protein 0.43 mg/dL (< or = 0.50)
[2023-04-16 11:47] LABS: Folate 10.5 ng/mL (> or = 4.0); Vitamin B12 472 pg/mL (200-900)
[2023-04-18 17:28] LABS: Zinc 68 mcg/dL (60-130)
[2023-04-20 17:17] LABS: PTHI 39 pg/mL (16-77)
[2023-04-21 17:42] LABS: Vitamin A 21 mcg/dL (38-98)
[2023-04-22 12:59] LABS: Vitamin B1 8 nmol/L (8-30)
== END 2023-04-16 09:40 | disposition home or self-care (01) ==
LOC: HO.LAB 09:39
PROVIDERS: PCP Internal Medicine; Visit Provider Physician Assistant
DX: E66.01 Morbid (severe) obesity due to excess calories (principal); E78.5 Hyperlipidemia, unspecified; E03.9 Hypothyroidism, unspecified; E10.9 Type 1 diabetes mellitus without complications; Z98.84 Bariatric surgery status
CPT/HCPCS: 36415; 82607; 82746; 83036; 83970; 84425; 84590; 84630; 86140

== ENCOUNTER 2023-05-05 09:51 | Outpatient (AMB) | payer OTHER, SELFPAY ==
[2023-05-05 09:52] VITALS: BP 120/72; BMI 45.2
--- NOTE | 2023-05-05 09:52 | MHC.PC.OV ---
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 Accompanied by: Self / Same As Patient Allergies No Known Allergies [No Known Allergies*] Allergy (Verified 05/05/23 10:12) Medication List - Last Reconciled 05/05/23 by Terra Núñez MD acetaminophen 1,000 mg (30 mL) PO QID PRN blood pressure monitor (Blood Pressure Kit) As directed blood sugar diagnostic (FreeStyle Lite Strips) TEST 4X A DAY blood-glucose meter (FreeStyle Lite Meter kit) As directed insulin lispro 100 units subcut DAILY insulin lispro subcutaneously up to 100 units per day via insulin pump insulin pump cart,auto,BT-cntr (Omnipod 5 G6 Intro Kit (Gen 5) subcutaneous cartridge with controller) DIRECTED insulin pump cart,automated,BT (Omnipod 5 G6 Pods (Gen 5) subcutaneous cartridge) As directed insulin syringe-needle U-100 (BD Veo Insulin Syringe Ultra-Fine) As directed once daily lancets (FreeStyle Lancets) 4x daily levothyroxine 137 mcg PO DAILY 90 days lorazepam (Ativan) 1 mg PO BEDTIME PRN 30 days metoprolol succinate ER 25 mg PO DAILY minoxidil 2.5 mg PO DAILY multivitamin (Multiple Vitamins tablet) 2 tabs PO DAILY pen needle, diabetic (BD Ultra-Fine Citlaly Pen Needle) As directed twice daily rosuvastatin 40 mg PO DAILY sennosides (senna) 17.2 mg (2 x 8.6 mg) PO BEDTIME PRN TENS units (TENS 502 device) As directed vitamin A palmitate 3,000 mcg PO DAILY Tobacco use date assessed: 09/19/22 Dental Screening Dental Screen Date: 05/05/23 Did you have a dental visit in the last 12 months?: Yes Did you have a dental problem in the last 6 months where you did not have access to dental care?: No Was dental information given to patient?: Patient has dentist HPI HPI Comments History of Present Illness Details This is a 32-year-old male with diabetes mellitus type 1, constipation, moderate recurrent major depression and morbid obesity that comes today complaining of bilateral knee pain and chronic left hip pain that has been bothering him for few months. A1c within goal. Constipation stable with medications as needed. Depression well control. He is morbidly obese with a BMI of 45.2 and continues to follow with weight management after his weight loss surgery in October 2022. No chest pain or shortness of breath. Full active range of motion. [facility] Medical History (Updated 05/05/23 @ 11:32 by Terra Núñez MD) Insulin pump in place DJD (degenerative joint disease) Insomnia Obesity due to excess calories NATALIO (generalized anxiety disorder) Goiter HLD (hyperlipidemia) Constipation by delayed colonic transit Hypothyroidism Morbid obesity Hypertension Dyslipidemia Microalbuminuria Diabetes type 1, controlled Surgical History S/P laparoscopic sleeve gastrectomy Family History Father No problems noted. Mother Obesity Housing: Apartment Are you a primary care manager to a significant other at home: No Do you presently have visiting nurse or other home services: No Alcohol intake: never Patient Tobacco Use Status: Never used Tobacco e-Cigarette/Vaping Use: Never Used Second Hand Smoke Exposure: No service: No Current occupational status: unemployed Cognitive needs: No Hearing needs: No Vision needs: Yes Questionnaire Thrive Questionnaire Date Thrive assessed: 09/19/22 NATALIO-7 AMB Questionnaire NATALIO-7 Date NATALIO - 7 assessed: 09/19/22 Source: Developed by Drs. Janak Guillen, Ce Sanders, Manny Nava and colleagues, with an educational carol from [employer]. Review of Systems Const All systems reviewed & are unremarkable except as noted in HPI and below Eyes Reports no additional complaints, Denies change in vision and Denies other visual disturbances Card Denies chest pain at rest, Denies chest pain with activity, Denies edema, Denies irregular heart rhythm, Denies claudication, Denies dyspnea, Denies dyspnea on exertion, Denies orthopnea, Denies paroxysmal nocturnal dyspnea and Denies slow heart rate Resp Denies cough, Denies dyspnea and Denies dyspnea on exertion GI Denies abdominal pain, Denies change in bowel habits, Denies excessive flatus, Denies nausea and Denies vomiting Denies urinary hesitancy, Denies urinary incontinence and Denies urinary urgency Musc Denies abnormal gait, Reports back pain, Denies atrophy, Denies deformity, Reports arthralgias and Denies limited range of motion Skin/Breast Denies bleeding lesions, Denies changing lesions and Denies rash Neuro Denies abnormal gait and Denies lack of coordination Physical exam (Primary Care) Vital Signs: Last Vital Signs BP 120/72 05/05/23 09:52 BMI result Body Mass Index 45.2 Tobacco/Smoking Status: Tobacco use Status Tobacco use date assessed 09/19/22 05/05/23 09:54 Patient Tobacco Use Status Never used Tobacco 05/05/23 09:54 e-Cigarette/Vaping Use Never Used 05/05/23 09:54 Thrive Assessment: Date of Thrive Assessment Date Thrive assessed 09/19/22 05/05/23 09:54 Eyes General: appearance normal, both eyes and all related structures Eyelids: Yes eyelids normal Conjunctivae: conjunctivae normal Neck Neck: Yes normal visual inspection and Yes supple Resp Effort & Inspection: normal respiratory effort Auscultation: clear to auscultation bilaterally Cardio Jugular venous distension: no JVD Rate: regular rate Rhythm: regular rhythm Heart sounds: S1 normal heart sound present and S2 normal heart sound present Extrem General: Yes full ROM Office Procedures Flu Questionnaire Does the patient have a severe egg allergy?: No Immunizations flu vacc [id number] 6mos up(PF) 60 mcg(15 mcgx4)/0.5 mL IM syringe Performing Provider: Terra Núñez MD [facility] Documented (not given) by: MARY Pacheco on 05/05/23 10:01 Reason Not Given: Patient Refused Assessment and Plan Assessment & Plan (1) Diabetes mellitus type 1: Code(s): E10.9 - Type 1 diabetes mellitus without complications Plan: Continue insulin. A1c goal is equal or less than 7%. (2) Major depressive disorder, recurrent, moderate: Code(s): F33.1 - Major depressive disorder, recurrent, moderate Plan: In remission. (3) Constipation: Code(s): K59.00 - Constipation, unspecified Qualifiers: Constipation type: chronic idiopathic constipation Qualified Code(s): K59.04 - Chronic idiopathic constipation Plan: Continue senna as needed (4) Morbid obesity: Code(s): E66.01 - Morbid (severe) obesity due to excess calories Plan: Follow-up with weight management. BMI goal is less than 30. (5) Knee pain, bilateral: Code(s): M25.561 - Pain in right knee; M25.562 - Pain in left knee Qualifiers: Chronicity: chronic Qualified Code(s): M25.561 - Pain in right knee; M25.562 - Pain in left knee; G89.29 - Other chronic pain Plan: Knee brace ordered. X-ray ordered. (6) Left hip pain: Code(s): M25.552 - Pain in left hip Plan: X-ray ordered. Orders: Orders Influenza [id number] Immunization Today Z23 - Encounter for immunization Microalbumin, Random (w Creat) Today E11.9 - Type 2 diabetes mellitus without complications Thyroid Stimulating Hormone Today E03.9 - Hypothyroidism, unspecified Lipid Panel Today E78.5 - Hyperlipidemia, unspecified Comprehensive Independence. Panel Fast Today E10.9 - Type 1 diabetes mellitus without complications XR hip LT min 2V Today M25.552 - Pain in left hip Medications: New [diabetic shoes with inserts] As directed 1 ea 0RF E10.649 - Type 1 diabetes mellitus with hypoglycemia without coma leg brace (SHAUNA Knee Brace) As directed 2 ea 0RF M25.561 - Pain in right knee, M25.562 - Pain in left knee triamcinolone acetonide 0.5% 1 appl topical DAILY 7 days 15 grams 1RF Coding Level of Care Code Est Pt Level 4 (54659) Diagnoses Diabetes mellitus type 1 E10.9 Major depressive disorder, recurrent, moderate F33.1 Chronic idiopathic constipation K59.04 Constipation type: chronic idiopathic constipation Morbid obesity E66.01 Chronic pain of both knees M25.561; M25.562; G89.29 Chronicity: chronic Left hip pain M25.552 Time Spent (min) 23
== END 2023-05-05 10:22 | disposition home or self-care (01) ==
PROVIDERS: PCP Internal Medicine; Visit Provider Internal Medicine
DX: E10.9 Type 1 diabetes mellitus without complications (principal); F33.1 Major depressive disorder, recurrent, moderate; E66.01 Morbid (severe) obesity due to excess calories; Z68.42 Body mass index [BMI] 45.0-49.9, adult; K59.04 Chronic idiopathic constipation; M25.561 Pain in right knee; M25.562 Pain in left knee; G89.29 Other chronic pain; M25.552 Pain in left hip
CPT/HCPCS: 99214

== ENCOUNTER 2023-05-08 10:30 | Outpatient (AMB) | payer OTHER, SELFPAY ==
--- NOTE | 2023-05-08 10:30 | A.OFFVIS_ITS ---
Intake VS Expanded 05/08/23 10:36 Height 5 ft 9 in Weight 307 lb 2 oz BMI 45.3 Intake Visit Reasons: VIDEO PO LSG 10/14/22 Allergies No Known Allergies [No Known Allergies*] Allergy (Verified 05/05/23 10:12) Medication List - Last Reconciled 05/08/23 by Arlene Reynolds PA-C blood pressure monitor (Blood Pressure Kit) As directed blood sugar diagnostic (FreeStyle Lite Strips) TEST 4X A DAY blood-glucose meter (FreeStyle Lite Meter kit) As directed [diabetic shoes with inserts As directed] insulin lispro 100 units subcut DAILY insulin lispro subcutaneously up to 100 units per day via insulin pump insulin pump cart,auto,BT-cntr (Omnipod 5 G6 Intro Kit (Gen 5) subcutaneous cartridge with controller) DIRECTED insulin pump cart,automated,BT (Omnipod 5 G6 Pods (Gen 5) subcutaneous cartridge) As directed insulin syringe-needle U-100 (BD Veo Insulin Syringe Ultra-Fine) As directed once daily lancets (FreeStyle Lancets) 4x daily leg brace (SHAUNA Knee Brace) As directed levothyroxine 137 mcg PO DAILY 90 days lorazepam (Ativan) 1 mg PO BEDTIME PRN 30 days metoprolol succinate ER 25 mg PO DAILY nthjunuczqev-pyg-bufy-FA-vit K 45 mg iron- 800 mcg-120 mcg (Bariatric Multivitamins) caps PO pen needle, diabetic (BD Ultra-Fine Citlaly Pen Needle) As directed twice daily rosuvastatin 40 mg PO DAILY sennosides (senna) 17.2 mg (2 x 8.6 mg) PO BEDTIME PRN TENS units (TENS 502 device) As directed triamcinolone acetonide 0.5% 1 appl topical DAILY 7 days vitamin A palmitate 3,000 mcg PO DAILY HPI HPI Comments History of Present Illness Details Patient is now 6 months s/p LSG. 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 At our last appt in February he was having protein shakes with BS spikes afterwards and no weight loss. C/o - itchy red rash under pannus. Meal plan 11am - Isopure (25 grams) unsweetened po wdered with UAM 2pm - same shake 5 pm - 3 oz protein and 2 oz of vegetabl es 7 pm - 40 grams of protein of water per day. BS - fasting - 120, goes up to 150 2 hours later (before first shake) then comes down with his walk. SBP 119 - 130, checks every other day. Exercise - walks 3.5 miles -600-700 calories, 4 d in a role. Tried TBP videos- got bored. Does not want to go to gym, does not have exercise equipment at home. Post op complications: none ELISABETH: resolved DM: type 1DM HTN: will stop metoprolol Hyperlipidemia: on meds, will get lbs done now. GERD: 0, Satisfaction with present condition - satisfied [facility] Medical History Constipation by delayed colonic transit Diabetes type 1, controlled DJD (degenerative joint disease) Dyslipidemia NATALIO (generalized anxiety disorder) Goiter HLD (hyperlipidemia) Hypertension Hypothyroidism Insomnia Insulin pump in place Microalbuminuria Morbid obesity Obesity due to excess calories Surgical History S/P laparoscopic sleeve gastrectomy Family History Father No problems noted. Mother Obesity Social History Housing: Apartment Are you a primary child care coordinator to a significant other at home: No Do you presently have visiting nurse or other home services: No Alcohol intake: never Patient Tobacco Use Status: Never used Tobacco e-Cigarette/Vaping Use: Never Used Second Hand Smoke Exposure: No service: No Current occupational status: unemployed Cognitive needs: No Hearing needs: No Vision needs: Yes Physical Exam GI Inspection: Yes incision (all completely healed.), Yes Abdominal panniculus present, No visible herniation and Yes other (erythematous, rash under pannus) Assessment & Plan Assessment & Plan (1) Morbid obesity: Code(s): E66.01 - Morbid (severe) obesity due to excess calories Plan: 6 months post op with stagnant weight loss, although blood sugars, BP are excellent. Will stop metoprolol now, and contineu to check BP's if SBP under 130 will not take med. Will send me these numbers. No changes to meal plan Exercise - we discussed how he must change what he is doing - it is not effective for weight loss any longer. TBP 3d/ week and walks 4 d/ week. Next appt 1 month with me, encouraged him to send me weekly weights. (2) S/P laparoscopic sleeve gastrectomy: Code(s): Z98.84 - Bariatric surgery status Plan: see above (3) Diabetes mellitus type 1: Code(s): E10.9 - Type 1 diabetes mellitus without complications Plan: great control (4) Panniculitis: Code(s): M79.3 - Panniculitis, unspecified Plan: Pt reports issues with excess skin of abdomen. He gets pruritic rashes and irritation of skin fold. Moisture collects, there, making it very itchy. He has to wash frequently to keep the area clean. We discussed keeping skin away form skin while exercising by using cotton gauze or paper towels. Making sure to wash or shower immediately after exercising and dry area well, may use humanities department chair. Nystatin powder ordered to use bid prn for rash or pruritus. Medications: New nystatin 1 appl topical BID 60 grams 3RF acetaminophen 325 mg PO QID PRN 120 tabs 1RF pain Telehealth Telehealth Location of provider rendering services: practice address Location of patient: address on file Patient Identification confirmed using: Name, : Yes Telehealth method: video Patient verbally consented to treatment: Yes Patient verbally consented to billing insurance company: Yes Patient informed of any privacy concerns related to visit: Yes Coding Level of Care Code Tele Est Pt Level 4 (73668) Diagnoses Morbid obesity E66.01 S/P laparoscopic sleeve gastrectomy Z98.84 Diabetes mellitus type 1 E10.9 Panniculitis M79.3
[2023-05-08 10:36] VITALS: BMI 45.3
== END 2023-05-08 11:02 | disposition home or self-care (01) ==
LOC: HO.HBS 10:40
PROVIDERS: PCP Internal Medicine; Visit Provider Physician Assistant
DX: E66.01 Morbid (severe) obesity due to excess calories (principal); Z98.84 Bariatric surgery status; E10.9 Type 1 diabetes mellitus without complications; M79.3 Panniculitis, unspecified
CPT/HCPCS: 99214

== ENCOUNTER → 2023-05-08 10:30 | Outpatient (BNVA) | payer OTHER, SELFPAY | PROVIDERS: PCP Internal Medicine; Visit Provider Physician Assistant | DX: E66.01 Morbid (severe) obesity due to excess calories (principal); E78.5 Hyperlipidemia, unspecified; E03.9 Hypothyroidism, unspecified; Z98.84 Bariatric surgery status; E10.9 Type 1 diabetes mellitus without complications ==

== ENCOUNTER 2023-05-13 10:30 | Outpatient (REF) | payer OTHER, SELFPAY ==
--- NOTE | ~2023-05-13 | XR_ITS ---
EXAMINATION: XR HIP, LEFT CLINICAL INFORMATION: Pain. COMPARISON: None available. TECHNIQUE: AP and frog-leg lateral views of the left hip. FINDINGS: No fracture. Alignment is anatomic. Hip joint space is maintained. Soft tissues are unremarkable. XR/XR hip LT min 2V IMPRESSION: Normal left hip.
[2023-05-13 10:42] LABS: MANUAL DIFF FLAG NO
[2023-05-13 12:08] LABS: Basophils Percent Auto 0.8 % (0-2); Eosinophils Absolute Auto 0.2 X10*3/uL (0.0-0.4); Hematocrit 44.9 % (42.0-52.0); Hemoglobin 14.7 g/dl (14.0-18.0); Imm Gran Abs Auto 0.01 X10*3/uL (0.00-0.03); Imm Gran Pct Auto 0.2 % (0.0-0.4); Lymphocytes Absolute Auto 1.6 X10*3/uL (1.2-4.9); Lymphocytes Percent Auto 29.8 % (20-40); Mean Corpuscular HGB Conc 32.7 g/dl (31.0-36.0); Mean Corpuscular Hemoglobin 28.8 pg (27.0-33.0); Mean Corpuscular Volume 87.9 fL (80.0-98.0); Mean Platelet Volume 10.4 fL (9.4-12.4); Monocytes Absolute Auto 0.3 X10*3/uL (0.1-1.2); Monocytes Percent Auto 6.2 % (2-11); Neutrophils Absolute Auto 3.2 x10*3/uL (2.0-8.3); Platelet Count 269 X10*3/uL (160-400); Red Blood Count 5.11 X10*6/uL (4.60-5.80); Red Cell Distribution Width 12.5 % (11.0-16.0); White Blood Count 5.3 X10*3/uL (4.8-10.8)
[2023-05-13 12:43] LABS: Alanine Aminotransferase 18 U/L (0-40); Albumin Level 3.8 g/dL (3.5-5.0); Alkaline Phosphatase 71 U/L (39-117); Anion Gap 12 (12-20); Aspartate Amino Transferase 19 U/L (5-37); Bilirubin Total 0.6 mg/dL (0.0-1.0); Blood Urea Nitrogen 18 mg/dL (9-16); Calcium 8.8 mg/dL (8.4-10.2); Carbon Dioxide 25 mmol/L (22-29); Chloride 108 mmol/L (96-108); Cholesterol 164 mg/dL (<200); Estimated Glomerular Filt Rate > 60; Glucose Fasting 113 mg/dL (60-99); HDL Cholesterol 43 mg/dL (>40); Iron 105 mcg/dL (45-160); LDL Cholesterol Calculated 112 mg/dL (<100); Percent Iron Saturation 53 % (15-50); Potassium 3.8 mmol/L (3.3-5.1); Sodium 141 mmol/L (135-145); Total Iron Binding Capacity 199 mcg/dL (228-428); Triglycerides 48 mg/dL (<150); Unsaturated Iron Binding 94 ug/dL
[2023-05-13 12:48] LABS: Free T4 (Free Thyroxine) 0.86 ng/dL (0.71-1.85); Thyroid Stimulating Hormone 1.54 uIU/mL (0.32-4.0); Vitamin D 25-OH Total 49.7 ng/mL (>30)
== END 2023-05-13 10:31 | disposition home or self-care (01) ==
LOC: HO.LAB 10:30
PROVIDERS: PCP Internal Medicine; Visit Provider Internal Medicine
DX: E55.9 Vitamin D deficiency, unspecified (principal); D64.9 Anemia, unspecified; E03.9 Hypothyroidism, unspecified; E78.5 Hyperlipidemia, unspecified; E10.9 Type 1 diabetes mellitus without complications; E66.01 Morbid (severe) obesity due to excess calories; M25.552 Pain in left hip
CPT/HCPCS: 36415; 73502; 80053; 80061; 82306; 83540; 84439; 84443; 85025

== ENCOUNTER 2023-05-16 08:13 | Outpatient (REF) | payer OTHER, SELFPAY ==
[2023-05-16 09:17] LABS: Microalbum/Creatinine Ratio Ur 4.2 ug/mg cr (<30)
== END 2023-05-16 08:14 | disposition home or self-care (01) ==
LOC: HO.LNP 08:13
PROVIDERS: Visit Provider Internal Medicine
DX: E11.9 Type 2 diabetes mellitus without complications (principal)
CPT/HCPCS: 82043; 82570

== ENCOUNTER 2023-06-10 10:30 | Outpatient (AMB) | payer OTHER, SELFPAY ==
[2023-06-10 10:30] VITALS: BMI 45.0
--- NOTE | 2023-06-10 10:30 | MHC.OFFVISWM ---
Intake VS Expanded 06/10/23 10:30 Height 5 ft 9 in Weight 305 lb BMI 45.0 Intake Visit Reasons: VIDEO PO LSG 10/14/22 Allergies No Known Allergies [No Known Allergies*] Allergy (Verified 05/05/23 10:12) Medication List - Last Reconciled 06/10/23 by Arlene Reynolds PA-C alprazolam 0.5 mg PO DAILY PRN 2 days blood pressure monitor (Blood Pressure Kit) As directed blood sugar diagnostic (FreeStyle Lite Strips) TEST 4X A DAY blood-glucose meter (FreeStyle Lite Meter kit) As directed [diabetic shoes with inserts As directed] insulin lispro 100 units subcut DAILY insulin pump cart,auto,BT-cntr (Omnipod 5 G6 Intro Kit (Gen 5) subcutaneous cartridge with controller) DIRECTED insulin pump cart,automated,BT (Omnipod 5 G6 Pods (Gen 5) subcutaneous cartridge) As directed insulin syringe-needle U-100 (BD Veo Insulin Syringe Ultra-Fine) As directed once daily lancets (FreeStyle Lancets) 4x daily leg brace (SHAUNA Knee Brace) As directed levothyroxine 137 mcg PO DAILY 90 days lorazepam (Ativan) 1 mg PO BEDTIME PRN 30 days metoprolol succinate ER 25 mg PO DAILY dwhibynvydvi-ooy-lvdv-FA-vit K 45 mg iron- 800 mcg-120 mcg (Bariatric Multivitamins) caps PO nystatin 1 appl topical BID pen needle, diabetic (BD Ultra-Fine Citlaly Pen Needle) As directed twice daily rosuvastatin 40 mg PO DAILY sennosides (senna) 17.2 mg (2 x 8.6 mg) PO DAILY TENS units (TENS 502 device) As directed triamcinolone acetonide 0.5% 1 appl topical DAILY 7 days vitamin A palmitate 3,000 mcg PO DAILY HPI HPI Comments History of Present Illness Details Patient is now 9 months s/p LSG. 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 His goal weight is about 240 lns. C/o - itchy red rash under pannus. Meal plan 10 am - Isopure (25 grams) unsweetened powdered with UAM 1 pm - same shake 5 pm - 3 oz protein and 2 oz of vegetables 8 pm - 40 grams of protein of water per day. BS - fasting - 120, no more spikes SBP - max SBP 138,, takes metoprolol Exercise - , , and Thursday walks 3 miles - turner 500- 700 calories Just started this week - 5 d/week - ST videos on [employer] PFSH Medical History Constipation by delayed colonic transit Diabetes type 1, controlled DJD (degenerative joint disease) Dyslipidemia NATALIO (generalized anxiety disorder) Goiter HLD (hyperlipidemia) Hypertension Hypothyroidism Insomnia Insulin pump in place Microalbuminuria Morbid obesity Obesity due to excess calories Surgical History S/P laparoscopic sleeve gastrectomy Family History Father No problems noted. Mother Obesity Social History Housing: Apartment Are you a primary progressive care manager to a significant other at home: No Do you presently have visiting nurse or other home services: No Alcohol intake: never Patient Tobacco Use Status: Never used Tobacco e-Cigarette/Vaping Use: Never Used Second Hand Smoke Exposure: No service: No Current occupational status: unemployed Cognitive needs: No Hearing needs: No Vision needs: Yes Assessment & Plan Assessment & Plan (1) Morbid obesity: Code(s): E66.01 - Morbid (severe) obesity due to excess calories Plan: No weight loss for many months - he has started ST exercises this week (as opposed to 3 months ago when we spoke about it) and hopefully this will make a difference for him. He does not feel that he needs any changes to his meal plan. Better DM (with decreasing insulin - now about 35 units per day) and BP control. I ordered Hgb A1C - not done last month. I have encouraged him to text me his weights weekly again so that I can help him make necessary exercise changes. I told him that his goal should be a BMI under 30. Next appt with me in 3 months. Patient is still morbidly obese and is not considered stable at this time. I spent 30 minutes in total speaking with the patient via video conference counseling , reviewing records and charting in patients chart. . (2) Diabetes type 1, controlled: Code(s): E10.9 - Type 1 diabetes mellitus without complications Qualifiers: Diabetes mellitus complication status: with hypoglycemia Qualified Code(s): E10.649 - Type 1 diabetes mellitus with hypoglycemia without coma (3) S/P laparoscopic sleeve gastrectomy: Code(s): Z98.84 - Bariatric surgery status Plan see above Orders: Orders Hemoglobin A1c Today E10.9 - Type 1 diabetes mellitus without complications, E66.01 - Morbid (severe) obesity due to excess calories, Z98.84 - Bariatric surgery status Telehealth Telehealth Location of provider rendering services: practice address Location of patient: address on file Patient Identification confirmed using: Name, : Yes Telehealth method: video Patient verbally consented to treatment: Yes Patient verbally consented to billing insurance company: Yes Patient informed of any privacy concerns related to visit: Yes Coding Level of Care Code Tele Est Pt Level 4 (50183) Diagnoses Morbid obesity E66.01 Controlled type 1 diabetes mellitus with hypoglycemia E10.649 Diabetes mellitus complication status: with hypoglycemia S/P laparoscopic sleeve gastrectomy Z98.84
== END 2023-06-10 10:54 | disposition home or self-care (01) ==
LOC: HO.HBS 10:35
PROVIDERS: PCP Internal Medicine; Visit Provider Physician Assistant
DX: E66.01 Morbid (severe) obesity due to excess calories (principal); E10.649 Type 1 diabetes mellitus with hypoglycemia without coma; Z98.84 Bariatric surgery status
CPT/HCPCS: 99214

== ENCOUNTER → 2023-06-10 10:30 | Outpatient (BNVA) | payer OTHER, SELFPAY | PROVIDERS: PCP Internal Medicine; Visit Provider Physician Assistant | DX: E66.01 Morbid (severe) obesity due to excess calories (principal); E78.5 Hyperlipidemia, unspecified; E03.9 Hypothyroidism, unspecified; Z98.84 Bariatric surgery status; E10.9 Type 1 diabetes mellitus without complications; M79.3 Panniculitis, unspecified ==

== ENCOUNTER 2023-06-22 12:40 | Outpatient (REF) | payer OTHER, SELFPAY ==
[2023-06-22 13:30] LABS: Estimated Average Glucose 120 mg/dL; Hemoglobin A1c % 5.8 % (<6.0)
== END 2023-06-22 12:41 | disposition home or self-care (01) ==
LOC: HO.LAB 12:40
PROVIDERS: PCP Internal Medicine; Visit Provider Physician Assistant
DX: E66.01 Morbid (severe) obesity due to excess calories (principal); E10.9 Type 1 diabetes mellitus without complications; Z98.84 Bariatric surgery status
CPT/HCPCS: 36415; 83036

== ENCOUNTER 2023-07-09 09:12 | Outpatient (AMB) | payer OTHER, SELFPAY ==
--- NOTE | 2023-07-09 09:13 | MHC.AMDMED ---
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 Accompanied by: Self / Same As Patient Allergies No Known Allergies [No Known Allergies*] Allergy (Verified 05/05/23 10:12) HPI Comprehensive Diabetes Asmnt Most Recent Diabetes Results: Microalb/Creat Ratio 4.2 ug/mg cr (<30) 05/16/23 Cholesterol 164 mg/dL (<200) 05/13/23 HDL Cholesterol 43 mg/dL (>40) 05/13/23 Triglycerides 48 mg/dL (<150) 05/13/23 Creatinine 0.75 mg/dL (0.5-1.4) 05/13/23 Blood Urea Nitrogen 18 mg/dL (9-16) H 05/13/23 Sodium 141 mmol/L (135-145) 05/13/23 Potassium 3.8 mmol/L (3.3-5.1) 05/13/23 Chloride 108 mmol/L (96-108) 05/13/23 Carbon Dioxide 25 mmol/L (22-29) 05/13/23 Calcium 8.8 mg/dL (8.4-10.2) 05/13/23 AST 19 U/L (5-37) 05/13/23 ALT 18 U/L (0-40) 05/13/23 Total Protein 7.0 g/dL (6.5-8.0) 05/13/23 Albumin 3.8 g/dL (3.5-5.0) 05/13/23 [facility] Medical History Constipation by delayed colonic transit Diabetes type 1, controlled DJD (degenerative joint disease) Dyslipidemia NATALIO (generalized anxiety disorder) Goiter HLD (hyperlipidemia) Hypertension Hypothyroidism Insomnia Insulin pump in place Microalbuminuria Morbid obesity Obesity due to excess calories Surgical History S/P laparoscopic sleeve gastrectomy Family History Father No problems noted. Mother Obesity Social History Housing: Apartment Are you a primary care navigator to a significant other at home: No Do you presently have visiting nurse or other home services: No Alcohol intake: never Patient Tobacco Use Status: Never used Tobacco e-Cigarette/Vaping Use: Never Used Second Hand Smoke Exposure: No service: No Current occupational status: unemployed Cognitive needs: No Hearing needs: No Vision needs: Yes Assessment & Plan Assessment & Plan (1) Diabetes mellitus type 1: Code(s): E10.9 - Type 1 diabetes mellitus without complications Plan: Patient presents for pump training to transition from Omnipod dash to Omnipod 5 with Dexcom G6 The following topics were reviewed today: - When to change set or Pod - automatic mode verses manual mode - Linking CGM to pump - Inserting infusion set or Pod site rotation Patient's average glucose for the past 2 weeks 133 mg/dL 10% of the time above target 87% of the time at target 3% Below target Patient has been in auto mode 60%, manual mode 40%. For the most part patient's hypoglycemic events happen when he is in manual mode, but there are some while in auto mode. Suggested to patient we adjust insulin to carb ratios for meals in order to reduce the amount of insulin. In addition we changed correction threshold from 110-120 mg/dL Encourage patient to use auto mode as frequently as possible See changes to manual mode basal rate below Discussed with patient we may have to change correction factor an insulin to carb ratio as he continues to lose weight. Patient reports he is feeling more positive about bariatric surgery, patient did declined to be weighed today Patient understands the basic concepts of pump therapy, how to give insulin for meals and snacks, how to troubleshoot for hyper and hypoglycemia. Patient is still on 2 protein shakes, yogurt and protein bars Instructed patient if he has increased episodes of hypoglycemia to contact Diabetes Education nurse Setting verified by CDCES Basal rate(s) (units/hour) for Manual Mode : 12 AM? to 8 AM 1.2 units / hr 8 AM? to 12AM? 1.8 units / hr? 11 PM to 12 AM 1.1 units / hr? Bolus setting Insulin Carbohydrate Ratio (s) 12 AM to 4 AM? 1:5 New 12 AM to 4 AM? 1:6 4 AM to 12 AM? 1:4.5 New 4 AM to 12 AM? 1:5.5 Correction Factor / Sensitivity Factor 12 AM to 12 AM 1:15 Active Insulin Time:? 2 hours Target(s): 12 AM to 12 AM 110 mg/dL New 12 AM to 12 AM 120 mg/dL Patient Instructions: Patient will follow-up with community health educator 6 months If he is questions and concerns between now and then he is encouraged to contact community health educator Coding Level of Care Code Est Pt Level 1 (90868) Diagnoses Diabetes mellitus type 1 E10.9
== END 2023-07-09 09:40 | disposition home or self-care (01) ==
PROVIDERS: PCP Internal Medicine; Visit Provider Registered Nurse Diabetes Educator
DX: E10.9 Type 1 diabetes mellitus without complications (principal)

== ENCOUNTER → 2023-07-09 09:12 | Outpatient (BNVA) | payer OTHER, SELFPAY | PROVIDERS: PCP Internal Medicine; Visit Provider Registered Nurse Diabetes Educator | DX: Z46.81 Encounter for fitting and adjustment of insulin pump (principal); E10.9 Type 1 diabetes mellitus without complications | CPT/HCPCS: 99211 ==

== ENCOUNTER 2023-09-07 09:32 | Outpatient (AMB) | payer OTHER, SELFPAY ==
--- NOTE | 2023-09-07 09:42 | A.OFFPC_ITS ---
Vital Signs 09/07/23 09:47 Height 5 ft 9 in Weight 294 lb BMI 43.4 BP 110/68 Blood Pressure Location Lt brachial Position Sitting Intake Visit Reasons: 4mth f/u Intake Note: Patient here for a 4 month follow up Dental Ceramist Required: No Accompanied by: Self / Same As Patient Allergies No Known Allergies [No Known Allergies*] Allergy (Verified 09/07/23 09:56) Medication List - Last Reconciled 09/07/23 by Terra Núñez MD blood pressure monitor (Blood Pressure Kit) As directed blood sugar diagnostic (FreeStyle Lite Strips) TEST 4X A DAY blood-glucose meter (FreeStyle Lite Meter kit) As directed [diabetic shoes with inserts As directed] insulin lispro 100 units subcut DAILY insulin pump cart,auto,BT-cntr (Omnipod 5 G6 Intro Kit (Gen 5) subcutaneous cartridge with controller) DIRECTED insulin pump cart,automated,BT (Omnipod 5 G6 Pods (Gen 5) subcutaneous cartridge) DIRECTED insulin syringe-needle U-100 (BD Veo Insulin Syringe Ultra-Fine) As directed once daily lancets (FreeStyle Lancets) 4x daily leg brace (SHAUNA Knee Brace) As directed levothyroxine 137 mcg PO DAILY 90 days metoprolol succinate ER 25 mg PO DAILY eizakhgmwjjv-ddi-mfag-FA-vit K 45 mg iron- 800 mcg-120 mcg (Bariatric Multivitamins) caps PO nystatin 1 appl topical BID pen needle, diabetic (BD Ultra-Fine Citlaly Pen Needle) As directed twice daily rosuvastatin 40 mg PO DAILY TENS units (TENS 502 device) As directed triamcinolone acetonide 0.5% 1 appl topical DAILY 7 days vitamin A palmitate 3,000 mcg PO DAILY Tobacco use date assessed: 09/07/23 Dental Screening Dental Screen Date: 09/07/23 Did you have a dental visit in the last 12 months?: Yes Did you have a dental problem in the last 6 months where you did not have access to dental care?: No Was dental information given to patient?: Patient has dentist HPI HPI Comments History of Present Illness Details This is a 33-year-old male with diabetes mellitus type 1, hypothyroidism, hyperlipidemia and morbid obesity that complains of constipation with less than 3 bowel movements per week. Blood glucose well control with A1c within goal and this is follow by Endocrinology. TSH and lipid panel will be order and his LDL goal should be less than 70. He is morbidly obese with a BMI of 43.4 and was advised to do diet and exercise to reach BMI goal less than 30. He is on weight management after bariatric surgery. Has try senna in the past with no significant relieved and I will send MiraLax. No chest pain or shortness of breath. Complains of some memory loss and says that has recollection of the last 2 years of his life. Will be referred to Neurology. [facility] Medical History (Updated 09/07/23 @ 10:02 by Terra Núñez MD) Insulin pump in place DJD (degenerative joint disease) Insomnia Obesity due to excess calories NATALIO (generalized anxiety disorder) Goiter HLD (hyperlipidemia) Constipation by delayed colonic transit Hypothyroidism Morbid obesity Hypertension Dyslipidemia Microalbuminuria Diabetes type 1, controlled Surgical History S/P laparoscopic sleeve gastrectomy Family History Father No problems noted. Mother Obesity Social History Housing: Apartment Are you a primary hospice care consultant to a significant other at home: No Do you presently have visiting nurse or other home services: No Alcohol intake: never Patient Tobacco Use Status: Never used Tobacco e-Cigarette/Vaping Use: Never Used Second Hand Smoke Exposure: No service: No Current occupational status: unemployed Cognitive needs: No Hearing needs: No Vision needs: Yes Questionnaire PHQ-9 Over the last 2 weeks, how often have you been bothered by any of the following problems? 1. Little interest or pleasure in doing things: not at all 2. Feeling down, depressed, or hopeless: not at all 3. Trouble falling or staying asleep, or sleeping too much: not at all 4. Feeling tired or having little energy: not at all 5. Poor appetite or overeating: not at all 6. Feeling bad about yourself - or that you are a failure or have let yourself or your family down: not at all 7. Trouble concentrating on things, such as reading the newspaper or watching television: not at all 8. Moving or speaking so slowly that other people could have noticed. Or the opposite - being so fidgety or restless that you have been moving around a lot more than usual: not at all 9. Thoughts that you would be better off or of hurting yourself in some way: not at all Total score: 0 Depression Screening Interpretation: Negative Depression Screening Done: Yes 93362 - PHQ-9 Billing: Yes Source: Developed by Drs. Janak Guillen, Ce Sanders, Manny Nava and colleagues, with an educational carol from [employer]. Thrive Questionnaire Date Thrive assessed: 09/07/23 I am a: Patient What is your living situation today?: I have a steady place to live Within the past 12 months, did the food you bought not last and you didn't have the money to get more?: Never true Within the past 12 months, did you worry whether your food would run out before you got money to buy more?: Never true Do you have trouble paying for medicines?: No Do you have trouble getting transportation to medical appointments?: No Do you have trouble paying your heating and electricity bill?: No Do you have trouble taking care of your child, family member or friend?: No Do you have trouble with day-to-day activities such as bathing, preparing meals, shopping, managing finances, etc.?: No Are you currently unemployed and looking for a job?: No Are you interested in more education?: No Please select the resources that you would like help with: None Currently or been in a relationship where the following occur: no concerns reported THRIVE Score: 0 AUDIT C Alcohol Use Questionnaire (AUDIT-C) 1. How often do you have a drink containing alcohol?: Never Total Score: 0 Score Reviewed/Action Taken: No NATALIO-7 AMB Questionnaire NATALIO-7 Date NATALIO - 7 assessed: 09/07/23 Feeling nervous, anxious, or on edge: 0 = Not at all Not being able to stop or control worryin = Not at all Worrying too much about different things: 0 = Not at all Trouble relaxin = Not at all Being so restless that it is hard to sit still: 0 = Not at all Becoming easily annoyed or irritable: 0 = Not at all Feeling afraid as if something awful might happen: 0 = Not at all Total NATALIO-7 score (0-4 normal; 5-9 mild; 10-14 moderate; 15-21 severe): 0 Source: Developed by Drs. Janak Guillen, Ce Sanders, Manny Nava and colleagues, with an educational carol from [employer]. NATALIO-7 Assessment Billing NATALIO-7 Assessment Tool: NATALIO-7 Assessment 05317 Review of Systems Const All systems reviewed & are unremarkable except as noted in HPI and below Eyes Reports no additional complaints, Denies change in vision and Denies other visual disturbances Card Denies chest pain at rest, Denies chest pain with activity, Denies edema, Denies irregular heart rhythm, Denies claudication, Denies dyspnea, Denies dyspnea on exertion, Denies orthopnea, Denies paroxysmal nocturnal dyspnea and Denies slow heart rate Resp Denies cough, Denies dyspnea and Denies dyspnea on exertion GI Denies abdominal pain, Denies change in bowel habits, Denies excessive flatus, Denies nausea and Denies vomiting Denies urinary hesitancy, Denies urinary incontinence and Denies urinary urgency Physical exam (Primary Care) Vital Signs: Last Vital Signs BP 110/68 09/07/23 09:47 BMI result Body Mass Index 43.4 Tobacco/Smoking Status: Tobacco use Status Tobacco use date assessed 09/07/23 09/07/23 09:52 Patient Tobacco Use Status Never used Tobacco 09/07/23 09:45 e-Cigarette/Vaping Use Never Used 09/07/23 09:45 PHQ-9: PHQ-9 Score PHQ-9: Total score 0 09/07/23 10:25 Depression Screening Interpretation: Negative Thrive Assessment: Date of Thrive Assessment Date Thrive assessed 09/07/23 09/07/23 09:45 Currently or been in a relationship where the following occur: no concerns reported Resp Effort & Inspection: normal respiratory effort Auscultation: clear to auscultation bilaterally Cardio Jugular venous distension: no JVD Rate: regular rate Rhythm: regular rhythm Heart sounds: S1 normal heart sound present and S2 normal heart sound present Extrem General: Yes full ROM Assessment and Plan Assessment & Plan (1) Diabetes mellitus type 1: Code(s): E10.9 - Type 1 diabetes mellitus without complications Plan: Continue insulin. A1c goal is equal or less than 7%. Follow-up with endocrinology (2) Hypothyroidism: Code(s): E03.9 - Hypothyroidism, unspecified Qualifiers: Hypothyroidism type: acquired Qualified Code(s): E03.9 - Hypothyroidism, unspecified Plan: Continue levothyroxine. (3) Morbid obesity: Code(s): E66.01 - Morbid (severe) obesity due to excess calories Plan: Start diet and exercise. BMI goal is less than 30. Continue follow-up with weight management. (4) HLD (hyperlipidemia): Code(s): E78.5 - Hyperlipidemia, unspecified Plan: Continue statins. Repeat lipid panel. LDL goal is less than 70. (5) Constipation by delayed colonic transit: Code(s): K59.01 - Slow transit constipation Plan: Start MiraLax as needed. Orders: Orders Lipid Panel Today E78.5 - Hyperlipidemia, unspecified Vitamin B12 and Folate Today E53.8 - Deficiency of other specified B group vitamins Microalbumin, Random (w Creat) Today E11.9 - Type 2 diabetes mellitus without complications Comprehensive [place]. Panel Fast Today E10.9 - Type 1 diabetes mellitus without complications Thyroid Stimulating Hormone Today E03.9 - Hypothyroidism, unspecified Referrals Neurology Referral R41.3 - Other amnesia Medications: New polyethylene glycol 3350 (Miralax) 17 grams PO DAILY 30 days PRN 238 grams 0RF constipation Coding Level of Care Code Est Pt Level 4 (54224) Diagnoses Diabetes mellitus type 1 E10.9 Acquired hypothyroidism E03.9 Hypothyroidism type: acquired Morbid obesity E66.01 HLD (hyperlipidemia) E78.5 Constipation by delayed colonic transit K59.01 Additional Codes NATALIO-7 Assessment Billing - NATALIO-7 Assessment Tool: NATALIO-7 Assessment 32324 ([id number]) Time Spent (min) 23
[2023-09-07 09:47] VITALS: BP 110/68; BMI 43.4
== END 2023-09-07 10:04 | disposition home or self-care (01) ==
PROVIDERS: PCP Internal Medicine; Visit Provider Internal Medicine
DX: E10.9 Type 1 diabetes mellitus without complications (principal); E66.01 Morbid (severe) obesity due to excess calories; Z68.41 Body mass index [BMI] 40.0-44.9, adult; E03.9 Hypothyroidism, unspecified; E78.5 Hyperlipidemia, unspecified; K59.01 Slow transit constipation
CPT/HCPCS: 99214

== ENCOUNTER 2023-09-07 14:46 | Outpatient (AMB) | payer OTHER, SELFPAY ==
[2023-09-07 14:49] VITALS: BP 130/22; PULSE 79; BMI 44.2
--- NOTE | 2023-09-07 14:49 | MHC.OFFVIS ---
Intake Vital Signs 09/07/23 14:49 Height 5 ft 9 in Weight 299 lb 6.204 oz BMI 44.2 BP 130/22 L Blood Pressure Location Lt brachial Position Sitting Pulse 79 Pulse Source Pulse Oximeter Intake Visit Reasons: f/u Type 1 DM-confirmed Intake Note: Patient presents today to follow up on D1MT. Last Diabetic Eye exam:06/2023 Last Podiatry Visit:Doesn't have one. Random Glucose: 89 mg/dl HgA1c: 5.8% 06/22/23 Information Security Architect Required: No Accompanied by: Self / Same As Patient Allergies No Known Allergies [No Known Allergies*] Allergy (Verified 09/07/23 14:54) Medication List - Last Reconciled 09/07/23 by Janak Guido MD blood pressure monitor (Blood Pressure Kit) As directed blood sugar diagnostic (FreeStyle Lite Strips) TEST 4X A DAY blood-glucose meter (FreeStyle Lite Meter kit) As directed [diabetic shoes with inserts As directed] insulin lispro 100 units subcut DAILY insulin pump cart,auto,BT-cntr (Omnipod 5 G6 Intro Kit (Gen 5) subcutaneous cartridge with controller) DIRECTED insulin pump cart,automated,BT (Omnipod 5 G6 Pods (Gen 5) subcutaneous cartridge) DIRECTED insulin syringe-needle U-100 (BD Veo Insulin Syringe Ultra-Fine) As directed once daily lancets (FreeStyle Lancets) 4x daily leg brace (SHAUNA Knee Brace) As directed levothyroxine 137 mcg PO DAILY 90 days metoprolol succinate ER 25 mg PO DAILY wvhwbwwcgwjv-nqf-xetr-FA-vit K 45 mg iron- 800 mcg-120 mcg (Bariatric Multivitamins) caps PO nystatin 1 appl topical BID pen needle, diabetic (BD Ultra-Fine Citlaly Pen Needle) As directed twice daily polyethylene glycol 3350 (Miralax) 17 grams PO DAILY PRN 30 days rosuvastatin 40 mg PO DAILY TENS units (TENS 502 device) As directed triamcinolone acetonide 0.5% 1 appl topical DAILY 7 days vitamin A palmitate 3,000 mcg PO DAILY HPI HPI Comments History of Present Illness Details Patient is 33-year-old male with DM type 1 diagnosed in 2013 who presents for management of diabetes. He has been Omnipod Past medical history: DM1, HLD Micro and macrovascular complications: no retinopathy, nephropathy, neuropathy, CVA, CAD, PVD C-peptide is suppressed Diabetes medications: Humalog via Stat Basal rate(s) (units/hour) for Manual Mode : 12 AM? to 8 AM 1.2 units / hr 8 AM? to 12AM? 1.8 units / hr? 10 PM to 12 AM 1.1 units / hr? Bolus setting Insulin Carbohydrate Ratio (s) 12 AM to 4 AM? 1:5 New 12 AM to 4 AM? 1:6 4 AM to 12 AM? 1:4.5 New 4 AM to 12 AM? 1:5.5 Correction Factor / Sensitivity Factor 12 AM to 12 AM 1:15 Active Insulin Time:? 2 hours Target(s): 12 AM to 12 AM 110 mg/dL New 12 AM to 12 AM 120 mg/d Total daily dose of insulin is 31.3 units. 50% basal and 50% bolus. Automated mode is use 100% of the time. Total carbs per day is 68.2 g CGM: In the past 14 day the average blood glucose is 126 . Patient has is a very low blood of less than 54 mg/dL, 0%. Low glucose of less than 70, 0%. Glucose in target range of 70-180, 95%. Glucose high over 180,5 %. Glucose very high over 250,%. C GM is active 100% G mi is % Symptoms reported: denies numbness, tingling, cramping in lower extremities Hypoglycemia: infrequently Exercise: squats, crunches, planks, legs lifts etc. on Thursday, , , Thursday. 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 SIZE: Measurements of the thyroid lobes and nodules are given in sagittal, anteroposterior and transverse dimensions respectively. Right Thyroid Lobe: 4.5 x 1.8 x 1.5 cm, volume 6.4 mL. Parenchyma: The gland echotexture is homogeneous. Thyroid vascularity is normal. Left Thyroid Lobe: 4.0 x 1.2 x 1.1 cm, volume 2.7 mL. Parenchyma: The gland echotexture is homogeneous. Thyroid vascularity is normal. Isthmus: 0.2 cm in maximum AP dimension. Estimated total number of nodules greater than or equal to 1 cm: 0. Addresser nodules are described as follows: 1. Location: Left mid lower. ?? ? Size: 0.3 x 0.3 x 0.3 cm, volume 0.02 mL. ?? ? Nodule characteristics: ?? ? Composition: Solid (2). ?? ? Echogenicity: Hypoechoic (2). ?? ? Shape: Not taller than wide (0). ?? ? Margins: Smooth (0). ?? ? Echogenic Foci: None (0). ?? ? ACR TI-RADS total points: 4 ?? ? ACR TI-RADS category: 4 NODES: No lymphadenopathy is seen in the tissue surrounding the thyroid gland. [facility] [place] Medical History Insulin pump in place DJD (degenerative joint disease) Insomnia Obesity due to excess calories NATALIO (generalized anxiety disorder) Goiter HLD (hyperlipidemia) Constipation by delayed colonic transit Hypothyroidism Morbid obesity Hypertension Dyslipidemia Microalbuminuria Diabetes type 1, controlled Surgical History S/P laparoscopic sleeve gastrectomy Family History Father No problems noted. Mother Obesity Social History Housing: Apartment Are you a primary career law clerk to a significant other at home: No Do you presently have visiting nurse or other home services: No Alcohol intake: never Patient Tobacco Use Status: Never used Tobacco e-Cigarette/Vaping Use: Never Used Second Hand Smoke Exposure: No service: No Current occupational status: unemployed Cognitive needs: No Hearing needs: No Vision needs: Yes Physical Exam Vital Signs: Last Vital Signs Pulse 79 09/07/23 14:49 BP 130/22 L 09/07/23 14:49 BMI result Body Mass Index 44.2 Absence of Cushingoid features. Absence of acromegalic features. Neck exam reveals nl size thyroid about 15 gms. No thyroid nodules palpable. No carotid bruits present. Lungs CTA. Heart S1 S2, Reg R/R. No M/R/ G. Skin exam reveals absence of vitiligo or acanthosis nigricans. Abdominal exam reveals Soft NT/ND with NA BS. No organomegaly present. Extrem Other: Visual exam of foot performed. No ulcerations or open lesions. No onchomycosis, no callouses.Pulses 2 + distally. Sensation intact to monofilament exam. Vibratory sensation sensed 10 seconds in right, 10 seconds in left with 128 Hz tuning fork Results Reviewed Results Reviewed: Laboratory Last Values Glucose (Clinic) 89 mg/dL (60-115) 09/07/23 14:56 Assessment & Plan Assessment & Plan (1) Diabetes type 1, controlled: Code(s): E10.9 - Type 1 diabetes mellitus without complications Qualifiers: Diabetes mellitus complication status: with hypoglycemia Qualified Code(s): E10.649 - Type 1 diabetes mellitus with hypoglycemia without coma Plan: This is a 33-year-old male with a history of type 1 diabetes being managed with Omnipod 5pump with excellent improved glycemic control and no known microvascular or macrovascular complications. Plan is to continue the current pump settings. Coding Level of Care Code Est Pt Level 4 (16835) Diagnoses Controlled type 1 diabetes mellitus with hypoglycemia E10.649 Diabetes mellitus complication status: with hypoglycemia
[2023-09-07 14:59] LABS: Glucose, Whole Blood 89 mg/dL (60-115)
== END 2023-09-07 15:23 | disposition home or self-care (01) ==
PROVIDERS: PCP Internal Medicine; Visit Provider Internal Medicine Endocrinology, Diabetes & Metabolism
DX: E10.649 Type 1 diabetes mellitus with hypoglycemia without coma (principal)
CPT/HCPCS: 99214

== ENCOUNTER → 2023-09-07 14:46 | Outpatient (BNVA) | payer OTHER, SELFPAY | PROVIDERS: PCP Internal Medicine; Visit Provider Internal Medicine Endocrinology, Diabetes & Metabolism | DX: E10.649 Type 1 diabetes mellitus with hypoglycemia without coma (principal); Z46.81 Encounter for fitting and adjustment of insulin pump; Z79.4 Long term (current) use of insulin | CPT/HCPCS: 82947; 99212 ==

== ENCOUNTER 2023-11-30 12:45 | Outpatient (AMB) | payer OTHER, SELFPAY ==
--- NOTE | 2023-11-30 12:36 | MHC.OFFVISWM ---
VS Expanded 11/30/23 12:38 Height 5 ft 9 in Weight 287 lb BMI 42.4 Intake Visit Reasons: (TV) PO LSG 10/14/22 Allergies No Known Allergies [No Known Allergies*] Allergy (Verified 09/07/23 14:54) Medication List - Last Reconciled 11/30/23 by ALMAS Cantor blood pressure monitor (Blood Pressure Kit) As directed blood sugar diagnostic (FreeStyle Lite Strips) TEST 4X A DAY blood-glucose meter (FreeStyle Lite Meter kit) As directed cetirizine (All Day Allergy (cetirizine)) 10 mg PO DAILY PRN 90 days [diabetic shoes with inserts As directed] insulin lispro 100 units subcut DAILY insulin pump cart,auto,BT-cntr (Omnipod 5 G6 Intro Kit (Gen 5) subcutaneous cartridge with controller) DIRECTED insulin pump cart,automated,BT (Omnipod 5 G6 Pods (Gen 5) subcutaneous cartridge) DIRECTED insulin syringe-needle U-100 (BD Veo Insulin Syringe Ultra-Fine) As directed once daily lancets (FreeStyle Lancets) 4x daily leg brace (SHAUNA Knee Brace) As directed levothyroxine 137 mcg PO DAILY 90 days methocarbamol 500 mg PO TID PRN 10 days metoprolol succinate ER 25 mg PO DAILY kpjdyfsviqzi-lzq-geqh-FA-vit K 45 mg iron- 800 mcg-120 mcg (Bariatric Multivitamins) caps PO nystatin 1 appl topical BID pen needle, diabetic (BD Ultra-Fine Citlaly Pen Needle) As directed twice daily polyethylene glycol 3350 (Miralax) 17 grams PO DAILY PRN 30 days rosuvastatin 40 mg PO DAILY TENS units (TENS 502 device) As directed triamcinolone acetonide 0.5% 1 appl topical DAILY 7 days vitamin A palmitate 3,000 mcg PO DAILY HPI Comments Details: This?is a?33?yo male who is s/p LSG 10/14/2022. Presents for 1 year post op visit. Weight at last visit on 06/10/2023 was 305 pounds with a BMI of 45, weight today is 287 pounds, representing a 18 pound weight loss with a BMI today of 42.4.? No complaints of nausea, emesis, abdominal pain or reflux, or constipation. Present meal plan includes: 10 am - protein water 40g 1 pm - Isopure shake (25g) or protein bar 5 pm - 3 oz protein and 2 oz of vegetables 8 pm - 2 boiled eggs BS - fasting - 130s, 100-150u every 3 days (Omnipod) BP - has not been checking the past few weeks, 119-125 systolics Exercise - bought treadmill recently, 40 min treadmill in AM, 20 min at noon, 20-30 min in evening; unsure of calories burned [facility] Medical History Insulin pump in place DJD (degenerative joint disease) Insomnia Obesity due to excess calories NATALIO (generalized anxiety disorder) Goiter HLD (hyperlipidemia) Constipation by delayed colonic transit Hypothyroidism Morbid obesity Hypertension Dyslipidemia Microalbuminuria Diabetes type 1, controlled Surgical History S/P laparoscopic sleeve gastrectomy Family History Father No problems noted. Mother Obesity Social History Housing: Apartment Are you a primary manager critical care unit to a significant other at home: No Do you presently have visiting nurse or other home services: No Alcohol intake: never Patient Tobacco Use Status: Never used Tobacco e-Cigarette/Vaping Use: Never Used Second Hand Smoke Exposure: No service: No Current occupational status: unemployed Cognitive needs: No Hearing needs: No Vision needs: Yes Telehealth Telehealth Telehealth Platform: Telephone Location of provider rendering services: other Location of patient: address on file Patient Identification confirmed using: Name, : Yes Telehealth method: voice only Patient verbally consented to treatment: Yes Patient verbally consented to billing insurance company: Yes Patient informed of any privacy concerns related to visit: Yes Minutes spent on Phone/Video with Pt.: 12 Assessment & Plan Assessment & Plan (1) S/P laparoscopic sleeve gastrectomy: Code(s): Z98.84 - Bariatric surgery status Category: Surgical (2) Diabetes mellitus type 1: Code(s): E10.9 - Type 1 diabetes mellitus without complications Category: Medical (3) Morbid obesity: Code(s): E66.01 - Morbid (severe) obesity due to excess calories Category: Medical (4) Hypertension: Code(s): I10 - Essential (primary) hypertension Category: Medical Qualifiers: Hypertension type: essential hypertension Qualified Code(s): I10 - Essential (primary) hypertension Plan Pt is happy with current meal plan, has increased exercise since getting a treadmill. Was getting nausea with taking cristobal MVI in AM, suggested taking in evening with dinnertime meal. Labs ordered. RTC 3 months. Patient is morbidly obese and is not considered stable at this time. I spent a total of 30 minutes reviewing/updating records, examining the patient and counseling the patient on weight management as detailed above. Orders: Orders Hemoglobin A1c Today Z98.84 - Bariatric surgery status IRON PROFILE Today Z98.84 - Bariatric surgery status Comprehensive Met. Panel Today Z.84 - Bariatric surgery status Zinc Today Z98.84 - Bariatric surgery status C Reactive Protein Today Z98.84 - Bariatric surgery status Insulin Today Z98.84 - Bariatric surgery status Complete Blood Count Auto Diff Today Z98.84 - Bariatric surgery status Lipid Panel Today Z98.84 - Bariatric surgery status Vitamin B12 and Folate Today Z98.84 - Bariatric surgery status Vitamin B1 Today Z98.84 - Bariatric surgery status Vitamin A Today Z98.84 - Bariatric surgery status TSH reflex Free T4 Today Z98.84 - Bariatric surgery status Ferritin Today Z98.84 - Bariatric surgery status Vitamin D 25-OH Total Today Z98.84 - Bariatric surgery status
[2023-11-30 12:38] VITALS: BMI 42.4
== END 2023-11-30 13:01 | disposition home or self-care (01) ==
LOC: HO.HBS 12:45
PROVIDERS: PCP Internal Medicine; Visit Provider Physician Assistant Surgical
DX: E66.01 Morbid (severe) obesity due to excess calories (principal); Z68.41 Body mass index [BMI] 40.0-44.9, adult; Z98.84 Bariatric surgery status; E10.9 Type 1 diabetes mellitus without complications; I10 Essential (primary) hypertension
CPT/HCPCS: 99214

== ENCOUNTER → 2023-11-30 12:45 | Outpatient (BNVA) | payer OTHER, SELFPAY | PROVIDERS: PCP Internal Medicine; Visit Provider Physician Assistant Surgical | DX: Z98.84 Bariatric surgery status (principal) ==

== ENCOUNTER 2024-01-07 08:50 | Outpatient (AMB) | payer OTHER, SELFPAY ==
--- NOTE | 2024-01-07 09:09 | A.OFFVIS_ITS ---
Intake Intake Visit Reasons: DM Accompanied by: Self / Same As Patient Allergies No Known Allergies [No Known Allergies*] Allergy (Verified 09/07/23 14:54) HPI Comprehensive Diabetes Asmnt Most Recent Diabetes Results: Microalb/Creat Ratio 4.2 ug/mg cr (<30) 05/16/23 Cholesterol 164 mg/dL (<200) 05/13/23 HDL Cholesterol 43 mg/dL (>40) 05/13/23 Triglycerides 48 mg/dL (<150) 05/13/23 Creatinine 0.75 mg/dL (0.5-1.4) 05/13/23 Blood Urea Nitrogen 18 mg/dL (9-16) H 05/13/23 Sodium 141 mmol/L (135-145) 05/13/23 Potassium 3.8 mmol/L (3.3-5.1) 05/13/23 Chloride 108 mmol/L (96-108) 05/13/23 Carbon Dioxide 25 mmol/L (22-29) 05/13/23 Calcium 8.8 mg/dL (8.4-10.2) 05/13/23 AST 19 U/L (5-37) 05/13/23 ALT 18 U/L (0-40) 05/13/23 Total Protein 7.0 g/dL (6.5-8.0) 05/13/23 Albumin 3.8 g/dL (3.5-5.0) 05/13/23 [facility] Medical History Insulin pump in place DJD (degenerative joint disease) Insomnia Obesity due to excess calories NATALIO (generalized anxiety disorder) Goiter HLD (hyperlipidemia) Constipation by delayed colonic transit Hypothyroidism Morbid obesity Hypertension Dyslipidemia Microalbuminuria Diabetes type 1, controlled Surgical History S/P laparoscopic sleeve gastrectomy Family History Father No problems noted. Mother Obesity Social History Housing: Apartment Are you a primary patient care provider to a significant other at home: No Do you presently have visiting nurse or other home services: No Alcohol intake: never Patient Tobacco Use Status: Never used Tobacco e-Cigarette/Vaping Use: Never Used Second Hand Smoke Exposure: No service: No Current occupational status: unemployed Cognitive needs: No Hearing needs: No Vision needs: Yes Assessment & Plan Assessment & Plan (1) Diabetes mellitus type 1: Code(s): E10.9 - Type 1 diabetes mellitus without complications Plan: Patient presents for pump training for Omnipod 5 with Dexcom G6 The following topics were reviewed today: - automatic mode verses manual mode - upgrade to Dexcom G7 - Inserting infusion set or Pod site rotation Patient's average glucose for the past 2 weeks 125 mg/dL 4% of the time above target 95% of the time at target 1% Below target Patient has been in auto mode 86%, manual mode 14%. Average total daily dose: 25.8 Basal 60% Bolus 40% Patient continues to lose weight after bariatric surgery, reduced basal rates in manual mode, due to drift downward and several of hypoglycemic events At this time glucose is well controlled, patient has upcoming appointment with Endocrine FIELD IDENTIFICATION SPECIALIST in 01/2024. Patient will be due for A1c at that visit At this time patient agreed his appointments with Diabetes Education nurse could be p.r.n. Patient understands the basic concepts of pump therapy, how to give insulin for meals and snacks, how to troubleshoot for hyper and hypoglycemia. Patient is still on 2 protein shakes, yogurt and protein bars Instructed patient if he has increased episodes of hypoglycemia to contact Diabetes Education nurse Setting verified by CDCES Basal rate(s) (units/hour) for Manual Mode : 12 AM? to 6 AM 1 units / hr New 12 AM? to 6 AM 0.75 units / hr 6 AM? to 10 AM? 2.1 units / hr?New 6 AM? to 10 AM? 1.4 units / hr 10 AM to 12 AM 1.4 units / hr? New 10 AM to 12 AM 1.25 units / hr? Bolus setting Insulin Carbohydrate Ratio (s) 12 AM to 4 AM? 1:6 New 4 AM to 12 AM? 1:5.5 Correction Factor / Sensitivity Factor 12 AM to 12 AM 1:15 Active Insulin Time:? 2 hours Target(s): 12 AM to 12 AM 110 mg/dL Target threshold: 12 AM to 12 AM 130 mg/dL If he is questions and concerns between now and then he is encouraged to contact rouge sifter and miller Patient Instructions: Patient will follow-up as needed, suggested to patient he send me a portal message in a few months to find out if he can transition to Dexcom G7 Coding Level of Care Code Est Pt Level 1 (64928) Diagnoses Diabetes mellitus type 1 E10.9
== END 2024-01-07 09:11 | disposition home or self-care (01) ==
PROVIDERS: PCP Internal Medicine; Visit Provider Registered Nurse Diabetes Educator
DX: E10.9 Type 1 diabetes mellitus without complications (principal)

== ENCOUNTER → 2024-01-07 08:50 | Outpatient (BNVA) | payer OTHER, SELFPAY | PROVIDERS: PCP Internal Medicine; Visit Provider Registered Nurse Diabetes Educator | DX: E10.9 Type 1 diabetes mellitus without complications (principal); Z71.3 Dietary counseling and surveillance | CPT/HCPCS: 99211 ==

== ENCOUNTER 2024-01-19 08:32 | Outpatient (REF) | payer OTHER, SELFPAY ==
[2024-01-19 08:49] LABS: MANUAL DIFF FLAG NO
[2024-01-19 08:55] LABS: Basophils Percent Auto 0.6 % (0-2); Eosinophils Absolute Auto 0.1 X10*3/uL (0.0-0.4); Eosinophils Percent Auto 2.1 % (0-4); Hematocrit 41.1 % (42.0-52.0); Hemoglobin 13.8 g/dl (14.0-18.0); Imm Gran Abs Auto 0.01 X10*3/uL (0.00-0.03); Imm Gran Pct Auto 0.2 % (0.0-0.4); Lymphocytes Absolute Auto 1.3 X10*3/uL (1.2-4.9); Lymphocytes Percent Auto 26.8 % (20-40); Mean Corpuscular HGB Conc 33.6 g/dl (31.0-36.0); Mean Corpuscular Hemoglobin 29.7 pg (27.0-33.0); Mean Corpuscular Volume 88.4 fL (80.0-98.0); Mean Platelet Volume 9.6 fL (9.4-12.4); Monocytes Absolute Auto 0.3 X10*3/uL (0.1-1.2); Monocytes Percent Auto 6.8 % (2-11); Neutrophils Percent Auto 63.5 % (45-73); Platelet Count 245 X10*3/uL (160-400); Red Blood Count 4.65 X10*6/uL (4.60-5.80); Red Cell Distribution Width 13.2 % (11.0-16.0); White Blood Count 4.7 X10*3/uL (4.8-10.8)
[2024-01-19 09:28] LABS: Estimated Average Glucose 114 mg/dL; Hemoglobin A1c % 5.6 % (<6.0)
[2024-01-19 10:00] LABS: Alanine Aminotransferase 17 U/L (0-40); Albumin Level 3.9 g/dL (3.5-5.0); Alkaline Phosphatase 74 U/L (39-117); Anion Gap 12 (12-20); Aspartate Amino Transferase 24 U/L (5-37); Bilirubin Total 0.8 mg/dL (0.0-1.0); Blood Urea Nitrogen 14 mg/dL (9-16); C Reactive Protein 0.49 mg/dL (< or = 0.50); Calcium 9.1 mg/dL (8.4-10.2); Carbon Dioxide 27 mmol/L (22-29); Chloride 105 mmol/L (96-108); Cholesterol 110 mg/dL (<200); Estimated Glomerular Filt Rate > 60; Glucose Random 173 mg/dL (60-115); HDL Cholesterol 43 mg/dL (>40); Iron 103 mcg/dL (45-160); LDL Cholesterol Calculated 55 mg/dL (<100); Percent Iron Saturation 56 % (15-50); Potassium 4.8 mmol/L (3.3-5.1); Sodium 139 mmol/L (135-145); Total Iron Binding Capacity 183 mcg/dL (228-428); Total Protein 6.9 g/dL (6.5-8.0); Triglycerides 62 mg/dL (<150); Unsaturated Iron Binding 80 ug/dL
[2024-01-19 10:20] LABS: Ferritin 186 ng/mL (20-250); TSH reflex Free T4 0.85 uIU/mL (0.32-4.0); Vitamin D 25-OH Total 51.8 ng/mL (>30)
[2024-01-19 10:37] LABS: Insulin 6 uU/mL (2-29)
[2024-01-19 13:38] LABS: Folate 12.6 ng/mL (> or = 4.0); Vitamin B12 1128 pg/mL (200-900)
[2024-01-22 00:38] LABS: Zinc 61 mcg/dL (60-130)
[2024-01-23 16:53] LABS: Vitamin A 21 mcg/dL (38-98)
[2024-01-26 16:23] LABS: Vitamin B1 15 nmol/L (8-30)
== END 2024-01-19 08:33 | disposition home or self-care (01) ==
LOC: HO.LAB 08:32
PROVIDERS: Absent Provider Physician Assistant Surgical; PCP Internal Medicine; Visit Provider Internal Medicine
DX: Z98.84 Bariatric surgery status (principal); E10.9 Type 1 diabetes mellitus without complications
CPT/HCPCS: 36415; 80053; 80061; 82306; 82607; 82728; 82746; 82947; 83036; 83525; 83540; 84425; 84443; 84590; 84630; 85025; 86140; 99212

== ENCOUNTER 2024-01-19 08:47 | Outpatient (AMB) | payer OTHER, SELFPAY ==
--- NOTE | 2024-01-19 08:50 | A.OFFVIS_ITS ---
Vital Signs 01/19/24 08:52 Height 5 ft 9 in Weight 268 lb 15.423 oz BMI 39.7 BP 118/58 L Blood Pressure Location Rt brachial Position Sitting Pulse 85 Pulse Source Pulse Oximeter Intake Visit Reasons: T1DM/CONFIRMED Intake Note: Patient presents today to re-establish treatment on Type 1 Diabetes Mellitus: Last Diabetic Eye exam: 05/2023 Last Podiatry Exam: Does not see a Statistical Clerk Random Glucose- 149mg/dL, Today Most recent HbA1c: DUE, PENDING 01/19/2024 Home Service Consultant Required: No Accompanied by: Self / Same As Patient Allergies No Known Allergies [No Known Allergies*] Allergy (Verified 01/19/24 08:51) HPI Comments Details: Patient is 33-year-old male with DM type 1 diagnosed in 2013 who presents for management of diabetes. He has been Omnipod Past medical history: DM1, HLD Micro and macrovascular complications: mild retinopathy NPDR no nephropathy or neuropathy C-peptide is suppressed Diabetes medications: Humalog via Omnipod Dash Basal rate(s) (units/hour) for Manual 12 AM 0.75 units/hr 6AM 1.4 units/hr 10am 1.25 units/hr? Bolus setting Insulin Carbohydrate Ratio (s) 12AM 1:6 4AM 1:5.5 Correction Factor / Sensitivity Factor 12 AM to 12 AM 1:15 Active Insulin Time:? 23hours Target(s): 12 AM to 12 AM 120 mg/dL Symptoms reported: denies numbness, tingling, cramping in lower extremities Hypoglycemia: infrequently Exercise: squats, crunches, planks, legs lifts etc. on Thursday, , , Thursday. 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 SIZE: Measurements of the thyroid lobes and nodules are given in sagittal, anteroposterior and transverse dimensions respectively. Right Thyroid Lobe: 4.5 x 1.8 x 1.5 cm, volume 6.4 mL. Parenchyma: The gland echotexture is homogeneous. Thyroid vascularity is normal. Left Thyroid Lobe: 4.0 x 1.2 x 1.1 cm, volume 2.7 mL. Parenchyma: The gland echotexture is homogeneous. Thyroid vascularity is normal. Isthmus: 0.2 cm in maximum AP dimension. Estimated total number of nodules greater than or equal to 1 cm: 0. Asset Manager nodules are described as follows: 1. Location: Left mid lower.?? ? Size: 0 .3 x 0.3 x 0.3 cm, volume 0.02 mL. ?? ? Nodule characteristics: ?? ? Composition: Solid (2). ?? ? Echogenicity: Hypoechoic (2). ?? ? Shape: Not taller than wide (0). ?? ? Margins: Smooth (0). ?? ? Echogenic Foci: None (0). ?? ? ACR TI-RADS total points: 4 ?? ? ACR TI-RADS category: 4 NODES: No lymphadenopathy is seen in the tissue surrounding the thyroid gland. [facility] Medical History Insulin pump in place DJD (degenerative joint disease) Insomnia Obesity due to excess calories NATALIO (generalized anxiety disorder) Goiter HLD (hyperlipidemia) Constipation by delayed colonic transit Hypothyroidism Morbid obesity Hypertension Dyslipidemia Microalbuminuria Diabetes type 1, controlled Surgical History S/P laparoscopic sleeve gastrectomy Family History Father No problems noted. Mother Obesity Social History Housing: Apartment Are you a primary acute care certified nursing assistant to a significant other at home: No Do you presently have visiting nurse or other home services: No Alcohol intake: never Patient Tobacco Use Status: Never used Tobacco e-Cigarette/Vaping Use: Never Used Second Hand Smoke Exposure: No service: No Current occupational status: unemployed Cognitive needs: No Hearing needs: No Vision needs: Yes Physical Exam Vital Signs: BMI result Body Mass Index 39.7 Const Other: Absence of Cushingoid features. Absence of acromegalic features. Neck exam reveals nl size thyroid about 15 gms. No thyroid nodules palpable. No carotid bruits present. Heart S1 S2, Reg R/R. No M/R G. Skin exam reveals absence of vitiligo or acanthosis nigricans. Megan Akilah Extrem Other: Visual exam of foot performed. No ulcerations or open lesions. No onchomycosis, no callouses. Sensation intact to monofilament exam. Vibratory sensation is normal with 128 Hz tuning fork. Results Reviewed Results Reviewed: Laboratory Tests 04/16/23 05/13/23 06/22/23 09:57 10:41 12:52 Plt Count 269 Potassium 3.8 Estimat Average Glucose 120 Hemoglobin A1c % 5.8 AST 19 ALT 18 Triglycerides 48 Cholesterol 164 LDL Cholesterol, Calc 112 H HDL Cholesterol 43 25-OH Vitamin D Total 49.7 TSH 1.54 Free T4 0.86 PTH Intact 39 Calcium (PTH Intact) 9.0 Assessment & Plan Assessment & Plan (1) Diabetes mellitus type 1: Code(s): E10.9 - Type 1 diabetes mellitus without complications Category: Medical Plan: This is a 33-year-old male with a history of type 1 diabetes being managed with Omnipod 5pump with excellent glycemic control, mild NPDR and no other known microvascular or macrovascular complications. He is following a carb restricted diet Plan is to continue the current pump settings and await results of today's in lab A1C. If it is above 6.5% can consider lowering target glucose during the day to 120 from current 130. On Levothyrxine stable dose, labs pending Patient Instructions: The patient was counseled to achieve a target A1C of 7% (154 avg). Fasting blood sugars should be 90-130 in the morning and less than 180 two hours after meals. Reviewed the relationship between poor diabetic control and the developement of complications Symptoms of DKA were reviewed: early: frequent urination, dry mouth, fatigue, feeling ill, severe symptoms: ketones in the urine, abdominal pain, nausea, vomiting and weakness. It is important to hydrate with sugar free liquids every 30 minutes and bring the sugars down to normal levels. The patient was counseled to always carry a source of sugar and on the rule of 15's: Take 3 glucose tablets and repeat again in 15 minutes if blood sugar is not in normal range. Continue to repeat every 15 minutes until blood sugar is normal. The patient was counseled to wear closed toe shoes, never walk barefooted and to inspect the feet daily. For any signs of infection or open wound patient should notify PCP or go to urgent care. Coding Level of Care Code Est Pt Level 5 (66562) Complex EM visit Add On G2211 Diagnoses Diabetes mellitus type 1 E10.9 Time Spent (min) 45 Comment pump download, lab review, face to face, doc
[2024-01-19 08:52] VITALS: BP 118/58; PULSE 85; BMI 39.7
[2024-01-19 09:27] LABS: Glucose, Whole Blood 149 mg/dL (60-115)
== END 2024-01-19 09:25 | disposition home or self-care (01) ==
PROVIDERS: PCP Internal Medicine; Visit Provider Nurse Practitioner Adult Health
DX: E10.9 Type 1 diabetes mellitus without complications (principal)
CPT/HCPCS: 99215; G2211

== ENCOUNTER 2024-02-29 09:48 | Outpatient (AMB) | payer OTHER, SELFPAY ==
--- NOTE | 2024-02-29 09:52 | MHC.OFFVISWM ---
VS Expanded 02/29/24 10:06 BP 132/59 L Blood Pressure Location Rt brachial Blood Pressure Position Sitting Pulse 80 Pulse Source Pulse Oximeter Temp 97.9 F Temperature Source Temporal Artery Scan Pulse Oximetry 99 Oxygen Delivery Method Room Air Height 5 ft 9 in Weight 261 lb 9.6 oz BMI 38.6 Body Fat % 34.9 Body Fat Mass 91.2 Fat Free Mass 170.2 Visceral Fat Rating 17.0 Body Water % 48.1 Body Water Mass 125.6 Muscle Mass/Score 161.8 Basal Metabolic Rate/Score 2,363 Intake Visit Reasons: OV PO LSG 10/14/22 Allergies No Known Allergies [No Known Allergies*] Allergy (Verified 02/29/24 10:02) Medication List - Last Reconciled 02/29/24 by ALMAS Cantor acetone (urine) test (Ketone Urine Test strips) As directed blood pressure monitor (Blood Pressure Kit) As directed blood sugar diagnostic (FreeStyle Lite Strips) prn low or high glucose to confirm sensor accuracy tid blood-glucose meter (FreeStyle Lite Meter kit) As directed cetirizine (All Day Allergy (cetirizine)) 10 mg PO DAILY PRN 90 days [diabetic shoes with inserts As directed] insulin glargine (Lantus U-100 Insulin) 12 units (0.12 mL) subcut DAILY PRN 30 days insulin pump cart,auto,BT-cntr (Omnipod 5 G6 Intro Kit (Gen 5) subcutaneous cartridge with controller) DIRECTED insulin pump cart,automated,BT (Omnipod 5 G6 Pods (Gen 5) subcutaneous cartridge) USE DIRECTED insulin syringe-needle U-100 (BD Veo Insulin Syringe Ultra-Fine) As directed once daily insulin syringe-needle U-100 (BD Insulin Syringe Ultra-Fine) As directed up to quid for pump failure or glucose correction lancets (FreeStyle Lancets) 4x daily leg brace (SHAUNA Knee Brace) As directed levothyroxine 137 mcg PO DAILY 90 days melatonin 10 mg PO BEDTIME PRN 90 days methocarbamol 500 mg PO TID PRN 10 days metoprolol succinate ER 25 mg PO DAILY [id number]-gusd-FA-vit K 45 mg iron- 800 mcg-120 mcg (Bariatric Multivitamins) caps PO rosuvastatin 40 mg PO DAILY TENS units (TENS 502 device) As directed triamcinolone acetonide 0.5% 1 appl topical DAILY 7 days vitamin A palmitate 3,000 mcg PO DAILY HPI Comments Details: This?is a?33?yo male who is s/p LSG 10/14/2022. Presents for 16 month post op visit. Weight loss of 25.4lbs since last OV 3 months ago.? No complaints of nausea, emesis, abdominal pain or reflux, or constipation. Present meal plan includes: 10 am - 1 scoop Isopure protein powder (20g) in coffee 1 pm - Chobani yogurt zero sugar 5 pm - 3 oz protein and 2 oz of vegetables 8 pm - 2 boiled eggs BS - fasting - 120-130s, 100-150u every 3 days (Omnipod) BP - has not been checking the past few weeks, 119-125 systolics Exercise - bought treadmill recently, 40 min treadmill in AM, 20 min at noon, 20-30 min in evening; unsure of calories burned walking outside 120-130 min 5x/week still struggling to take vitamins- takes Celebrate, but forgets to take Pt reports excess skin of upper arms which is becoming increasingly bothersome. Has difficulty finding clothing that fits properly with excess skin getting in the way. Skin moves around during movement and gets in the way, making activities of daily living more difficult. Pt reports excess skin of abdomen which is also bothersome. He has difficulty finding clothing that fits around his waist properly. Skin moves around during walking which is very uncomfortable. Pt reports some rashes of upper thighs when skin rubs together. [facility] Medical History Insulin pump in place DJD (degenerative joint disease) Insomnia Obesity due to excess calories NATALIO (generalized anxiety disorder) Goiter HLD (hyperlipidemia) Constipation by delayed colonic transit Hypothyroidism Morbid obesity Hypertension Dyslipidemia Microalbuminuria Diabetes type 1, controlled Surgical History S/P laparoscopic sleeve gastrectomy Family History Father No problems noted. Mother Obesity Social History Housing: Apartment Are you a primary career technology teacher to a significant other at home: No Do you presently have visiting nurse or other home services: No Alcohol intake: never Patient Tobacco Use Status: Never used Tobacco e-Cigarette/Vaping Use: Never Used Second Hand Smoke Exposure: No service: No Current occupational status: unemployed Cognitive needs: No Hearing needs: No Vision needs: Yes Physical Exam Vital Signs: Last Vital Signs Temp 97.9 F 02/29/24 10:06 Pulse 80 02/29/24 10:06 BP 132/59 L 02/29/24 10:06 Pulse Ox 99 02/29/24 10:06 Oxygen Delivery Method Room Air 02/29/24 10:06 BMI result Body Mass Index 38.6 Assessment & Plan Assessment & Plan (1) S/P laparoscopic sleeve gastrectomy: Code(s): Z98.84 - Bariatric surgery status Category: Surgical (2) Obesity: Code(s): E66.9 - Obesity, unspecified Category: Medical Plan Pt to continue same meal plan. Can increase his protein intake if he feels hungry. Will resume treadmill exercise as weather gets colder. His previous pharmacy did not have vit A in stock so will try sending to a different [facility] location. RTC 3 months. I spent a total of 30 minutes reviewing/updating records, examining the patient and counseling the patient on weight management as detailed above. Medications: Refilled vitamin A palmitate 3,000 mcg PO DAILY 30 caps 6RF
[2024-02-29 10:06] VITALS: BP 132/59; PULSE 80; TEMP 36.6; O2SAT 99; BMI 38.6
== END 2024-02-29 10:45 | disposition home or self-care (01) ==
PROVIDERS: PCP Internal Medicine; Visit Provider Physician Assistant Surgical
DX: E66.9 Obesity, unspecified (principal); Z68.38 Body mass index [BMI] 38.0-38.9, adult; Z90.3 Acquired absence of stomach [part of]; Z98.84 Bariatric surgery status
CPT/HCPCS: 99214; G2211

== ENCOUNTER → 2024-02-29 09:48 | Outpatient (BNVA) | payer OTHER, SELFPAY | PROVIDERS: PCP Internal Medicine; Visit Provider Physician Assistant Surgical | DX: E66.9 Obesity, unspecified (principal); Z68.38 Body mass index [BMI] 38.0-38.9, adult; Z98.84 Bariatric surgery status | CPT/HCPCS: 99212 ==

== ENCOUNTER 2024-04-20 10:15 | Outpatient (AMB) | payer OTHER, SELFPAY ==
--- NOTE | 2024-04-13 07:50 | MHC.OFFVIS ---
Intake Visit Reasons: T1DM Allergies No Known Allergies [No Known Allergies*] Allergy (Verified 02/29/24 10:02) HPI Comments Details: Patient is 33-year-old male with DM type 1 diagnosed in 2013 who presents for management of diabetes. He has been Omnipod Past medical history: DM1, HLD Micro and macrovascular complications: mild retinopathy NPDR no nephropathy or neuropathy C-peptide is suppressed Diabetes medications: Humalog via Omnipod Dash Basal rate(s) (units/hour) for Manual 12 AM 0.75 units/hr 6AM 1.4 units/hr 10am 1.25 units/hr? Bolus setting Insulin Carbohydrate Ratio (s) 12AM 1:6 4AM 1:5.5 Correction Factor / Sensitivity Factor 12 AM to 12 AM 1:15Active Insulin Time:? hours Target(s): 12 AM to 12 AM 120 mg/dL Symptoms reported: denies numbness, tingling, cramping in lower extremities Hypoglycemia: infrequently Exercise: squats, crunches, planks, legs lifts etc. on Thursday, , , Thursday. Walks 25 minutes to an hour 3-5 times a week Voice Teacher - CDE education: sees ampoule sealer Tennis Racket Repairer: darrius Dental exam: goes every 6 months Ophthalmology evaluation:appt : 2023 Mild NPDR Other specialists: darrius 03/28/21 ThyroidFINDINGS: ? SIZE: Measurements of the thyroid lobes and nodules are given in sagittal, anteroposterior and transverse dimensions respectively. Right Thyroid Lobe: 4.5 x 1.8 x 1.5 cm, volume 6.4 mL. Parenchyma: The gland echotexture is homogeneous. Thyroid vascularity is normal. Left Thyroid Lobe: 4.0 x 1.2 x 1.1 cm, volume 2.7 mL. Parenchyma: The gland echotexture is homogeneous. Thyroid vascularity is normal. Isthmus: 0.2 cm in maximum AP dimension. Estimated total number of nodules greater than or equal to 1 cm: 0. Instructional Design Technologist nodules are described as follows: 1. Location: Left mid lower.?? ? Size: 0.3 x 0.3 x 0.3 cm, volume 0.02 mL.?? ? Nodule characteristics: ?? ? Composition: Solid (2). ?? ? Echogenicity: Hypoechoic (2). ?? ? Shape: Not taller than wide (0). ?? ? Margins: Smooth (0). ?? ? Echogenic Foci: None (0). ?? ? ACR TI-RADS total points: 4 ?? ? ACR TI-RADS category: 4 NODES: No lymphadenopathy is seen in the tissue surrounding the thyroid gland. [facility] Medical History Insulin pump in place DJD (degenerative joint disease) Insomnia Obesity due to excess calories NATALIO (generalized anxiety disorder) Goiter HLD (hyperlipidemia) Constipation by delayed colonic transit Hypothyroidism Morbid obesity Hypertension Dyslipidemia Microalbuminuria Diabetes type 1, controlled Surgical History S/P laparoscopic sleeve gastrectomy Family History Father No problems noted. Mother Obesity Social History Housing: Apartment Are you a primary health care marketing manager to a significant other at home: No Do you presently have visiting nurse or other home services: No Alcohol intake: never Patient Tobacco Use Status: Never used Tobacco e-Cigarette/Vaping Use: Never Used Second Hand Smoke Exposure: No service: No Current occupational status: unemployed Cognitive needs: No Hearing needs: No Vision needs: Yes Assessment & Plan Assessment & Plan (1) Diabetes mellitus type 1: Code(s): E10.9 - Type 1 diabetes mellitus without complications Category: Medical Plan: This is a 33-year-old male with a history of type 1 diabetes being managed with Omnipod 5pump with excellent glycemic control, mild NPDR and no other known microvascular or macrovascular complications. Patient Instructions: The patient was counseled to achieve a target A1C of 7% (154 avg). Fasting blood sugars should be 90-130 in the morning and less than 180 two hours after meals. Reviewed the relationship between poor diabetic control and the development of complications. The patient was counseled to always carry a source of sugar and on the rule of 15's: Take 3 glucose tablets and repeat again in 15 minutes if blood sugar is not in normal range. Continue to repeat every 15 minutes until blood sugar is normal. The patient had an opportunity to ask questions regarding treatment plan. The patient expressed understanding and agreement with the above treatment plan. The patient is aware they should contact our office by phone for worsening glucose readings or for any low blood sugars which may warrant a change in diabetes medication. Compliance is encouraged with medications and any followup testing/consults which may have been ordered. Symptoms of DKA (diabetic ketoacidosis): early: frequent urination, dry mouth, fatigue, feeling ill, severe symptoms: ketones in the urine, abdominal pain, nausea, vomiting and weakness. It is important to hydrate with sugar free liquids every 15-30 minutes and bring the sugars down to normal levels. If you are moderate or severe with ketones or unable to bring glucose to less than 200, go to the emergency room. Troubleshooting after starting new pod or inserting new insulin set: Occlusion, adhesive tape sensitivity, redness Check BG 2 hours after site change Safety information: Importance of a backup plan, for manual injections, proper prescriptions and emergency supplies ketone strips, and rules for testing for ketones Wear closed toe shoes, never walk barefooted and inspect the feet daily. For any signs of infection or open wound patient you should notify your PCP or go to urgent care/ER. Coding Diagnoses Diabetes mellitus type 1 E10.9
--- NOTE | 2024-04-20 10:21 | A.OFFVIS_ITS ---
Vital Signs 04/20/24 10:27 Height 5 ft 9 in Weight 262 lb 5.601 oz BMI 38.7 BP 118/60 Blood Pressure Location Rt brachial Position Sitting Pulse 87 Pulse Source Pulse Oximeter Intake Visit Reasons: T1DM/CONF Intake Note: Patient presents today for a follow-up on Type 1 Diabetes Mellitus: Last Diabetic Eye exam: 05/2023 Last Podiatry Exam: Does not see a Green Energy Marketing Analyst Most recent HbA1c: DUE Random Glucose- 102 mg/dL, Today Fire Coordinator Required: No Accompanied by: Self / Same As Patient Allergies No Known Allergies [No Known Allergies*] Allergy (Verified 02/29/24 10:02) HPI Comments Details: Patient is 33-year-old male with DM type 1 diagnosed in 2013 who presents for management of diabetes. He has been Omnipod Past medical history: DM1, HLD Micro and macrovascular complications: mild retinopathy NPDR no nephropathy or neuropathy C-peptide is suppressed Diabetes medications: Humalog via Omnipod Dash Basal rate(s) (units/hour) for Manual 12 AM 0.75 units/hr 6AM 1.4 units/hr 10am 1.25 units/hr? Bolus setting Insulin Carbohydrate Ratio (s) 12AM 1:6 4AM 1:5.5 Correction Factor / Sensitivity Factor 12 AM to 12 AM 1:15 Active Insulin Time:? 23hours Target(s): 12 AM to 12 AM 120 mg/dL The patient is in auto mode 99% of the time Total daily dose of insulin 36.9 units Pump backup plan 17 units of Lantus and usual doses of Humalog 5-6 units with meals Basal 47% 17.4 units bolus 53% 19.5 units Dexcom average glucose: 132 14 day continuous glucose monitor report reviewed Glucose Managment indicator 6.5 % Days with CGM data 91.7 % TIme in ranges: 1 % very high (above 250) 9 % high ?(181-250) 89 % in range ?(70-180] 1 % low (69-55) 0 % ?very low (below 54) Interpretation [14 day sensor shows excellent control without hypoglycemia ] Symptoms reported: denies numbness, tingling, cramping in lower extremities Hypoglycemia: infrequently 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 SIZE: Measurements of the thyroid lobes and nodules are given in sagittal, anteroposterior and transverse dimensions respectively. Right Thyroid Lobe: 4.5 x 1.8 x 1.5 cm, volume 6.4 mL. Parenchyma: The gland echotexture is homogeneous. Thyroid vascularity is normal. Left Thyroid Lobe: 4.0 x 1.2 x 1.1 cm, volume 2.7 mL. Parenchyma: The gland echotexture is homogeneous. Thyroid vascularity is normal. Isthmus: 0.2 cm in maximum AP dimension. Estimated total number of nodules greater than or equal to 1 cm: 0. Library Clerk nodules are described as follows: 1. Location: Left mid lower.?? ? Size: 0.3 x 0.3 x 0.3 cm, volume 0.02 mL.?? ? Nodule characteristics: ?? ? Composition: Solid (2). ?? ? Echogenicity: Hypoechoic (2). ?? ? Shape: Not taller than wide (0). ?? ? Margins: Smooth (0). ?? ? Echogenic Foci: None (0). ?? ? ACR TI-RADS total points: 4 ?? ? ACR TI-RADS category: 4 NODES: No lymphadenopathy is seen in the tissue surrounding the thyroid gland. [facility] Medical History Insulin pump in place DJD (degenerative joint disease) Insomnia Obesity due to excess calories NATALIO (generalized anxiety disorder) Goiter HLD (hyperlipidemia) Constipation by delayed colonic transit Hypothyroidism Morbid obesity Hypertension Dyslipidemia Microalbuminuria Diabetes type 1, controlled Surgical History S/P laparoscopic sleeve gastrectomy Family History Father No problems noted. Mother Obesity Social History Housing: Apartment Are you a primary direct care supervisor to a significant other at home: No Do you presently have visiting nurse or other home services: No Alcohol intake: never Patient Tobacco Use Status: Never used Tobacco e-Cigarette/Vaping Use: Never Used Second Hand Smoke Exposure: No service: No Current occupational status: unemployed Cognitive needs: No Hearing needs: No Vision needs: Yes Physical Exam Vital Signs: Last Vital Signs Pulse 87 04/20/24 10:27 BP 118/60 04/20/24 10:27 BMI result Body Mass Index 38.7 Const Other: Absence of Cushingoid features. Absence of acromegalic features. Neck exam reveals nl size thyroid about 15 gms. No thyroid nodules palpable. Heart S1 S2, Reg R/R. No M/R G. Skin exam reveals absence of vitiligo or acanthosis nigricans. Visual exam of foot performed. No ulcerations or open lesions. No inter digit maceration or fissuring. No onychomycosis, no callouses. Sensation intact to monofilament exam. Vibratory sensation is normal with 128 Hz tuning fork. Results AMB Hemoglobin A1c AMB Hemoglobin A1c 6.2 % Last Edit by MARY Bose on 04/20/24 10:42 Results Reviewed Results Reviewed: Laboratory Last Values Glucose (Clinic) 102 mg/dL (60-115) 04/20/24 10:29 Hgb A1c (Clinic) 6.2 % (4.0-6.0) H 04/20/24 10:41 Assessment & Plan Assessment & Plan (1) Diabetes mellitus type 1: Code(s): E10.9 - Type 1 diabetes mellitus without complications Category: Medical Plan: 33-year-old type 1 diabetic on an Omnipod insulin pump with mi stable retinopathy with A1c 6.2% 04/21/2024. Patient is doing excellent on insulin pump with a good glycemic control without lows Orders: Orders AMB Hemoglobin A1c 04/20/24 E10.9 - Type 1 diabetes mellitus without complications Creatinine Urine Today E10.649 - Type 1 diabetes mellitus with hypoglycemia without coma AMB Glucose Monitoring Today E10.649 - Type 1 diabetes mellitus with hypoglycemia without coma Basic Metabolic Panel Today E10.649 - Type 1 diabetes mellitus with hypoglycemia without coma Microalbumin, Random (w Creat) Today E10.649 - Type 1 diabetes mellitus with hypoglycemia without coma Medications: Changed From insulin glargine (Lantus U-100 Insulin) 12 units (0.12 mL) subcut DAILY 30 days PRN 10 mL 1RF prn pump failure To insulin glargine (Lantus U-100 Insulin) 17 units (0.17 mL) subcut DAILY 30 days PRN 10 mL 1RF prn pump failure Patient Instructions: The patient was counseled to always carry a source of sugar and on the rule of 15's: Take 3 glucose tablets and repeat again in 15 minutes if blood sugar is not in normal range. Continue to repeat every 15 minutes until blood sugar is normal. Troubleshooting after starting new pod or inserting new insulin set: Occlusion, adhesive tape sensitivity, redness Check BG 2 hours after site change Safety information: Importance of a backup plan, for manual injections, proper prescriptions and emergency supplies ketone strips, and rules for testing for ketones Symptoms of DKA (diabetic ketoacidosis): early: frequent urination, dry mouth, fatigue, feeling ill, severe symptoms: ketones in the urine, abdominal pain, nausea, vomiting and weakness. It is important to hydrate with sugar free liquids every 15-30 minutes and bring the sugars down to normal levels. If you are moderate or severe with ketones or unable to bring glucose to less than 200, go to the emergency room. Coding Level of Care Code Est Pt Level 4 (89263) Diagnoses Diabetes mellitus type 1 E10.9 Time Spent (min) 35 Comment Reviewing labs/provider notes, glucose sensor/pump reports, face to face, chart doc
[2024-04-20 10:27] VITALS: BP 118/60; PULSE 87; BMI 38.7
[2024-04-20 10:35] LABS: Glucose, Whole Blood 102 mg/dL (60-115)
== END 2024-04-20 10:55 | disposition home or self-care (01) ==
PROVIDERS: PCP Internal Medicine; Visit Provider Nurse Practitioner Adult Health
DX: E10.9 Type 1 diabetes mellitus without complications (principal)
CPT/HCPCS: 99214

== ENCOUNTER → 2024-04-20 10:15 | Outpatient (BNVA) | payer OTHER, SELFPAY | PROVIDERS: PCP Internal Medicine; Visit Provider Nurse Practitioner Adult Health | DX: E10.319 Type 1 diabetes mellitus with unspecified diabetic retinopathy without macular edema (principal); E10.649 Type 1 diabetes mellitus with hypoglycemia without coma; Z96.41 Presence of insulin pump (external) (internal); Z79.4 Long term (current) use of insulin | CPT/HCPCS: 82947; 83036; 99212 ==

== ENCOUNTER 2024-05-16 09:55 | Outpatient (AMB) | payer OTHER, SELFPAY ==
--- NOTE | 2024-05-16 09:57 | A.OFFVIS_ITS ---
VS Expanded 05/16/24 10:13 BP 128/57 L Blood Pressure Location Rt brachial Blood Pressure Position Sitting Pulse 81 Pulse Source Pulse Oximeter Temp 98.7 F Temperature Source Temporal Artery Scan Pulse Oximetry 81 L Oxygen Delivery Method Room Air Height 5 ft 9 in Weight 254 lb BMI 37.5 Body Fat % 32.6 Body Fat Mass 82.8 Fat Free Mass 171.0 Visceral Fat Rating 16.0 Body Water % 50.7 Body Water Mass 128.8 Muscle Mass/Score 162.8 Basal Metabolic Rate/Score 2,361 Intake Visit Reasons: OV PO LSG 10/14/22 Allergies No Known Allergies [No Known Allergies*] Allergy (Verified 05/16/24 10:01) Medication List - Last Reconciled 05/16/24 by ALMAS Cantor acetone (urine) test (Ketone Urine Test strips) As directed blood pressure monitor (Blood Pressure Kit) As directed blood sugar diagnostic (FreeStyle Lite Strips) prn low or high glucose to confirm sensor accuracy tid blood-glucose meter (FreeStyle Lite Meter kit) As directed cetirizine (All Day Allergy (cetirizine)) 10 mg PO DAILY PRN 90 days dextromethorphan-guaifenesin 5-100 mg/5 mL (Robitussin Cough-Chest Congestion DM) 10 mL PO Q4-8H PRN [diabetic shoes with inserts As directed] insulin glargine (Lantus U-100 Insulin) 17 units (0.17 mL) subcut DAILY PRN 30 days insulin lispro (Humalog U-100 Insulin) up to 60 units daily via pump subcutaneously use as directed; 30 days insulin pump cart,auto,BT-cntr (Omnipod 5 G6 Intro Kit (Gen 5) subcutaneous cartridge with controller) DIRECTED insulin pump cart,automated,BT (Omnipod 5 G6 Pods (Gen 5) subcutaneous cartridge) USE DIRECTED insulin syringe-needle U-100 (BD Veo Insulin Syringe Ultra-Fine) As directed once daily insulin syringe-needle U-100 (BD Insulin Syringe Ultra-Fine) As directed up to quid for pump failure or glucose correction lancets (FreeStyle Lancets) 4x daily leg brace (SHAUNA Knee Brace) As directed levothyroxine 137 mcg PO DAILY 90 days melatonin 10 mg PO BEDTIME PRN 90 days methocarbamol 500 mg PO TID PRN 10 days metoprolol succinate ER 25 mg PO DAILY lhpidjlavuqo-qva-hwao-FA-vit K 45 mg iron- 800 mcg-120 mcg (Bariatric Multivitamins) caps PO rosuvastatin 40 mg PO DAILY TENS units (TENS 502 device) As directed triamcinolone acetonide 0.5% 1 appl topical DAILY 7 days vitamin A palmitate 10,000 units PO DAILY HPI Comments Details: This?is a 33?yo male who is s/p LSG 10/14/2022. Presents for 19 month post op visit. Weight at last visit on 02/29/2024 was 261.6 pounds with a BMI of 38.6, weight today is 254 pounds, representing a 7.6 pound weight loss with a BMI today of 37.5.? No complaints of nausea, emesis, abdominal pain or reflux, or constipation. Pt reports no exercise in the past month or so- due to weather. Present meal plan includes: 10 am - 1 scoop Isopure protein powder (20g) in coffee 1 pm - Chobani yogurt zero sugar 5 pm - 3 oz protein and 2 oz of vegetables, 2 eggs 8 pm - bar BS - Omnipod, recently saw endo BP - has not been checking the past few weeks, 119-125 systolics Exercise - has treadmill, 40 min treadmill in AM, 20 min at noon, 20-30 min in evening; unsure of calories burned walking outside 120-130 min 5x/week- has paused this for now switched to Flint[employer] vitamins, doing better with these Pt reports excess skin of upper arms which is becoming increasingly bothersome. Has difficulty finding clothing that fits properly with excess skin getting in the way. Skin moves around during movement and gets in the way, making activities of daily living more difficult. Pt reports excess skin of abdomen which is also bothersome. He has difficulty finding clothing that fits around his waist properly. Skin moves around during walking which is very uncomfortable. Pt reports some rashes of upper thighs when skin rubs together. [facility] Medical History Insulin pump in place DJD (degenerative joint disease) Insomnia Obesity due to excess calories NATALIO (generalized anxiety disorder) Goiter HLD (hyperlipidemia) Constipation by delayed colonic transit Hypothyroidism Morbid obesity Hypertension Dyslipidemia Microalbuminuria Diabetes type 1, controlled Surgical History S/P laparoscopic sleeve gastrectomy Family History Father No problems noted. Mother Obesity Social History Housing: Apartment Are you a primary rn care transition to a significant other at home: No Do you presently have visiting nurse or other home services: No Alcohol intake: never Patient Tobacco Use Status: Never used Tobacco e-Cigarette/Vaping Use: Never Used Second Hand Smoke Exposure: No service: No Current occupational status: unemployed Cognitive needs: No Hearing needs: No Vision needs: Yes Assessment & Plan Assessment & Plan (1) Obesity: Code(s): E66.9 - Obesity, unspecified Category: Medical (2) S/P laparoscopic sleeve gastrectomy: Code(s): Z98.84 - Bariatric surgery status Category: Surgical Plan Discussed ways to use his treadmill- watch TV, read, listen to audiobook/podcast while exercising. He suggested splitting up sessions into 2 shorter per day. He has moved to [facility] so will send vit A script there. RTC 3 months, can repeat labs at that time. I spent a total of 30 minutes reviewing/updating records, examining the patient and counseling the patient on weight management as detailed above. Medications: New vitamin A palmitate 10,000 units PO DAILY 90 caps 3RF
[2024-05-16 10:13] VITALS: BP 128/57; PULSE 81; TEMP 37.1; O2SAT 81; BMI 37.5
== END 2024-05-16 10:32 | disposition home or self-care (01) ==
PROVIDERS: PCP Internal Medicine; Visit Provider Physician Assistant Surgical
DX: E66.9 Obesity, unspecified (principal); Z68.37 Body mass index [BMI] 37.0-37.9, adult; E66.812 Obesity, class 2; Z98.84 Bariatric surgery status
CPT/HCPCS: 99214; G2211

== ENCOUNTER → 2024-05-16 09:55 | Outpatient (BNVA) | payer OTHER, SELFPAY | PROVIDERS: PCP Internal Medicine; Visit Provider Physician Assistant Surgical | DX: E66.9 Obesity, unspecified (principal); Z98.84 Bariatric surgery status; Z68.37 Body mass index [BMI] 37.0-37.9, adult | CPT/HCPCS: 99212 ==

== ENCOUNTER 2024-07-21 10:27 | Outpatient (AMB) | payer OTHER, SELFPAY ==
--- NOTE | 2024-07-20 13:39 | A.OFFVIS_ITS ---
Vital Signs 07/21/24 10:29 Height 5 ft 9 in Weight 257 lb 15.053 oz BMI 38.1 BP 120/68 Blood Pressure Location Rt brachial Position Sitting Pulse 90 Pulse Source Pulse Oximeter Intake Visit Reasons: T1DM Intake Note: Patient presents today for a follow-up on Type 1 Diabetes Mellitus: Last Diabetic Eye exam: 05/2023 Last Podiatry Exam: Does not see a Conductor Sleeping Car Most recent HbA1c: 6.0%, 07/21/2024 Random Glucose- 92 mg/dL, Today Broadcast Traffic Coordinator Required: No Accompanied by: Self / Same As Patient Allergies No Known Allergies [No Known Allergies*] Allergy (Verified 07/21/24 10:30) Medication List - Last Reconciled 07/21/24 by Tootie Lang NP acetone (urine) test (Ketone Urine Test strips) As directed blood pressure monitor (Blood Pressure Kit) As directed blood sugar diagnostic (FreeStyle Lite Strips) prn low or high glucose to confirm sensor accuracy tid blood-glucose meter (FreeStyle Lite Meter kit) As directed cetirizine (All Day Allergy (cetirizine)) 10 mg PO DAILY PRN 90 days dextromethorphan-guaifenesin 5-100 mg/5 mL (Robitussin Cough-Chest Congestion DM) 10 mL PO Q4-8H PRN [diabetic shoes with inserts As directed] insulin glargine (Lantus U-100 Insulin) 17 units (0.17 mL) subcut DAILY PRN 30 days insulin lispro (Humalog U-100 Insulin) up to 60 units daily via pump subcutaneously use as directed; 30 days insulin pump cart,auto,BT,G6/7 (Omnipod 5 G6-G7 Pods (Gen 5) subcutaneous cartridge) USE DIRECTED insulin pump cart,automated,BT (Omnipod 5 G6 Pods (Gen 5) subcutaneous cartridge) USE DIRECTED insulin syringe-needle U-100 (BD Veo Insulin Syringe Ultra-Fine) As directed once daily insulin syringe-needle U-100 (BD Insulin Syringe Ultra-Fine) As directed up to quid for pump failure or glucose correction lancets (FreeStyle Lancets) 4x daily leg brace (SHAUNA Knee Brace) As directed levothyroxine 137 mcg PO DAILY 90 days melatonin 10 mg PO BEDTIME PRN 90 days methocarbamol 500 mg PO TID PRN 10 days metoprolol succinate ER 25 mg PO DAILY ftfizuageydm-tya-qzdq-FA-vit K 45 mg iron- 800 mcg-120 mcg (Bariatric Multivitamins) caps PO pen needle, diabetic (BD Citlaly 2nd Gen Pen Needle) qid prn sensor failure or to confirm readings rosuvastatin 40 mg PO DAILY TENS units (TENS 502 device) As directed triamcinolone acetonide 0.5% 1 appl topical DAILY 7 days vitamin A palmitate 10,000 units PO DAILY HPI Comments Details: Patient is 33-year-old male with DM type 1 diagnosed in 2013 who presents for management of diabetes. He has been on a Omnipod Past medical history: DM1, HLD Micro and macrovascular complications: mild retinopathy NPDR no nephropathy or neuropathy C-peptide is suppressed Diabetes medications: Humalog via Omnipod Dash Basal rate(s) (units/hour) for Manual 12 AM 0.75 units/hr 6AM 1.4 units/hr 10am 1.25 units/hr? Bolus setting Insulin Carbohydrate Ratio (s) 12AM 1:6 3pm new 4AM 1:5.5 Correction Factor / Sensitivity Factor 12 AM to 12 AM 1:15 Active Insulin Time:? 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 Mother Obesity Social History Housing: Apartment Are you a primary day care home mother to a significant other at home: No Do you presently have visiting nurse or other home services: No Alcohol intake: never Patient Tobacco Use Status: Never used Tobacco e-Cigarette/Vaping Use: Never Used Second Hand Smoke Exposure: No service: No Current occupational status: unemployed Cognitive needs: No Hearing needs: No Vision needs: Yes Physical Exam Vital Signs: Last Vital Signs Pulse 90 07/21/24 10:29 BP 120/68 07/21/24 10:29 BMI result Body Mass Index 38.1 Const Other: Absence of Cushingoid features. Absence of acromegalic features. Neck exam reveals nl size thyroid about 15 gms. No thyroid nodules palpable. No carotid bruits present. Lungs CTA. Heart S1 S2, Reg R/R. No M/R G. Skin exam reveals absence of vitiligo or acanthosis nigricans. No edema Visual exam of foot performed. No ulcerations or open lesions. No inter digit maceration or fissuring. No onychomycosis, no callouses. Sensation intact to monofilament exam. Vibratory sensation is normal with 128 Hz tuning fork. Results AMB Hemoglobin A1c AMB Hemoglobin A1c 6.0 % Last Edit by MARY Bose on 07/21/24 10:53 Results Reviewed Results Reviewed: Laboratory Last Values Glucose (Clinic) 92 mg/dL (60-115) 07/21/24 10:39 Hgb A1c (Clinic) 6.0 % (4.0-6.0) 07/21/24 10:32 Assessment & Plan Assessment & Plan (1) Diabetes type 1, controlled: Code(s): E10.9 - Type 1 diabetes mellitus without complications Category: Medical Qualifiers: Diabetes mellitus complication status: with hypoglycemia Qualified Code(s): E10.649 - Type 1 diabetes mellitus with hypoglycemia without coma Plan: 33-year-old type 1 diabetic with the excellent control. Some mild lows after lunch and carb ratio was adjusted to give him slightly less insulin. The patient had an opportunity to ask questions regarding treatment plan. The patient expressed understanding and agreement with the above treatment plan. The patient is aware they should contact our office by phone for worsening glucose readings or for any low blood sugars which may warrant a change in diabetes medication. Compliance is encouraged with medications and any followup testing/consults which may have been ordered. Orders: Orders AMB Hemoglobin A1c Today E10.9 - Type 1 diabetes mellitus without complications AMB Glucose Monitoring Today E10.649 - Type 1 diabetes mellitus with hypoglycemia without coma Medications: New pen needle, diabetic (BD Citlaly 2nd Gen Pen Needle) qid prn sensor failure or to confirm readings 100 ea 6RF E10.649 - Type 1 diabetes mellitus with hypoglycemia without coma Refilled blood sugar diagnostic (FreeStyle Lite Strips) prn low or high glucose to confirm sensor accuracy tid 100 ea 3RF E10.9 - Type 1 diabetes mellitus without complications Patient Instructions: Take 15 carb carbohydrate grams to treat a low sugar (3-4 glucose tablets, half a glass of juice or 15 carbohydrate grams of soft candy such as gummie snacks). Recheck your sugar in 15 minutes and re-treat again with 15 carbohydrate grams if low or still with symptoms. Do not drive a car or operate machinery if you do not know what your blood sugar is, if it is low or in excess of 300. Troubleshooting after starting new pod or inserting new insulin set: Occlusion, adhesive tape sensitivity, redness Check BG 2 hours after site change Safety information: Importance of a backup plan, for manual injections, proper prescriptions and emergency supplies ketone strips, and rules for testing for ketones Check your feet daily looking for any signs of infection, drainage, redness, ulceration and seek medical attention if this occurs. Break in shoes gradually and do not wear open-toed shoes or walk stocking footed or barefooted. Symptoms of DKA (diabetic ketoacidosis): early: frequent urination, dry mouth, fatigue, feeling ill, severe symptoms: ketones in the urine, abdominal pain, nausea, vomiting and weakness. It is important to hydrate with sugar free liquids every 15-30 minutes and bring the sugars down to normal levels. If you are moderate or severe with ketones or unable to bring glucose to less than 200, go to the emergency room. Coding Level of Care Code Est Pt Level 4 (54097) Complex EM visit Add On G2211 Diagnoses Controlled type 1 diabetes mellitus with hypoglycemia E10.649 Diabetes mellitus complication status: with hypoglycemia Time Spent (min) 35 Comment Time spent reviewing labs/provider notes, face to face, chart doc
[2024-07-21 10:29] VITALS: BP 120/68; PULSE 90; BMI 38.1
[2024-07-21 10:44] LABS: Glucose, Whole Blood 92 mg/dL (60-115)
--- OUTSIDE RECORDS SUMMARY | 2024-07-21 11:12 | XMS_ITS | Encounter Summary ---
Author Organization [facility] Address [address] [place] [address] [address] [place] [address] Care Team Providers Care Train Planner Name Role Phone Unavailable Primary Care Provider Unavailabl e Encounter Details Date Type Department Care Team (Late st Contact Info) Description 06/29/2023 Abstract [facility] [address] [place] [address] [facility] [address] [place] [address] Social History Tobacco Use Types Packs/Day Years Used Date Smoking Tobacco: Never Smokeless Tobacco: Never Alcohol Use Standard Drinks/Week Comments Defer 0 (1 standard drink = 0.6 oz pur e alcohol) Sex and Gender Information Value Date Recorded Sex Assigned at Male 04/07/2022 10:17 AM EDT Legal Sex Male 10:17 AM EDT Gender Identity Male 01/02/2023 3:49 PM EDT Sexual Orientation Demisexual 01/02/2023 3: 49 PM EDT documented as of this encounter Plan of Treatment Upcoming Encounters Date Type Department Care Team (Late st Contact Info) Description 08/23/2024 9:00 AM EDT Office Visit [facility] [address] [place] [address] Wendy Dill documented as of this encounter Visit Diagnoses Not on filedocumented in this encounter
--- OUTSIDE RECORDS SUMMARY | 2024-07-21 11:12 | XMS_ITS | Encounter Summary ---
Author Organization [facility] Address [address] [place] [address] [address] [place] [address] Care Team Providers Care Crew Car Driver Name Role Phone Unavailable Primary Care Provider Unavailabl e Encounter Details Date Type Department Care Team (Latest Contact Info) Description 01/04/2021 Abstract [facility] CONVERSIONS Dental, Provider, DDS Social History Tobacco Use Types Packs/Day Years Used Date Smoking Tobacco: Never Assessed Sex and Gender Information Value Date Recorded Sex Assigned at Male 04/07/2022 10:17 AM EDT Legal Sex Male 10:17 AM EDT Gender Identity Male 01/02/2023 3:49 PM EDT Sexual Orientation Demisexual 01/02/2023 3: 49 PM EDT documented as of this encounter Plan of Treatment Upcoming Encounters Date Type Department Care Team (Late st Contact Info) Description 08/23/2024 9:00 AM EDT Office Visit [facility] [address] [place] [address] Wendy Dill documented as of this encounter Visit Diagnoses Not on filedocumented in this encounter
--- OUTSIDE RECORDS SUMMARY | 2024-07-21 11:12 | XMS_ITS | Encounter Summary ---
Author Organization [facility] Address [address] [place] [address] [address] [place] [address] Care Team Providers Care Blade Balancer Name Role Phone Unavailable Primary Care Provider Unavailabl e Reason for Visit * Reason Onset Date Comments appt for cleaning 03/12/2023 Encounter Details Date Type Department Care Team ([facility] Contact Info) Description 03/12/2023 Telephone [facility] [address] [place] [address] Matias Chase DDS [address] [place] [address] appt for cleaning Social History Tobacco Use Types Packs/Day Years [...] PM EDT documented as of this encounter Miscellaneous Notes * Telephone Encounter - Adenike Shaffer - 03/12/2023 8:44 AM EDT Patient called in trying to schedule an appt for cleaning. When I looked in chart it states that hehad it done on 01/07 but patient stating it was never done. I reviewed notes in chart and done see that it was notated done other than what is listed as past procedures DR documented in this encounter Plan of Treatment Upcoming Encounters Date Type Department Care Team ([facility] st Contact Info) Description 08/23/2024 9:00 AM EDT Office Visit [facility] ADULT DENTAL [address] [place] [address] Wendy Dill documented as of this encounter Visit Diagnoses Not on filedocumented in this encounter
--- OUTSIDE RECORDS SUMMARY | 2024-07-21 11:12 | XMS_ITS | Encounter Summary ---
Author Organization [facility] Address [address] [place] [address] [address] [address] Care Team Providers Care Deflector Operator Name Role Phone Unavailable Primary Care Provider Unavailabl e Reason for Visit * Reason Onset Date Comments medication 02/03/2023 Encounter Details Date Type Department Care Team (Late st Contact Info) Description 02/03/2023 Telephone [facility] ADULT DENTAL [address] [place] [address] Matias Chase DDS [address] [place] [address] medication Social History Tobacco Use Types Packs/Day Years [...] * Telephone Encounter - Adenike Shaffer - 02/03/2023 3:31 PM EDT Patient had appt for ext on and is in a lot of pain. Would like medication sent to the pharmacy documented in this encounter Plan of Treatment Upcoming Encounters Date Type Department Care Team (Late st Contact Info) Description 08/23/2024 9:00 AM EDT Office Visit [facility] ADULT DENTAL [address] [place] [address] Wendy Dill documented as of this encounter Visit Diagnoses Not on filedocumented in this encounter
--- OUTSIDE RECORDS SUMMARY | 2024-07-21 11:12 | XMS_ITS | Clinical Summary ---
Author Organization [facility] [employer] [facility] Address [address] [place] [address] [address] [place] [address] Care Team Providers Care Assistant Paralegal Name Role Phone Unavailable Primary Care Provider Unavailabl e Allergies No known active allergies Medications Senna-Time 8.6 MG tablet TAKE 2 TABLETS BY MOUTH AT BEDTIME NEEDED FOR CONSTIPATION 3 Active rosuvastatin (Crestor) 40 MG tablet Take 1 tablet by mouth at bed time. 1 Active metoprolol succinate XL (Toprol-XL) 50 MG 24 hr tablet Take 1 tablet by mouth at bed time. 1 Active Melatonin 10 MG capsule TAKE 1 CAPSULE BY MOUTH AT BEDTIME NEEDED FOR SLEEP 3 Active LORazepam (Ativan) 1 MG tablet TAKE 1 TABLET BY MOUTH AT BEDTIME NEEDED FOR ANXIETY 2 Active levothyroxine (Tirosint) 137 MCG capsule Take 1 capsule by mouth at bed time. 1 Active FreeStyle lancets TEST 4X DAILY 2 Active insulin lispro (HumaLOG) 100 UNIT/ML injection Inject under the skin. Active Insulin Disposable Pump (Omnipod 5 G6 Intro, Gen 5,) kit DIRECTED 2 Active FREESTYLE LITE test strip TEST 4X A DAY 3 Active Blood Glucose Monitoring Suppl (FreeStyle Lite) w/Device kit USE DIRECTED 2 Active Active Problems Problem Noted Date Diagnosed Date Dental plaque 01/29/2024 Dental caries 01/29/2023 Dental root caries 01/29/2023 Periodontal disease 01/07/2023 Dental calculus 01/07/2023 Social History Tobacco Use Types Packs/Day Years Used Date Smoking Tobacco: Never Smokeless Tobacco: Never Tobacco Cessation:Counseling Given: Not Answered Alcohol Use Standard Drinks/Week Comments Defer 0 (1 standard drink = 0.6 oz pur e alcohol) Sex and Gender Information Value Date Recorded Sex Assigned at Male 04/07/2022 10:17 AM EDT Legal Sex Male 10:17 AM EDT Gender Identity Male 01/02/2023 3:49 PM EDT Sexual Orientation Demisexual 01/02/2023 3: 49 PM EDT Last Filed Vital Signs Vital Sign Reading Time Taken Comments Blood Pressure 124/74 01/29/2024 8:13 AM EDT Pulse 72 12/29/2023 11:04 AM EDT Temperature - - Respiratory Rate - - Oxygen Saturation - - Inhaled Oxygen Concentration - - Weight - - Height - - Body Mass Index - - Plan of Treatment Upcoming Encounters Date Type Department Care Team (Late st Contact Info) Description 08/23/2024 9:00 AM EDT Office Visit [facility] ADULT DENTAL [address] [place] [address] Wendy Dill Health Maintenance Due Date Last Done Comments Depression Screening 1990 HIV Screening 1990 SDOH Screening 1990 Alcohol/Substance Use Screening 2002 Family Planning (PISQ) 2005 Hepatitis C Screening 2008 Hepatitis B Vaccines (1 of 3 - 19+ 3-dose series) 2009 Dental Oral Exam 06/20/2023 12/17/2022, 09/26/2020 Dental X-Ray: Full Mouth 09/28/2023 09/26/2020 Dental X-Ray: Bitewings 12/19/2023 12/17/2022, 09/26 COVID-19 Vaccine ( season) 2024 03/10/2022, 05/16/2021, 09/17/2020 Influenza Vaccine (#1) 2024 Dental Prophylaxis 08/01/2024 01/29/2024, 1 , 01/07/2023, Additional history exists Tobacco Screening 01/28/2025 01/29/2024 DTaP/Tdap/Td Vaccines (2 - Td or Tdap) 09/19/2032 09/19/2022 Zoster Vaccines (1 of 2) 2040 RSV Patients and Patients Aged 60 years or older (1 - 1-dose 75+ series) 2065 HIB Vaccines Aged Out No longer eligi ble based on patient's age to complete this topic HPV Vaccines Aged Out No longer eligi ble based on patient's age to complete this topic Hepatitis A Vaccines Aged Out No long er eligible based on patient's age to complete this topic IPV Vaccines Aged Out No longer eligi ble based on patient's age to complete this topic Meningococcal Vaccine Aged Out No andrea alia eligible based on patient's age to complete this topic Pneumococcal Vaccine: Pediatrics (0 to 5 Years) and At-Risk Patients (6 to 49) Years) Aged Out No longer eligible based on patient's age to complete this topic RSV under 20 months Aged Out No longe r eligible based on patient's age to complete this topic Rotavirus Vaccines Aged Out No longer eligible based on patient's age to complete this topic Procedures Procedure Name Priority Date/Time Associated Diagnosis Comments PROPHYLAXIS - ADULT Routine 01/29/2024 8 :00 AM EDT BITEWINGS - 4 RADIOGRAPHIC IMAGES Routine 12/17/2022 2:30 PM EDT Dental caries Encounter for dental examination Dental calculus Dental plaque PERIODIC ORAL EVALUATION - ESTABLISHED PATIENT Routine 12/17/2022 2:30 PM EDT Dental caries Encounter for dental examination Dental calculus Dental plaque INTRAORAL - COMPLETE SERIES OF RADIOGRAPHIC IMAGES Routine 09/26/2020 12:00 AM EDT from Last 3 Months or Most Recently Relevant to Health Maintenance Insurance [facility] [employer] ST[place] ADULT
== END 2024-07-21 11:07 | disposition home or self-care (01) ==
PROVIDERS: PCP Internal Medicine; Visit Provider Nurse Practitioner Adult Health
DX: E10.9 Type 1 diabetes mellitus without complications (principal); E10.649 Type 1 diabetes mellitus with hypoglycemia without coma
CPT/HCPCS: 99214; G2211

== ENCOUNTER → 2024-07-21 10:27 | Outpatient (BNVA) | payer OTHER, SELFPAY | PROVIDERS: PCP Internal Medicine; Visit Provider Nurse Practitioner Adult Health | DX: E10.649 Type 1 diabetes mellitus with hypoglycemia without coma (principal); Z79.4 Long term (current) use of insulin; Z96.41 Presence of insulin pump (external) (internal) | CPT/HCPCS: 82947; 83036; 99212 ==

== ENCOUNTER 2024-08-04 14:59 | Outpatient (AMB) | payer OTHER, SELFPAY ==
--- NOTE | 2024-08-04 15:19 | MHC.PC.OV ---
Vital Signs 08/04/24 15:20 Height 5 ft 9 in Weight 258 lb BMI 38.1 BP 124/74 Blood Pressure Location Lt brachial Position Sitting Pulse 64 Pulse Source Pulse Oximeter Temp 97.5 F Temp Source Temporal Artery Scan Pulse Oximetry (%) 97 Oxygen Delivery Method Room Air Intake Visit Reasons: PE Intake Note: Patient is here today for a physical. [employer] C[employer] Required: No Certified Registered Nurse Practitioner: Not Required per policy Accompanied by: Self / Same As Patient Allergies No Known Allergies [No Known Allergies*] Allergy (Verified 08/04/24 16:05) Medication List - Last Reconciled 08/04/24 by Terra Núñez MD acetone (urine) test (Ketone Urine Test strips) As directed blood pressure monitor (Blood Pressure Kit) As directed blood sugar diagnostic (FreeStyle Lite Strips) prn low or high glucose to confirm sensor accuracy tid blood-glucose meter (FreeStyle Lite Meter kit) As directed cetirizine (All Day Allergy (cetirizine)) 10 mg PO DAILY PRN 90 days [diabetic shoes with inserts As directed] insulin glargine (Lantus U-100 Insulin) 17 units (0.17 mL) subcut DAILY PRN 30 days insulin lispro (Humalog U-100 Insulin) up to 60 units daily via pump subcutaneously use as directed; 30 days insulin pump cart,auto,BT,G6/7 (Omnipod 5 G6-G7 Pods (Gen 5) subcutaneous cartridge) USE DIRECTED insulin pump cart,automated,BT (Omnipod 5 G6 Pods (Gen 5) subcutaneous cartridge) USE DIRECTED insulin syringe-needle U-100 (BD Veo Insulin Syringe Ultra-Fine) As directed once daily insulin syringe-needle U-100 (BD Insulin Syringe Ultra-Fine) As directed up to quid for pump failure or glucose correction lancets (FreeStyle Lancets) 4x daily leg brace (SHAUNA Knee Brace) As directed levothyroxine 137 mcg PO DAILY 90 days melatonin 10 mg PO BEDTIME PRN 90 days methocarbamol 500 mg PO TID PRN 10 days metoprolol succinate ER 25 mg PO DAILY pkisnybngjjy-vkn-gdjd-FA-vit K 45 mg iron- 800 mcg-120 mcg (Bariatric Multivitamins) caps PO pen needle, diabetic (BD Citlaly 2nd Gen Pen Needle) qid prn sensor failure or to confirm readings rosuvastatin 40 mg PO DAILY TENS units (TENS 502 device) As directed triamcinolone acetonide 0.5% 1 appl topical DAILY 7 days vitamin A palmitate 10,000 units PO DAILY Tobacco use date assessed: 08/04/24 Dental Screening Dental Screen Date: 08/04/24 Did you have a dental visit in the last 12 months?: Yes Did you have a dental problem in the last 6 months where you did not have access to dental care?: No Was dental information given to patient?: Patient has dentist HPI HPI Comments History of Present Illness Details The patient is a 33-year-old male presenting for a physical examination as part of his routine health maintenance and management of Type 1 Diabetes Mellitus. His diabetes is currently well-managed on insulin therapy, with recent endocrinology follow-up and an A1c at 6.0%. He takes both basal and bolus insulin, reporting no current issues with his regimen. The patient reports a history of hypothyroidism and hyperlipidemia, taking levothyroxine and rosuvastatin, respectively. Essential hypertension is well-controlled, and he is on metoprolol. He underwent a gastrectomy in 2021, contributing to significant weight loss. Previously on phentermine for weight management, he remains off this medication with current weight stability. Depression management concluded recently, resulting in residual mild symptoms. He reports persistent joint pain in the left knee, left hip, and lower back; previous imaging is outdated. No current therapy for this complaint is ongoing, and consideration for rheumatology consultation is indicated given polyarticular involvement. [facility] Medical History (Updated 08/04/24 @ 16:26 by Terra Núñez MD) Diabetes mellitus type 1 Major depressive disorder, recurrent, moderate Insulin pump in place DJD (degenerative joint disease) Insomnia Obesity due to excess calories NATALIO (generalized anxiety disorder) Goiter HLD (hyperlipidemia) Constipation by delayed colonic transit Hypothyroidism Morbid obesity Hypertension Dyslipidemia Microalbuminuria Diabetes type 1, controlled Surgical History S/P laparoscopic sleeve gastrectomy Family History Father No problems noted. Mother Obesity Social History Housing: Apartment Are you a primary client care specialist to a significant other at home: No Do you presently have visiting nurse or other home services: No Alcohol intake: never Patient Tobacco Use Status: Never used Tobacco e-Cigarette/Vaping Use: Never Used Second Hand Smoke Exposure: No service: No Current occupational status: unemployed Cognitive needs: No Hearing needs: No Vision needs: Yes Questionnaire PHQ-9 Over the last 2 weeks, how often have you been bothered by any of the following problems? 1. Little interest or pleasure in doing things: several days 2. Feeling down, depressed, or hopeless: not at all 3. Trouble falling or staying asleep, or sleeping too much: several days 4. Feeling tired or having little energy: several days 5. Poor appetite or overeating: not at all 6. Feeling bad about yourself - or that you are a failure or have let yourself or your family down: not at all 7. Trouble concentrating on things, such as reading the newspaper or watching television: not at all 8. Moving or speaking so slowly that other people could have noticed. Or the opposite - being so fidgety or restless that you have been moving around a lot more than usual: not at all 9. Thoughts that you would be better off or of hurting yourself in some way: not at all Total score: 3 Depression Screening Interpretation: Positive Depression Screening Follow-up: Existing condition and Follow-up Visit Requested Depression Screening Done: Yes 39243 - PHQ-9 Billing: Yes Source: Developed by Drs. Janak Guillen, Ce Sanders, Manny Nava and colleagues, with an educational carol from [employer]. Thrive Questionnaire Date Thrive assessed: 08/04/24 I am a: Patient What is your living situation today?: I have a steady place to live Within the past 12 months, did the food you bought not last and you didn't have the money to get more?: Sometimes True Within the past 12 months, did you worry whether your food would run out before you got money to buy more?: Sometimes True Do you have trouble paying for medicines?: No Do you have trouble getting transportation to medical appointments?: No Do you have trouble paying your heating and electricity bill?: No Do you have trouble taking care of your child, family member or friend?: No Do you have trouble with day-to-day activities such as bathing, preparing meals, shopping, managing finances, etc.?: Yes Are you currently unemployed and looking for a job?: I choose not to answer this question Are you interested in more education?: I choose not to answer this question Please select the resources that you would like help with: None Currently or been in a relationship where the following occur: I choose not to answer THRIVE Score: 2 AUDIT C Alcohol Use Questionnaire (AUDIT-C) 1. How often do you have a drink containing alcohol?: Never Total Score: 0 Score Reviewed/Action Taken: No NATALIO-7 AMB Questionnaire NATALIO-7 Date NATALIO - 7 assessed: 08/04/24 Feeling nervous, anxious, or on edge: 0 = Not at all Not being able to stop or control worryin = Not at all Worrying too much about different things: 0 = Not at all Trouble relaxin = Not at all Being so restless that it is hard to sit still: 0 = Not at all Becoming easily annoyed or irritable: 0 = Not at all Feeling afraid as if something awful might happen: 0 = Not at all Total NATALIO-7 score (0-4 normal; 5-9 mild; 10-14 moderate; 15-21 severe): 0 Source: Developed by Drs. Janak Guillen, Ce Sanders, Manny Nava and colleagues, with an educational carol from [employer]. NATALIO-7 Assessment Billing NATALIO-7 Assessment Tool: NATALIO-7 Assessment 21297 Review of Systems Const All systems reviewed & are unremarkable except as noted in HPI and below Card Denies chest pain at rest, Denies chest pain with activity, Denies edema, Denies irregular heart rhythm, Denies claudication, Denies dyspnea, Denies dyspnea on exertion, Denies orthopnea, Denies paroxysmal nocturnal dyspnea and Denies slow heart rate Resp Denies cough, Denies dyspnea and Denies dyspnea on exertion GI Denies abdominal pain, Denies change in bowel habits, Denies excessive flatus, Denies nausea and Denies vomiting Denies urinary hesitancy, Denies urinary incontinence and Denies urinary urgency Musc Denies abnormal gait, Denies atrophy, Denies deformity and Denies limited range of motion Neuro Denies abnormal gait, Denies behavioral changes and Denies lack of coordination Psych Denies behavioral changes Physical exam (Primary Care) Vital Signs: Last Vital Signs Temp 97.5 F 08/04/24 15:20 Pulse 64 08/04/24 15:20 BP 124/74 08/04/24 15:20 Pulse Ox 97 08/04/24 15:20 Oxygen Delivery Method Room Air 08/04/24 15:20 BMI result Body Mass Index 38.1 BMI Assessment/Plan discussion: High BMI High, discussed plan: lifestyle, weight reduction, dietary and physical activity Tobacco/Smoking Status: Tobacco use Status Tobacco use date assessed 08/04/24 08/04/24 15:28 Patient Tobacco Use Status Never used Tobacco 08/04/24 15:28 e-Cigarette/Vaping Use Never Used 08/04/24 15:28 PHQ-9: PHQ-9 Score PHQ-9: Total score 3 08/04/24 15:28 Depression Screening Interpretation: Positive Depression Screening Follow-up: Existing condition and Follow-up Visit Requested Thrive Assessment: Date of Thrive Assessment Date Thrive assessed 08/04/24 08/04/24 15:28 Currently or been in a relationship where the following occur: I choose not to answer [facility] Head: Yes normal to inspection, Yes normocephalic and Yes atraumatic Ears: external ears normal Eyes General: appearance normal, both eyes and all related structures Eyelids: Yes eyelids normal Conjunctivae: conjunctivae normal Neck Neck: Yes normal visual inspection and Yes supple Resp Effort & Inspection: normal respiratory effort Auscultation: clear to auscultation bilaterally Cardio Jugular venous distension: no JVD Rate: regular rate Rhythm: regular rhythm Heart sounds: S1 normal heart sound present and S2 normal heart sound present GI Inspection: Yes normal to inspection Palpation (GI): Soft to palpation and nontender Auscultation: normal bowel sounds Skin General skin exam: no rashes or lesions noted Neuro General: no focal motor deficits Extrem General: Yes full ROM Psych Appearance: grossly normal Coding Level of Care Code Est Pt Level 3 (14634) Est Pt Prev Care 18-39y(50100) Diagnoses Adult general medical exam Z00.00 Left hip pain M25.552 Lumbar pain M54.50 Left knee pain M25.562 Controlled type 1 diabetes mellitus with hypoglycemia E10.649 Diabetes mellitus complication status: with hypoglycemia Mild recurrent major depression F33.0 Additional Codes PHQ-9 - 62645 - PHQ-9 Billing: Yes ([id number]) NATALIO-7 Assessment Billing - NATALIO-7 Assessment Tool: NATALIO-7 Assessment 12057 ([id number]) Time Spent (min) 34 Assessment & Plan Assessment & Plan (1) Adult general medical exam: Code(s): Z00.00 - Encounter for general adult medical examination without abnormal findings Category: Medical (2) Left hip pain: Code(s): M25.552 - Pain in left hip Category: Medical (3) Lumbar pain: Code(s): M54.50 - Low back pain, unspecified Category: Medical (4) Left knee pain: Code(s): M25.562 - Pain in left knee Category: Medical (5) Diabetes type 1, controlled: Code(s): E10.9 - Type 1 diabetes mellitus without complications Category: Medical Qualifiers: Diabetes mellitus complication status: with hypoglycemia Qualified Code(s): E10.649 - Type 1 diabetes mellitus with hypoglycemia without coma (6) Mild recurrent major depression: Code(s): F33.0 - Major depressive disorder, recurrent, mild Category: Medical Plan Care involves continued management of diabetes, including insulin regimen maintenance and laboratory monitoring. Thyroid function reassessment is necessary alongside hypertension and hyperlipidemia management. Post-gastrectomy weight status remains stable, and no current intervention is recommended. The joint pain management plan includes further diagnostic imaging and consideration of a database specialist referral to explore underlying causes. The possible trial of bupropion contingent on presenting mild depressive symptoms and consideration to assist residual weight concerns. Patient was informed and verbally consented to the use of an ambient scribe for clinic note documentation during this visit. I discussed with the patient the importance of maintaining his current insulin regimen and the appropriate follow-up with endocrinology to ensure optimal diabetes control. We reviewed the need for thyroid function reassessment due to ongoing levothyroxine therapy and continued management of blood pressure and cholesterol. We talked about the considerations for further joint pain evaluation through updated imaging and potential rheumatology consultation for polyarticular pain assessment. Additionally, given the patient's weight management history and mild depressive symptoms, I addressed the potential use of bupropion for dual purpose, emphasizing that treatment can be adjusted based on the patient's response. The patient consented to the discussed plans and advised on follow-up procedures, including lab work and imaging, to be conducted within three months, allowing flexibility in timing due to his current living arrangements. Orders: Orders XR hip LT min 2V Today M25.552 - Pain in left hip Microalbumin, Random (w Creat) Today R80.9 - Proteinuria, unspecified Vitamin D 25-OH Total Today E55.9 - Vitamin D deficiency, unspecified XR knee LT 2V Today M25.562 - Pain in left knee XR lumbar spine 2-3V Today M54.50 - Low back pain, unspecified Lipid Panel Today E78.5 - Hyperlipidemia, unspecified Comprehensive [place]. Panel Fast Today E10.9 - Type 1 diabetes mellitus without complications Thyroid Stimulating Hormone Today E03.9 - Hypothyroidism, unspecified Referrals Rheumatology Referral M25.552 - Pain in left hip, M25.562 - Pain in left knee, M54.50 - Low back pain, unspecified Medications: New bupropion HCl XL 150 mg PO QAM 90 days 90 tabs 0RF F33.1 - Major depressive disorder, recurrent, moderate Refilled melatonin 10 mg PO BEDTIME 90 days PRN 90 tabs 1RF sleep Patient Instructions: - Continue current insulin, blood pressure, and cholesterol medications as prescribed - Schedule lab work and x-rays as planned within the next three months - Follow through with endocrinology and primary care appointments - Discuss any side effects or concerns with new medication promptly - Monitor and report any new or worsening joint symptoms - Maintain exercise routine and balanced diet as tolerated - Contact office with any sudden changes in symptoms or concerns
[2024-08-04 15:20] VITALS: BP 124/74; PULSE 64; TEMP 36.4; O2SAT 97; BMI 38.1
== END 2024-08-04 16:16 | disposition home or self-care (01) ==
PROVIDERS: PCP Internal Medicine; Visit Provider Internal Medicine
DX: Z00.00 Encounter for general adult medical examination without abnormal findings (principal); E10.649 Type 1 diabetes mellitus with hypoglycemia without coma; F33.0 Major depressive disorder, recurrent, mild; M25.552 Pain in left hip; M54.50 Low back pain, unspecified; M25.562 Pain in left knee

== ENCOUNTER → 2024-08-04 14:59 | Outpatient (BNVA) | payer OTHER, SELFPAY | PROVIDERS: PCP Internal Medicine; Visit Provider Internal Medicine | DX: Z00.00 Encounter for general adult medical examination without abnormal findings (principal); M25.552 Pain in left hip; M54.50 Low back pain, unspecified; M25.562 Pain in left knee; E10.649 Type 1 diabetes mellitus with hypoglycemia without coma; F33.0 Major depressive disorder, recurrent, mild | CPT/HCPCS: 96127; 99212; 99395 ==

== ENCOUNTER 2024-08-11 11:18 | Outpatient (AMB) | payer OTHER, SELFPAY ==
--- NOTE | 2024-08-11 11:12 | MHC.OFFVISWM ---
Intake Visit Reasons: TV PO LSG 10/14/22 Allergies No Known Allergies [No Known Allergies*] Allergy (Verified 08/04/24 16:05) Medication List - Last Reconciled 08/11/24 by ALMAS Cantor acetone (urine) test (Ketone Urine Test strips) As directed blood pressure monitor (Blood Pressure Kit) As directed blood sugar diagnostic (FreeStyle Lite Strips) prn low or high glucose to confirm sensor accuracy tid blood-glucose meter (FreeStyle Lite Meter kit) As directed bupropion HCl XL 150 mg PO QAM 90 days cetirizine (All Day Allergy (cetirizine)) 10 mg PO DAILY PRN 90 days [diabetic shoes with inserts As directed] insulin glargine (Lantus U-100 Insulin) 17 units (0.17 mL) subcut DAILY PRN 30 days insulin lispro (Humalog U-100 Insulin) up to 60 units daily via pump subcutaneously use as directed; 30 days insulin pump cart,auto,BT,G6/7 (Omnipod 5 G6-G7 Pods (Gen 5) subcutaneous cartridge) USE DIRECTED insulin pump cart,automated,BT (Omnipod 5 G6 Pods (Gen 5) subcutaneous cartridge) USE DIRECTED insulin syringe-needle U-100 (BD Veo Insulin Syringe Ultra-Fine) As directed once daily insulin syringe-needle U-100 (BD Insulin Syringe Ultra-Fine) As directed up to quid for pump failure or glucose correction lancets (FreeStyle Lancets) 4x daily leg brace (SHAUNA Knee Brace) As directed levothyroxine 137 mcg PO DAILY 90 days melatonin 10 mg PO BEDTIME PRN 90 days methocarbamol 500 mg PO TID PRN 10 days metoprolol succinate ER 25 mg PO DAILY brslajpcdhvz-pvl-xcvw-FA-vit K 45 mg iron- 800 mcg-120 mcg (Bariatric Multivitamins) caps PO pen needle, diabetic (BD Citlaly 2nd Gen Pen Needle) qid prn sensor failure or to confirm readings rosuvastatin 40 mg PO DAILY TENS units (TENS 502 device) As directed triamcinolone acetonide 0.5% 1 appl topical DAILY 7 days vitamin A palmitate 10,000 units PO DAILY HPI Comments Details: This?is a 33?yo male who is s/p LSG 10/14/2022. Presents for 22 month post op visit. Weight at last visit on 05/16/2024 was 254 pounds; weight today is same.? No complaints of nausea, emesis, abdominal pain or reflux, or constipation. Pt reports winter has been real bad, I haven't been able to do nothing. Present meal plan includes: 10 am - 1 scoop Isopure protein powder (20g) in coffee 1 pm - Chobani yogurt zero sugar 5 pm - 3 oz protein and 2 oz of vegetables, 2 eggs 8 pm - bar BS - Omnipod, recently saw endo BP - has not been checking the past few weeks, 115-125 systolics; takes metoprolol PRN Exercise - has treadmill/walking pad likes to walk outside more, 80 mins when he can switched to Flint[employer] vitamins, doing better with these Pt reports excess skin of upper arms which is becoming increasingly bothersome. Has difficulty finding clothing that fits properly with excess skin getting in the way. Skin moves around during movement and gets in the way, making activities of daily living more difficult. Pt reports excess skin of abdomen which is also bothersome. He has difficulty finding clothing that fits around his waist properly. Skin moves around during walking which is very uncomfortable. Pt reports some rashes of upper thighs when skin rubs together. He cannot wear shorts due to skin making contact. He also has excess skin of abdomen which is very heavy and uncomfortable. Gets in the way during activities of daily living. [facility] Medical History (Updated 08/04/24 @ 16:26 by Terra Núñez MD) Diabetes mellitus type 1 Major depressive disorder, recurrent, moderate Insulin pump in place DJD (degenerative joint disease) Insomnia Obesity due to excess calories NATALIO (generalized anxiety disorder) Goiter HLD (hyperlipidemia) Constipation by delayed colonic transit Hypothyroidism Morbid obesity Hypertension Dyslipidemia Microalbuminuria Diabetes type 1, controlled Surgical History S/P laparoscopic sleeve gastrectomy Family History Father No problems noted. Mother Obesity Social History Housing: Apartment Are you a primary healthcare business analyst to a significant other at home: No Do you presently have visiting nurse or other home services: No Alcohol intake: never Patient Tobacco Use Status: Never used Tobacco e-Cigarette/Vaping Use: Never Used Second Hand Smoke Exposure: No service: No Current occupational status: unemployed Cognitive needs: No Hearing needs: No Vision needs: Yes Telehealth Telehealth Telehealth Platform: Telephone Location of provider rendering services: other Location of patient: address on file Patient Identification confirmed using: Name, : Yes Telehealth method: voice only Patient verbally consented to treatment: Yes Patient verbally consented to billing insurance company: Yes Patient informed of any privacy concerns related to visit: Yes Minutes spent on Phone/Video with Pt.: 15 Assessment & Plan Assessment & Plan (1) Obesity: Code(s): E66.9 - Obesity, unspecified Category: Medical (2) S/P laparoscopic sleeve gastrectomy: Code(s): Z98.84 - Bariatric surgery status Category: Surgical Plan We discussed the importance of exercise with weight loss efforts. Pt plans to resume walking outside as weather improves. PCP has ordered labs, will order remaining vitamin levels. RTC 3-4 months. I spent a total of 30 minutes reviewing/updating records, examining the patient and counseling the patient on weight management as detailed above. Orders: Orders Vitamin A Today Z98.84 - Bariatric surgery status Vitamin B1 Today Z98.84 - Bariatric surgery status Zinc Today Z98.84 - Bariatric surgery status
--- OUTSIDE RECORDS SUMMARY | 2024-08-11 13:54 | XMS_ITS | Clinical Summary ---
Author Organization [employer] Address [address] [place] [address] [address] [place] [address] Care Team Providers Care Dance Instructor Name Role Phone Unavailable Primary Care Provider [...] Description 08/23/2024 9:00 AM EDT Office Visit [facility] ADULT DENTAL [address] [place] [address] Wendy Dill Health Maintenance Due Date Last [...]
--- OUTSIDE RECORDS SUMMARY | 2024-08-11 13:54 | XMS_ITS | Encounter Summary ---
Author Organization [facility] Address [address] [place] [address] [address] [place] [address] Care Team Providers Care Infection Control Nurse Name Role Phone Unavailable Primary Care Provider Unavailabl e Encounter Details Date Type Department Care Team (Late st Contact Info) Description 06/29/2023 Abstract [facility] ADULT DENTAL [address] [place] [address] [facility] [address] [place] [address] Social History Tobacco Use Types Packs/Day Years [...] Description 08/23/2024 9:00 AM EDT Office Visit [facility] ADULT DENTAL [address] [place] [address] Wendy Dill documented as of this encounter Visit Diagnoses Not on filedocumented in this encounter
--- OUTSIDE RECORDS SUMMARY | 2024-08-11 13:54 | XMS_ITS | Encounter Summary ---
Author Organization [facility] Address [address] [place] [address] [address] [address] Care Team Providers Care Transonic Engineer Name Role Phone Unavailable Primary Care Provider Unavailabl e Reason for Visit * Reason Onset Date Comments medication 02/03/2023 Encounter Details Date Type Department Care Team (Late st Contact Info) Description 02/03/2023 Telephone [facility] ADULT DENTAL [address] [place] [address] Matias Chase DDS [address] [place] [address] medication Social History Tobacco Use Types Packs/Day [facility] [address] [place] [address] Wendy Dill documented as of this encounter Visit Diagnoses Not on filedocumented in this encounter
--- OUTSIDE RECORDS SUMMARY | 2024-08-11 13:54 | XMS_ITS | Encounter Summary ---
Author Organization [employer] Address [address] [place] [address] [address] [place] [address] Care Team Providers Care Operating Room Specialist Name Role Phone Unavailable Primary Care Provider Unavailabl e Reason for Visit * Reason Onset Date Comments appt for cleaning 03/12/2023 Encounter Details Date Type Department Care Team ([facility] Contact Info) Description 03/12/2023 Telephone [facility]ULT [facility] [address] [place] [address] Matias Chase DDS [address] [place] [address] appt for cleaning Social History Tobacco Use [...] Upcoming Encounters Date Type Department Care Team ([facility] st Contact Info) Description 08/23/2024 9:00 AM EDT Office Visit [facility] ADULT DENTAL [address] [place] [address] Wendy Dill documented as of this encounter Visit Diagnoses Not on filedocumented in this encounter
--- OUTSIDE RECORDS SUMMARY | 2024-08-11 13:54 | XMS_ITS | Encounter Summary ---
Author Organization [facility] Address [address] [place] [address] 7 [place] [address] Care Team Providers Care Cash Management Officer Name Role Phone Unavailable Primary Care Provider Unavailabl e Encounter Details Date Type Department Care Team (Latest Contact Info) Description 01/04/2021 Abstract [facility] CONVERSIONS Dental, Provider, DDS Social [...] Description 08/23/2024 9:00 AM EDT Office Visit [facility] ADULT DENTAL [address] [place] [address] Wendy Dill documented as of this encounter Visit Diagnoses Not on filedocumented in this encounter
== END 2024-08-11 11:34 | disposition home or self-care (01) ==
LOC: HO.HBS 11:18
PROVIDERS: PCP Internal Medicine; Visit Provider Physician Assistant Surgical
DX: E66.812 Obesity, class 2 (principal); Z68.38 Body mass index [BMI] 38.0-38.9, adult; Z90.3 Acquired absence of stomach [part of]; Z98.84 Bariatric surgery status
CPT/HCPCS: 99214; G2211

== ENCOUNTER → 2024-08-11 11:18 | Outpatient (BNVA) | payer OTHER, SELFPAY | PROVIDERS: PCP Internal Medicine; Visit Provider Physician Assistant Surgical ==

== ENCOUNTER 2024-08-22 13:47 | Outpatient (AMB) | payer OTHER, SELFPAY ==
[2024-08-22 13:49] VITALS: BP 128/84; PULSE 68; O2SAT 99; BMI 38.1
--- NOTE | 2024-08-22 13:49 | A.OFFVIS_ITS ---
Vital Signs 08/22/24 13:49 Height 5 ft 9 in Weight 258 lb BMI 38.1 BP 128/84 Blood Pressure Location Rt brachial Position Sitting Pulse 68 Pulse Source Pulse Oximeter Pulse Oximetry (%) 99 Oxygen Delivery Method Room Air Intake Visit Reasons: INP-Other amnesia Intake Note: Patient referred by Dr. Chung for memory loss. Allergies No Known Allergies [No Known Allergies*] Allergy (Verified 08/22/24 13:52) Medication List - Last Reconciled 08/22/24 by Pretty Corrales MD acetone (urine) test (Ketone Urine Test strips) As directed blood pressure monitor (Blood Pressure Kit) As directed blood sugar diagnostic (FreeStyle Lite Strips) prn low or high glucose to confirm sensor accuracy tid blood-glucose meter (FreeStyle Lite Meter kit) As directed bupropion HCl XL 150 mg PO QAM 90 days cetirizine (All Day Allergy (cetirizine)) 10 mg PO DAILY PRN 90 days [diabetic shoes with inserts As directed] insulin glargine (Lantus U-100 Insulin) 17 units (0.17 mL) subcut DAILY PRN 30 days insulin lispro (Humalog U-100 Insulin) up to 60 units daily via pump subcutaneously use as directed; 30 days insulin pump cart,auto,BT,G6/7 (Omnipod 5 G6-G7 Pods (Gen 5) subcutaneous cart ridge) USE DIRECTED insulin pump cart,automated,BT (Omnipod 5 G6 Pods (Gen 5) subcutaneous cartridge) USE DIRECTED insulin syringe-needle U-100 (BD Veo Insulin Syringe Ultra-Fine) As directed once daily insulin syringe-needle U-100 (BD Insulin Syringe Ultra-Fine) As directed up to quid for pump failure or glucose correction lancets (FreeStyle Lancets) 4x daily leg brace (SHAUNA Knee Brace) As directed levothyroxine 137 mcg PO DAILY 90 days melatonin 10 mg PO BEDTIME PRN 90 days methocarbamol 500 mg PO TID PRN 10 days metoprolol succinate ER 25 mg PO DAILY vjtmmqpcaxns-usa-miwj-FA-vit K 45 mg iron- 800 mcg-120 mcg (Bariatric Multivitamins) caps PO pen needle, diabetic (BD Citlaly 2nd Gen Pen Needle) qid prn sensor failure or to confirm readings rosuvastatin 40 mg PO DAILY TENS units (TENS 502 device) As directed triamcinolone acetonide 0.5% 1 appl topical DAILY 7 days vitamin A palmitate 10,000 units PO DAILY HPI Comments Details: 34y/o male comes for evaluation of memory issues. He reports memory issues his whole life and worse in the past few years.He reports both short term and intermediate manager memory issues. He has h/o diabetes - diagnosed at age 14 - well controlled since 20. He has h/o depression and anxiety- stable now with therapy. He has poor sleep, has snoring, frequent arousals. He denies any major head injuries. He had some minor injuries when he was young. No family h/o dementia [facility] Medical History (Updated 08/22/24 @ 14:44 by Pretty Corrales MD) Hypersomnia Snoring Diabetes mellitus type 1 Major depressive disorder, recurrent, moderate Insulin pump in place DJD (degenerative joint disease) Insomnia Obesity due to excess calories NATALIO (generalized anxiety disorder) Goiter HLD (hyperlipidemia) Constipation by delayed colonic transit Hypothyroidism Morbid obesity Hypertension Dyslipidemia Microalbuminuria Diabetes type 1, controlled Surgical History S/P laparoscopic sleeve gastrectomy Family History Father No problems noted. Mother Obesity Social History Housing: Apartment Are you a primary career discovery teacher to a significant other at home: No Do you presently have visiting nurse or other home services: No Alcohol intake: never Patient Tobacco Use Status: Never used Tobacco e-Cigarette/Vaping Use: Never Used Second Hand Smoke Exposure: No service: No Current occupational status: unemployed Cognitive needs: No Hearing needs: No Vision needs: Yes Physical Exam Vital Signs: Last Vital Signs Pulse 68 08/22/24 13:49 BP 128/84 08/22/24 13:49 Pulse Ox 99 08/22/24 13:49 Oxygen Delivery Method Room Air 08/22/24 13:49 BMI result Body Mass Index 38.1 Const General: cooperative, healthy appearing and comfortable; No no acute distress Nutritional Appearance: overweight Orientation/consciousness: patient oriented x3 Eyes Pupils: Equal, round and reactive pupils present Neuro General: patient oriented x3, gait normal, tone normal, moves all extremities and no focal motor deficits Cranial nerves: Yes Facial sensation intact/muscles of mastication intact, Yes Equal, round and reactive pupils present, Yes Bilaterally intact EOM present, Yes Nystagmus not present, Yes Normal facial strength present, Yes Midline tongue present, Yes Symmetric palate elevation present and Yes Ability to bilaterally elevate shoulders present Cognition (Neuro): normal cognition Gait exam (Neuro): Normal gait present Motor exam (neuro): 5/5 motor strength present throughout and Normal motor muscle tone present throughout Deep tendon reflexes (DTR's): Right triceps reflex intensity grade: 1+, Left triceps reflex intensity grade: 1+, Rt Biceps (C5, C6): 0, Left biceps reflex intensity grade: 0, Right brachioradialis reflex intensity grade: 0, Left brachioradialis reflex intensity grade: 0, Right patellar reflex intensity grade: 1+ and Left patellar reflex intensity grade: 1+ Coordination: [id number]-ls-[id number] test normal Orientation What is the (year) (season) (date) (day) (month)?: year, season, date, day and month Where are we (state) (county) (town or city) (hospital) (floor)?: state, county, town or city, hospital/clinic and floor Registration Name of 3 unrelated objects clearly and slowly, then ask patient to repeat all 3 of them. (1st repeat determines score. Make sure they can repeat all three): object 1, object 2 and object 3 Attention & Calculation (CHOOSE ONE) Spell WORLD backwards (DLROW): 5 letters Recall Ask patient to repeat the 3 items from question #3.: object 1 and object 3 Language Show patient a wristwatch & ask what it is. Repeat for pencil.: watch and pencil Ask the patient to repeat the phrase 'No ifs, ands, or buts' after you.: correct Ask the patient to 'take a piece of paper with their right hand' 'fold paper in half' 'place paper on floor': take paper in right hand, fold paper in half and place paper on floor Print the sentence 'CLOSE YOUR EYES' on a piece. If patient actually closes eyes then score.: followed written direction Give patient a blank piece of paper & ask to write a sentence. Score if it contains a noun & verb.: sentence contains subject and verb Ask patient to copy figure of intersecting pentagons exactly. Score if all 10 angles & 2 intersects are included.: all 10 angles present & 2 are intersected Score Score: 29 Assessment & Plan Assessment & Plan (1) Memory loss: Code(s): R41.3 - Other amnesia Category: Medical (2) Snoring: Code(s): R06.83 - Snoring Category: Medical (3) Hypersomnia: Code(s): G47.10 - Hypersomnia, unspecified Category: Medical Plan I will evaluate him with MRI brain Vit B 12 TSH RPR CBC CMP Discussed about managing risk factors like diabetes, HTN SLeep study to r/o sleep apnea. Orders: Orders Complete Blood Count Auto Diff Today R41.3 - Other amnesia RT PSG in-lab sleep study Today G47.10 - Hypersomnia, unspecified, R06.83 - Snoring Comprehensive Met. Panel Today R41.3 - Other amnesia Erythrocyte Sedimentation Rate Today R41.3 - Other amnesia TSH reflex Free T4 Today R41.3 - Other amnesia Vitamin B12 and Folate Today R41.3 - Other amnesia MR head/brain wo con Today G47.10 - Hypersomnia, unspecified, R06.83 - Snoring Coding Level of Care Code New Pt Level 4 (23837) Diagnoses Memory loss R41.3 Snoring R06.83 Hypersomnia G47.10
--- OUTSIDE RECORDS SUMMARY | 2024-08-22 16:04 | XMS_ITS | Encounter Summary ---
Author Organization [facility] Address [address] [place] [address] [address] [address] Care Team Providers Care Switchgear Repairer Name Role Phone Unavailable Primary Care Provider Unavailabl e Reason for Visit * Reason Onset Date Comments medication 02/03/2023 Encounter Details Date Type Department Care Team (Late st Contact Info) Description 02/03/2023 Telephone [facility] [address] [place] [address] Matias Chase DDS [address] [place] [address] medication Social History Tobacco Use Types Packs/Day [...] 9:00 AM EDT Office Visit [facility] [address] [place] [address] Wendy Dill documented as of this encounter Visit Diagnoses Not on filedocumented in this encounter
--- OUTSIDE RECORDS SUMMARY | 2024-08-22 16:04 | XMS_ITS | Encounter Summary ---
Author Organization [facility] Address [address] [place] [address] [address] [place] [address] Care Team Providers Care Exhaust Equipment Operator Name Role Phone Unavailable Primary Care Provider Unavailabl e Encounter Details Date Type Department Care Team (Latest Contact Info) Description 01/04/2021 Abstract [facility] CONVERSIONS Dental, Provider, DDS Social History Tobacco [...] Description 08/23/2024 9:00 AM EDT Office Visit [facility] ADULT DENTAL [address] [place] [address] Wendy Dill documented as of this encounter Visit Diagnoses Not on filedocumented in this encounter
--- OUTSIDE RECORDS SUMMARY | 2024-08-22 16:04 | XMS_ITS | Encounter Summary ---
Author Organization [facility] Address [address] [place] [address] [address] [place] [address] Care Team Providers Care Hyperbaric Technician Name Role Phone Unavailable Primary Care Provider Unavailabl e Encounter Details Date Type Department Care Team (Late st Contact Info) Description 06/29/2023 Abstract [facility] ADULT DENTAL [address] [place] [address] [facility] [address] [place] [address] Social History Tobacco Use Types Packs/Day Years [...] Description 08/23/2024 9:00 AM EDT Office Visit [facility] ADULT DENTAL [address] [place] [address] Wendy Dill documented as of this encounter Visit Diagnoses Not on filedocumented in this encounter
--- OUTSIDE RECORDS SUMMARY | 2024-08-22 16:04 | XMS_ITS | Encounter Summary ---
Author Organization [employer] Address [address] [place] [address] [address] [place] [address] Care Team Providers Care Employment Services Director Name Role Phone Unavailable Primary Care Provider Unavailabl e Reason for Visit * Reason Onset Date Comments appt for cleaning 03/12/2023 Encounter Details Date Type Department Care Team ([facility] Contact Info) Description 03/12/2023 Telephone [facility] ADULT [facility] [address] [place] [address] Matias Chase DDS [address] [place] [address] appt for cleaning Social History Tobacco Use [...] Upcoming Encounters Date Type Department Care Team ([facility] st Contact Info) Description 08/23/2024 9:00 AM EDT Office Visit [facility] ADULT DENTAL [address] [place] [address] Wendy Dill documented as of this encounter Visit Diagnoses Not on filedocumented in this encounter
--- OUTSIDE RECORDS SUMMARY | 2024-08-22 16:04 | XMS_ITS | Clinical Summary ---
Author Organization [email or web address] Address [address] [place] [address] [address] [place] [address] Care Team Providers Care Inventory And Pricing Associate Name Role Phone Unavailable Primary Care Provider [...] Description 08/23/2024 9:00 AM EDT Office Visit [facility] ADULT DENTAL [address] [place] [address] Wendy Dill Health Maintenance Due Date Last [...]
== END 2024-08-22 15:32 | disposition home or self-care (01) ==
LOC: HO.HSMS 13:47
PROVIDERS: PCP Internal Medicine; Visit Provider Psychiatry & Neurology Neurology
DX: R41.3 Other amnesia (principal); R06.83 Snoring; G47.10 Hypersomnia, unspecified
CPT/HCPCS: 99204

== ENCOUNTER → 2024-08-22 13:47 | Outpatient (BNVA) | payer OTHER, SELFPAY | PROVIDERS: PCP Internal Medicine; Visit Provider Psychiatry & Neurology Neurology | DX: R41.3 Other amnesia (principal); R06.83 Snoring; G47.10 Hypersomnia, unspecified | CPT/HCPCS: 99202 ==

== ENCOUNTER 2024-08-23 10:31 | Outpatient (REF) | payer OTHER, SELFPAY ==
[2024-08-23 11:14] LABS: MANUAL DIFF FLAG NO
[2024-08-23 11:53] LABS: Basophils Absolute Auto 0.1 X10*3/uL (0.0-0.2); Basophils Percent Auto 1.3 % (0-2); Eosinophils Absolute Auto 0.2 X10*3/uL (0.0-0.4); Eosinophils Percent Auto 3.7 % (0-4); Hematocrit 43.7 % (42.0-52.0); Lymphocytes Absolute Auto 1.7 X10*3/uL (1.2-4.9); Lymphocytes Percent Auto 36.6 % (20-40); Mean Corpuscular Hemoglobin 28.8 pg (27.0-33.0); Mean Corpuscular Volume 89.9 fL (80.0-98.0); Mean Platelet Volume 9.4 fL (9.4-12.4); Monocytes Absolute Auto 0.3 X10*3/uL (0.1-1.2); Monocytes Percent Auto 5.5 % (2-11); Neutrophils Absolute Auto 2.4 x10*3/uL (2.0-8.3); Neutrophils Percent Auto 52.9 % (45-73); Platelet Count 260 X10*3/uL (160-400); Red Blood Count 4.86 X10*6/uL (4.60-5.80); Red Cell Distribution Width 13.5 % (11.0-16.0); White Blood Count 4.6 X10*3/uL (4.8-10.8)
[2024-08-23 12:31] LABS: Erythrocyte Sedimentation Rate 3 MM/HR (0-15)
[2024-08-23 12:35] LABS: Creatinine Urine 131.81 mg/dL; Microalbum/Creatinine Ratio Ur 4.5 ug/mg cr (<30)
[2024-08-23 12:41] LABS: Anion Gap 9 (12-20); Blood Urea Nitrogen 14 mg/dL (9-16); Calcium 9.2 mg/dL (8.4-10.2); Carbon Dioxide 29 mmol/L (22-29); Chloride 107 mmol/L (96-108); Estimated Glomerular Filt Rate > 60; Glucose Random 107 mg/dL (60-115); Potassium 4.3 mmol/L (3.3-5.1); Sodium 141 mmol/L (135-145)
[2024-08-23 12:53] LABS: Alanine Aminotransferase 22 U/L (0-40); Albumin Level 3.9 g/dL (3.5-5.0); Alkaline Phosphatase 70 U/L (39-117); Anion Gap 8 (12-20); Aspartate Amino Transferase 24 U/L (5-37); Bilirubin Total 0.8 mg/dL (0.0-1.0); Blood Urea Nitrogen 15 mg/dL (9-16); Carbon Dioxide 29 mmol/L (22-29); Chloride 108 mmol/L (96-108); Cholesterol 158 mg/dL (<200); Estimated Glomerular Filt Rate > 60; Glucose Fasting 107 mg/dL (60-99); Glucose Random 107 mg/dL (60-115); HDL Cholesterol 58 mg/dL (>40); LDL Cholesterol Calculated 92 mg/dL (<100); Potassium 4.3 mmol/L (3.3-5.1); Sodium 141 mmol/L (135-145); Total Protein 7.1 g/dL (6.5-8.0); Triglycerides 42 mg/dL (<150)
[2024-08-23 13:02] LABS: Vitamin D 25-OH Total 34.5 ng/mL (>30)
[2024-08-23 13:08] LABS: Folate 11.3 ng/mL (> or = 4.0); Vitamin B12 704 pg/mL (200-900)
[2024-08-23 13:10] LABS: TSH reflex Free T4 0.99 uIU/mL (0.32-4.0); Thyroid Stimulating Hormone 0.99 uIU/mL (0.32-4.0)
[2024-08-23 13:12] LABS: Folate 11.2 ng/mL (> or = 4.0); Vitamin B12 575 pg/mL (200-900)
[2024-08-25 23:23] LABS: Zinc 57 mcg/dL (60-130)
[2024-08-26 16:39] LABS: Vitamin A 32 mcg/dL (38-98)
[2024-08-28 11:48] LABS: Vitamin B1 12 nmol/L (8-30)
== END 2024-08-23 10:32 | disposition home or self-care (01) ==
LOC: HO.LAB 10:31
PROVIDERS: Nurse Practitioner Adult Health; Absent Provider Physician Assistant Surgical; PCP Internal Medicine; Referring Provider Internal Medicine; Visit Provider Psychiatry & Neurology Neurology
DX: R41.3 Other amnesia (principal); Z98.84 Bariatric surgery status; E53.8 Deficiency of other specified B group vitamins; E10.9 Type 1 diabetes mellitus without complications; E78.5 Hyperlipidemia, unspecified; E03.9 Hypothyroidism, unspecified; E55.9 Vitamin D deficiency, unspecified; E10.649 Type 1 diabetes mellitus with hypoglycemia without coma
CPT/HCPCS: 36415; 80048; 80053; 80061; 82043; 82306; 82570; 82607; 82746; 84425; 84443; 84590; 84630; 85025; 85652

== ENCOUNTER 2024-10-19 10:19 | Outpatient (AMB) | payer OTHER, SELFPAY ==
--- NOTE | 2024-10-19 07:29 | A.OFFVIS_ITS ---
Vital Signs 10/19/24 10:28 Height 5 ft 9 in Weight 271 lb 2.697 oz BMI 40.0 BP 120/80 Blood Pressure Location Rt brachial Position Sitting Pulse 78 Pulse Source Pulse Oximeter Pulse Oximetry (%) 98 Oxygen Delivery Method Room Air Intake Visit Reasons: T1DM Intake Note: Patient presents today for a follow-up on Type 1 Diabetes Mellitus, patient on insulin pump: Last Diabetic Eye exam: DUE Last Podiatry Exam: Does not see a [employer] Mdm Architect Most recent HbA1c: 6.3%, 10/19/2024 Random Glucose- 112 mg/dL, Today Health Aid Required: No Accompanied by: Self / Same As Patient Allergies No Known Allergies [No Known Allergies*] Allergy (Verified 10/19/24 10:29) HPI Comments Details: Patient is 34-year-old male with DM type 1 diagnosed in 2013 who presents for management of diabetes. He was last seen 07/12/2024. He is on an Omnipod insulin pump A1c is 6.3 in the office today. Past medical history: DM1, HLD Micro and macrovascular complications: mild retinopathy NPDR no nephropathy or neuropathy C-peptide is suppressed Diabetes medications: Humalog via Omnipod Dash Basal rate(s) (units/hour) 12 AM 0.75 units/hr 6AM 1.4 units/hr 10am 1.25 units/hr? Bolus setting Insulin Carbohydrate Ratio (s) 12AM 1:6 3pm new 4AM 1:5.5 Correction Factor / Sensitivity Factor 12 AM to 12 AM 1:15 Active Insulin Time:? 3 hours Target(s): 12 AM to 12 AM 120 mg/dL Dexcom average glucose: 139 14 day continuous glucose monitor report reviewed Glucose Managment indicator 6.6 % Days with CGM data 93.5 % TIme in ranges: 2 % very high (above 250) 14 % high ?(181-250) 83 % in range ?(70-180] 1 % low (69-55) 0 % ?very low (below 54) Interpretation in excellent control Basal insulin 46% 21 units bolus insulin 54% 25 units total daily dose 46.9 he is in auto mode 100% of the time in his entering in all of his carbohydrate g He does report that now that it is spring he will be more active after supper with a long walk and plans to try taking just half his insulin for supper as he has a history of running low after walks Pump backup plan 17 units of Lantus and usual doses of Humalog 5-6 units with meals Symptoms reported: denies numbness, tingling, cramping in lower extremities Hypoglycemia: infrequently 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 [employer] Mdm Architect: darrius Dental exam: goes every 6 months Ophthalmology evaluation:appt : 2023 Mild NPDR appt 05/31 Other specialists: darrius [facility] Medical History (Updated 08/22/24 @ 14:44 by Pretty Corrales MD) Hypersomnia Snoring Diabetes mellitus type 1 Major depressive disorder, recurrent, moderate Insulin pump in place DJD (degenerative joint disease) Insomnia Obesity due to excess calories NATALIO (generalized anxiety disorder) Goiter HLD (hyperlipidemia) Constipation by delayed colonic transit Hypothyroidism Morbid obesity Hypertension Dyslipidemia Microalbuminuria Diabetes type 1, controlled Surgical History S/P laparoscopic sleeve gastrectomy Family History Father No problems noted. Mother Obesity Social History Housing: Apartment Are you a primary nursing care partner to a significant other at home: No Do you presently have visiting nurse or other home services: No Alcohol intake: never Patient Tobacco Use Status: Never used Tobacco e-Cigarette/Vaping Use: Never Used Second Hand Smoke Exposure: No service: No Current occupational status: unemployed Cognitive needs: No Hearing needs: No Vision needs: Yes Physical Exam Vital Signs: Last Vital Signs Pulse 78 10/19/24 10:28 BP 120/80 10/19/24 10:28 Pulse Ox 98 10/19/24 10:28 Oxygen Delivery Method Room Air 10/19/24 10:28 BMI result Body Mass Index 40.0 Const Other: Absence of Cushingoid features. Absence of acromegalic features. Neck exam reveals nl size thyroid about 15 gms. No thyroid nodules palpable. No carotid bruits present. Lungs CTA. Heart S1 S2, Reg R/R. No M/R G. Skin exam reveals absence of vitiligo or acanthosis nigricans. No edema Visual exam of foot performed. No ulcerations or open lesions. No inter digit maceration or fissuring. No onychomycosis, no callouses. Sensation intact to monofilament exam. Vibratory sensation is normal with 128 Hz tuning fork.pulse positive Results AMB Hemoglobin A1c AMB Hemoglobin A1c 6.3 % Last Edit by MARY Bose on 10/19/24 10:51 Results Reviewed Results Reviewed: Laboratory Last Values Glucose (Clinic) 112 mg/dL (60-115) 10/19/24 10:41 Hgb A1c (Clinic) 6.3 % (4.0-6.0) H 10/19/24 10:30 Assessment & Plan Assessment & Plan (1) Diabetes type 1, controlled: Code(s): E10.9 - Type 1 diabetes mellitus without complications Category: Medical Qualifiers: Diabetes mellitus complication status: with hypoglycemia Qualified Code(s): E10.649 - Type 1 diabetes mellitus with hypoglycemia without coma Plan: 34-year-old type 1 diabetic on an Omnipod with the excellent glycemic control. No changes in setting were made today. He is more active in the spring and summer and takes a long walk after supper and has a history of running low at that time. He will try taking just half his insulin dose for supper in watch to see how his glucose readings react He has backup glucometer, test strips lancets and syringes The patient had an opportunity to ask questions regarding treatment plan. The patient expressed understanding and agreement with the above treatment plan. The patient is aware they should contact our office by phone for worsening glucose readings or for any low blood sugars which may warrant a change in diabetes medication. Compliance is encouraged with medications and any followup testing/consults which may have been ordered. Orders: Orders AMB Hemoglobin A1c Today E10.649 - Type 1 diabetes mellitus with hypoglycemia without coma Medications: Changed From insulin syringe-needle U-100 (BD Insulin Syringe Ultra-Fine) As directed up to quid for pump failure or glucose correction 100 ea 1RF To insulin syringe-needle U-100 As directed up to quid for pump failure or glucose correction 100 ea 1RF Refilled metoprolol succinate ER 25 mg PO DAILY 90 tabs 0RF Discontinued pen needle, diabetic (BD Citlaly 2nd Gen Pen Needle) Discontinued Reason: No Longer Medically Relevant qid prn sensor failure or to confirm readings 100 ea 6RF E10.649 - Type 1 diabetes mellitus with hypoglycemia without coma Patient Instructions: Symptoms of DKA (diabetic ketoacidosis): early: frequent urination, dry mouth, fatigue, feeling ill, severe symptoms: ketones in the urine, abdominal pain, nausea, vomiting and weakness. It is important to hydrate with sugar free liquids every 15-30 minutes and bring the sugars down to normal levels. If you are moderate or severe with ketones or unable to bring glucose to less than 200, go to the emergency room. DKA handout given. Troubleshooting after starting new pod or inserting new insulin set: Occlusion, adhesive tape sensitivity, redness Check BG 2 hours after site change Safety information: Importance of a backup plan, for manual injections, proper prescriptions and emergency supplies ketone strips, and rules for testing for ketones Check your feet daily looking for any signs of infection, drainage, redness, ulceration and seek medical attention if this occurs. Break in shoes gradually and do not wear open-toed shoes or walk stocking footed or barefooted. The patient was counseled to achieve a target A1C of 7% (154 avg). Fasting blood sugars should be 90-130 in the morning and less than 180 two hours after meals. Reviewed the relationship between poor diabetic control and the development of complications. Coding Level of Care Code Est Pt Level 4 (01344) Complex EM visit Add On G2211 Diagnoses Controlled type 1 diabetes mellitus with hypoglycemia E10.649 Diabetes mellitus complication status: with hypoglycemia
[2024-10-19 10:28] VITALS: BP 120/80; PULSE 78; O2SAT 98; BMI 40.0
[2024-10-19 10:45] LABS: Glucose, Whole Blood 112 mg/dL (60-115)
--- OUTSIDE RECORDS SUMMARY | 2024-10-19 11:19 | XMS_ITS | Clinical Summary ---
Author Organization [employer] Address [address] [place] [address] [address] [place] [address] Care Team Providers Care Home Management Supervisor Name Role Phone Unavailable Primary Care Provider [...] 01/29/2023 Periodontal disease 01/07/2023 Dental calculus 01/07/2023 Encounters Date Type Department Care Team Description 08/23/2024 9:00 AM EDT Office Visit [facility] [address] [place] [address] Wendy Dill Dental plaque (Primary Dx); Dental calculus; Encounter for dental examination; Periodontal disease from Last 3 Months Social History Tobacco Use Types Packs/Day Years [...] Sign Reading Time Taken Comments Blood Pressure 122/76 08/23/2024 9:05 AM EDT Pulse 72 12/29/2023 11:04 AM EDT Temperature - - Respiratory Rate - - Oxygen Saturation - - Inhaled Oxygen Concentration - - Weight - - Height - - Body Mass Index - - Plan of Treatment Upcoming Encounters Date Type Department Care Team (Late st Contact Info) Description 03/07/2025 10:00 AM EDT Office Visit [facility] [address] [place] [address] Wendy Dill Health Maintenance Due Date Last Done Comments Depression Screening 1990 HIV Screening 1990 SDOH Screening 1990 Alcohol/Substance Use Screening 2002 Family Planning (PISQ) 2005 Hepatitis C Screening 2008 Hepatitis B Vaccines (1 of 3 - 19+ 3-dose series) 2009 COVID-19 Vaccine ( season) 2024 03/10/2022, 05/16/2021, 09/17/2020 Influenza Vaccine (#1) 2024 Dental Oral Exam 02/24/2025 08/23/2024, 05/2023, 09/26/2020 Dental Prophylaxis 02/24/2025 08/23/2024, 0 01/29/2024, 06/05/2023, Additional history exists Tobacco Screening 08/23/2025 08/23/2024 Dental X-Ray: Bitewings 08/24/2025 08/24/19 25, 12/17/2022, 09/26/2020 Dental X-Ray: Full Mouth 08/25/2027 08/23/2024, 0406/2020 DTaP/Tdap/Td Vaccines (2 - Td or Tdap) [...] Procedure Name Priority Date/Time Associated Diagnosis Comments PERIODIC ORAL EVALUATION - ESTABLISHED PATIENT Routine 08/23/2024 9:00 AM EDT CASE PRESENTATION, DETAILED AND EXTENSIVE TREATMENT PLANNING Routine 08/23/2024 9:00 AM EDT ORAL HYGIENE INSTRUCTIONS Routine 08/23/2024 9:00 AM EDT Dental plaque Dental calculus PROPHYLAXIS - ADULT Routine 08/23/2024 9 :00 AM EDT Dental plaque Dental calculus INTRAORAL - COMPLETE SERIES OF RADIOGRAPHIC IMAGES Routine 08/23/2024 9:00 AM EDT from Last 3 Months Insurance [facility] ST[facility] ADULT
--- OUTSIDE RECORDS SUMMARY | 2024-10-19 11:19 | XMS_ITS | Encounter Summary ---
Author Organization [facility] Address [address] [place] [address] [address] [place] [address] Care Team Providers Care Drinking Water Technician Name Role Phone Unavailable Primary Care Provider Unavailabl e Reason for Visit * Reason Onset Date Comments medication 02/03/2023 Encounter Details Date Type Department Care Team (Late Contact Info) Description 02/03/2023 Telephone [facility] [address] [place] [address] Matias Chase DDS [address] [place] [address] medication Social History Tobacco Use Types Packs/Day [...] Would like medication sent to the pharmacy DR documented in this encounter Plan of Treatment Upcoming Encounters Date Type Department Care Team (Late Contact Info) Description 03/07/2025 10:00 AM EDT Office Visit [facility] [address] [place] [address] Wendy Dill documented as of this encounter Visit Diagnoses Not on filedocumented in this encounter
--- OUTSIDE RECORDS SUMMARY | 2024-10-19 11:19 | XMS_ITS | Encounter Summary ---
Author Organization [employer] [facility] Address [address] [place] [address] [address] [place] [address] Care Team Providers Care Strip Machine Tender Name Role Phone Unavailable Primary Care Provider Unavailabl e Reason for Visit * Reason Onset Date Comments appt for cleaning 03/12/2023 Encounter Details Date Type Department Care Team (Late st Contact Info) Description 03/12/2023 Telephone [facility] [address] [place] [address] Matias Chase DDS [address] [place] [address] appt for cleaning Social History Tobacco Use [...] Description 03/07/2025 10:00 AM EDT Office Visit [facility] [address] [place] [address] Wendy Dill documented as of this encounter Visit Diagnoses Not on filedocumented in this encounter
--- OUTSIDE RECORDS SUMMARY | 2024-10-19 11:19 | XMS_ITS | Encounter Summary ---
Author Organization [employer] [facility] Address [address] [place] [address] [address] [place] [address] Care Team Providers Care Portuguese Tutor Name Role Phone Unavailable Primary Care Provider Unavailabl e Encounter Details Date Type Department Care Team (Latest Contact Info) Description 01/04/2021 Abstract [facility] Dental, Provider, DDS Social History [...] Description 03/07/2025 10:00 AM EDT Office Visit [facility] [address] [place] [address] Wendy Dill documented as of this encounter Visit Diagnoses Not on filedocumented in this encounter
--- OUTSIDE RECORDS SUMMARY | 2024-10-19 11:19 | XMS_ITS | Encounter Summary ---
Author Organization [employer] [facility] Address [address] [place] [address] [address] [place] [address] Care Team Providers Care Ux Researcher Name Role Phone Unavailable Primary Care Provider Unavailabl e Encounter Details Date Type Department Care Team (Late st Contact Info) Description 06/29/2023 Abstract [facility] [address] [place] [address] [employer] [address] [place] [address] Social History Tobacco Use Types Packs/Day Years [...] Description 03/07/2025 10:00 AM EDT Office Visit [facility] [address] [place] [address] Wendy Dill documented as of this encounter Visit Diagnoses Not on filedocumented in this encounter
== END 2024-10-19 10:58 | disposition home or self-care (01) ==
LOC: HO.ENCR 10:20
PROVIDERS: PCP Internal Medicine; Visit Provider Nurse Practitioner Adult Health
DX: E10.649 Type 1 diabetes mellitus with hypoglycemia without coma (principal)
CPT/HCPCS: 99214; G2211

== ENCOUNTER → 2024-10-19 10:19 | Outpatient (BNVA) | payer OTHER, SELFPAY | PROVIDERS: PCP Internal Medicine; Visit Provider Nurse Practitioner Adult Health | DX: E10.319 Type 1 diabetes mellitus with unspecified diabetic retinopathy without macular edema (principal); E10.649 Type 1 diabetes mellitus with hypoglycemia without coma; Z96.41 Presence of insulin pump (external) (internal); Z79.4 Long term (current) use of insulin | CPT/HCPCS: 82947; 83036; 99212 ==

== ENCOUNTER 2024-11-17 11:34 | Emergency (ER) | payer OTHER, SELFPAY ==
--- NOTE | ~2024-11-17 | XR_ITS ---
EXAMINATION: XR KNEE 4 OR MORE VIEWS LEFT HISTORY: pain COMPARISON: There are no prior studies available for comparison. FINDINGS: Four views of the left knee are submitted. Osseous mineralization is normal. There is no fracture or dislocation. The joint spaces are preserved. The soft tissues are unremarkable. There is no joint effusion. XR/XR knee LT 4V IMPRESSION: Unremarkable examination of the left knee. Electronically signed by: Janak Alarcon MD 11/17/2024 12:56 PM EDT
[2024-11-17 11:45] VITALS: BP 113/58; PULSE 69; RESP 18; TEMP 36.8; O2SAT 100; BMI 39.1
--- NOTE | 2024-11-17 11:50 | ED.GENADULT ---
HPI - General Adult General Chief complaint: Extremity Injury, Lower Stated complaint: Pain L knee Time Seen by Provider: 11/17/24 13:04 Source: patient, RN notes reviewed and old records reviewed Mode of arrival: ambulatory Limitations: no limitations History of Present Illness ED Provider: Lovely HPI narrative: 34-year-old male presents for evaluation of left knee pain. The patient reports he was walking up the stairs 3 weeks ago. He reports twisting his left but did not fall He has pain to the outside of his left knee ever since pain His pain is worse with walking but he is able to walk His pain is a 6/10 He has not taken any medication help alleviate his symptoms Related Data Home Medications ?Medication ?Instructions ?Recorded ?Confirmed [id number] 45 mg-folic cap PO 05/08/23 08/22/24 acid 800 mcg-vit K 120 mcg capsule (Bariatric Multivitamins) Previous Rx's ?Medication ?Instructions ?Recorded insulin syringe-needle U-100 06/09 #100 ea 09/17/21 mL 31 gauge x 15/64 (BD Veo Insulin Syringe Ultra-Fine) lancets 28 gauge (FreeStyle #100 ea 12/19/21 Lancets) blood pressure monitor (Blood #1 ea 10/15/22 Pressure Kit) TENS units (TENS 502 device) #1 ea 01/06/23 blood-glucose meter (FreeStyle #1 ea 04/27/23 Lite Meter kit) triamcinolone acetonide 0.5 % 1 appl topical DAILY 7 days #15 05/05/23 topical cream grams leg brace (SHAUNA Knee Brace) #2 ea 05/12/23 methocarbamol 500 mg tablet 500 mg PO TID PRN muscle spasm 10 11/27/23 days #30 tabs insulin pump cart,automated,BT #10 ea 01/12/24 (Omnipod 5 G6 Pods (Gen 5) subcutaneous cartridge) acetone (urine) test (Ketone Urine #25 ea 01/19/24 Test strips) rosuvastatin 40 mg tablet 40 mg PO DAILY #90 tabs 04/07/24 insulin lispro 100 unit/mL See Rx Instructions subcut 04/12/24 subcutaneous solution (Humalog USEASDIRECTD 30 days #20 mL U-100 Insulin) insulin glargine 100 unit/mL 17 unit (0.17 mL) subcut DAILY PRN 04/21/24 subcutaneous solution (Lantus prn pump failure 30 days #10 mL U-100 Insulin) vitamin A palmitate 3,000 mcg 10,000 unit PO DAILY #90 caps 05/16/24 (10,000 unit) capsule blood sugar diagnostic (FreeStyle #100 ea 07/21/24 Lite Strips) melatonin 10 mg tablet 10 mg PO BEDTIME PRN sleep 90 days 08/04/24 #90 tabs diabetic shoes with inserts #1 ea 08/09/24 zinc gluconate 30 mg tablet 30 mg PO DAILY #90 tabs 09/05/24 insulin pump cart,auto,BT,G6/7 #10 ea 09/27/24 (Omnipod 5 G6-G7 Pods (Gen 5) subcutaneous cartridge) cetirizine 10 mg tablet (All Day 10 mg PO DAILY PRN allergy 10/03/24 Allergy (cetirizine)) symptoms 90 days #90 tabs insulin syringe-needle U-100 0.3 #100 ea 10/19/24 mL 31 gauge x 5/16 bupropion HCl 150 mg 24 hr tablet, 150 mg PO QAM 90 days #90 tabs 10/31/24 extended release Dexcom G6 Sensor (blood-glucose #3 ea 11/07/24 sensor) blood-glucose transmitter (Dexcom #1 ea 11/08/24 G6 Transmitter device) levothyroxine 137 mcg tablet 137 mcg PO DAILY 90 days #90 tabs 11/08/24 metoprolol succinate 25 mg 25 mg PO DAILY #90 tabs 11/08/24 tablet,extended release 24 hr ibuprofen 600 mg tablet 600 mg PO Q6H PRN pain #20 tabs 11/17/24 Allergies Allergy/AdvReac Type Severity Reaction Status Date / Time No Known Allergies Allergy Verified 11/17/24 11:46 [No Known Allergies*] Review of Systems Constitutional: Constitutional: Denies body ache(s), Denies chills, Denies fever(s) and Denies headache(s) ENT: Denies vertigo, Denies dizziness and Denies headache(s) Musculoskeletal: Musculoskeletal: Reports arthralgias, Reports joint swelling and Reports limited range of motion Neurologic: Denies vertigo, Denies dizziness and Denies headache(s) Psychiatric: Psychiatric: Denies anxiety PMFSH Past Medical History Medical History (Updated 11/17/24 @ 13:06 by Ramone Murry) Hypersomnia Snoring Diabetes mellitus type 1 Major depressive disorder, recurrent, moderate Insulin pump in place DJD (degenerative joint disease) Insomnia Obesity due to excess calories NATALIO (generalized anxiety disorder) Goiter HLD (hyperlipidemia) Constipation by delayed colonic transit Hypothyroidism Morbid obesity Hypertension Dyslipidemia Microalbuminuria Diabetes type 1, controlled Surgical History S/P laparoscopic sleeve gastrectomy Family History Family History Father No problems noted. Mother Obesity Social History Social History Housing: Apartment Are you a primary manager long term care to a significant other at home: No Do you presently have visiting nurse or other home services: No Alcohol intake: never Patient Tobacco Use Status: Never used Tobacco e-Cigarette/Vaping Use: Never Used Second Hand Smoke Exposure: No Advance Directives: No Advance Directives Information Provided: Yes service: No Current occupational status: unemployed Cognitive needs: No Hearing needs: No Vision needs: Yes Physical Exam ED Vital Signs: Vital Signs - 24 hr 11/17/24 11:45 11/17/24 13:07 Temperature 98.3 F 98.3 F Pulse Rate 69 69 Respiratory Rate 18 18 Blood Pressure 113/58 L 113/58 L Pulse Oximetry 100 100 Oxygen Delivery Method Room Air Room Air BMI result Body Mass Index 39.1 Const General: healthy appearing, comfortable, no acute distress, alert and awake Nutritional Appearance: well nourished Orientation/consciousness: patient oriented x3 HENMT Head: Yes normocephalic and Yes atraumatic Throat: Yes posterior oropharynx normal Eyes Eyelids: Yes eyelids normal Conjunctivae: conjunctivae normal Sclerae: sclerae normal Corneas: corneas normal Pupils: Equal, round and reactive pupils present EOM: EOMs intact bilaterally Neck Neck: Yes full ROM Resp Effort & Inspection: normal respiratory effort, able to speak in complete sentences and not labored Cardio Rate: regular rate Rhythm: regular rhythm Skin General skin exam: elasticity normal Neuro General: patient oriented x3 Cranial nerves: Yes Equal, round and reactive pupils present and Yes Bilaterally intact EOM present Cognition (Neuro): normal cognition Extrem Other: Mild tenderness to the left lateral knee. No laxity with anterior drawer testing. The patient has full range of motion with flexion-extension. He has no significant valgus or varus strain. No tenderness. Course Course Course Narrative: RME, this is a rapid medical exam performed by Wilian Murry please refer to primary provider for complete H&P- 34-year-old male presents for evaluation of left knee pain. He reports a few weeks ago he twisted his knee while walking up the stairs. He did not actually fall. He has pain to the lateral side of the knee. No laxity with anterior drawer testing. There was no significant joint effusion. Plan for x-ray. Medical Decision Making Medical Decision Making MDM Narrative: 24-year-old male presents for evaluation of left knee pain after twisting it 3 weeks ago. He has a reassuring exam. X-ray negative for fracture. No concern for infection process. No risk factors for DVT. Plan to discharge him with the patient follow up with Orthopedics. Differential Diagnosis Differential Diagnoses: The differential diagnosis associated with the presentation includes Knee sprain Knee contusion Ligamentous injury Meniscus tear Radiology Impression Discussion of test interpretation with radiology: I have reviewed the radiologist's reading. Radiologist Impression: FINDINGS: Four views of the left knee are submitted. Osseous mineralization is normal. There is no fracture or dislocation. The joint spaces are preserved. The soft tissues are unremarkable. There is no joint effusion. XR/XR knee LT 4V IMPRESSION: Unremarkable examination of the left knee. Electronically signed by: Janak Alarcon MD 11/17/2024 12:56 PM EDT Discharge Plan Discharge Clinical Impression: Acute pain of left knee Patient Disposition: Home, Self-Care Instructions: Knee Pain (ED) Additional Instructions: Your x-ray does not show any fractures. It is possible that you have an injury to the cartilage or ligaments of your left knee Follow up with Orthopedics at the number provided Prescriptions: New ibuprofen 600 mg tablet 600 mg PO Q6H PRN (Reason: pain) Qty: 20 0RF No Action (DME) insulin syringe-needle U-100 [BD Veo Insulin Syringe UF] 1/2 mL 31 gauge x 15/64 syringe See Rx Instructions .Route Qty: 100 11RF Rx Instructions: As directed once daily (DME) lancets [FreeStyle Lancets] 28 gauge misc See Rx Instructions .ROUTE .MEDSUPPLY Qty: 100 11RF Rx Instructions: 4x daily (DME) blood pressure monitor [Blood Pressure Kit] Kit See Rx Instructions .Route Qty: 1 0RF Rx Instructions: As directed (DME) TENS 502 Device See Rx Instructions .Route Qty: 1 0RF Rx Instructions: As directed (DME) blood-glucose meter [FreeStyle Lite Meter] Kit See Rx Instructions .Route Qty: 1 0RF Rx Instructions: As directed (DME) SHAUNA Knee Brace Misc See Rx Instructions .Route Qty: 2 0RF Rx Instructions: As directed methocarbamol 500 mg tablet 500 mg PO TID PRN (Reason: muscle spasm) 10 Days Qty: 30 0RF (DME) Omnipod 5 G6 Pods (Gen 5) Cartridge See Rx Instructions .ROUTE .COMPLEX Qty: 10 3RF Dose Instruction: USE DIRECTED Rx Instructions: USE DIRECTED rosuvastatin 40 mg tablet 40 mg PO DAILY Qty: 90 2RF insulin lispro [Humalog U-100 Insulin] 100 unit/mL solution See Rx Instructions subcut USEASDIRECTD 30 Days Qty: 20 6RF Rx Instructions: up to 60 units daily via pump subcutaneously use as directed; (DME) diabetic shoes with inserts 11 See Rx Instructions .Route .MEDSUPPLY Qty: 1 0RF Rx Instructions: As directed zinc gluconate 30 mg tablet 30 mg PO DAILY Qty: 90 3RF (DME) Omnipod 5 G6-G7 Pods (Gen 5) Cartridge See Rx Instructions .ROUTE .COMPLEX Qty: 10 11RF Dose Instruction: USE DIRECTED Rx Instructions: USE DIRECTED cetirizine [All Day Allergy (cetirizine)] 10 mg tablet 10 mg PO DAILY PRN (Reason: allergy symptoms) 90 Days Qty: 90 0RF bupropion HCl 150 mg tablet extended release 24 hr 150 mg PO QAM 90 Days Qty: 90 0RF (DME) Dexcom G6 Sensor Device See Rx Instructions .Route Qty: 3 6RF Rx Instructions: Use as needed daily (DME) Dexcom G6 Transmitter Device See Rx Instructions .Route Qty: 1 11RF Rx Instructions: As directed levothyroxine 137 mcg tablet 137 mcg PO DAILY 90 Days Qty: 90 1RF metoprolol succinate 25 mg tablet extended release 24 hr 25 mg PO DAILY Qty: 90 0RF triamcinolone acetonide 0.5 % cream 1 appl topical DAILY 7 Days Qty: 15 1RF Bariatric Multivitamins 45 mg iron- 800 mcg-120 mcg capsule PO melatonin 10 mg tablet 10 mg PO BEDTIME PRN (Reason: sleep) 90 Days Qty: 90 1RF vitamin A palmitate 3,000 mcg (10,000 unit) capsule 10,000 unit PO DAILY Qty: 90 3RF (DME) FreeStyle Lite Strips Strip See Rx Instructions .Route Qty: 100 3RF Rx Instructions: prn low or high glucose to confirm sensor accuracy tid (DME) insulin syringe-needle U-100 0.3 mL 31 gauge x 5/16 syringe See Rx Instructions .Route Qty: 100 1RF Rx Instructions: As directed up to quid for pump failure or glucose correction (DME) Ketone Urine Test Strip See Rx Instructions .ROUTE .MEDSUPPLY Qty: 25 1RF Rx Instructions: As directed insulin glargine [Lantus U-100 Insulin] 100 unit/mL solution 17 unit subcut DAILY PRN (Reason: prn pump failure) 30 Days Qty: 10 1RF Referrals: [facility] Orthopedic Surgeons [Provider Group] (left knee pain) Interventions: ED Discharge Assessment Last Done: 11/17/24 13:07 Discharge Date/Time: 11/17/24 13:16 Print Language: Latvian
[2024-11-17 13:07] VITALS: BP 113/58; PULSE 69; RESP 18; TEMP 36.8; O2SAT 100
--- OUTSIDE RECORDS SUMMARY | 2024-11-17 15:24 | XMS_ITS | Encounter Summary ---
Author Organization [email or web address] [facility] Address [address] [place] [address] [address] [address] Care Team Providers Care Harbormaster Name Role Phone Unavailable Primary Care Provider Unavailabl e Reason for Visit * Reason Onset Date Comments medication 02/03/2023 Encounter Details Date Type Department Care Team (Late Contact Info) Description 02/03/2023 Telephone [facility] [address] [place] [address] Matias Chase DDS [address] [place] [address] medication Social History Tobacco Use Types Packs/Day [...] Description 03/07/2025 10:00 AM EDT Office Visit [facility] [address] [place] [address] Wendy Dill documented as of this encounter Visit Diagnoses Not on filedocumented in this encounter
== END 2024-11-17 13:16 | disposition home or self-care (01) ==
LOC: HO.ED 13:15
PROVIDERS: Emergency Provider Emergency Medicine; PCP Internal Medicine
DX: M25.562 Pain in left knee (principal)
CPT/HCPCS: 73564; 99282; 99283

== ENCOUNTER → 2024-11-17 11:51 | Outpatient (BNV) | payer OTHER, SELFPAY | PROVIDERS: PCP Internal Medicine; Visit Provider Radiology Diagnostic Radiology | DX: M25.562 Pain in left knee (principal) | CPT/HCPCS: 73564 ==

== ENCOUNTER 2025-02-02 07:43 | Outpatient (AMB) | payer OTHER, SELFPAY ==
--- OUTSIDE RECORDS SUMMARY | 2025-02-02 07:47 | XMS_ITS | Encounter Summary ---
Author Organization [employer] [facility] Address [address] [place] [address] [address] [place] [address] Care Team Providers Care Senior Analytic Consultant Name Role Phone Unavailable Primary Care Provider Unavailabl e Encounter Details Date Type Department Care Team (Late st Contact Info) Description 06/29/2023 Abstract [facility]ULT [facility] [address] [place] [address] [facility] [address] [place] [address] Social History Tobacco Use Types Packs/Day Years [...] Description 03/07/2025 10:00 AM EDT Office Visit [facility] [address] [place] [address] Wendy Dill documented as of this encounter Visit Diagnoses Not on filedocumented in this encounter
--- OUTSIDE RECORDS SUMMARY | 2025-02-02 07:47 | XMS_ITS | Encounter Summary ---
Author Organization [employer] [facility] Address [address] [place] [address] [address] [place] [address] Care Team Providers Care Rail Crew Member Name Role Phone Unavailable Primary Care Provider Unavailabl e Encounter Details Date Type Department Care Team (Latest Contact Info) Description 01/04/2021 Abstract [facility] CONVERSIONS Dental, Provider, DDS Social [...] Description 03/07/2025 10:00 AM EDT Office Visit [facility]ULT [facility] [address] [place] [address] Wendy Dill documented as of this encounter Visit Diagnoses Not on filedocumented in this encounter
--- OUTSIDE RECORDS SUMMARY | 2025-02-02 07:47 | XMS_ITS | Encounter Summary ---
Author Organization [employer] [facility] Address [address] [place] [address] [address] [place] [address] Care Team Providers Care Life Enrichment Assistant Name Role Phone Unavailable Primary Care Provider Unavailabl e Reason for Visit * Reason Onset Date Comments appt for cleaning 03/12/2023 Encounter Details Date Type Department Care Team (Late st Contact Info) Description 03/12/2023 Telephone [facility] [address] [place] [address] Matias Chase DDS [address] [place] [address] appt for cleaning Social History Tobacco Use [...] Description 03/07/2025 10:00 AM EDT Office Visit [facility] [address] [place] [address] Wendy Dill documented as of this encounter Visit Diagnoses Not on filedocumented in this encounter
--- OUTSIDE RECORDS SUMMARY | 2025-02-02 07:47 | XMS_ITS | Encounter Summary ---
Author Organization [employer] [facility] Address [address] [place] [address] [address] [address] Care Team Providers Care Global Category Manager Name Role Phone Unavailable Primary Care Provider Unavailabl e Reason for Visit * Reason Onset Date Comments medication 02/03/2023 Encounter Details Date Type Department Care Team (Late Contact Info) Description 02/03/2023 Telephone [facility] ADULT [facility] [address] [place] [address] Matias Chase DDS [address] [place] [address] medication Social History Tobacco Use Types Packs/Day [...] Description 03/07/2025 10:00 AM EDT Office Visit [facility] ADULT [facility] [address] [place] [address] Wenyd Dill documented as of this encounter Visit Diagnoses Not on filedocumented in this encounter
--- OUTSIDE RECORDS SUMMARY | 2025-02-02 07:47 | XMS_ITS | Clinical Summary ---
Author Organization [employer] Address [address] [place] [address] [address] [place] [address] Care Team Providers Care Robotics Technician Name Role Phone Unavailable Primary Care [...] Description 03/07/2025 10:00 AM EDT Office Visit [facility]ULT [facility] [address] [place] [address] Wendy Dill Health Maintenance Due Date Last Done Comments Depression Screening 1990 HIV Screening 1990 SDOH Screening 1990 Disability Screening 1990 Alcohol/Substance Use Screening 2002 Family Planning (PISQ) 2005 HPV Vaccines (1 - Male 3-dose series) 2005 Hepatitis C Screening 2008 Hepatitis B Vaccines (1 of 3 - 19+ 3-dose series) 2009 COVID-19 Vaccine ( season) 2024 03/10/2022, 05/16/2021, 09/17/2020 Influenza Vaccine (#1) 2025 Dental Oral Exam 02/24/2025 08/23/2024, 05/2023, 09/26/2020 Dental Prophylaxis 02/24/2025 08/23/2024, 0 01/29/2024, 06/05/2023, Additional history exists Tobacco Screening 08/23/2025 08/23/2024 Dental X-Ray: Bitewings 08/24/2025 08/24/19 25, 12/17/2022, 09/26/2020 Dental X-Ray: Full Mouth 08/25/2027 08/23/2024, 04/2 06/2020 DTaP/Tdap/Td Vaccines (2 - Td or Tdap) [...] patient's age to complete this topic Meningococcal B Vaccine Aged Out No l onger eligible based on patient's age to complete this topic Meningococcal Vaccine Aged Out No andrea alia eligible based on patient's age to complete this topic Pneumococcal Vaccine: Pediatrics (0 to 5 Years) and At-Risk Patients (6 to 49) Years Aged Out No longer eligible based on patient's age to complete this topic RSV under 20 months Aged Out No longe r eligible based on patient's age to complete this topic Rotavirus Vaccines Aged Out No longer eligible based on patient's age to complete this topic Procedures Procedure Name Priority Date/Time Associated Diagnosis Comments PROPHYLAXIS - ADULT Routine 08/23/2024 9 :00 AM EDT Dental plaque Dental calculus INTRAORAL - COMPLETE SERIES OF RADIOGRAPHIC IMAGES Routine 08/23/2024 9:00 AM EDT PERIODIC ORAL EVALUATION - ESTABLISHED PATIENT Routine 08/23/2024 9:00 AM EDT from Last 3 Months or Most Recently Relevant to Health Maintenance [facility] AD[facility]
--- NOTE | 2025-02-02 07:53 | A.OFFVIS_ITS ---
Vital Signs 3 02/02/25 07:54 Height 5 ft 9 in Weight 261 lb 11.019 oz BMI 38.6 BP 104/60 Blood Pressure Location Lt brachial Position Sitting Pulse 66 Pulse Source Pulse Oximeter Pulse Oximetry (%) 99 Intake Visit Reasons: T1DM Intake Note: Patient present today for Type 1 Diabetes Mellitus Last Diabetic eye exam: 09/2024 Last Podiatry Visit: Doesn't have one Random Glucose: 127 mg/dl HgA1C: 5.8% Crusher Setter Required: No Accompanied by: Self / Same As Patient Allergies No Known Allergies (No Known Allergies*) Allergy (Verified 02/02/25 07:58) Medication List - Last Reconciled 02/02/25 by Mindy Dela Cruz MD acetone (urine) test (Ketone Urine Test strips) As directed blood pressure monitor (Blood Pressure Kit) As directed blood sugar diagnostic (FreeStyle Lite Strips) prn low or high glucose to confirm sensor accuracy tid blood-glucose meter (FreeStyle Lite Meter kit) As directed blood-glucose transmitter (Dexcom G6 Transmitter device) As directed bupropion HCl XL 150 mg PO QAM 90 days cetirizine (All Day Allergy (cetirizine)) 10 mg PO DAILY PRN 90 days Dexcom G6 Sensor (blood-glucose sensor) Use as needed daily NS [diabetic shoes with inserts As directed] ibuprofen 600 mg PO Q6H PRN insulin glargine (Lantus U-100 Insulin) 17 units (0.17 mL) subcut DAILY PRN 30 days insulin lispro (Humalog U-100 Insulin) up to 60 units daily via pump subcutaneously use as directed; 30 days insulin pump cart,auto,BT,G6/7 (Omnipod 5 G6-G7 Pods (Gen 5) subcutaneous cartridge) USE DIRECTED insulin pump cart,automated,BT (Omnipod 5 G6 Pods (Gen 5) subcutaneous cartridge) USE DIRECTED insulin syringe-needle U-100 (BD Veo Insulin Syringe Ultra-Fine) As directed once daily insulin syringe-needle U-100 As directed up to quid for pump failure or glucose correction lancets (FreeStyle Lancets) 4x daily leg brace (SHAUNA Knee Brace) As directed levothyroxine 137 mcg PO DAILY 90 days melatonin 10 mg PO BEDTIME PRN 90 days methocarbamol 500 mg PO TID PRN 10 days metoprolol succinate ER 25 mg PO DAILY qmsjfhbcopli-zkc-yris-FA-vit K 45 mg iron- 800 mcg-120 mcg (Bariatric Multivitamins) caps PO rosuvastatin 40 mg PO DAILY TENS units (TENS 502 device) As directed triamcinolone acetonide 0.5% 1 appl topical DAILY 7 days vitamin A palmitate 10,000 units PO DAILY zinc gluconate 30 mg PO DAILY HPI Comments Details: 34-year-old male with DM type 1 here for follow up. Last seen in October 2024 by Tootie Mcnair APRN History of diabetes diagnosed in 2013 C-peptide is suppressed He is on an Omnipod 5 insulin pump with Dexcom G6 with Humalog U 100 Random Glucose: 127 mg/dl A1c 02/02/25 POC 5.8 % 10/19/2024 POC 6.3 % Past medical history: DM1, HLD Last Diabetic eye exam: 09/2024, mild retinopathy NPDR Last Podiatry Visit: Doesn't have one, no neuropathy No history of kidney disease, normal urine microalbumin from August 2024, EGFR greater than August No history of macrovascular complications Has dyslipidemia, on rosuvastatin 40 mg daily, Last LDL 98 from August 2024 Pump and CGM data downloaded from January 20 to 02/02/2025 Within target range 80% High 14% Very high 3% Low 3% Very low 0% Average glucose 138 mg/dL G MN 6.6% Coefficient of variation 34.7% Time CGM activity 9% Interpretation: Blood sugars with a an excellent control overnight, he does have some postprandial hyperglycemia Insulin use Insulin per day: 35.1 units Total basal per day 18.3 units (52%) Total bolus per day 16.8 units (48%) With a an automated mode 98% Carbs per day 89.6 g Basal rate(s) (units/hour) 12 AM 0.55 units/hr 6AM 1.8 units/hr 10am 1.3 units/hr? Bolus setting Insulin Carbohydrate Ratio (s) 12AM 1:5 6AM 6 3 30pm 6.5 Correction Factor / Sensitivity Factor 12 AM to 12 AM 1:20 Active Insulin Time:? 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 assistant Dental exam: goes every 6 months Other specialists: denies Physical exam General: sitting comfortably in no acute distress HEENT: normocephalic/atraumatic, EOM intact, moist oral mucosa Neck: supple, symmetrical, no thyromegaly , no dorsocervical or supraclavicular fat pads Cardiac: normal heart sounds Pulm: normal breath sounds B/L, no added breath sounds Abd: not distended, no tenderness Extremities: no edema, no signs of myxedema Neuro: AAO x3, Speech: normal, no facial droop, moving all 4 extremities Skin: no rash Foot exam: intact sensation to monofilament, intact pulses, intact vibration Laboratory Tests 08/23/24 08/23/24 10/19/24 11:12 11:15 10:30 Hgb 14.0 Hct 43.7 Plt Count 260 Creatinine 0.76 Estimated GFR > 60 Glucose (Clinic) Hgb A1c (Clinic) 6.3 H Triglycerides 42 Cholesterol 158 LDL Cholesterol, Calc 92 HDL Cholesterol 58 TSH 0.99 Urine Creatinine 131.81 Urine Microalbumin 6.0 Microalb/Creat Ratio 4.5 02/02/25 08:00 Hgb Hct Plt Count Creatinine Estimated GFR Glucose (Clinic) 127 H Hgb A1c (Clinic) Triglycerides Cholesterol LDL Cholesterol, Calc HDL Cholesterol TSH Urine Creatinine Urine Microalbumin Microalb/Creat Ratio [facility] Medical History (Updated 02/02/25 @ 08:41 by Mindy Dela Cruz MD) Hypersomnia Snoring Diabetes mellitus type 1 Major depressive disorder, recurrent, moderate Insulin pump in place DJD (degenerative joint disease) Insomnia Obesity due to excess calories NATALIO (generalized anxiety disorder) Goiter HLD (hyperlipidemia) Constipation by delayed colonic transit Hypothyroidism Morbid obesity Hypertension Dyslipidemia Microalbuminuria Diabetes type 1, controlled Surgical History S/P laparoscopic sleeve gastrectomy Family History Father No problems noted. Mother Obesity Social History Housing: Apartment Are you a primary wound care center consultant to a significant other at home: No Do you presently have visiting nurse or other home services: No Alcohol intake: never Patient Tobacco Use Status: Never used Tobacco e-Cigarette/Vaping Use: Never Used Second Hand Smoke Exposure: No service: No Current occupational status: unemployed Cognitive needs: No Hearing needs: No Vision needs: Yes Physical Exam Vital Signs: Last Vital Signs Pulse 66 02/02/25 07:54 BP 104/60 02/02/25 07:54 Pulse Ox 99 02/02/25 07:54 BMI result Body Mass Index 38.6 Office Procedures Glucose Monitoring Details Details: see [facility] - Glucose monitoring, continuous-physician I&R Procedure code (CPT) selection complete Results AMB Hemoglobin A1c 2 AMB Hemoglobin A1c 5.8 % Last Edit by MARY Peralta on 02/02/25 08:09 Results Reviewed Results Reviewed: Laboratory Last Values Glucose (Clinic) 127 mg/dL (60-115) H 02/02/25 08:00 Assessment & Plan Assessment & Plan (1) Diabetes type 1, controlled: Code(s): E10.9 - Type 1 diabetes mellitus without complications Category: Medical Plan: 34-year-old male with type 1 diabetes mellitus with complication of retinopathy on Omnipod 5 with Dexcom G6 with the Humalog U 100 with the excellent glycemic control. A1c POC 02/02/2025 at 5.8%, he is within target range 80% of the time. However I did see that some days he is getting postprandial hyperglycemia mostly because he is not pre bolusing and then when he gives a bolus too late he does have some hypoglycemia. We talked about this and discussed importance of pre bolusing. I also noticed that he is only using about 18 units of basal insulin per day but his manual basal program is entered as about 28 units per day. I modified his manual mode basal rates so that they reflect more of his current basal usage in case he gets out of automated mode. We will see him back in about 2 to 3 months The patient had an opportunity to ask questions regarding treatment plan. The patient expressed understanding and agreement with the above treatment plan. The patient is aware they should contact our office by phone for worsening glucose readings or for any low blood sugars which may warrant a change in diabetes medication. Compliance is encouraged with medications and any followup testing/consults which may have been ordered. (2) Insulin pump in place: Code(s): Z96.41 - Presence of insulin pump (external) (internal) Category: Medical Plan: He has backup glucometer, test strips lancets and syringes Has backup Lantus:Pump backup plan 17 units of Lantus and usual doses of Humalog 5-6 units with meals Has urine ketone strips Prescribed nasal Baqsimi Plan I spent 30 minutes in reviewing the record, seeing the patient and documenting in the medical record. Orders: Orders 2 AMB Hemoglobin A1c Today E10.649 - Type 1 diabetes mellitus with hypoglycemia without coma, Z13.9 - Encounter for screening, unspecified AMB Glucose Monitoring Today E10.649 - Type 1 diabetes mellitus with hypoglycemia without coma Medications: New 2 blood-glucose transmitter (Dexcom G6 Transmitter device) As directed every 3 months 1 ea 12RF glucagon 3 mg/actuation (Baqsimi) 3 mg intranasal ONCE PRN 1 ea 2RF in case of emergency Changed 2 From insulin pump cart,auto,BT,G6/7 (Omnipod 5 G6-G7 Pods (Gen 5) subcutaneous cartridge) USE DIRECTED 10 ea 11RF To insulin pump cart,auto,BT,G6/7 (Omnipod 5 G6-G7 Pods (Gen 5) subcutaneous cartridge) USE DIRECTED every 3 days 10 ea 12RF From Dexcom G6 Sensor (blood-glucose sensor) Use as needed daily 3 ea 6RF NS E10.649 - Type 1 diabetes mellitus with hypoglycemia without coma To Dexcom G6 Sensor (blood-glucose sensor) every 10 days 3 ea 9RF NS E10.649 - Type 1 diabetes mellitus with hypoglycemia without coma Refilled 2 insulin glargine (Lantus U-100 Insulin) 17 units (0.17 mL) subcut DAILY PRN 10 mL 2RF prn pump failure 30 days insulin syringe-needle U-100 As directed up to quid for pump failure or glucose correction 100 ea 2RF insulin lispro (Humalog U-100 Insulin) up to 60 units daily via pump subcutaneously use as directed; 20 mL 6RF 30 days Discontinued 2 insulin syringe-needle U-100 (BD Veo Insulin Syringe Ultra-Fine) Discontinued Reason: Doctor's Order As directed once daily 100 ea 11RF Patient Instructions: Rule of 15 Treatment for Hypoglycemia (Low blood sugar) If your blood glucose is low (70 and below)*, follow the steps below to treat: Eat or drink something from the list below equal to 15 grams of carbohydrate (carb). Rest for 15 minutes Re-check your blood glucose. If it is still low, (below 70), repeat step 1 above. ? If your next meal is more than an hour away, you will need to eat one carbohydrate choice as a snack to keep your blood glucose from going low again. ?If you can't figure out why you have low blood glucose, call your healthcare provider, as your medicine may need to be adjusted. ?Always carry something with you to treat an insulin reaction. Use food from the list below. ? Foods equal to One Carbohydrate Choice (15 grams of carbohydrate): 3 Glucose ?tablets or 4 Dextrose tablets 4 ounces of fruit juice 5-6 ounces (about 1/2 can) of regular soda such as Coke or Pepsi ? 7-8 gummy or regular Life Savers ? 1 Tbsp. of sugar or jelly NOTE: If your blood sugar is less than 50, double the portion above for a total of 30 gm. ?Carbohydrate. ? Follow meal plan of 45-60 g of consistent carbohydrates at 3 meals each day and 15 g of carbohydrate at 1-2 snacks each day. Coding Level of Care Code Est Pt Level 4 (00506) Diagnoses Diabetes type 1, controlled E10.[address] Z96.41 CPT Codes Details - CPT: 78952 - Glucose monitoring, continuous-physician I&R ([id number]) Time Spent (min) 30
[2025-02-02 07:54] VITALS: BP 104/60; PULSE 66; O2SAT 99; BMI 38.6
[2025-02-02 08:04] LABS: Glucose, Whole Blood 127 mg/dL (60-115)
== END 2025-02-02 08:36 | disposition home or self-care (01) ==
LOC: HO.ENCR 07:43
PROVIDERS: PCP Internal Medicine; Visit Provider Student in an Organized Health Care Education/Training Program
DX: E10.9 Type 1 diabetes mellitus without complications (principal); Z96.41 Presence of insulin pump (external) (internal); Z13.9 Encounter for screening, unspecified; E10.649 Type 1 diabetes mellitus with hypoglycemia without coma
CPT/HCPCS: 95251; 99214

== ENCOUNTER → 2025-02-02 07:43 | Outpatient (BNVA) | payer OTHER, SELFPAY | PROVIDERS: PCP Internal Medicine; Visit Provider Student in an Organized Health Care Education/Training Program | DX: E10.649 Type 1 diabetes mellitus with hypoglycemia without coma (principal); Z96.41 Presence of insulin pump (external) (internal) | CPT/HCPCS: 82947; 83036; 99212 ==

== ENCOUNTER 2025-02-03 08:06 | Outpatient (AMB) | payer OTHER, SELFPAY ==
--- NOTE | 2025-02-03 08:38 | MHC.OFFVIS ---
Vital Signs 02/03/25 08:47 Height 5 ft 9 in Weight 260 lb BMI 38.4 Intake Visit Reasons: New Pt - left knee pain Intake Note: Vincent is a 34 year old male who presents today as a new patient for a evaluation of his left knee pain. Patient states around 10/27/24 he was going down the stairs and his knee twist, but he did not fall. He was last seen at the ED on 11/17/24 for his left knee pain were he was given ibuprofen 600mg. He noticed that his pain is worse with ambulation and putting pressure to the left side. Patient also noticed that his pain was on the anterior aspect of the knee. Today he is feeling a little better however states his pain worsen with activity. States he has trouble sleeping with his knee in a certain position, pain from sit to stand and states his knee gives out at times when walking increasing his pain. Denies P.T, braces or injections. Allergies No Known Allergies (No Known Allergies*) Allergy (Verified 02/03/25 08:45) HPI HPI New Pt - left knee pain: Details: 34-year-old gentleman presents to the office today for pain in the left knee which she has been experiencing for the last 3-4 months. States the pain is primarily along the anterior portion of the knee and is worse with standing walking and stairs. He states he has not attended physical therapy and he has tried ibuprofen with no significant relief. [facility] Medical History (Updated 02/03/25 @ 08:59 by Dc Pruett PA-C) Hypersomnia Snoring Diabetes mellitus type 1 Major depressive disorder, recurrent, moderate Insulin pump in place DJD (degenerative joint disease) Insomnia Obesity due to excess calories NATALIO (generalized anxiety disorder) Goiter HLD (hyperlipidemia) Constipation by delayed colonic transit Hypothyroidism Morbid obesity Hypertension Dyslipidemia Microalbuminuria Diabetes type 1, controlled Surgical History S/P laparoscopic sleeve gastrectomy Family History Father No problems noted. 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 There is some lateral retropatellar tenderness and also some discomfort along the ITB band. He also has some tenderness over the greater troch. Results Reviewed Results Reviewed: X-rays of the left knee obtained in the office today are significant for some lateralization of the patella. Assessment & Plan Assessment & Plan (1) Patellofemoral arthritis of left knee: Code(s): M17.12 - Unilateral primary osteoarthritis, left knee Category: Medical Plan: At this time I recommend a course of physical therapy. He is from [facility] so he will take the prescription to a facility closer to home. He was also fit for a knee brace in the office to help with stability and he was given a prescription for naproxen to take twice a day for 2 weeks to help with occasional flare-ups. If symptoms persist or worsen he can contact our office otherwise she will follow up as needed. Orders: Orders PT Evaluation and Treatment Today M17.12 - Unilateral primary osteoarthritis, left knee XR knee LT 1V Today M25.562 - Pain in left knee Medications: New naproxen 500 mg PO BID 60 tabs 3RF 30 days S93.409A - Sprain of unspecified ligament of unspecified ankle, initial encounter Coding Level of Care Code New Pt Level 3 (42739) Complex EM visit Add On G2211 Diagnoses Patellofemoral arthritis of left knee M17.12
[2025-02-03 08:47] VITALS: BMI 38.4
== END 2025-02-03 09:39 | disposition home or self-care (01) ==
LOC: HO.HOS 08:07
PROVIDERS: PCP Internal Medicine; Visit Provider Physician Assistant
DX: M17.12 Unilateral primary osteoarthritis, left knee (principal)
CPT/HCPCS: 99203

== ENCOUNTER → 2025-02-03 08:08 | Outpatient (BNV) | payer OTHER, SELFPAY | PROVIDERS: Visit Provider Radiology Diagnostic Radiology | DX: M25.562 Pain in left knee (principal) | CPT/HCPCS: 73560 ==

== ENCOUNTER 2025-02-03 09:49 | Outpatient (REF) | payer OTHER, SELFPAY ==
--- NOTE | ~2025-02-03 | XR_ITS ---
EXAMINATION: XR KNEE, LEFT CLINICAL INFORMATION: M25.562 - Pain in left knee COMPARISON: None available. TECHNIQUE: Single patellofemoral view left knee. FINDINGS: No fracture, dislocation, or suspicious bone lesion. There is normal patellofemoral alignment. Patellofemoral joint space is preserved. No soft tissue abnormalities. XR/XR knee LT 1V IMPRESSION: Normal left patellofemoral view. Electronically signed by: Jefferson Lopez MD 02/03/2025 08:21 AM EDT
--- OUTSIDE RECORDS SUMMARY | 2025-02-07 10:59 | XMS_ITS | Encounter Summary ---
Author Organization [facility] Address [address] [place] [address] [address] [address] Care Team Providers Care Tobacco Blender Name Role Phone Unavailable Primary Care Provider Unavailabl e Reason for Visit * Reason Onset Date Comments medication 02/03/2023 Encounter Details Date Type Department Care Team (Late Contact Info) Description 02/03/2023 Telephone [facility] [address] [place] [address] Matias Chase DDS [address] [place] [address] medication Social History Tobacco Use Types Packs/Day [...] Description 03/07/2025 10:00 AM EDT Office Visit [facility] [address] [place] [address] Wendy Dill documented as of this encounter Visit Diagnoses Not on filedocumented in this encounter
--- OUTSIDE RECORDS SUMMARY | 2025-02-07 10:59 | XMS_ITS | Clinical Summary ---
Author Organization [employer] Address [address] [place] [address] [address] [place] [address] Care Team Providers Care Director Fraud Name Role Phone Unavailable Primary Care Provider [...] Description 03/07/2025 10:00 AM EDT Office Visit [facility] [address] [place] [address] Wendy Dill Health Maintenance Due Date Last [...] Most Recently Relevant to Health Maintenance Insurance [facility] STAND ADULT
--- OUTSIDE RECORDS SUMMARY | 2025-02-07 10:59 | XMS_ITS | Encounter Summary ---
Author Organization [facility] [facility] Address [address] [place] [address] [address] [place] [address] Care Team Providers Care Print Shop Chief Clerk Name Role Phone Unavailable Primary Care Provider Unavailabl e Encounter Details Date Type Department Care Team (Late st Contact Info) Description 06/29/2023 Abstract [facility] [address] [place] [address] [facility] [address] [place] [address] Social History Tobacco Use Types Packs/Day Years [...] Description 03/07/2025 10:00 AM EDT Office Visit [facility] [address] [place] [address] Wendy Dill documented as of this encounter Visit Diagnoses Not on filedocumented in this encounter
--- OUTSIDE RECORDS SUMMARY | 2025-02-07 10:59 | XMS_ITS | Encounter Summary ---
Author Organization [employer] [facility] Address [address] [place] [address] [address] [place] [address] Care Team Providers Care Hand Cell Tuber Name Role Phone Unavailable Primary Care Provider Unavailabl e Encounter Details Date Type Department Care Team (Latest Contact Info) Description 01/04/2021 Abstract [facility] CONVERSIONS Dental, Provider, DDS Social History Tobacco [...] Description 03/07/2025 10:00 AM EDT Office Visit [facility] [address] [place] [address] Wendy Dill documented as of this encounter Visit Diagnoses Not on filedocumented in this encounter
--- OUTSIDE RECORDS SUMMARY | 2025-02-07 10:59 | XMS_ITS | Encounter Summary ---
Author Organization [employer] [facility] Address [address] [place] [address] [address] [place] [address] Care Team Providers Care Consultative Sales Associate Name Role Phone Unavailable Primary Care Provider Unavailabl e Reason for Visit * Reason Onset Date Comments appt for cleaning 03/12/2023 Encounter Details Date Type Department Care Team (Late st Contact Info) Description 03/12/2023 Telephone [facility] [address] [place] [address] Matias Chase DDS [address] [place] [address] appt for cleaning Social History Tobacco Use [...] 10:00 AM EDT Office Visit [facility] [address] [place] [address] Wendy Dill documented as of this encounter Visit Diagnoses Not on filedocumented in this encounter
== END 2025-02-03 09:50 | disposition home or self-care (01) ==
LOC: HO.HOSX 09:49
PROVIDERS: Visit Provider Physician Assistant
DX: M17.12 Unilateral primary osteoarthritis, left knee (principal); M25.562 Pain in left knee; S93.409A Sprain of unspecified ligament of unspecified ankle, initial encounter; X50.9XXA Other and unspecified overexertion or strenuous movements or postures, initial encounter
CPT/HCPCS: 73560; 99202

== ENCOUNTER 2025-03-01 10:01 | Outpatient (AMB) | payer OTHER, SELFPAY ==
--- NOTE | 2025-03-01 10:04 | MHC.OFFVISWM ---
VS Expanded 03/01/25 10:08 BP 129/60 Blood Pressure Location Rt brachial Blood Pressure Position Sitting Pulse 79 Pulse Source Pulse Oximeter Temp 97.9 F Temperature Source Temporal Artery Scan Pulse Oximetry 98 Oxygen Delivery Method Room Air Height 5 ft 9 in Weight 265 lb 12.8 oz BMI 39.2 Body Fat % 32.5 Body Fat Mass 86.4 Fat Free Mass 179.2 Visceral Fat Rating 8.0 Body Water % 48.3 Body Water Mass 128.4 Muscle Mass/Score 170.2 Basal Metabolic Rate/Score 2,481 Intake Visit Reasons: OV PO LSG 10/14/22 Allergies No Known Allergies (No Known Allergies*) Allergy (Verified 03/01/25 10:10) Medication List - Last Reconciled 03/01/25 by ALMAS Cantor acetone (urine) test (Ketone Urine Test strips) As directed blood pressure monitor (Blood Pressure Kit) As directed blood sugar diagnostic (FreeStyle Lite Strips) prn low or high glucose to confirm sensor accuracy tid blood-glucose meter (FreeStyle Lite Meter kit) As directed blood-glucose transmitter (Dexcom G6 Transmitter device) As directed blood-glucose transmitter (Dexcom G6 Transmitter device) As directed every 3 months cetirizine (All Day Allergy (cetirizine)) 10 mg PO DAILY PRN 90 days Dexcom G6 Sensor (blood-glucose sensor) every 10 days NS [diabetic shoes with inserts As directed] glucagon 3 mg/actuation (Baqsimi) 3 mg intranasal ONCE PRN ibuprofen 600 mg PO Q6H PRN insulin glargine (Lantus U-100 Insulin) 17 units (0.17 mL) subcut DAILY PRN 30 days insulin lispro (Humalog U-100 Insulin) up to 60 units daily via pump subcutaneously use as directed; 30 days insulin pump cart,auto,BT,G6/7 (Omnipod 5 G6-G7 Pods (Gen 5) subcutaneous cartridge) USE DIRECTED every 3 days insulin pump cart,automated,BT (Omnipod 5 G6 Pods (Gen 5) subcutaneous cartridge) USE DIRECTED insulin syringe-needle U-100 As directed up to quid for pump failure or glucose correction lancets (FreeStyle Lancets) 4x daily leg brace (SHAUNA Knee Brace) As directed levothyroxine 137 mcg PO DAILY 90 days melatonin 10 mg PO BEDTIME PRN 90 days methocarbamol 500 mg PO TID PRN 10 days oujtfydzcywo-pyx-nqdw-FA-vit K 45 mg iron- 800 mcg-120 mcg (Bariatric Multivitamins) caps PO naproxen 500 mg PO BID 30 days rosuvastatin 40 mg PO DAILY [shower chair As directed] TENS units (TENS 502 device) As directed triamcinolone acetonide 0.5% 1 appl topical DAILY 7 days vitamin A palmitate 10,000 units PO DAILY zinc gluconate 30 mg PO DAILY HPI Comments Details: This?is a 34?yo male who is s/p LSG 10/14/2022. Presents for 2 year 4 month post op visit. Weight at last visit on 08/10/2024 was 254 pounds; weight today is 265.8lbs.? No complaints of nausea, emesis, abdominal pain or reflux, or constipation. Went on vacation this summer and I never came back from vacation. Got tired of meal plan. Does try to drink shakes slowly, at least an hour but still feels hungry afterwards. Present meal plan includes: 10 am - 1 scoop Isopure protein powder (20g) in coffee 1 pm - Chobani yogurt zero sugar 5 pm - 3 oz protein and 2 oz of vegetables, 2 eggs 8 pm - bar BS - Omnipod, recently saw endo BP - has not been checking the past few weeks, 112-130 systolics; takes metoprolol PRN Exercise - has treadmill/walking pad likes to walk outside more, 80 mins when he can switched to Flintstones vitamins, doing better with these Pt reports excess skin of upper arms which is becoming increasingly bothersome. Has difficulty finding clothing that fits properly with excess skin getting in the way. Skin moves around during movement and gets in the way, making activities of daily living more difficult. Pt reports excess skin of abdomen which is also bothersome. He has difficulty finding clothing that fits around his waist properly. Skin moves around during walking which is very uncomfortable. Pt reports some rashes of upper thighs when skin rubs together. He cannot wear shorts due to skin making contact. He also has excess skin of abdomen which is very heavy and uncomfortable. Gets in the way during activities of daily living. COUNTS INCLUDE 234 BEDS AT THE [facility] Medical History (Updated 02/03/25 @ 08:59 by cD Pruett PA-C) Hypersomnia Snoring Diabetes mellitus type 1 Major depressive disorder, recurrent, moderate Insulin pump in place DJD (degenerative joint disease) Insomnia Obesity due to excess calories NATALIO (generalized anxiety disorder) Goiter HLD (hyperlipidemia) Constipation by delayed colonic transit Hypothyroidism Morbid obesity Hypertension Dyslipidemia Microalbuminuria Diabetes type 1, controlled Surgical History S/P laparoscopic sleeve gastrectomy Family History Father No problems noted. 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 Cognitive needs: No Hearing needs: No Vision needs: Yes Physical Exam Vital Signs: Last Vital Signs Temp 97.9 F 03/01/25 10:08 Pulse 79 03/01/25 10:08 BP 129/60 03/01/25 10:08 Pulse Ox 98 03/01/25 10:08 Oxygen Delivery Method Room Air 03/01/25 10:08 Assessment & Plan Assessment & Plan (1) Obesity due to excess calories: Code(s): E66.09 - Other obesity due to excess calories Category: Medical Qualifiers: Obesity classification: adult class 3 (BMI >= 40) Serious obesity comorbidity presence: with serious comorbidity Body mass index: BMI 50.0-59.9 Qualified Code(s): E66.01 - Morbid (severe) obesity due to excess calories; Z68.43 - Body mass index [BMI] 50.0-59.9, adult (2) S/P laparoscopic sleeve gastrectomy: Code(s): Z98.84 - Bariatric surgery status Category: Surgical Plan Gave pt [employer] ju[employer]cio info and encouraged him to create a plan using the juvencio. He does struggle with hunger at times so will try phentermine. Reviewed contranindications and discussed the need for daily BP monitoring at home as well as communication to me about blood pressures. Pt does have a home BP monitor. RTC 3-4 months. Medications: New phentermine must administer 2 hours after breakfast 15 mg PO DAILY 30 caps 0RF
[2025-03-01 10:08] VITALS: BP 129/60; PULSE 79; TEMP 36.6; O2SAT 98; BMI 39.2
--- OUTSIDE RECORDS SUMMARY | 2025-03-01 12:16 | XMS_ITS | Clinical Summary ---
Author Organization [employer] [facility] Address [address] [place] [address] Care Team Providers Care Outpatient Coding Specialist Name Role Phone Unavailable Primary Care [...] Encounters Date Type Department Care Team Description 02/13/2025 Telephone [facility] [address] [place] [address] Lexis Kate from Last 3 Months Social History Tobacco [...] Team (Late st Contact Info) Description 03/07/2025 11:00 AM EDT Office Visit [facility] [address] [place] [address] Lexis Kate [address] [place] [address] Health Maintenance Due Date Last Done Comments Depression Screening 1990 HIV Screening 1990 SDOH Screening 1990 Disability Screening 1990 Alcohol/Substance Use Screening 2002 Family Planning (PISQ) 2005 HPV Vaccines (1 - Male 3-dose series) 2005 Hepatitis C Screening 2008 Hepatitis B Vaccines (1 of 3 - 19+ 3-dose series) 2009 COVID-19 Vaccine ( season) 2025 03/10/2022, 05/16/2021, 09/17/2020 Influenza Vaccine (#1) 2025 Dental Oral Exam 02/24/2025 08/23/2024, 05/2023, 09/26/2020 Dental Prophylaxis 02/24/2025 08/23/2024, 0 01/29/2024, 06/05/2023, Additional history exists Tobacco Screening 08/23/2025 08/23/2024 Dental X-Ray: Bitewings 08/24/2025 08/24/19 25, 12/17/2022, 09/26/2020 Dental X-Ray: Full Mouth 08/25/2027 08/23/2024, 04/06/2020 DTaP/Tdap/Td Vaccines (2 - Td or Tdap) [...] Most Recently Relevant to Health Maintenance [facility]
--- OUTSIDE RECORDS SUMMARY | 2025-03-01 12:16 | XMS_ITS | Encounter Summary ---
Author Organization [employer] [facility] Address [address] [place] [address] [place] [address] Care Team Providers Care Power Ballast Machine Operator Name Role Phone Unavailable Primary Care Provider Unavailabl e Reason for Visit * Reason Onset Date Comments medication 02/03/2023 Encounter Details Date Type Department Care Team (Late Contact Info) Description 02/03/2023 Telephone [facility] [address] [place] [address] Matias Chase DDS [address] [place], [place] [phone] medication Social History Tobacco Use Types Packs/Day [...] Care Team (Late Contact Info) Description 03/07/2025 11:00 AM EDT Office Visit [facility] [address] [place] [address] Lexis Kate [address] [place] [id number] documented as of this encounter Visit Diagnoses Not on filedocumented in this encounter
--- OUTSIDE RECORDS SUMMARY | 2025-03-01 12:16 | XMS_ITS | Encounter Summary ---
Author Organization [employer] [facility] Address [address] [place] [address] [address] [place] [address] Care Team Providers Care Car Inspector Name Role Phone Unavailable Primary Care Provider Unavailabl e Encounter Details Date Type Department Care Team (Latest Contact Info) Description 01/04/2021 Abstract [facility] Dental, Provider, DDS Social History [...] Description 03/07/2025 11:00 AM EDT Office Visit [facility] [address] [place] [address] Lexis Kate [address] [place] [address] documented as of this encounter Visit Diagnoses Not on filedocumented in this encounter
--- OUTSIDE RECORDS SUMMARY | 2025-03-01 12:16 | XMS_ITS | Encounter Summary ---
Author Organization [employer] [facility] Address [address] [place] [address] [address] [place] [address] Care Team Providers Care Director [facility] Name Role Phone Unavailable Primary Care Provider Unavailabl e Reason for Visit * Reason Onset Date Comments appt for cleaning 03/12/2023 Encounter Details Date Type Department Care Team (Late st Contact Info) Description 03/12/2023 Telephone [facility] [address] [place] [address] Matias Chase DDS [address] [place] [address] appt for cleaning Social History Tobacco Use [...] Description 03/07/2025 11:00 AM EDT Office Visit [facility] [address] [place] [address] Lexis Kate [address] [place] [address] documented as of this encounter Visit Diagnoses Not on filedocumented in this encounter
--- OUTSIDE RECORDS SUMMARY | 2025-03-01 12:16 | XMS_ITS | Encounter Summary ---
Author Organization [employer] [facility] Address [address] [place] [address] [address] [place] [address] Care Team Providers Care Supervisor [employer] Shank Department Name Role Phone Unavailable Primary Care Provider Unavailabl e Encounter Details Date Type Department Care Team (Late st Contact Info) Description 06/29/2023 Abstract [facility] [address] [place] [address] Lexis Kate [address] [place] [address] Social History Tobacco Use Types Packs/Day Years [...] Description 03/07/2025 11:00 AM EDT Office Visit [facility] [address] [place] [address] Lexis Kate [address] [place] [address] documented as of this encounter Visit Diagnoses Not on filedocumented in this encounter
== END 2025-03-01 10:47 | disposition home or self-care (01) ==
LOC: HO.HBS 10:02
PROVIDERS: PCP Internal Medicine; Visit Provider Physician Assistant Surgical
DX: E66.9 Obesity, unspecified (principal); Z68.39 Body mass index [BMI] 39.0-39.9, adult; Z90.3 Acquired absence of stomach [part of]; Z98.84 Bariatric surgery status
CPT/HCPCS: 99213

== ENCOUNTER → 2025-03-01 10:01 | Outpatient (BNVA) | payer OTHER, SELFPAY | PROVIDERS: PCP Internal Medicine; Visit Provider Physician Assistant Surgical | DX: E66.813 Obesity, class 3 (principal); L98.7 Excessive and redundant skin and subcutaneous tissue; R21 Rash and other nonspecific skin eruption; Z68.39 Body mass index [BMI] 39.0-39.9, adult; Z90.3 Acquired absence of stomach [part of] | CPT/HCPCS: 99212 ==

== ENCOUNTER 2025-03-24 10:45 | Outpatient (AMB) | payer OTHER, SELFPAY ==
[2025-03-24 10:52] VITALS: BP 110/72; PULSE 75; O2SAT 98; BMI 40.7
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
== END 2025-03-24 11:20 | disposition home or self-care (01) ==
LOC: HO.HMCH 10:46
PROVIDERS: PCP Internal Medicine; Visit Provider Nurse Practitioner Family
DX: S22.080A Wedge compression fracture of T11-T12 vertebra, initial encounter for closed fracture (principal)

== ENCOUNTER → 2025-03-24 10:45 | Outpatient (BNVA) | payer OTHER, SELFPAY | PROVIDERS: PCP Internal Medicine; Visit Provider Nurse Practitioner Family | DX: S22.080A Wedge compression fracture of T11-T12 vertebra, initial encounter for closed fracture (principal); V13.4XXA Pedal cycle driver injured in collision with car, pick-up truck or van in traffic accident, initial encounter; Y93.55 Activity, bike riding; Y92.9 Unspecified place or not applicable; Y99.9 Unspecified external cause status; Y93.E3 Activity, vacuuming; Z99.89 Dependence on other enabling machines and devices | CPT/HCPCS: 99212 ==

== ENCOUNTER 2025-04-04 16:46 | Outpatient (AMB) | payer OTHER, SELFPAY ==
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
--- OUTSIDE RECORDS SUMMARY | 2025-03-31 08:36 | XMS_ITS | Encounter Summary ---
Author Organization [facility] Address [address] [facility] [address] [place] [address] Care Team Providers Care Shape Carver Name Role Phone Terra Sorenson MD Primary Care Provider [phone] Encounter Details Date Type Department Care Team (Latest Contact Info) Description 03/31/2025 8:36 AM EDT - 03/31/2025 11:59 PM EDT Hospital Encounter [facility] ([facility] Xray [address] [place] [address] Compression fracture of T11 vertebra, initial encounter Discharge Disposition: Home or self care Social History Tobacco Use Types Packs/Day Years Used Date Smoking Tobacco: Never Passive Smoke Exposure: Never Smokeless Tobacco: Never Alcohol Use Standard Drinks/Week Comments Never 0 (1 standard drink = 0.6 oz pur e alcohol) Sex and Gender Information Value Date Recorded Sex Assigned at Male 03/14/2025 10:57 AM EDT Legal Sex Male 10:55 AM EDT Gender Identity Male 03/14/2025 10:57 AM EDT Sexual Orientation Unknown 03/14/2025 10 :57 AM EDT documented as of this encounter Medications at Time of Discharge beta carotene (vitamin A) 3,000 mcg (10,000 unit) capsule Take by mouth once daily. 03/14/2025 cyclobenzaprine (Flexeril) 5 mg tabletIndicatio ns:Compression fracture of T11 vertebra, initial encounter Take 1 tablet (5 mg) by mouth at bedtime. 30 tablet 03/31/2025 [employer] Online G6 Sensor device insulin lispro (HumaLOG U-100 Insulin) 100 unit/mL injection Inject under the skin. insulin lispro (HumaLOG) 100 unit/mL injection FOR 30 DAYS UP TO 60 UNITS DAILY VIA PUMP SUBCUTANEOUSLY USE DIRECTED 03/25/2025 Lantus U-100 Insulin 100 unit/mL injection 17 UNIT (0.17 ML) SUBCUTANEOUSLY DAILY NEEDED FOR NEEDED PUMP FAILURE FOR 30 DAYS 03/25/2025 levothyroxine (Tirosint) 137 mcg capsule Take 1 capsule by mouth in the morning. 09/26/2020 multivitamin tablet Take 1 tablet by mouth once daily. naproxen (Naprosyn) 500 mg tablet Take 500 mg by mouth twice daily. 03/28/2025 Omnipod 5 G6-G7 Pods, Gen 5, cartridge SMARTSIG:SUB-Q Every 3 Days 03/28/2025 rosuvastatin (Crestor) 40 mg tablet Take 40 mg by mouth once daily. zinc gluconate 50 mg tablet Take by mouth. documented as of this encounter Plan of Treatment Upcoming Encounters Date Type Department Care Team (Late st Contact Info) Description 05/12/2025 9:00 AM EST Office Visit [facility] ([facility] Neurosurgery [address] [place] [address] Janak Mathews PA [address] [place] [address], [facility] [place] [address] documented as of this encounter Procedures Procedure Name Priority Date/Time Associated Diagnosis Comments XR LUMBAR SPINE 4+ VIEWS WITH FLEXION EXTENSION Routine 03/31/2025 8:45 AM EDT Compression fracture of T11 vertebra, initial encounter documented in this encounter Results * XR LUMBAR SPINE 4+ VIEWS WITH FLEXION EXTENSION (03/31/2025 8:45 AM EDT) Anatomical Region Laterality Modality L-spine Radio Fluoroscop y 03/31/2025 9:01 AM EDT Impressions 03/31/2025 9:06 AM EDT [...] extension. Braxton Gonsalez MD 03/31/2025 9:06 AM [facility] XR PROCEDURES Final Res ult documented in this encounter Visit Diagnoses Diagnosis Compression fracture of T11 vertebra, initial encounter documented in this encounter Care Teams Shape Carver Relationship Specialty Start Date End Date Terra Sorenson MD [address] [place] [address] Drive [address] [place] [address] PCP - General Supervisor Grower 03/15/25 documented as of this encounter
[2025-04-04 16:51] VITALS: BP 116/84; PULSE 86; O2SAT 98; BMI 40.0
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
--- OUTSIDE RECORDS SUMMARY | 2025-04-04 20:12 | XMS_ITS | Encounter Summary ---
Author Organization [employer] [facility] Address [address] [place] [address] [address] [place] [address] Care Team Providers Care Hardwood Faller Name Role Phone Unavailable Primary Care Provider Unavailabl e Reason for Visit * Reason Onset Date Comments medication 02/03/2023 Encounter Details Date Type Department Care Team ([facility] st Contact Info) Description 02/03/2023 Telephone [facility] ADULT DENTAL [address] [place] [address] Matias Chase DDS [address] [place], [place] [id number] medication Social History Tobacco Use Types Packs/Day [...] documented in this encounter Plan of Treatment Not on file documented as of this encounter Visit Diagnoses Not on filedocumented in this encounter
--- OUTSIDE RECORDS SUMMARY | 2025-04-04 20:12 | XMS_ITS | Clinical Summary ---
Author Organization [facility] Address [address] [place] [address] Care Team Providers Care Aircraft Shipping Checker Name Role Phone Terra Sorenson MD Primary Care Provider [phone] Allergies No known active allergies Medications Dexcom G6 Sensor device Active rosuvastatin (Crestor) 40 mg tablet Take 40 mg by mouth once daily. Active beta carotene (vitamin A) 3,000 mcg (10,000 unit) capsule Take by mouth once daily. 5 Active Omnipod 5 G6-G7 Pods, Gen 5, cartridge SMARTSIG:SUB-Q Every 3 Days 5 Active levothyroxine (Tirosint) 137 mcg capsule Take 1 capsule by mouth in the morning. 1 Active insulin lispro (HumaLOG U-100 Insulin) 100 unit/mL injection Inject under the skin. Active insulin lispro (HumaLOG) 100 unit/mL injection FOR 30 DAYS UP TO 60 UNITS DAILY VIA PUMP SUBCUTANEOUSLY USE DIRECTED 5 Active Lantus U-100 Insulin 100 unit/mL injection 17 UNIT (0.17 ML) SUBCUTANEOUSLY DAILY NEEDED FOR NEEDED PUMP FAILURE FOR 30 DAYS 5 Active naproxen (Naprosyn) 500 mg tablet Take 500 mg by mouth twice daily. 5 Active multivitamin tablet Take 1 tablet by mouth once daily. Active zinc gluconate 50 mg tablet Take by mouth. Ac tive cyclobenzaprin e (Flexeril) 5 mg tabletIndicati ons:Compressio n fracture of T11 vertebra, initial encounter Take 1 tablet (5 mg) by mouth at bedtime. 30 tablet 025 Active Encounters Date Type Department Care Team Description 03/31/2025 8:36 AM EDT - 03/31/2025 11:59 PM EDT Hospital Encounter [facility] ([facility]) Xray [address] [place] [phone] Compression fracture of T11 vertebra, initial encounter Discharge Disposition: Home or self care 03/31/2025 8:00 AM EDT Consult [facility] ([facility] Neurosurgery [address] [place] [address] Janak Mathews PA Compression fracture of T11 vertebra, initial encounter (Primary Dx) from Last 3 Months Family History Relation Name Status Comments Father Unknown Mother Alive Social History Tobacco Use Types Packs/Day Years [...] Orientation Unknown 03/14/2025 10 :57 AM EDT Last Filed Vital Signs Vital Sign [...] Mass Index 40.91 03/31/2025 7:58 AM EDT Plan of Treatment Upcoming Encounters Date Type Department Care Team (Late st Contact Info) Description 05/12/2025 9:00 AM EST Office Visit [facility] Neurosurgery [address] [place] [phone] Janak Mathews PA [address] [place] [address], [place] [address] Health Maintenance Due Date Last Done Comments Diabetes: Hemoglobin A1C 1990 HIV Screening 1990 Lipid Panel 1990 Diabetes: Retinopathy Screening 1990 Diabetes: Urine Protein Screening 1990 MMR Vaccines (1 of 1 - Stand mack series) 08/21/1991 Diabetes: Foot Exam 2000 Varicella Vaccines (1 of 2 - 13+ 2-dose series) 08/21/2003 Hepatitis C Screening 2008 DTaP/Tdap/Td Vaccines (1 - Tdap) 2009 Hepatitis B Vaccines (1 of 3 - 19+ 3-dose series) 2009 HPV Vaccines (1 - 3-dose SCD M series) 2017 Depression Screening 06/08/2024 COVID-19 Vaccine (1 - 2024-2 6 season) 2025 Influenza Vaccine (#1) 2025 HIB Vaccines Aged Out No longer eligi [...] age to complete this topic Pneumococcal Vaccine: Pediat rics (0 to 5 Years) and At-Risk Patients (6 to 49 Years) Aged Out No longer eligible b ased on patient's age to complete this topic Rotavirus Vaccines Aged Out No longer eligible based on patient's age to complete this topic Procedures Procedure Name Priority Date/Time Associated Diagnosis Comments XR LUMBAR SPINE 4+ VIEWS WITH FLEXION EXTENSION Routine 03/31/2025 8:45 AM EDT Compression fracture of T11 vertebra, initial encounter from Last 3 Months Results * XR LUMBAR SPINE 4+ VIEWS [...] COBURN IMG XR PROCEDURES Final Res ult from Last 3 Months Insurance ACO Care Teams Aircraft Shipping Checker Relationship Specialty Start Date End Date Terra Sorenson MD [address] [place] [address] PCP - General Director Hris 03/15/25
--- OUTSIDE RECORDS SUMMARY | 2025-04-04 20:12 | XMS_ITS | Clinical Summary ---
Author Organization [employer] Address [address] [facility] [address] [place] [address] Care Team Providers Care Baker Name Role Phone Unavailable Primary Care Provider [...] Type Department Care Team Description 02/13/2025 Telephone [facility] ADULT DENTAL [address] [place] [address] Lexis Kate from Last 3 Months Social [...] Mass Index - - Plan of Treatment Health Maintenance Due Date Last Done Comments [...] 09/26/2020 Dental X-Ray: Full Mouth 08/25/2027 08/23/2024, 09/07 DTaP/Tdap/Td Vaccines (2 - Td or Tdap) [...]
--- OUTSIDE RECORDS SUMMARY | 2025-04-04 20:12 | XMS_ITS | Encounter Summary ---
Author Organization [employer] Address [address] [place] [address] [address] [place] [address] Care Team Providers Care Director Of Engineering Name Role Phone Unavailable Primary Care Provider Unavailabl e Reason for Visit * Reason Onset Date Comments appt for cleaning 03/12/2023 Encounter Details Date Type Department Care Team ([facility] st Contact Info) Description 03/12/2023 Telephone [facility] ADULT DENTAL [address] [place] [address] Matias Chase DDS [address] [place] [address] appt for cleaning Social History Tobacco Use [...]
--- OUTSIDE RECORDS SUMMARY | 2025-04-04 20:12 | XMS_ITS | Encounter Summary ---
Author Organization [employer] [facility] Address [address] [place] [address] 7 [place] [address] Care Team Providers Care Straightener Name Role Phone Unavailable Primary Care Provider Unavailabl e Encounter Details Date Type Department Care Team (Latest Contact Info) Description 01/04/2021 Abstract [facility] CONVERSIONS Dental, Provider, DDS Social History Tobacco Use Types Packs/Day Years Used Date Smoking Tobacco: Never Assessed Sex and Gender Information Value Date Recorded Sex Assigned at Male 04/07/2022 10:17 AM EDT Legal Sex Male 10:17 AM EDT Gender Identity Male 01/02/2023 3:49 PM EDT Sexual Orientation Demisexual 01/02/2023 3: 49 PM EDT documented as of this encounter Plan of Treatment Not on file documented as of this encounter Visit Diagnoses Not on filedocumented in this encounter
--- OUTSIDE RECORDS SUMMARY | 2025-04-04 20:12 | XMS_ITS | Encounter Summary ---
Author Organization [employer] Address [address] [place] [address] [address] [place] [address] Care Team Providers Care Counter Clerk [employer] Name Role Phone Unavailable Primary Care Provider Unavailabl e Encounter Details Date Type Department Care Team (Late st Contact Info) Description 06/29/2023 Abstract [facility] ADULT DENTAL [address] [place] [address] [place], Lexis [address] [place] [address] Social History Tobacco Use Types Packs/Day Years Used Date Smoking Tobacco: Never Smokeless Tobacco: Never Alcohol Use Standard Drinks/Week Comments Defer 0 (1 standard drink = 0.6 oz pur e alcohol) Sex and Gender Information Value Date Recorded Sex Assigned at Male 04/07/2022 10:17 AM EDT Legal Sex Male 10:17 AM EDT Gender Identity Male 01/02/2023 3:49 PM EDT Sexual Orientation Demisexual 01/02/2023 3 :49 PM EDT documented as of this encounter Plan of Treatment Not on file documented as of this encounter Visit Diagnoses Not on filedocumented in this encounter
== END 2025-04-04 17:13 | disposition home or self-care (01) ==
LOC: HO.HMCH 16:47
PROVIDERS: PCP Internal Medicine; Visit Provider Internal Medicine
DX: E10.649 Type 1 diabetes mellitus with hypoglycemia without coma (principal); S22.080A Wedge compression fracture of T11-T12 vertebra, initial encounter for closed fracture; E66.01 Morbid (severe) obesity due to excess calories; Z68.41 Body mass index [BMI] 40.0-44.9, adult; F33.0 Major depressive disorder, recurrent, mild; E03.9 Hypothyroidism, unspecified

== ENCOUNTER → 2025-04-04 16:46 | Outpatient (BNVA) | payer OTHER, SELFPAY | PROVIDERS: PCP Internal Medicine; Visit Provider Internal Medicine | DX: E10.649 Type 1 diabetes mellitus with hypoglycemia without coma (principal); E66.01 Morbid (severe) obesity due to excess calories; S22.080A Wedge compression fracture of T11-T12 vertebra, initial encounter for closed fracture; F33.0 Major depressive disorder, recurrent, mild; E03.9 Hypothyroidism, unspecified; X58.XXXA Exposure to other specified factors, initial encounter; Y93.9 Activity, unspecified; Y92.9 Unspecified place or not applicable; Y99.9 Unspecified external cause status; Z96.41 Presence of insulin pump (external) (internal); Z68.41 Body mass index [BMI] 40.0-44.9, adult; Z79.4 Long term (current) use of insulin | CPT/HCPCS: 99212 ==

== ENCOUNTER 2025-04-10 08:41 | Outpatient (REF) | payer OTHER, SELFPAY ==
--- NOTE | ~2025-04-10 | XR_ITS ---
EXAMINATION: XR SACROILIAC JOINT 3 OR MORE VIEWS HISTORY: M53.3 - Sacrococcygeal disorders, not elsewhere classified COMPARISON: There are no prior studies available for comparison. FINDINGS: Four views of the sacroiliac joints are submitted. The joint spaces are maintained. No erosions are seen. XR/XR sacroiliac joint min 3V IMPRESSION: Unremarkable examination of the sacroiliac joints. Electronically signed by: Janak Alarcon MD 04/10/2025 09:16 AM ALEX
--- NOTE | ~2025-04-10 | XR_ITS ---
EXAMINATION: XR THORACIC SPINE CLINICAL INFORMATION: S22.080A - Wedge compression fracture of T11-T12 vertebra, initial encou... COMPARISON: X-ray 08/27/2015 TECHNIQUE: 4 views of the thoracic spine FINDINGS: Mild levoconvex curvature. Bone mineralization is decreased. The cervicothoracic junction, upper vertebral bodies are not well-visualized due to overlapping structures. In the partially visualized thoracic spine, the sagittal alignment appears maintained. No compression deformities seen in the partially visualized portion of the thoracic spine. Limited evaluation the lower thoracic/upper lumbar vertebral bodies. Question vertebral body height loss/superior endplate irregularity in the thoracolumbar region, suboptimally evaluated. No suspicious findings in the visualized lung. XR/XR thoracic spine 2V IMPRESSION: Bone mineralization, overlapping structures limiting evaluation. Limited evaluation of the lower thoracic/upper lumbar vertebrae. Question vertebral body height loss, endplate irregularity in this region, suboptimally evaluated. Recommend dedicated imaging of the lumbar spine and of the lower thoracic spine.. Electronically signed by: Prabhjot Cruz MD 04/10/2025 03:33 PM [facility]
--- OUTSIDE RECORDS SUMMARY | 2025-04-10 09:14 | XMS_ITS | Encounter Summary ---
Author Organization [employer] Address [address] [place] [address] [address] [place] [address] Care Team Providers Care Senior Programmer Name Role Phone Unavailable Primary Care Provider Unavailabl e Reason for Visit * Reason Onset Date Comments appt for cleaning 03/12/2023 Encounter Details Date Type Department Care Team ([facility] st Contact Info) Description 03/12/2023 Telephone [facility] ADULT DENTAL [address] [place] [address] Matias Chase DDS [address] [place] [address] appt for cleaning Social History Tobacco Use [...]
--- OUTSIDE RECORDS SUMMARY | 2025-04-10 09:14 | XMS_ITS | Encounter Summary ---
Author Organization [employer] [facility] Address [address] [place] [address] [address] [place] [address] Care Team Providers Care Assistant Foreman Name Role Phone Unavailable Primary Care Provider Unavailabl e Encounter Details Date Type Department Care Team (Latest Contact Info) Description 01/04/2021 Abstract [facility] CONVERSIONS Dental, Provider, DDS Social [...]
--- OUTSIDE RECORDS SUMMARY | 2025-04-10 09:14 | XMS_ITS | Clinical Summary ---
Author Organization [facility] Address [address] [place] [address] Care Team Providers Care Winderman Name Role Phone Terra Sorenson MD Primary Care Provider [phone] Allergies No known active allergies Medications Dexcom [...] - 03/31/2025 11:59 PM EDT Hospital Encounter [facility] ([facility]) Xray [address] [place] [phone] Compression fracture of T11 vertebra, initial encounter Discharge Disposition: Home or self care 03/31/2025 8:00 AM EDT Consult [facility] Neurosurgery [address] [place] [address] Janak Mathews PA Compression fracture of T11 [...] Description 05/12/2025 9:00 AM EST Office Visit [facility] Neurosurgery [address] [place] [phone] Janak Mathews PA [address] [place] [address], [place] [place] [address] Health Maintenance Due Date Last Done Comments [...] Last 3 Months Insurance ACO Care Teams Winderman Relationship Specialty Start Date End Date Terra Sorenson MD [address] [place] [address] PCP - General Regulated Program Manager 03/15/25
--- OUTSIDE RECORDS SUMMARY | 2025-04-10 09:14 | XMS_ITS | Clinical Summary ---
Author Organization [employer] Address [address] [facility] 7t [place] [address] Care Team Providers Care Flap Presser Name Role Phone Unavailable Primary Care Provider [...] Type Department Care Team Description 02/13/2025 Telephone [facility] ADULT DENTAL [address] [place] [address] Lexis Kate from Last 3 Months Social [...]
--- OUTSIDE RECORDS SUMMARY | 2025-04-10 09:14 | XMS_ITS | Encounter Summary ---
Author Organization [employer] [facility] Address [address] [place] [address] [address] [place] [address] Care Team Providers Care Auto Travel Counselor Name Role Phone Unavailable Primary Care Provider Unavailabl e Reason for Visit * Reason Onset Date Comments medication 02/03/2023 Encounter Details Date Type Department Care Team ([facility] st Contact Info) Description 02/03/2023 Telephone [facility] ADULT DENTAL [address] [place] [address] Matias Chase DDS [address] [place] [address] medication Social History Tobacco Use Types Packs/Day [...]
--- OUTSIDE RECORDS SUMMARY | 2025-04-10 09:14 | XMS_ITS | Encounter Summary ---
Author Organization [employer] Address [address] [place] [address] [address] [place] [address] Care Team Providers Care Laundry Housekeeping Aide Name Role Phone Unavailable Primary Care Provider Unavailabl e Encounter Details Date Type Department Care Team (Late st Contact Info) Description 06/29/2023 Abstract [facility] ADULT DENTAL [address] [place] [address] [place] Lexis [address] [place] [address] Social History Tobacco Use Types Packs/Day Years [...]
== END 2025-04-10 08:42 | disposition home or self-care (01) ==
LOC: HO.XRAY 08:41
PROVIDERS: Visit Provider Internal Medicine
DX: S22.080A Wedge compression fracture of T11-T12 vertebra, initial encounter for closed fracture (principal); M53.3 Sacrococcygeal disorders, not elsewhere classified
CPT/HCPCS: 72070; 72202

== ENCOUNTER 2025-04-17 08:48 | Outpatient (AMB) | payer OTHER, SELFPAY ==
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
[2025-04-17 09:03] VITALS: BP 130/69; PULSE 73; O2SAT 100; BMI 40.0
--- OUTSIDE RECORDS SUMMARY | 2025-04-17 09:14 | XMS_ITS | Clinical Summary ---
Author Organization [facility] Address [address] [facility] [address] [place] [address] Care Team Providers Care Assistant Professor Sculpture Name Role Phone Terra Sorenson MD Primary Care Provider [phone] Allergies No known active allergies Medications Dexcom [...] - 03/31/2025 11:59 PM EDT Hospital Encounter [facility] Xray [address] [place] [phone] Compression fracture of T11 vertebra, initial encounter Discharge Disposition: Home or self care 03/31/2025 8:00 AM EDT Consult [facility] Neurosurgery [address] [place] [address] Janak Mathews PA Compression fracture of T11 [...] Description 05/12/2025 9:00 AM EST Office Visit [facility] Neurosurgery [address] [place] [phone] Janak Mathews PA [address] [place] [address], [place] [address] Health Maintenance Due Date Last Done Comments [...] Last 3 Months Insurance ACO Care Teams Assistant Professor Sculpture Relationship Specialty Start Date End Date Terra Sorenson MD [address] [place] [address] PCP - General Ingot Caster 03/15/25
--- OUTSIDE RECORDS SUMMARY | 2025-04-17 09:14 | XMS_ITS | Encounter Summary ---
Author Organization [employer] Address [address] [place] [address] [address] [place] [address] Care Team Providers Care Fiber Design Engineer Name Role Phone Unavailable Primary Care Provider Unavailabl e Encounter Details Date Type Department Care Team (Late st Contact Info) Description 06/29/2023 Abstract [facility] ADULT DENTAL [address] [place] [address] [place] [address] [place] [address] Social History Tobacco Use Types Packs/Day Years [...]
--- OUTSIDE RECORDS SUMMARY | 2025-04-17 09:14 | XMS_ITS | Clinical Summary ---
Author Organization [employer] Address [address] [facility] 7t [place] [address] Care Team Providers Care Logistics Lead Name Role Phone Unavailable Primary Care Provider [...] Type Department Care Team Description 02/13/2025 Telephone [facility] ADULT DENTAL [address] [place] [address] Lexis Kate from Last 3 Months Social [...]
--- OUTSIDE RECORDS SUMMARY | 2025-04-17 09:14 | XMS_ITS | Encounter Summary ---
Author Organization [employer] [facility] Address [address] [place] [address] [address] [place] [address] Care Team Providers Care Aoc Operations Intelligence Officer Name Role Phone Unavailable Primary Care Provider Unavailabl e Reason for Visit * Reason Onset Date Comments medication 02/03/2023 Encounter Details Date Type Department Care Team ([facility] st Contact Info) Description 02/03/2023 Telephone [facility] ADULT DENTAL [address] [place] [address] Matias Chase DDS [address] [place] [address] medication Social History Tobacco Use Types Packs/Day [...]
--- OUTSIDE RECORDS SUMMARY | 2025-04-17 09:14 | XMS_ITS | Encounter Summary ---
Author Organization [employer] Address [address] [place] [address] [address] [place] [address] Care Team Providers Care Crm Solution Architect Name Role Phone Unavailable Primary Care Provider Unavailabl e Reason for Visit * Reason Onset Date Comments appt for cleaning 03/12/2023 Encounter Details Date Type Department Care Team ([facility] st Contact Info) Description 03/12/2023 Telephone [facility] ADULT DENTAL [address] [place] [address] Matias Chase DDS [address] [place] [address] appt for cleaning Social History Tobacco Use [...]
--- OUTSIDE RECORDS SUMMARY | 2025-04-17 09:14 | XMS_ITS | Encounter Summary ---
Author Organization [employer] [facility] Address [address] [place] [address] 7 [place] [address] Care Team Providers Care Metallurgist Helper Name Role Phone Unavailable Primary Care Provider Unavailabl e Encounter Details Date Type Department Care Team (Latest Contact Info) Description 01/04/2021 Abstract [facility] CONVERSIONS Dental, Provider, DDS Social [...]
== END 2025-04-17 09:24 | disposition home or self-care (01) ==
LOC: HO.PMC 08:49
PROVIDERS: PCP Internal Medicine; Visit Provider Nurse Practitioner Family
DX: S22.080A Wedge compression fracture of T11-T12 vertebra, initial encounter for closed fracture (principal); M54.9 Dorsalgia, unspecified
CPT/HCPCS: 99204

== ENCOUNTER → 2025-04-17 08:48 | Outpatient (BNVA) | payer OTHER, SELFPAY | PROVIDERS: PCP Internal Medicine; Visit Provider Nurse Practitioner Family | DX: S22.080A Wedge compression fracture of T11-T12 vertebra, initial encounter for closed fracture (principal); M54.50 Low back pain, unspecified; R26.89 Other abnormalities of gait and mobility; E11.9 Type 2 diabetes mellitus without complications; Z79.4 Long term (current) use of insulin | CPT/HCPCS: 99202 ==

== ENCOUNTER 2025-04-26 11:19 | Outpatient (REF) | payer OTHER, SELFPAY ==
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
--- OUTSIDE RECORDS SUMMARY | 2025-04-26 22:23 | XMS_ITS | Clinical Summary ---
Author Organization [facility] Address [address] [facility] [address] [place] [address] Care Team Providers Care Locomotive Electrician Name Role Phone Terra Sorenson MD Primary Care Provider [phone] Allergies No known active allergies Medications Dexcom [...] - 03/31/2025 11:59 PM EDT Hospital Encounter [facility] ([facility]) Xray [address] [place] [phone] Compression fracture of T11 vertebra, initial encounter Discharge Disposition: Home or self care 03/31/2025 8:00 AM EDT Consult [facility] Neurosurgery [address] [place] [phone] Janak Mathews PA Compression fracture of T11 [...] Description 05/12/2025 9:00 AM EST Office Visit [facility] Neurosurgery [address] [place] [phone] Janak Mathews PA [address] [place] [address], [place] [address] Health Maintenance Due Date Last Done Comments [...] Last 3 Months Insurance ACO Care Teams Locomotive Electrician Relationship Specialty Start Date End Date Terra Sorenson MD [address] [place] [address] PCP - General Angle Furnaceman 03/15/25
--- OUTSIDE RECORDS SUMMARY | 2025-04-26 22:23 | XMS_ITS | Encounter Summary ---
Author Organization [employer] [facility] Address [address] [place] [address] [address] [place] [address] Care Team Providers Care Tack Cutter Name Role Phone Unavailable Primary Care Provider Unavailabl e Encounter Details Date Type Department Care Team (Latest Contact Info) Description 01/04/2021 Abstract [facility] CONVERSIONS Dental, Provider, DDS Social [...]
--- OUTSIDE RECORDS SUMMARY | 2025-04-26 22:23 | XMS_ITS | Encounter Summary ---
Author Organization [employer] Address [address] [place] [address] [address] [place] [address] Care Team Providers Care Cheese Weigher Name Role Phone Unavailable Primary Care Provider Unavailabl e Encounter Details Date Type Department Care Team (Late st Contact Info) Description 06/29/2023 Abstract [facility] ADULT DENTAL [address] [place] [address] [place], Lexis [address] [place] [address] Social History Tobacco Use Types Packs/Day Years [...]
--- OUTSIDE RECORDS SUMMARY | 2025-04-26 22:23 | XMS_ITS | Clinical Summary ---
Author Organization [employer] Address [address] [facility] 7[address] [place] [address] Care Team Providers Care Therapeutic Recreation Leader Name Role Phone Unavailable Primary Care Provider [...] Type Department Care Team Description 02/13/2025 Telephone [facility] ADULT DENTAL [address] [place] [address] Lexis Kate from Last 3 Months Social [...]
--- OUTSIDE RECORDS SUMMARY | 2025-04-26 22:23 | XMS_ITS | Encounter Summary ---
Author Organization [employer] Address [address] [place] [address] [address] [place] [address] Care Team Providers Care Personnel Clerks Supervisor Name Role Phone Unavailable Primary Care Provider Unavailabl e Reason for Visit * Reason Onset Date Comments appt for cleaning 03/12/2023 Encounter Details Date Type Department Care Team ([facility] st Contact Info) Description 03/12/2023 Telephone [facility] ADULT DENTAL [address] [place] [address] Matias Chase DDS [address] [place] [address] appt for cleaning Social History Tobacco Use [...]
--- OUTSIDE RECORDS SUMMARY | 2025-04-26 22:23 | XMS_ITS | Encounter Summary ---
Author Organization [employer] [facility] Address [address] [place] [address] [address] [place] [address] Care Team Providers Care Spanish Tutor Name Role Phone Unavailable Primary Care Provider Unavailabl e Reason for Visit * Reason Onset Date Comments medication 02/03/2023 Encounter Details Date Type Department Care Team ([facility] st Contact Info) Description 02/03/2023 Telephone [facility] ADULT DENTAL [address] [place] [address] Matias Chase DDS [address] [place] [address] medication Social History Tobacco Use Types Packs/Day [...]
== END 2025-04-26 11:20 | disposition home or self-care (01) ==
LOC: HO.MRI 11:19
PROVIDERS: PCP Internal Medicine; Visit Provider Nurse Practitioner Family
DX: S22.088A Other fracture of T11-T12 vertebra, initial encounter for closed fracture (principal)
CPT/HCPCS: 72146

== ENCOUNTER → 2025-04-26 11:19 | Outpatient (BNV) | payer OTHER, SELFPAY | PROVIDERS: PCP Internal Medicine; Visit Provider Radiology Diagnostic Radiology | DX: S22.080A Wedge compression fracture of T11-T12 vertebra, initial encounter for closed fracture (principal) | CPT/HCPCS: 72146 ==

== ENCOUNTER 2025-04-28 13:52 | Outpatient (AMB) | payer OTHER, SELFPAY ==
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
[2025-04-28 13:56] VITALS: BP 120/80; PULSE 85; O2SAT 98; BMI 41.0
[2025-04-28 14:09] LABS: Glucose, Whole Blood 148 mg/dL (60-115)
--- OUTSIDE RECORDS SUMMARY | 2025-04-28 14:24 | XMS_ITS | Clinical Summary ---
Author Organization [facility] Address [address] [place] [address] Care Team Providers Care Publishing Editor Name Role Phone Terra Sorenson MD Primary Care Provider [phone] Allergies No known active allergies Medications Dexcom [...] - 03/31/2025 11:59 PM EDT Hospital Encounter [facility] Xray [address] [place] [phone] Compression fracture of T11 vertebra, initial encounter Discharge Disposition: Home or self care 03/31/2025 8:00 AM EDT Consult [facility] Neurosurgery [address] [place] [phone] Janak Mathews PA Compression fracture of T11 [...] Description 05/12/2025 9:00 AM EST Office Visit [facility] Neurosurgery [address] [place] [phone] Janak Mathews PA [address] [place] [address], [place] [address] Health Maintenance Due Date Last Done Comments [...] Last 3 Months Insurance ACO Care Teams Publishing Editor Relationship Specialty Start Date End Date Terra Sorenson MD [address] [place] [address] PCP - [facility] Chaplain 03/15/25
--- OUTSIDE RECORDS SUMMARY | 2025-04-28 14:24 | XMS_ITS | Encounter Summary ---
Author Organization [employer] [facility] Address [address] [place] [address] [address] [place] [address] Care Team Providers Care Forge Hand Name Role Phone Unavailable Primary Care Provider Unavailabl e Encounter Details Date Type Department Care Team (Latest Contact Info) Description 01/04/2021 Abstract [facility] Dental, Provider, DDS Social History [...]
--- OUTSIDE RECORDS SUMMARY | 2025-04-28 14:24 | XMS_ITS | Encounter Summary ---
Author Organization [facility] Address [address] [place] [address] [address] [place] [address] Care Team Providers Care Clinical Resource Director Name Role Phone Unavailable Primary Care Provider Unavailabl e Reason for Visit * Reason Onset Date Comments medication 02/03/2023 Encounter Details Date Type Department Care Team ([facility] st Contact Info) Description 02/03/2023 Telephone [facility] ADULT DENTAL [address] [place] [address] Matias Chase DDS [address] [place] [address] medication Social History Tobacco Use Types Packs/Day [...]
--- OUTSIDE RECORDS SUMMARY | 2025-04-28 14:24 | XMS_ITS | Encounter Summary ---
Author Organization [facility] Address [address] [place] [address] [address] [place] [address] Care Team Providers Care Photoengraver Apprentice Name Role Phone Unavailable Primary Care Provider Unavailabl e Reason for Visit * Reason Onset Date Comments appt for cleaning 03/12/2023 Encounter Details Date Type Department Care Team ([facility] st Contact Info) Description 03/12/2023 Telephone [facility] ADULT DENTAL [address] [place] [address] Matias Chase DDS [address] [place] [address] appt for cleaning Social History Tobacco Use [...]
--- OUTSIDE RECORDS SUMMARY | 2025-04-28 14:24 | XMS_ITS | Encounter Summary ---
Author Organization [employer] Address [address] [place] [address] [address] [place] [address] Care Team Providers Care Operations Boardman Name Role Phone Unavailable Primary Care Provider Unavailabl e Encounter Details Date Type Department Care Team (Late st Contact Info) Description 06/29/2023 Abstract [facility] ADULT DENTAL [address] [place] [address] [place], [place] [address] [place] [address] Social History Tobacco Use Types Packs/Day Years [...]
--- OUTSIDE RECORDS SUMMARY | 2025-04-28 14:24 | XMS_ITS | Clinical Summary ---
Author Organization [employer] Address [address] [place] [address] Care Team Providers Care Transportation Services Representative Name Role Phone Unavailable Primary Care Provider [...] Type Department Care Team Description 02/13/2025 Telephone [facility] ADULT DENTAL [address] [place] [address] Lexis Kate from Last 3 Months Social [...]
== END 2025-04-28 14:33 | disposition home or self-care (01) ==
LOC: HO.ENCR 13:53
PROVIDERS: PCP Internal Medicine; Visit Provider Student in an Organized Health Care Education/Training Program
DX: E10.9 Type 1 diabetes mellitus without complications (principal); Z96.41 Presence of insulin pump (external) (internal); E10.649 Type 1 diabetes mellitus with hypoglycemia without coma
CPT/HCPCS: 99214

== ENCOUNTER → 2025-04-28 13:52 | Outpatient (BNVA) | payer OTHER, SELFPAY | PROVIDERS: PCP Internal Medicine; Visit Provider Student in an Organized Health Care Education/Training Program | DX: E10.319 Type 1 diabetes mellitus with unspecified diabetic retinopathy without macular edema (principal); E10.649 Type 1 diabetes mellitus with hypoglycemia without coma; Z96.41 Presence of insulin pump (external) (internal) | CPT/HCPCS: 82947; 83036; 95250; 99212 ==